=== PATIENT | male | born 1940 | race Caucasian/White ===

== ENCOUNTER → 2023-09-29 07:43 | Outpatient (REF) | payer MEDICARE, OTHER, SELFPAY ==
[2023-09-29 08:16] LABS: Hematocrit 42.3 % (39.0-52.0)
[2023-09-29 08:52] LABS: Glycohemoglobin (HgbA1c) 7.8 % (4.0-5.6)
[2023-09-29 08:57] LABS: NT-proBNP 1680 pg/ml
[2023-09-29 09:01] LABS: Calcium 9.2 mg/dl (8.4-10.2)
[2023-09-29 09:06] LABS: ALT (SGPT) 15 U/L (0-50); AST (SGOT) 20 U/L (17-59); Albumin 3.8 g/dl (3.5-5.0); Alkaline Phosphatase 145 U/L (38-126); Blood Urea Nitrogen 77 mg/dl (9-20); Carbon Dioxide 31 mmol/L (22-30); Chloride 97 mmol/L (98-107); Glucose 105 mg/dl (70-99); HDL Cholesterol 42 mg/dl; LDL Cholesterol, Calculated 44 mg/dl; Phosphorus 3.9 mg/dl (2.5-4.5); Potassium 3.9 mmol/L (3.5-5.1); Sodium 136 mmol/L (135-145); Total Bilirubin 1.1 mg/dl (0.2-1.3); Total Cholesterol 101 mg/dl (50-199); Total Protein 6.9 g/dl (6.3-8.2); Triglyceride 77 mg/dl (10-149); Very Low Density Lipoprotein 15 mg/dl (0-30); eGFR 21.57
[2023-09-29 09:08] LABS: Free T4 1.07 ng/dl (0.78-2.19)
[2023-09-30 10:42] LABS: Intact PTH 402.5 pg/ml (13.6-85.8)
== END ==
LOC: REG 07:43
PROVIDERS: Specialist; ATTENDING PHYSICIAN Family Medicine
DX: N18.4 Chronic kidney disease, stage 4 (severe) (principal); E11.29 Type 2 diabetes mellitus with other diabetic kidney complication; E78.2 Mixed hyperlipidemia; E03.9 Hypothyroidism, unspecified
CPT/HCPCS: 36415; 80053; 80061; 83036; 83880; 83970; 84100; 84439; 84443; 85014; 85018

== ENCOUNTER 2023-10-08 14:03 | Inpatient (IN) | payer MEDICARE, OTHER, SELFPAY ==
[2023-10-08 10:12] VITALS: BMI 41.1
[2023-10-08 10:31] VITALS: BP 111/68
[2023-10-08 12:58] LABS: % Basophils 0.5 % (0-2); % Eosinophils 0.6 % (0-6); % Immature Granulocytes 0.4 % (0-0.5); % Lymphocytes 14.4 % (20.5-51.1); % Monocytes 5.4 % (1.7-9.3); % Neutrophils 78.7 % (42.2-75.2); Absolute Eosinophils 0.1 10^3/uL (0-0.7); Absolute Lymphocytes 1.2 10^3/uL (1.2-3.4); Absolute Monocytes 0.5 10^3/uL (0.1-0.6); Absolute Neutrophils 6.5 10^3/uL (1.4-6.5); Hematocrit 42.7 % (39.0-52.0); Hemoglobin 13.7 g/dL (13.0-18.0); Mean Corp Hgb Conc. 32.1 g/dL (33.0-37.0); Mean Corpuscular Hgb 32.4 pg (27.0-31.0); Mean Corpuscular Volume 100.9 fL (80.0-94.0); Mean Platelet Volume 10.2 fL (7.4-10.4); Nucleated Red Blood Cells % 0 % (-); Platelet Count 204 10^3/uL (130-400); Red Blood Cell Count 4.23 10^6/uL (4.70-6.10); White Blood Cell Count 8.3 10^3/uL (4.8-10.8)
--- NOTE | 2023-10-08 13:09 | HPS.HSE ---
Family Physician
-
Family Physician: Roe Shetty
Chief Complaint
-
Right lower extremity increased erythema, weeping ulcers
History of Present Illness
83-year-old male from home where he lives with his complaining of right lower extremity increased erythema with weeping and open ulcerated areas on chronic venous stasis dermatitis. He states he uses a leg pump for 1 hour a day bilateral legs
including PRESTON stockings daily. He denies fever, chills, chest pain, palpitations, shortness breath, cough, abdominal pain, nausea, vomiting, diarrhea, urinary symptoms
He has PMH bilateral lower extremity venous stasis dermatitis, chronic diastolic CHF preserved EF, non-DE troponin elevations, permanent A-fib with RBBB, severe pulmonary HTN, CKD stage IIIb baseline creatinine 2�2.2, hypothyroidism, HTN, GERD, ARIN
intolerant to CPAP, gout, morbid obesity.
Medical History
Past Medical History
Past Medical History: Reports Other
Additional Past Medical History:
Atrial fib permanent
Basal cell carcinoma
Congestive heart failure diastolic preserved EF
Hypertension
GERD
Hyperlipidemia
type 2 diabetes
osteoarthritis
Sleep apnea
Pulmonary hypertension
Past Surgical History: Reports Other
Additional Past Surgical History:
Bilateral rotator cuff surgery
Back surgery
Carpal tunnel repair
bilateral knee replacement
Left hip replacement
Varicose vein surgery
Left side cataract surgery
Social History
Tobacco: Former Smoker (Smoked young teens)
Alcohol: None
Drug: None
Personal:
Living: With Family
Employment: Retired
Family History
Family History: Not pertinent
Allergies / Home Medications
Allergies reflects when Allergies were last updated in [employer].
Home Medications with original date entered in [employer]
Allergy/Medication List:
Allergies
Allergy/AdvReac Type Severity Reaction Status Date / Time
No Known Allergies Allergy Verified 10/08/23 10:31
Home Medications
allopurinol 300 mg tablet 300 mg PO DAILY Gout 02/08/08
atorvastatin 20 mg tablet (Lipitor) 20 mg PO DAILY High cholesterol 02/08/08
pantoprazole 40 mg tablet,delayed release 40 mg PO DAILY Gastrointestinal issue 11/29/20
empagliflozin 10 mg tablet (Jardiance) 10 mg PO DAILY 30 days #30 tabs 05/22/21
alfuzosin 10 mg tablet,extended release 24 hr 10 mg PO DAILY Urinary Issue 12/30/22
glimepiride 2 mg tablet 1 mg PO DAILY Diabetes 12/30/22
levothyroxine 50 mcg tablet 50 mcg PO DAILY Thyroid 12/30/22
polyethylene glycol 3350 17 gram/dose oral powder 17 g PO DAILY #510 grams 01/10/23
acetaminophen 500 mg tablet (Tylenol Extra Strength) 1,000 mg PO HS 10/08/23
amlodipine 5 mg tablet 5 mg PO DAILY 10/08/23
calcitriol 0.25 mcg capsule 0.25 mcg PO DAILY 10/08/23
iron 1 tab PO HS 10/08/23
metolazone 5 mg tablet 5 mg PO FR@0800 10/08/23
rivaroxaban 15 mg tablet (Xarelto) 15 mg PO HS 10/08/23
torsemide 20 mg tablet 40 mg PO DAILY 10/08/23
Review of Systems
-
History Source: Patient
A 12 point ROS was completed and negative except as noted: Yes
Constitutional: Denies Fever or Chills
EENT: Denies Sore Throat or Runny Nose
Respiratory: Denies Cough or Trouble Breathing
Cardiac: Denies Chest Pain, Diaphoresis, Palpitations or Syncope
Abdomen/GI: Denies Abdominal Pain, Nausea, Vomiting, Diarrhea, Constipated, Bloody Stools or Black Stools
: Denies Dysuria, Frequency, Flank Pain, Incontinence, Difficulty Voiding or Urgency
Musculoskeletal: Reports Edema (Chronic bilateral lower extremity +2 nonpitting with chronic underlying venous stasis); Denies Joint Pain
Skin: Reports Other (Right lower extremity erythema with ulceration secondary to chronic underlying edema/venous stasis dermatitis); Denies Itching or Rash
Neurological: Denies Dizzy, Headache or Weakness
Endocrine: Reports No Symptoms
Hematologic/Lymphatic: Reports No Symptoms
Psych: Reports Calm
Physical Exam
Vital Signs
Vital Signs
Temp Pulse Resp BP Pulse Ox
98.1 F 61 18 111/68 95
10/08/23 10:31 10/08/23 10:31 10/08/23 10:31 10/08/23 10:31 10/08/23 10:31
Physical Exam
General: Comfortable and Conversant; No Pain, Fever or Chills
HEENT: NormoCephalic, Anicteric, Moist mucous membranes, PERRLA, [place] Conjunctivae and No Ptosis
Respiratory: Clear; No Wheezes, Rales or Rhonchi
Cardiac: S1/S2, Irregular Rhythm (Permanent A-fib) and Peripheral Edema (Chronic bilateral leg edema with chronic venous stasis); No Murmur, Rub or Gallop
Breast: Deferred by me
GI: Soft, Non Tender, Non Distended, Normal Bowel Sounds, No Hepatosplenomegaly and Other (Protuberant abdomen)
Rectal: Deferred by Provider
Genito-urinary: Deferred by me
Musculoskeletal: No Clubbing, No Cyanosis, Edema, Left Lower Extremity (Chronic +2 nonpitting edema with chronic venous stasis) and Edema, Right Lower Extremity (Right lower extremity erythema with ulceration secondary to chronic underlying
edema/venous stasis dermatitis); No Edema, Left Upper Extremity or Edema, Right Upper Extremity
Skin: Warm, Dry and Ulcers (Right lower extremity erythema with ulceration secondary to chronic underlying edema/venous stasis dermatitis); No Rash
Neuro: AO x 3, No Motor Deficits, Nonfocal/grossly intact, Cranial Nerves Intact and No Sensory Deficits; No Slurred Speech, Facial Droop or Tremors
Psych: Calm
Data Reviewed
-
Lab Data: Labs Reviewed by me
Impression/Plan
-
Impression/plan:
OBS MedSurg
#Right lower extremity cellulitis with venous stasis ulcers, weeping/chronic venous stasis dermatitis/edema
#Hx chronic venous stasis dermatitis bilateral lower legs-patient wears leg pumps 1 hour daily and teds overnight
-WBC 8.3, afebrile
-Consult wound care
-Iv Ancef 2gm q8h
-Check nasal MRSA screen
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
-PT/OT/case management consult
#DM2
BS 192
Accu-Cheks with SSI, check HgbA1c
-Continue Jardiance, glimepiride
#CKD 3B
Creat 2.5 <from 2.8 on 09/29/2023 baseline 2.2-2.5
-Follow BMP
#Permanent A-fib
#Chronic RBBB
-No rate control meds listed-HR 61
-Continue Xarelto 15 mg every afternoon
#HTN�benign
Continue amlodipine 5 mg daily
-BP 111/68
#HLD
-Continue Lipitor 20 mg daily
#Chronic diastolic CHF preserved EF
-I/O, daily weights
-Continue torsemide 40 mg daily, metolazone 5 mg daily
-Follows with [facility] cardiology
2D echo 08/15/2022: EF 50-55%, normal LVS LVSF, no wall abnormalities, mild MR/TR, PA pressures 57 mmHg
#Severe pulmonary HTN-PA pressures 57 mmHg July 2022 echo
#GERD
-Continue PPI
#Hypothyroidism
-Continue levothyroxine 50 mcg,, Calcitrol 0.25 mcg daily
#ARIN�intolerant to CPAP
#Osteoarthritis
#Gout
-Continue allopurinol
#Morbid obesity due to excess calorie consumption�BMI 41.1 kg
Weight loss recommended
Low-fat 1800 ADA diet
DVT prophylaxis
Continue PRODUCT MANAGER Xarelto
Full code
[2023-10-08 13:19] LABS: ALT (SGPT) 17 U/L (0-50); AST (SGOT) 20 U/L (17-59); Albumin 3.9 g/dl (3.5-5.0); Alkaline Phosphatase 132 U/L (38-126); Blood Urea Nitrogen 92 mg/dl (9-20); Calcium 8.9 mg/dl (8.4-10.2); Carbon Dioxide 31 mmol/L (22-30); Chloride 100 mmol/L (98-107); Estimated Creatinine Clearance 29 ml/min; Glucose 192 mg/dl (70-99); Sodium 136 mmol/L (135-145); Total Bilirubin 0.8 mg/dl (0.2-1.3); eGFR 24.72
[2023-10-08] MEDS: CLEOCIN 53 MG IV (13:40)
--- NOTE | 2023-10-08 14:08 | ED.GENMED ---
History of Present Illness
General
Chief Complaint: Skin Problem
Source: patient and spouse
Exam Limitations: none
Time Seen by Provider: 10/08/23 11:11
Nursing documentation reviewed up to this point in time: agreed with
Travel History
Have you had any contact with someone who has COVID-19?: No
Do you have any symptoms of coronavirus? Fever > 100 degrees, chills, cough, shortness of breath, sore throat, loss of taste or smell, muscle aches, or headache?: No
History of Present Illness
History of Present Illness:
The patient is an 83-year-old man with a past medical history of diabetes, chronic kidney disease, and A-fib, who arrives with worsening redness and swelling of his right lower leg. Patient reports that it has gradually gotten more painful and red
over the last 2 to 3 weeks. He denies a history of PE and DVT. Patient reports that he has had chronic wounds of both of his legs, which have caused him to have frequent skin infections and bleeding. Patient reports that he is not currently on
any antibiotics and is worried about a right lower leg infection.
Past History
Past History
ED Past Medical History: Arrthythmia (afib), Cancer (Basal cell skin cancer), CHF, GERD, HTN, Hypercholesterolemia, NIDDM and Other (OA. Pulmonary Hypertension, [place] planus)
ED Past Surgical History: Orthopedic (Andres rotator cuff, Back surgery, Carpal tunnel, Andres total knee, Left THR) and Other (Varicose vein surgery , cataract surgery Left eye)
Social History
Tobacco: Former smoker
Alcohol: Occasional
Personal:
Living: with family
Employment: Retired
Family History
Family History: Other
Review of Systems
Review of Systems
Allergies reviewed?: Yes
Other source history: family
All Other Systems: ROS reviewed and negative except as documented in HPI and ROS
Constitutional: Reports no symptoms
EENT: Reports no symptoms
Respiratory: Reports no symptoms
Cardiac: Reports no symptoms
ABD/GI: Reports no symptoms
: Reports no symptoms
Musculoskeletal: Reports edema
Skin: Reports other
Neurological: Reports no symptoms
Endocrine: Reports no symptoms
Hematologic/Lymphatic: Reports bleeding
Psychiatric: Reports no symptoms
Phy Exam
Physical Exam
Physical Exam:
Physical Exam
General: no apparent distress, not acutely ill
Neck: supple.
Heart: s1/s2 regular rate and rhythm,
Lungs: no acute respiratory distress. clear bilaterally
Abdomen: Soft, nontender
Neuro: alert and oriented. no focal neurological deficits
Skin: Skin breakdown of bilateral lower extremities with significant erythema and ulcerated wounds of right lower extremity
Psychiatric: well kept. interactive and cooperative
Extremities: 1+ pitting edema in left lower extremity. 2+ pitting edema in right lower extremity with bleeding and purulent ulcerated wounds and surrounding erythema of the majority of his right lower extremity
Course
Orders/Labs/Results
Orders:
Orders
10/08/23 12:50
Complete Blood Count/With Diff Urgent
Wound Culture [Wound/Abscess/Other Culture] Urgent
AJIT Source: Leg
Specimen Description: Right
Date Specimen was Collected: 10/08/23
Time Specimen was Collected: 12:43
10/08/23 12:51
Comprehensive Metabolic Panel Urgent
Blood Culture Q30M
AJIT Source: Blood/Venous
Specimen Description:
Blood Culture Q30M
AJIT Source: Blood/Venous
Specimen Description:
10/08/23 13:18
Clindamycin Phosphate [Cleocin] 450 mg 0.9% Sodium Chloride [Nss] 50 ml IV NOW
10/08/23 13:46
Admit/Transfer Patient As Directed
Co-Sign Provider:
Level of Care: Inpatient admission
Assign to:: Medical/Surgical
Physician / Group: rivers, micky james
Diagnosis: Right lower extremity cellulitis on chronic venous stasis dermatitis
Reason for Hospitalization: Right lower extremity cellulitis on chronic venous stasis dermatitis
Expected length of stay greater than two midnights?: Yes
ELOS- Estimated Length of Stay in days: 4
I certify the patient meets the requirements for IP care: Yes
Code Status As Directed
Resuscitation Status: Full Code
10/08/23 14:[address] Non Medication Order As Directed
Physician Order: tubie boilermaker apprentice stocking bilat legs start 10/09/23
10/08/23 14:07
MRSA Screen Routine
AJIT Source: Nose
Specimen Description:
10/08/23 16:00
CeFAZolin 2 GRAM [Ancef] 2 grams in 10 ml IV Q8H
Abnormal Lab Results
10/08/23 10/08/23
12:50 12:51
RBC 4.23 L 10^6/uL
(4.70-6.10)
MCV 100.9 H fL
(80.0-94.0)
MCH 32.4 H pg
(27.0-31.0)
MCHC 32.1 L g/dL
(33.0-37.0)
RDW 15.0 H %
(11.5-14.5)
Neutrophils % 78.7 H %
(42.2-75.2)
Lymphocytes % 14.4 L %
(20.5-51.1)
Carbon Dioxide 31 H mmol/L
(22-30)
BUN 92 H mg/dl
(9-20)
Creatinine 2.5 H mg/dL
(0.7-1.3)
Glucose 192 H mg/dl
(70-99)
Alkaline Phosphatase 132 H U/L
(38-126)
10/08/23 12:50
10/08/23 12:51
Vital Signs
Initial and Last Documented VS:
Initial Vital Signs
Temp Pulse Resp BP Pulse Ox
98.1 F 61 18 111/68 95
10/08/23 10:31 10/08/23 10:31 10/08/23 10:31 10/08/23 10:31 10/08/23 10:31
Last Documented Vital Signs
Temp Pulse Resp BP Pulse Ox
98.1 F 61 18 111/68 95
10/08/23 10:31 10/08/23 10:31 10/08/23 10:31 10/08/23 10:31 10/08/23 10:31
MDM/Problems Addressed
Differential Diagnosis Includes:
Infected leg wounds, right leg DVT, osteo
MDM/Problems Addressed:
Patient presents with worsening swelling and redness surrounding chronic wounds of his right lower leg
Chronic conditions affecting care: DM and Kidney disease
*Pulse Oximetry
Patient hypoxic: no
*EKG
Interpreted by ED Provider?: NA
*Hydroelectric Mechanic Interpretation
Rate: Hydroelectric Mechanic- N/A
*Critical Care Note
Total Time (30-74mins, 75-104mins- exclusive of procedures): Not Applicable
Data Reviewed
Review of Other/Old Records Reveals: Discharge Summary (Discharge summary reviewed from 01/2023 when patient was admitted for respiratory distress and CHF)
Source: patient and spouse
Patient Management
Discussion with other providers: Hospitalist
Escalation/DeEscalation of care consider admission/obs:
Patient will be admitted for right lower extremity cellulitis
ED Attending Note
-
Portions of this chart may have been created with voice recognition software.� Occasional wrong word or��sound alike� substitutions may have occurred due to the inherent limitations of voice recognition software.
Discharge Plan
Departure
Patient Disposition: Admit
Date of Disposition: 10/08/23
Time of Disposition: 12:45
Admit to: Med/Surg
Presentation/result/management discussed w/ accepting MD/DO: Hospitalist
Patient with high blood pressure during this ER visit?: Yes
Covid-19: Not Applicable
Discharge Problem:
Cellulitis of leg, right, Infected leg wounds
Interventions
Interventions:
*Risk Screen - Suicide Last Done: 10/08/23 12:40
*General Assessment Last Done: 10/08/23 12:40
*Neglect/Abuse Screening Last Done: 10/08/23 12:40
ED- Fall Risk Assessment Last Done: 10/08/23 12:40
*ED COVID-19 Vaccine History Last Done: 10/08/23 12:40
ED-Skin Assessment Last Done: 10/08/23 12:40
--- NOTE | 2023-10-08 14:30 | W.PN.UPDATE ---
Update Note
Progress Note Update
This serves as an addendum to H&P dictated by Kusum Genao.
I saw and examined the patient.
The PHYSICAL CHEMISTRY TEACHER or PA's note was reviewed and I agree with the note.
Comment:
Patient 83 years old male history of A-fib, CHF, hypertension, GERD, hyperlipidemia, diabetes mellitus type 2, osteoarthritis, ARIN, pulmonary hypertension, who came into the hospital with increased right lower extremity erythema and weeping from
open ulcerated areas and bilateral lower extremity swelling. He denies any fevers or chills. Denies nausea vomiting or diarrhea. Denies chest pain or shortness of breath.
Physical exam:
General: Chronically ill
HEENT: Normocephalic, Atraumatic and Moist Mucous Membranes
Respiratory: Clear to Auscultation; Negative Wheezes, Rales or Rhonchi
Cardiac: Regular Rhythm and S1/S2
GI: Soft, Nontender and Nondistended
Musculoskeletal: Bilateral lower extremity erythema and edema more pronounced on the right. No Clubbing, No Cyanosis
Neuro: Awake, Alert and Oriented
Psych: Calm
A/P:
Cellulitis RLE in the setting of chronic venous stasis--> IV cefazolin, follow-up cultures, elevate extremity, compression stockings. Wound care consult. PT eval. Further recommendations based on clinical course.
[2023-10-08 16:41] VITALS: BP 156/83
[2023-10-08] MEDS: ANCEF 10 IV ×2 (17:29→23:49)
[2023-10-08] MEDS: NOVOLOG FLEXPEN-LOW RESISTANCE SC (17:29)
[2023-10-08 17:30] LABS: Glucose - Point of Care 111 mg/dl (70-99)
[2023-10-08] MEDS: TYLENOL 1000 MG PO (20:39)
[2023-10-08] MEDS: XARELTO 15 MG PO (20:40)
[2023-10-08 21:30] LABS: Glucose - Point of Care 123 mg/dl (70-99)
[2023-10-08 23:18] VITALS: BP 139/81
[2023-10-09] MEDS: SYNTHROID 50 MCG PO (05:23)
--- NOTE | 2023-10-09 07:17 | W.PN.HOSP.TC ---
Today's Communication/Plan
-
IV antibiotics.
Assessment / Plan
Assessment / Plan
Physical exam:
General: Chronically ill
HEENT: Normocephalic, Atraumatic and Moist Mucous Membranes
Respiratory: Clear to Auscultation; Negative Wheezes, Rales or Rhonchi
Cardiac: Regular Rhythm and S1/S2
GI: Soft, Nontender and Nondistended
Musculoskeletal: Bilateral lower extremity erythema and edema more pronounced on the right. No Clubbing, No Cyanosis
Neuro: Awake, Alert and Oriented
Psych: Calm
A/P:
#Right lower extremity cellulitis with venous stasis ulcers, weeping/chronic venous stasis dermatitis/edema
#Hx chronic venous stasis dermatitis bilateral lower legs-patient wears leg pumps 1 hour daily and teds overnight
-WBC 6.9, afebrile
-Consulted wound care and continue local care
-Continue IV cefazolin 2gm q8h
-Check nasal MRSA screen and pending
- resume tubi nutrition technician
-PT/OT/case management consult
#DM2
Accu-Cheks with SSI, on 09/28 HgbA1c was 7.8
-Continue Jardiance, glimepiride
#CKD 3B
Creat 2.4 stable <from 2.8 on 09/29/2023 baseline 2.2-2.5
-Follow BMP
#Permanent A-fib
#Chronic RBBB
-No rate control meds listed-HR 63
-Continue Xarelto 15 mg every afternoon
#HTN�benign
Continue amlodipine 5 mg daily
-BP stable but adjust medications accordingly
#HLD
-Continue Lipitor 20 mg daily
#Chronic diastolic CHF preserved EF
-I/O, daily weights
-Continue torsemide 40 mg daily, metolazone 5 mg daily
-Follows with [facility] cardiology
2D echo 08/15/2022: EF 50-55%, normal LVS LVSF, no wall abnormalities, mild MR/TR, PA pressures 57 mmHg
#Severe pulmonary HTN-PA pressures 57 mmHg July 2022 echo
#GERD
-Continue PPI
#Hypothyroidism
-Continue levothyroxine 50 mcg,, Calcitriol 0.25 mcg daily
#ARIN�intolerant to CPAP
#Osteoarthritis
#Gout
-Continue allopurinol
#Morbid obesity due to excess calorie consumption�BMI 41.1 kg
Weight loss recommended
Low-fat 1800 ADA diet
DVT prophylaxis
Continue SUSTAIN ENGINEER Xarelto
Full code
Anticipated Discharge: 24 - 48 hours
Subjective/Interval History
-
Date of Service: October 09, 2023
Patient feels erythema is receding and less discomfort overall. Denies nausea vomiting or diarrhea. Afebrile
Objective Data
-
Labs:
Laboratory Results
10/09/23
06:53
WBC Pending
Hgb Pending
Hct Pending
Plt Count Pending
Sodium Pending
Potassium Pending
Chloride Pending
Carbon Dioxide Pending
BUN Pending
Creatinine Pending
Glucose Pending
Calcium Pending
Vital Signs:
Vital Signs
Temp Pulse Resp BP Pulse Ox
98.1 F 102 18 139/81 92
10/08/23 23:18 10/08/23 23:18 10/08/23 23:18 10/08/23 23:18 10/08/23 23:18
I&O
10/08/23 10/09/23 10/10/23
06:59 06:59 06:59
Intake Total 360 / 360
Balance 360 / 360
Review of Systems
-
All other systems: Reviewed and negative
[2023-10-09 07:26] LABS: Glucose - Point of Care 87 mg/dl (70-99)
[2023-10-09 07:30] VITALS: BP 169/86
[2023-10-09] MEDS: NOVOLOG FLEXPEN-LOW RESISTANCE SC ×2 (07:30→12:05)
[2023-10-09 07:37] LABS: % Basophils 0.4 % (0-2); % Immature Granulocytes 0.1 % (0-0.5); % Lymphocytes 21.4 % (20.5-51.1); % Monocytes 6.7 % (1.7-9.3); % Neutrophils 70.4 % (42.2-75.2); Absolute Eosinophils 0.1 10^3/uL (0-0.7); Absolute Lymphocytes 1.5 10^3/uL (1.2-3.4); Absolute Monocytes 0.5 10^3/uL (0.1-0.6); Absolute Neutrophils 4.9 10^3/uL (1.4-6.5); Hematocrit 41.8 % (39.0-52.0); Hemoglobin 13.4 g/dL (13.0-18.0); Mean Corp Hgb Conc. 32.1 g/dL (33.0-37.0); Mean Corpuscular Hgb 32.4 pg (27.0-31.0); Mean Platelet Volume 10.2 fL (7.4-10.4); Nucleated Red Blood Cells % 0 % (-); Platelet Count 187 10^3/uL (130-400); Red Blood Cell Count 4.14 10^6/uL (4.70-6.10); Red Cell Dist. Width 14.9 % (11.5-14.5); White Blood Cell Count 6.9 10^3/uL (4.8-10.8)
[2023-10-09 08:41] LABS: Blood Urea Nitrogen 85 mg/dl (9-20); Calcium 8.9 mg/dl (8.4-10.2); Carbon Dioxide 32 mmol/L (22-30); Chloride 100 mmol/L (98-107); Estimated Creatinine Clearance 30 ml/min; Glucose 80 mg/dl (70-99); Potassium 3.9 mmol/L (3.5-5.1); Sodium 137 mmol/L (135-145); eGFR 25.96
[2023-10-09] MEDS: NORVASC 5 MG PO (09:12)
[2023-10-09] MEDS: DEMADEX 40 MG PO (09:12)
[2023-10-09] MEDS: ZYLOPRIM 300 MG PO (09:12)
[2023-10-09] MEDS: ROCALTROL 0.25 MCG PO (09:12)
[2023-10-09] MEDS: AMARYL 1 MG PO (09:12)
[2023-10-09] MEDS: PROTONIX 40 MG PO (09:12)
[2023-10-09] MEDS: JARDIANCE 10 MG PO (09:12)
[2023-10-09] MEDS: LIPITOR 20 MG PO (09:12)
[2023-10-09] MEDS: FLOMAX 0.400000000000000022 MG PO (09:12)
[2023-10-09] MEDS: ZAROXOLYN 5 MG PO (09:12)
[2023-10-09] MEDS: ANCEF 10 IV ×3 (09:13→23:32)
[2023-10-09 10:50] VITALS: BP 156/72; O2SAT 98
--- NOTE | 2023-10-09 10:57 | PTOTSP ---
pt currently requires no assistance to complete simple ADLs, functional transfers, ambulation. pt reports RLE swelling is better than when first admitted. no acute OT needs identified at this time, will sign off.
[2023-10-09 12:00] LABS: Glucose - Point of Care 127 mg/dl (70-99)
--- NOTE | 2023-10-09 12:08 | WOUNDNOTE ---
[facility] RN note: Patient admitted with venous stasis and cellulitis of right leg
See H&P for complete history.
PMH: Venous insufficiently, lymphedema, pulmonary HTN, CHF, A-fib, arthritis
Wound Location and type/assessment: Patient admitted with: Right LE venous appearing wound. Wound is draining moderate amounts of serosanguineous drainage. Periwound is macerated and the granular wound bed has areas of hypergranulation. Patient has
+ pedal pulses and +2 edema bilaterally. He states he wears lymphedema pumps daily for 1 hour daily. Left leg with thick crusts that patient states he has had for 20+ years. He reports getting vein treatment of left leg when he lived in [place] but
it did not help improve skin. He was also evaluated by a raveler but could not recall diagnosis. Even without the crust, skin bilaterally has venous stasis changes. Heels and sacrum intact.
Appetite: Good
Pressure redistribution devices in place: Versa- Care accumax. Patient turns self and ambulates
Plan: Keep wound cleaned and covered as ordered to help manage drainage. Moisturize dry areas with Aquaphor. Re-apply compression daily. Recommend follow up at [facility], patient agrees. TORI Lagunas in CM to notify that patient will need and WCC at
discharge. Will confirm orders with hospitalist and update nurse. Updated care plan and will follow as needed.
Note to case management of equipment requested for discharge:
Recommend follow up at wound care center upon discharge. Yes
[2023-10-09] MEDS: HYDROPHOR TOPICAL (12:37)
--- NOTE | 2023-10-09 13:48 | VNURNOTE ---
Home Health Liaison met with patient and spouse Elizabeth at 1245 to discuss [facility] nurse/therapy, visits, schedule and homebound status. Patient is agreeable and understands that visits at home will be 2-3 x per week to assess and teach medical
management.
[facility] brochure provided with contact information. Patient is aware that [facility] will contact them for start of care in 1-2 days after discharge from .
[facility] referral completed in [facility].
[2023-10-09 15:33] VITALS: BP 157/72
[2023-10-09 16:34] LABS: Glucose - Point of Care 175 mg/dl (70-99)
[2023-10-09] MEDS: NOVOLOG FLEXPEN-LOW RESISTANCE 1 UNITS SC (17:59)
[2023-10-09] MEDS: TYLENOL 1000 MG PO (21:42)
[2023-10-09] MEDS: XARELTO 15 MG PO (21:43)
[2023-10-09 22:15] LABS: Glucose - Point of Care 122 mg/dl (70-99)
[2023-10-09 23:08] VITALS: BP 122/73
[2023-10-10 06:00] VITALS: BMI 39.8
[2023-10-10] MEDS: SYNTHROID 50 MCG PO (06:14)
[2023-10-10 07:21] LABS: % Basophils 0.5 % (0-2); % Eosinophils 0.9 % (0-6); % Immature Granulocytes 0.5 % (0-0.5); % Lymphocytes 18.2 % (20.5-51.1); % Monocytes 8.4 % (1.7-9.3); % Neutrophils 71.5 % (42.2-75.2); Absolute Eosinophils 0.1 10^3/uL (0-0.7); Absolute Lymphocytes 1.3 10^3/uL (1.2-3.4); Absolute Monocytes 0.6 10^3/uL (0.1-0.6); Absolute Neutrophils 5.3 10^3/uL (1.4-6.5); Hemoglobin 13.3 g/dL (13.0-18.0); Mean Corp Hgb Conc. 33.3 g/dL (33.0-37.0); Mean Corpuscular Hgb 32.6 pg (27.0-31.0); Mean Platelet Volume 10.2 fL (7.4-10.4); Nucleated Red Blood Cells % 0 % (-); Platelet Count 189 10^3/uL (130-400); Red Blood Cell Count 4.08 10^6/uL (4.70-6.10); Red Cell Dist. Width 14.8 % (11.5-14.5); White Blood Cell Count 7.4 10^3/uL (4.8-10.8)
[2023-10-10 07:24] LABS: Glucose - Point of Care 80 mg/dl (70-99)
[2023-10-10 08:04] VITALS: BP 144/77
[2023-10-10] MEDS: DEMADEX 40 MG PO (08:35)
[2023-10-10] MEDS: NORVASC 5 MG PO (08:35)
[2023-10-10] MEDS: ZYLOPRIM 300 MG PO (08:35)
[2023-10-10] MEDS: FLOMAX 0.400000000000000022 MG PO (08:35)
[2023-10-10] MEDS: NOVOLOG FLEXPEN-LOW RESISTANCE SC ×2 (08:35→17:08)
[2023-10-10] MEDS: AMARYL 1 MG PO (08:36)
[2023-10-10] MEDS: PROTONIX 40 MG PO (08:36)
[2023-10-10] MEDS: ANCEF 10 IV (08:36)
[2023-10-10] MEDS: JARDIANCE 10 MG PO (08:36)
[2023-10-10] MEDS: HYDROPHOR 1 APPLIC TOPICAL (08:36)
[2023-10-10] MEDS: LIPITOR 20 MG PO (08:36)
[2023-10-10] MEDS: ROCALTROL 0.25 MCG PO (08:36)
[2023-10-10 09:11] LABS: Blood Urea Nitrogen 83 mg/dl (9-20); Carbon Dioxide 30 mmol/L (22-30); Chloride 99 mmol/L (98-107); Estimated Creatinine Clearance 30 ml/min; Glucose 70 mg/dl (70-99); Potassium 3.8 mmol/L (3.5-5.1); Sodium 137 mmol/L (135-145); eGFR 25.96
--- NOTE | 2023-10-10 10:36 | W.PN.HOSP.TC ---
Today's Communication/Plan
-
With resistance to cefazolin will need to change antibiotic
Wound note reviewed
Will consult ID as given his significant chronic kidney disease antibiotic options may be limited
Will place on meropenem for now awaiting ID input for an outpatient course of therapy hopefully orally
Assessment / Plan
Assessment / Plan
Physical exam:
General: Chronically ill
HEENT: Normocephalic, Atraumatic and Moist Mucous Membranes
Respiratory: Clear to Auscultation; Negative Wheezes, Rales or Rhonchi
Cardiac: Regular Rhythm and S1/S2
GI: Soft, Nontender and Nondistended
Musculoskeletal: Bilateral lower extremity erythema and edema more pronounced on the right. No Clubbing, No Cyanosis
Neuro: Awake, Alert and Oriented
Psych: Calm
A/P:
#Right lower extremity cellulitis with venous stasis ulcers, weeping/chronic venous stasis dermatitis/edema
#Hx chronic venous stasis dermatitis bilateral lower legs-patient wears leg pumps 1 hour daily and teds overnight
-WBC 6.9, afebrile
-Consulted wound care and continue local care/reviewed notes and photos
-Initial wound cultures growing Enterobacter cloacae/staph species
-Has been on cefazolin but wound culture showing resistance on sensitivities
-Check nasal MRSA screen was negative
- resume tubi boring machine operator horizontal
-PT/OT/case management consult
#DM2
Accu-Cheks with SSI, on 09/28 HgbA1c was 7.8
-Continue Jardiance, glimepiride
#CKD 3B
Creat 2.4 stable <from 2.8 on 09/29/2023 baseline 2.2-2.5
-Follow BMP
#Permanent A-fib
#Chronic RBBB
-No rate control meds listed-HR 63
-Continue Xarelto 15 mg every afternoon
#HTN�benign
Continue amlodipine 5 mg daily
-BP stable but adjust medications accordingly
#HLD
-Continue Lipitor 20 mg daily
#Chronic diastolic CHF preserved EF
-I/O, daily weights
-Continue torsemide 40 mg daily, metolazone 5 mg daily
-Follows with [facility] cardiology
2D echo 08/15/2022: EF 50-55%, normal LVS LVSF, no wall abnormalities, mild MR/TR, PA pressures 57 mmHg
#Severe pulmonary HTN-PA pressures 57 mmHg July 2022 echo
#GERD
-Continue PPI
#Hypothyroidism
-Continue levothyroxine 50 mcg,, Calcitriol 0.25 mcg daily
#ARIN�intolerant to CPAP
#Osteoarthritis
#Gout
-Continue allopurinol
#Morbid obesity due to excess calorie consumption�BMI 41.1 kg
Weight loss recommended
Low-fat 1800 ADA diet
DVT prophylaxis
Continue PREP MANAGER Xarelto
Full code
Anticipated Discharge: Within 24 hours
Subjective/Interval History
-
Date of Service: October 10, 2023
Comfortable no distress who is expected to go home today but I reviewed the culture results and the need to change antibiotic and possible need to get ID input
Objective Data
-
Labs:
Laboratory Results
10/10/23
07:05
WBC 7.4
Hgb 13.3
Hct 40.0
Plt Count 189
Sodium 137
Potassium 3.8
Chloride 99
Carbon Dioxide 30
BUN 83 H
Creatinine 2.4 H
Glucose 70
Calcium 9.0
Vital Signs:
Vital Signs
Temp Pulse Resp BP Pulse Ox
98.8 F 52 16 144/77 96
10/10/23 08:04 10/10/23 08:04 10/10/23 08:04 10/10/23 08:04 10/10/23 08:04
I&O
10/09/23 10/10/23 10/11/23
06:59 06:59 06:59
Intake Total 360 / 360 600 / 600 480 / 480
Balance 360 / 360 600 / 600 480 / 480
Review of Systems
-
Unable to obtain full review of systems at this time due to: Dementia
History Source: Patient
All other systems: Reviewed and negative
Constitutional: Reports No Symptoms
EENT: Reports No Symptoms Reported
Respiratory: Reports No Symptoms
Skin: Reports Rash and Sores
Physical Exam
-
General: Well Developed
HEENT: Normocephalic
Respiratory: Clear to Auscultation
Cardiac: Regular Rhythm
GI: Soft, Nontender and Nondistended
Skin: Ulcers (Right pretibial more worse than left higher aspect worse), Lesions and IV Access / Catheter Site
Neuro: Awake, Alert and Oriented
Psych: Calm
Data Reviewed
-
Total Time Spent with Patient (in minutes): 56
Labs: Labs Reviewed by me (Creatinine stable at 2.4/wound culture came back with Enterobacter cloacae and staph species/MRSA screen was negative/sensitivities reported resistance to cefazolin)
--- NOTE | 2023-10-10 10:54 | PTCARENOTE ---
Patient OOB to bathroom with a steady gait. Patient has minimal c/o RLE pain, denies need for pain med. Patient with B/L mayank compression wraps on and tolerating.
[2023-10-10 11:14] LABS: Glucose - Point of Care 177 mg/dl (70-99)
[2023-10-10] MEDS: STERILE WATER FOR INJECTION 20 ML IV (11:32)
[2023-10-10] MEDS: NOVOLOG FLEXPEN-LOW RESISTANCE 1 UNITS SC (11:32)
[2023-10-10] MEDS: MERREM 1000 MG IV (11:32)
--- NOTE | 2023-10-10 14:29 | CON.ID ---
Consultation
-
Date/Time Consultation Requested: 10/10/23 1045
Date/Time Consultation Performed: 10/10/2023 1400
Requesting Provider: Dr. Parham
Performing Provider: Dr. Gonzales
Reason for Consultation: Lower extremity wounds
Chief Complaint / Past History
History of Present Illness
Michael Gibobns is an 83-year-old man being evaluated at the request of Dr. Parham in regards to lower extremity wounds and drainage. History is obtained from chart review, along with patient interview.
The patient reports a longstanding history of lower extremity venous insufficiency, and notes that his legs have been 'bad' for the past 20 years. He states that he uses lower extremity compression garments, along with a lymphatic pump, but over
the past 2 weeks he has noted new blisters and some general oozing from the lower extremities. He became increasingly concerned with the bruise in the wounds and presented to the emergency room for further evaluation. He denies any recent fevers
or chills. He denies any recent pain in the lower extremities. He reports prior vein surgery to the lower extremities. He denies any purulence or spreading erythema in the lower extremities
Past History
Additional Past Medical History:
CHF
A-fib
Pulmonary hypertension
CKD stage IIIb
Hypothyroidism
HTN
GERD
ARIN
Gout
Obesity
Basal cell carcinoma
Additional Past Surgical History:
Bilateral rotator cuff surgery
Back surgery
Carpal tunnel repair
Bilateral knee replacement
Left hip replacement
Varicose vein surgery
Left side cataract surgery
Allergy History:
No Known Allergies Allergy (Verified 10/08/23 10:31)
Medications Reviewed: Yes
Current Antibiotics:
Cefazolin 2 g IV every 8 hours
Social History
Tobacco: Non-Smoker
Alcohol: None
Drug: None
Employment: Retired
Family History
Family History: Not Pertinent
Review of Systems
Vital Signs
Temp Pulse Resp BP Pulse Ox
98.8 F 52 16 144/77 96
10/10/23 08:04 10/10/23 08:04 10/10/23 08:04 10/10/23 08:04 10/10/23 08:04
Physical Exam
Physical Exam
Constitutional: No Acute Distress, Comfortable, Non-toxic and Obese
Head: Normocephalic
Eyes: Pupils Equal, Pupils Round, No Conjunctival Hemorrhage and Sclera Anicteric
Oral: No Thrush and No Ulcers
Cardiovascular: S1/S2; Negative S3/S4
Pulmonary: Clear; Negative Wheezes, Rales or Rhonchi
Gastrointestinal: Soft, Non Tender, Non Distended and Normal Bowel Sounds
Extremities: Edema (B/L LE's) and Venous Insufficiency (Moderate-severe bilateral lower extremities); Negative Erythema
Wound: Other (Multiple wounds lower extremities along with dried crusts. Some areas of bloody ooze.)
Neurological: Awake and Alert
Psychological: Calm
Lab / Diagnostic Study Results
10/10/23 07:05
10/10/23 07:05
Abs Immat Gran (auto) 0.0 10^3/uL (0-0.05) 10/10/23 07:05
Absolute Neuts (auto) 5.3 10^3/uL (1.4-6.5) 10/10/23 07:05
Absolute Lymphs (auto) 1.3 10^3/uL (1.2-3.4) 10/10/23 07:05
Absolute Monos (auto) 0.6 10^3/uL (0.1-0.6) 10/10/23 07:05
Absolute Basos (auto) 0.0 10^3/uL (0-0.2) 10/10/23 07:05
Immature Gran % 0.5 % (0-0.5) 10/10/23 07:05
Neutrophils % 71.5 % (42.2-75.2) 10/10/23 07:05
Lymphocytes % 18.2 % (20.5-51.1) L 10/10/23 07:05
Monocytes % 8.4 % (1.7-9.3) 10/10/23 07:05
Eosinophils % 0.9 % (0-6) 10/10/23 07:05
Basophils % 0.5 % (0-2) 10/10/23 07:05
Microbiology Results
Micro:
10/08/23 12:51 Blood Culture - Preliminary
Blood/Venous No Growth in 48 hours- Final report to follow
10/08/23 12:51 Blood Culture - Preliminary
Blood/Venous No Growth in 48 hours- Final report to follow
10/08/23 12:50 Wound Culture - Preliminary
Leg - Right Enterobacter cloacae
Staphylococcus species
Gram Stain - Preliminary
10/08/23 14:07 MRSA Screen - Final
Nose No Methicillin Resistant Staphylococcus aureus isolated.
Assessment / Plan
Bilateral lower extremity venous insufficiency
Bilateral lower extremity wounds
CHF
A-fib
Pulmonary hypertension
CKD stage IIIb
Hypothyroidism
HTN
GERD
ARIN
Gout
Obesity
Basal cell carcinoma
Recommendations:
Culture results reviewed, although these were superficial wound cultures, and likely reflect significant colonization. Growth on superficial wound cultures and is to be somewhat expected. Clinically, little evidence of cellulitis, although patient
has significant wounds related to his venous insufficiency.
Moving forward, continue with lower extremity compressive modalities in the form of Tubigrip, Gurwinder wrap, etc. Would hold on pneumatic compression boots for now.
Transition antibiotics to oral therapy.
Local care to the open woulds. Can use Vash wash, then Adaptic covered by ABD and then Graciela.
Patient would likely benefit from evaluation in a wound care center for ongoing care of the right lower extremity wounds (posterior calf area).
Would also have patient evaluated by dermatology in the outpatient setting as he may need biopsies of several of the areas to assure that there is no malignancy.
Additionally, check lower extremity ABIs to assess healing potential.
[2023-10-10] MEDS: KEFLEX 500 MG PO ×2 (15:57→22:41)
[2023-10-10 17:08] LABS: Glucose - Point of Care 115 mg/dl (70-99)
[2023-10-10 17:59] VITALS: BP 145/79
[2023-10-10] MEDS: TYLENOL 1000 MG PO (22:41)
[2023-10-10] MEDS: XARELTO 15 MG PO (22:41)
[2023-10-10 22:50] VITALS: BP 143/78
[2023-10-10 22:52] LABS: Glucose - Point of Care 133 mg/dl (70-99)
[2023-10-11 06:00] VITALS: BMI 39.7
[2023-10-11] MEDS: KEFLEX 500 MG PO (06:23)
[2023-10-11] MEDS: SYNTHROID 50 MCG PO (06:23)
[2023-10-11 07:50] LABS: Glucose - Point of Care 80 mg/dl (70-99)
[2023-10-11 07:50] LABS: % Basophils 0.5 % (0-2); % Immature Granulocytes 0.4 % (0-0.5); % Lymphocytes 21.5 % (20.5-51.1); % Neutrophils 70.6 % (42.2-75.2); Absolute Eosinophils 0.1 10^3/uL (0-0.7); Absolute Lymphocytes 1.8 10^3/uL (1.2-3.4); Absolute Monocytes 0.5 10^3/uL (0.1-0.6); Absolute Neutrophils 5.8 10^3/uL (1.4-6.5); Hematocrit 44.9 % (39.0-52.0); Hemoglobin 14.3 g/dL (13.0-18.0); Mean Corp Hgb Conc. 31.8 g/dL (33.0-37.0); Mean Corpuscular Hgb 31.9 pg (27.0-31.0); Mean Corpuscular Volume 100.2 fL (80.0-94.0); Mean Platelet Volume 10.4 fL (7.4-10.4); Nucleated Red Blood Cells % 0 % (-); Platelet Count 228 10^3/uL (130-400); Red Blood Cell Count 4.48 10^6/uL (4.70-6.10); Red Cell Dist. Width 14.9 % (11.5-14.5); White Blood Cell Count 8.2 10^3/uL (4.8-10.8)
[2023-10-11] MEDS: DEMADEX 40 MG PO (07:57)
[2023-10-11] MEDS: LIPITOR 20 MG PO (07:57)
[2023-10-11] MEDS: AMARYL 1 MG PO (07:57)
[2023-10-11] MEDS: NORVASC 5 MG PO (07:57)
[2023-10-11] MEDS: FLOMAX 0.400000000000000022 MG PO (07:57)
[2023-10-11 07:58] VITALS: BP 136/74
[2023-10-11] MEDS: PROTONIX 40 MG PO (07:58)
[2023-10-11] MEDS: ZYLOPRIM 300 MG PO (07:58)
[2023-10-11] MEDS: JARDIANCE 10 MG PO (07:58)
[2023-10-11] MEDS: ROCALTROL 0.25 MCG PO (07:58)
[2023-10-11] MEDS: NOVOLOG FLEXPEN-LOW RESISTANCE SC (07:59)
[2023-10-11] MEDS: HYDROPHOR 1 APPLIC TOPICAL (08:03)
[2023-10-11 08:10] LABS: Blood Urea Nitrogen 82 mg/dl (9-20); Calcium 9.5 mg/dl (8.4-10.2); Carbon Dioxide 32 mmol/L (22-30); Chloride 97 mmol/L (98-107); Estimated Creatinine Clearance 27 ml/min; Glucose 95 mg/dl (70-99); Potassium 3.8 mmol/L (3.5-5.1); Sodium 138 mmol/L (135-145); eGFR 23.58
--- NOTE | 2023-10-11 11:07 | W.DS.TRANS ---
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
-
Discharge Instructions:
Discharge Diagnosis/Procedures Right lower extremity cellulitis with venous
stasis ulcers
Chronic kidney disease stage IIIb
Benign essential hypertension
Permanent atrial fibrillation
Chronic diastolic heart failure with preserved
ejection fraction
Diet As tolerated
Driving Restrictions As prior to admission
Wound Care Needs to follow-up with wound care with
instructions as below refused home health
Instructions:
Stand-Alone Forms:
Changes to Home Medications: Yes
Discharge Medications:
DC Medications w/original date entered in [facility]
allopurinol 300 mg tablet 300 mg PO DAILY Gout 02/08/08
atorvastatin 20 mg tablet (Lipitor) 20 mg PO DAILY High cholesterol 02/08/08
pantoprazole 40 mg tablet,delayed release 40 mg PO DAILY Gastrointestinal issue 11/29/20
empagliflozin 10 mg tablet (Jardiance) 10 mg PO DAILY 30 days #30 tabs 05/22/21
alfuzosin 10 mg tablet,extended release 24 hr 10 mg PO DAILY Urinary Issue 12/30/22
glimepiride 2 mg tablet 1 mg PO DAILY Diabetes 12/30/22
levothyroxine 50 mcg tablet 50 mcg PO DAILY Thyroid 12/30/22
acetaminophen 500 mg tablet (Tylenol Extra Strength) 1,000 mg PO HS pain 10/08/23
amlodipine 5 mg tablet 5 mg PO DAILY Blood Pressure 10/08/23
calcitriol 0.25 mcg capsule 0.25 mcg PO DAILY Kidney Disease 10/08/23
iron 1 tab PO HS Supplement 10/08/23
metolazone 5 mg tablet 5 mg PO FR@0800 Fluid Retention/Swelling 10/08/23
rivaroxaban 15 mg tablet (Xarelto) 15 mg PO HS Blood Clot Prevention/Tx 10/08/23
torsemide 20 mg tablet 40 mg PO DAILY Fluid Retention/Swelling 10/08/23
polyethylene glycol 3350 17 gram/dose oral powder 17 g PO DAILY Constipation 10/09/23
cephalexin 500 mg capsule 500 mg PO Q8H #20 caps 10/11/23
Home Medication Changes
cephalexin 500 mg capsule 500 mg PO Q8H #20 caps 10/11/23
Pending Results: No
Total time spent discharging patient (in min): 39
--- NOTE | 2023-10-11 11:32 | W.PN.ID1 ---
Date of Service
Date of Service: October 11, 2023
Today's Communication
Continue Keflex, along with local care to the foot.
Assessment / Plan
Bilateral lower extremity venous insufficiency
Bilateral lower extremity wounds
CHF
A-fib
Pulmonary hypertension
CKD stage IIIb
Hypothyroidism
HTN
GERD
ARIN
Gout
Obesity
Basal cell carcinoma
Recommendations:
Culture results reviewed, although these were superficial wound cultures, and likely reflect significant colonization. Growth on superficial wound cultures and is to be somewhat expected. Clinically, little evidence of cellulitis, although patient
has significant wounds related to his venous insufficiency.
Moving forward, continue with lower extremity compressive modalities in the form of Tubigrip, Gurwinder wrap, etc. Would hold on pneumatic compression boots for now.
Continue Keflex.
Local care to the open wounds. Can use Vash wash, then Adaptic covered by ABD and then Graciela.
Patient would likely benefit from evaluation in a wound care center for ongoing care of the right lower extremity wounds (posterior calf area).
Would also have patient evaluated by dermatology in the outpatient setting as he may need biopsies of several of the areas to assure that there is no malignancy.
Additionally, check lower extremity ABIs to assess healing potential - ordered, but could be done as an outpatient.
Chief Complaint
-: Cellulitis
Subjective / Review of Systems
Review of Systems: No Fever and No Chills
Vital Signs / Physical Exam
Vital Signs
Vital Signs
Temp Pulse Resp BP Pulse Ox
97.8 F 78 16 136/74 96
10/11/23 07:58 10/11/23 07:57 10/11/23 07:58 10/11/23 07:58 10/11/23 07:58
Physical Exam
Constitutional: No Acute Distress, Comfortable and Non-toxic
Eyes: Sclera Anicteric
Pulmonary: Non Labored
Wound: Other (Bilateral lower extremities wrapped in Gurwinder wrap. No strikethrough. No extension of erythema extending up leg.)
Neurological: Awake and Alert
Psychological: Calm
Objective Data
Lab Data
Lab Results
10/11/23 06:58
10/11/23 06:58
Estimated Creat Clear 27 ml/min 10/11/23 06:58
Total Bilirubin 0.8 mg/dl (0.2-1.3) 10/08/23 12:51
AST 20 U/L (17-59) 10/08/23 12:51
ALT 17 U/L (0-50) 10/08/23 12:51
Alkaline Phosphatase 132 U/L (38-126) H 10/08/23 12:51
Most recent labs reviewed.
Micro Results:
10/08/23 12:50 Wound Culture - Final
Leg - Right Enterobacter cloacae
Staphylococcus schleiferi
Gram Stain - Final
10/08/23 12:51 Blood Culture - Preliminary
Blood/Venous No Growth in 48 hours- Final report to follow
10/08/23 12:51 Blood Culture - Preliminary
Blood/Venous No Growth in 48 hours- Final report to follow
10/08/23 14:07 MRSA Screen - Final
Nose No Methicillin Resistant Staphylococcus aureus isolated.
[2023-10-11 11:44] LABS: Glucose - Point of Care 151 mg/dl (70-99)
[2023-10-11] MEDS: NOVOLOG FLEXPEN-LOW RESISTANCE 1 UNITS SC (11:50)
--- NOTE | 2023-10-11 11:50 | W.DCSUMMARY ---
Discharge Summary
Discharge Data
Date of Admission: 10/08/23
Date of Discharge: 10/11/23
-
Pending Results: No
Hospital Course
83-year-old male who presented with lower extremity wounds and drainage longstanding history that includes venous insufficiency for years and last 2 weeks noted blistering and oozing from the lower extremities and concerned over bruising and concern
for infection brought in and was empirically started on antibiotics he denied any fever any chills of note the patient has had not only usage of compression garments for years but also reports prior venous surgery to the lower extremities. He did
not describe any arterial imaging studies in the past. Although presentation was not consistent with arterial insufficiency type of presentation. Started on a course of empiric cefazolin and culture of fluid and wounds done with wound care
consultation placed with culture results finally coming back growing Enterococcus that was resistant to cefazolin along with staph species. With this consideration and ID consultation was placed over plans of course of therapy going forward with
continued local wrap to the right lower extremity to the both lower extremities by wound care infectious disease service felt likely colonization from longstanding superficial wounds with little evidence of active cellulitis. Recommendation was for
continued compressive modalities including Tubigrip's and Gurwinder wrap's continue wound care follow-up in the wound care clinic with the usage of Adaptic covered by Gay Owens also recommendation for evaluation by dermatology in the outpatient
setting as he may need biopsies of several areas to ensure there is no malignancy. 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
his local pharmacy.
Discharge Plan
-
Patient Disposition: Home (Routine Discharge)
Discharge Diagnosis/Procedures: Right lower extremity cellulitis with venous stasis ulcers
Chronic kidney disease stage IIIb
Benign essential hypertension
Permanent atrial fibrillation
Chronic diastolic heart failure with preserved ejection fraction
Diet: As tolerated
Driving Restrictions: As prior to admission
Wound Care: Needs to follow-up with wound care with instructions as below refused home health
Activity Restrictions/Additional Instructions:
Wound Care Instructions Right Lower Extremity- Clean gently with saline or soap and water. Gently pat dry. Apply barrier ointment around wound. Cover wound with Xeroform, alginate, ABD and kerlix. Change daily and PRN drainage.
Resume leg pumps as directed
Re-apply GURWINDER to LE daily
Apply Aquaphor to dry skin on both legs daily
Follow up at wound care center call for an appointment.
Referrals:
Roe Shetty MD [Family Provider] - in one week (If continues with poor healing quality lower extremities may require further assessment of vascular status with arterial imaging)
Prescriptions:
New
cephalexin 500 mg Capsule
500 mg PO Q8H Qty: 20 0RF
Continued
atorvastatin [Lipitor] 20 MG tablet
20 mg PO DAILY
allopurinol 300 MG tablet
300 mg PO DAILY
pantoprazole 40 MG tablet,delayed release (DR/EC)
40 mg PO DAILY
Jardiance 10 MG tablet
10 mg PO DAILY 30 Days Qty: 30 0RF
glimepiride 2 mg tablet
1 mg PO DAILY
levothyroxine 50 mcg tablet
50 mcg PO DAILY
alfuzosin 10 mg tablet extended release 24 hr
10 mg PO DAILY
torsemide 20 mg Tablet
40 mg PO DAILY
metolazone 5 mg Tablet
5 mg PO FR@0800
amlodipine 5 mg Tablet
5 mg PO DAILY
acetaminophen [Tylenol Extra Strength] 500 mg Tablet
1,000 mg PO HS
calcitriol 0.25 mcg Capsule
0.25 mcg PO DAILY
Xarelto 15 mg tablet
15 mg PO HS
iron
1 tab PO HS
polyethylene glycol 3350 17 gram/dose powder
17 g PO DAILY
Discharge Orders:
Discharge Patient (As Directed); Ordered 10/11/23
Ordered By: Keyur Parham
Discharge Date and Time
Print Language: MOZAMBICAN
--- NOTE | 2023-10-11 12:22 | CM ---
CM following re: discharge planning.
reviewed pt's chart, met with pt.
Discharge order is noted. Pt is aware, expressed his agreement with discharge. IMM reviewed placed in chart, pt has a copy. Pt stated his spouse will transport him home.
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
Per CM note on Thursday pt will need VN services at discharge for wound care.
A referral to VN noted
Please fax discharge instructions to [facility] at [phone].
D/C plan: home with [facility] and family support. Spouse to transport.
No other discharge needs identified.
[2023-10-11 12:33] VITALS: BP 135/64
== END 2023-10-11 13:32 | disposition home or self-care (01) | DRG 603 ==
LOC: 4 WEST ACU 14:03
PROVIDERS: Clinical Nurse Specialist Family Health; ADMITTING PHYSICIAN Hospitalist; ATTENDING PHYSICIAN Internal Medicine; CONSULT PHYSICIAN Internal Medicine Infectious Disease; EMERGENCY PHYSICIAN Emergency Medicine; FAMILY PHYSICIAN Family Medicine
DX: L03.115 Cellulitis of right lower limb (principal); I13.0 Hypertensive heart and chronic kidney disease with heart failure and stage 1 through stage 4 chronic kidney disease, or unspecified chronic kidney disease; I50.32 Chronic diastolic (congestive) heart failure; I48.21 Permanent atrial fibrillation; Z68.41 Body mass index [BMI] 40.0-44.9, adult; E11.22 Type 2 diabetes mellitus with diabetic chronic kidney disease; G47.33 Obstructive sleep apnea (adult) (pediatric); N18.32 Chronic kidney disease, stage 3b; K21.9 Gastro-esophageal reflux disease without esophagitis; M19.90 Unspecified osteoarthritis, unspecified site; E78.00 Pure hypercholesterolemia, unspecified; I27.20 Pulmonary hypertension, unspecified; L53.9 Erythematous condition, unspecified; M79.89 Other specified soft tissue disorders; I83.009 Varicose veins of unspecified lower extremity with ulcer of unspecified site; E03.9 Hypothyroidism, unspecified; M10.9 Gout, unspecified; E66.01 Morbid (severe) obesity due to excess calories; C44.91 Basal cell carcinoma of skin, unspecified
CPT/HCPCS: 80048; 80053; 82962; 85025; 87040; 87070; 87077; 87147; 87186; 87205; 96374; 97161; 97165; 99284; J2185

== ENCOUNTER → 2023-10-13 12:23 | Outpatient (REF) | payer MEDICARE, OTHER, SELFPAY | LOC: WOUND 12:23 | PROVIDERS: ATTENDING PHYSICIAN Surgery; FAMILY PHYSICIAN Family Medicine | DX: I87.313 Chronic venous hypertension (idiopathic) with ulcer of bilateral lower extremity (principal); L97.212 Non-pressure chronic ulcer of right calf with fat layer exposed; L97.222 Non-pressure chronic ulcer of left calf with fat layer exposed; L97.812 Non-pressure chronic ulcer of other part of right lower leg with fat layer exposed; L97.822 Non-pressure chronic ulcer of other part of left lower leg with fat layer exposed; I87.2 Venous insufficiency (chronic) (peripheral); I73.9 Peripheral vascular disease, unspecified; E11.29 Type 2 diabetes mellitus with other diabetic kidney complication; N18.4 Chronic kidney disease, stage 4 (severe); I48.21 Permanent atrial fibrillation; I50.30 Unspecified diastolic (congestive) heart failure; I13.0 Hypertensive heart and chronic kidney disease with heart failure and stage 1 through stage 4 chronic kidney disease, or unspecified chronic kidney disease; Z79.01 Long term (current) use of anticoagulants | CPT/HCPCS: 29581; 99204 ==

== ENCOUNTER → 2023-10-16 10:52 | Outpatient (REF) | payer MEDICARE, OTHER, SELFPAY | LOC: WOUND 10:52 | PROVIDERS: ATTENDING PHYSICIAN Surgery; FAMILY PHYSICIAN Family Medicine | DX: I87.313 Chronic venous hypertension (idiopathic) with ulcer of bilateral lower extremity (principal); L97.212 Non-pressure chronic ulcer of right calf with fat layer exposed; L97.222 Non-pressure chronic ulcer of left calf with fat layer exposed; L97.812 Non-pressure chronic ulcer of other part of right lower leg with fat layer exposed; L97.822 Non-pressure chronic ulcer of other part of left lower leg with fat layer exposed; I87.2 Venous insufficiency (chronic) (peripheral); I73.9 Peripheral vascular disease, unspecified; E11.29 Type 2 diabetes mellitus with other diabetic kidney complication; N18.4 Chronic kidney disease, stage 4 (severe); I48.21 Permanent atrial fibrillation; I50.30 Unspecified diastolic (congestive) heart failure; Z79.01 Long term (current) use of anticoagulants | CPT/HCPCS: 29581 ==

== ENCOUNTER → 2023-10-23 08:58 | Outpatient (REF) | payer MEDICARE, OTHER, SELFPAY | LOC: WOUND 08:58 | PROVIDERS: ATTENDING PHYSICIAN Surgery; FAMILY PHYSICIAN Family Medicine | DX: I87.313 Chronic venous hypertension (idiopathic) with ulcer of bilateral lower extremity (principal); L97.212 Non-pressure chronic ulcer of right calf with fat layer exposed; L97.222 Non-pressure chronic ulcer of left calf with fat layer exposed; L97.812 Non-pressure chronic ulcer of other part of right lower leg with fat layer exposed; L97.822 Non-pressure chronic ulcer of other part of left lower leg with fat layer exposed; I87.2 Venous insufficiency (chronic) (peripheral); I73.9 Peripheral vascular disease, unspecified; E22.9 Hyperfunction of pituitary gland, unspecified; N18.4 Chronic kidney disease, stage 4 (severe); I48.21 Permanent atrial fibrillation; Z79.01 Long term (current) use of anticoagulants; I50.30 Unspecified diastolic (congestive) heart failure; I12.9 Hypertensive chronic kidney disease with stage 1 through stage 4 chronic kidney disease, or unspecified chronic kidney disease | CPT/HCPCS: 29581; 99213 ==

== ENCOUNTER → 2023-10-30 08:59 | Outpatient (REF) | payer MEDICARE, OTHER, SELFPAY | LOC: WOUND 08:59 | PROVIDERS: ATTENDING PHYSICIAN Surgery; FAMILY PHYSICIAN Family Medicine | DX: I87.313 Chronic venous hypertension (idiopathic) with ulcer of bilateral lower extremity (principal); L97.212 Non-pressure chronic ulcer of right calf with fat layer exposed; L97.222 Non-pressure chronic ulcer of left calf with fat layer exposed; L97.812 Non-pressure chronic ulcer of other part of right lower leg with fat layer exposed; L97.822 Non-pressure chronic ulcer of other part of left lower leg with fat layer exposed; I87.2 Venous insufficiency (chronic) (peripheral); I73.9 Peripheral vascular disease, unspecified; E11.29 Type 2 diabetes mellitus with other diabetic kidney complication; N18.4 Chronic kidney disease, stage 4 (severe); I48.21 Permanent atrial fibrillation; I50.30 Unspecified diastolic (congestive) heart failure; Z79.01 Long term (current) use of anticoagulants | CPT/HCPCS: 11042; 29581 ==

== ENCOUNTER → 2023-11-05 09:09 | Outpatient (REF) | payer MEDICARE, OTHER, SELFPAY | LOC: WOUND 09:09 | PROVIDERS: ATTENDING PHYSICIAN Surgery; FAMILY PHYSICIAN Family Medicine | DX: I87.313 Chronic venous hypertension (idiopathic) with ulcer of bilateral lower extremity (principal); L97.212 Non-pressure chronic ulcer of right calf with fat layer exposed; L97.222 Non-pressure chronic ulcer of left calf with fat layer exposed; L97.812 Non-pressure chronic ulcer of other part of right lower leg with fat layer exposed; L97.822 Non-pressure chronic ulcer of other part of left lower leg with fat layer exposed; I87.2 Venous insufficiency (chronic) (peripheral); I73.9 Peripheral vascular disease, unspecified; E11.29 Type 2 diabetes mellitus with other diabetic kidney complication; N18.4 Chronic kidney disease, stage 4 (severe); I48.21 Permanent atrial fibrillation; Z79.01 Long term (current) use of anticoagulants; I50.30 Unspecified diastolic (congestive) heart failure | CPT/HCPCS: 29581 ==

== ENCOUNTER → 2023-11-12 09:34 | Outpatient (REF) | payer MEDICARE, OTHER, SELFPAY | LOC: WOUND 09:34 | PROVIDERS: ATTENDING PHYSICIAN Surgery; FAMILY PHYSICIAN Family Medicine | DX: I87.313 Chronic venous hypertension (idiopathic) with ulcer of bilateral lower extremity (principal); L97.212 Non-pressure chronic ulcer of right calf with fat layer exposed; L97.222 Non-pressure chronic ulcer of left calf with fat layer exposed; L97.812 Non-pressure chronic ulcer of other part of right lower leg with fat layer exposed; L97.822 Non-pressure chronic ulcer of other part of left lower leg with fat layer exposed; I87.2 Venous insufficiency (chronic) (peripheral); I73.9 Peripheral vascular disease, unspecified; E11.29 Type 2 diabetes mellitus with other diabetic kidney complication; N18.4 Chronic kidney disease, stage 4 (severe); I48.21 Permanent atrial fibrillation; I50.30 Unspecified diastolic (congestive) heart failure; Z79.01 Long term (current) use of anticoagulants | CPT/HCPCS: 29581; 99212 ==

== ENCOUNTER → 2023-11-20 08:34 | Outpatient (REF) | payer MEDICARE, OTHER, SELFPAY | LOC: WOUND 08:34 | PROVIDERS: ATTENDING PHYSICIAN Surgery; FAMILY PHYSICIAN Family Medicine | DX: L97.811 Non-pressure chronic ulcer of other part of right lower leg limited to breakdown of skin (principal); I87.311 Chronic venous hypertension (idiopathic) with ulcer of right lower extremity; E11.43 Type 2 diabetes mellitus with diabetic autonomic (poly)neuropathy; N18.4 Chronic kidney disease, stage 4 (severe); R26.9 Unspecified abnormalities of gait and mobility; E66.01 Morbid (severe) obesity due to excess calories; I48.21 Permanent atrial fibrillation; I50.32 Chronic diastolic (congestive) heart failure; Z79.01 Long term (current) use of anticoagulants; E11.22 Type 2 diabetes mellitus with diabetic chronic kidney disease | CPT/HCPCS: 29581; 99213 ==

== ENCOUNTER → 2023-11-26 11:00 | Outpatient (REF) | payer MEDICARE, OTHER, SELFPAY | LOC: WOUND 11:00 | PROVIDERS: ATTENDING PHYSICIAN Surgery; FAMILY PHYSICIAN Family Medicine | DX: I87.313 Chronic venous hypertension (idiopathic) with ulcer of bilateral lower extremity (principal); L97.212 Non-pressure chronic ulcer of right calf with fat layer exposed; L97.222 Non-pressure chronic ulcer of left calf with fat layer exposed; L97.812 Non-pressure chronic ulcer of other part of right lower leg with fat layer exposed; L97.822 Non-pressure chronic ulcer of other part of left lower leg with fat layer exposed; I87.2 Venous insufficiency (chronic) (peripheral); I73.9 Peripheral vascular disease, unspecified; E11.29 Type 2 diabetes mellitus with other diabetic kidney complication; N18.4 Chronic kidney disease, stage 4 (severe); I48.21 Permanent atrial fibrillation; I50.30 Unspecified diastolic (congestive) heart failure; Z79.01 Long term (current) use of anticoagulants | CPT/HCPCS: 29581; 99213 ==

== ENCOUNTER → 2023-12-03 07:42 | Outpatient (REF) | payer MEDICARE, OTHER, SELFPAY ==
[2023-12-03 09:38] LABS: Albumin 3.7 g/dl (3.5-5.0); Blood Urea Nitrogen 92 mg/dl (9-20); Calcium 9.2 mg/dl (8.4-10.2); Carbon Dioxide 28 mmol/L (22-30); Chloride 99 mmol/L (98-107); Glucose 152 mg/dl (70-99); Potassium 3.8 mmol/L (3.5-5.1); Sodium 139 mmol/L (135-145); eGFR 19.86
[2023-12-03 14:49] LABS: Intact PTH 300.1 pg/ml (13.6-85.8)
== END ==
LOC: REG 07:42
PROVIDERS: ATTENDING PHYSICIAN Specialist; FAMILY PHYSICIAN Family Medicine
DX: N17.9 Acute kidney failure, unspecified (principal)
CPT/HCPCS: 36415; 80069; 83970

== ENCOUNTER → 2023-12-04 14:07 | Outpatient (REF) | payer MEDICARE, OTHER, SELFPAY | LOC: WOUND 14:07 | PROVIDERS: ATTENDING PHYSICIAN Surgery; FAMILY PHYSICIAN Family Medicine | DX: I87.313 Chronic venous hypertension (idiopathic) with ulcer of bilateral lower extremity (principal); L97.212 Non-pressure chronic ulcer of right calf with fat layer exposed; L97.222 Non-pressure chronic ulcer of left calf with fat layer exposed; L97.812 Non-pressure chronic ulcer of other part of right lower leg with fat layer exposed; L97.822 Non-pressure chronic ulcer of other part of left lower leg with fat layer exposed; I87.2 Venous insufficiency (chronic) (peripheral); I73.9 Peripheral vascular disease, unspecified; E11.29 Type 2 diabetes mellitus with other diabetic kidney complication; N18.4 Chronic kidney disease, stage 4 (severe); I48.21 Permanent atrial fibrillation; I50.30 Unspecified diastolic (congestive) heart failure; Z79.01 Long term (current) use of anticoagulants | CPT/HCPCS: 29581; 99213 ==

== ENCOUNTER → 2023-12-10 07:51 | Outpatient (REF) | payer MEDICARE, OTHER, SELFPAY | LOC: RAD 07:51 | PROVIDERS: ATTENDING PHYSICIAN Surgery; FAMILY PHYSICIAN Family Medicine | DX: I87.313 Chronic venous hypertension (idiopathic) with ulcer of bilateral lower extremity (principal); I73.9 Peripheral vascular disease, unspecified; I87.2 Venous insufficiency (chronic) (peripheral); L97.819 Non-pressure chronic ulcer of other part of right lower leg with unspecified severity; L97.829 Non-pressure chronic ulcer of other part of left lower leg with unspecified severity | CPT/HCPCS: 29580; 93922; 93925; 93970 ==

== ENCOUNTER → 2023-12-17 14:38 | Outpatient (REF) | payer MEDICARE, OTHER, SELFPAY | LOC: WOUND 14:38 | PROVIDERS: ATTENDING PHYSICIAN Surgery; FAMILY PHYSICIAN Family Medicine | DX: I87.313 Chronic venous hypertension (idiopathic) with ulcer of bilateral lower extremity (principal); L97.212 Non-pressure chronic ulcer of right calf with fat layer exposed; L97.222 Non-pressure chronic ulcer of left calf with fat layer exposed; L97.812 Non-pressure chronic ulcer of other part of right lower leg with fat layer exposed; L97.822 Non-pressure chronic ulcer of other part of left lower leg with fat layer exposed; I87.2 Venous insufficiency (chronic) (peripheral); I73.9 Peripheral vascular disease, unspecified; E11.29 Type 2 diabetes mellitus with other diabetic kidney complication; N18.4 Chronic kidney disease, stage 4 (severe); I48.21 Permanent atrial fibrillation; I50.30 Unspecified diastolic (congestive) heart failure; Z79.01 Long term (current) use of anticoagulants | CPT/HCPCS: 29581; 99213 ==

== ENCOUNTER → 2023-12-23 08:38 | Outpatient (REF) | payer MEDICARE, OTHER, SELFPAY | LOC: WOUND 08:38 | PROVIDERS: ATTENDING PHYSICIAN Surgery; FAMILY PHYSICIAN Family Medicine | DX: I87.313 Chronic venous hypertension (idiopathic) with ulcer of bilateral lower extremity (principal); L97.212 Non-pressure chronic ulcer of right calf with fat layer exposed; L97.222 Non-pressure chronic ulcer of left calf with fat layer exposed; L97.812 Non-pressure chronic ulcer of other part of right lower leg with fat layer exposed; L97.822 Non-pressure chronic ulcer of other part of left lower leg with fat layer exposed; I87.2 Venous insufficiency (chronic) (peripheral); I73.9 Peripheral vascular disease, unspecified; E11.29 Type 2 diabetes mellitus with other diabetic kidney complication; N18.4 Chronic kidney disease, stage 4 (severe); I48.21 Permanent atrial fibrillation; I50.30 Unspecified diastolic (congestive) heart failure; Z79.01 Long term (current) use of anticoagulants | CPT/HCPCS: 29581 ==

== ENCOUNTER → 2024-01-01 09:29 | Outpatient (REF) | payer MEDICARE, OTHER, SELFPAY ==
[2024-01-01 12:06] LABS: Glycohemoglobin (HgbA1c) 6.3 % (4.0-5.6)
[2024-01-01 13:19] LABS: ALT (SGPT) 17 U/L (0-50); AST (SGOT) 28 U/L (17-59); Albumin 3.9 g/dl (3.5-5.0); Alkaline Phosphatase 112 U/L (38-126); Blood Urea Nitrogen 79 mg/dl (9-20); Calcium 9.4 mg/dl (8.4-10.2); Carbon Dioxide 31 mmol/L (22-30); Chloride 97 mmol/L (98-107); Glucose 73 mg/dl (70-99); Potassium 4.2 mmol/L (3.5-5.1); Sodium 140 mmol/L (135-145); Total Protein 6.6 g/dl (6.3-8.2); eGFR 17.71
== END ==
LOC: REG 09:29
PROVIDERS: ATTENDING PHYSICIAN Family Medicine; FAMILY PHYSICIAN Specialist; REFERRING PHYSICIAN Internal Medicine Cardiovascular Disease
DX: E11.29 Type 2 diabetes mellitus with other diabetic kidney complication (principal)
CPT/HCPCS: 36415; 80053; 83036

== ENCOUNTER → 2024-01-01 09:35 | Outpatient (REF) | payer MEDICARE, OTHER, SELFPAY | LOC: WOUND 09:35 | PROVIDERS: ATTENDING PHYSICIAN Surgery; FAMILY PHYSICIAN Family Medicine | DX: I87.313 Chronic venous hypertension (idiopathic) with ulcer of bilateral lower extremity (principal); L97.212 Non-pressure chronic ulcer of right calf with fat layer exposed; L97.222 Non-pressure chronic ulcer of left calf with fat layer exposed; L97.812 Non-pressure chronic ulcer of other part of right lower leg with fat layer exposed; L97.822 Non-pressure chronic ulcer of other part of left lower leg with fat layer exposed; I87.2 Venous insufficiency (chronic) (peripheral); I73.9 Peripheral vascular disease, unspecified; E11.29 Type 2 diabetes mellitus with other diabetic kidney complication; N18.4 Chronic kidney disease, stage 4 (severe); I48.21 Permanent atrial fibrillation; I50.30 Unspecified diastolic (congestive) heart failure; Z79.01 Long term (current) use of anticoagulants | CPT/HCPCS: 11042 ==

== ENCOUNTER → 2024-01-06 07:58 | Outpatient (REF) | payer MEDICARE, OTHER, SELFPAY | LOC: WOUND 07:58 | PROVIDERS: ATTENDING PHYSICIAN Surgery; FAMILY PHYSICIAN Family Medicine | DX: I87.313 Chronic venous hypertension (idiopathic) with ulcer of bilateral lower extremity (principal); L97.212 Non-pressure chronic ulcer of right calf with fat layer exposed; L97.222 Non-pressure chronic ulcer of left calf with fat layer exposed; L97.812 Non-pressure chronic ulcer of other part of right lower leg with fat layer exposed; L97.822 Non-pressure chronic ulcer of other part of left lower leg with fat layer exposed; I87.2 Venous insufficiency (chronic) (peripheral); I73.9 Peripheral vascular disease, unspecified; E11.29 Type 2 diabetes mellitus with other diabetic kidney complication; N18.4 Chronic kidney disease, stage 4 (severe); I48.21 Permanent atrial fibrillation; I50.30 Unspecified diastolic (congestive) heart failure; Z79.01 Long term (current) use of anticoagulants | CPT/HCPCS: 29580 ==

== ENCOUNTER → 2024-01-13 07:54 | Outpatient (REF) | payer MEDICARE, OTHER, SELFPAY | LOC: WOUND 07:54 | PROVIDERS: ATTENDING PHYSICIAN Surgery; FAMILY PHYSICIAN Family Medicine | DX: I87.313 Chronic venous hypertension (idiopathic) with ulcer of bilateral lower extremity (principal); L97.212 Non-pressure chronic ulcer of right calf with fat layer exposed; L97.222 Non-pressure chronic ulcer of left calf with fat layer exposed; L97.812 Non-pressure chronic ulcer of other part of right lower leg with fat layer exposed; L97.822 Non-pressure chronic ulcer of other part of left lower leg with fat layer exposed; I87.2 Venous insufficiency (chronic) (peripheral); I73.9 Peripheral vascular disease, unspecified; E11.29 Type 2 diabetes mellitus with other diabetic kidney complication; N18.4 Chronic kidney disease, stage 4 (severe); I48.21 Permanent atrial fibrillation; I50.30 Unspecified diastolic (congestive) heart failure; Z79.01 Long term (current) use of anticoagulants | CPT/HCPCS: 29580 ==

== ENCOUNTER → 2024-01-21 14:40 | Outpatient (REF) | payer MEDICARE, OTHER, SELFPAY | LOC: WOUND 14:40 | PROVIDERS: ATTENDING PHYSICIAN Surgery; FAMILY PHYSICIAN Family Medicine | DX: I87.313 Chronic venous hypertension (idiopathic) with ulcer of bilateral lower extremity (principal); L97.212 Non-pressure chronic ulcer of right calf with fat layer exposed; L97.222 Non-pressure chronic ulcer of left calf with fat layer exposed; L97.812 Non-pressure chronic ulcer of other part of right lower leg with fat layer exposed; L97.822 Non-pressure chronic ulcer of other part of left lower leg with fat layer exposed; I87.2 Venous insufficiency (chronic) (peripheral); I73.9 Peripheral vascular disease, unspecified | CPT/HCPCS: 29580; 99213 ==

== ENCOUNTER → 2024-01-28 14:58 | Outpatient (REF) | payer MEDICARE, OTHER, SELFPAY | LOC: WOUND 14:58 | PROVIDERS: ATTENDING PHYSICIAN Surgery; FAMILY PHYSICIAN Internal Medicine | DX: I87.313 Chronic venous hypertension (idiopathic) with ulcer of bilateral lower extremity (principal); L97.212 Non-pressure chronic ulcer of right calf with fat layer exposed; L97.222 Non-pressure chronic ulcer of left calf with fat layer exposed; L97.812 Non-pressure chronic ulcer of other part of right lower leg with fat layer exposed; L97.822 Non-pressure chronic ulcer of other part of left lower leg with fat layer exposed; I87.2 Venous insufficiency (chronic) (peripheral); I73.9 Peripheral vascular disease, unspecified; E11.29 Type 2 diabetes mellitus with other diabetic kidney complication; N18.4 Chronic kidney disease, stage 4 (severe); I48.21 Permanent atrial fibrillation; I50.30 Unspecified diastolic (congestive) heart failure; Z79.01 Long term (current) use of anticoagulants | CPT/HCPCS: 99213 ==

== ENCOUNTER → 2024-02-04 12:27 | Outpatient (REF) | payer MEDICARE, OTHER, SELFPAY | LOC: WOUND 12:27 | PROVIDERS: ATTENDING PHYSICIAN Surgery; FAMILY PHYSICIAN Family Medicine | DX: I87.313 Chronic venous hypertension (idiopathic) with ulcer of bilateral lower extremity (principal); L97.212 Non-pressure chronic ulcer of right calf with fat layer exposed; L97.222 Non-pressure chronic ulcer of left calf with fat layer exposed; L97.812 Non-pressure chronic ulcer of other part of right lower leg with fat layer exposed; L97.822 Non-pressure chronic ulcer of other part of left lower leg with fat layer exposed; I87.2 Venous insufficiency (chronic) (peripheral); I73.9 Peripheral vascular disease, unspecified; N18.4 Chronic kidney disease, stage 4 (severe); I48.21 Permanent atrial fibrillation; I50.30 Unspecified diastolic (congestive) heart failure; Z79.01 Long term (current) use of anticoagulants | CPT/HCPCS: 99212 ==

== ENCOUNTER → 2024-02-11 12:24 | Outpatient (REF) | payer MEDICARE, OTHER, SELFPAY | LOC: WOUND 12:24 | PROVIDERS: ATTENDING PHYSICIAN Surgery; FAMILY PHYSICIAN Family Medicine | DX: I87.313 Chronic venous hypertension (idiopathic) with ulcer of bilateral lower extremity (principal); L97.212 Non-pressure chronic ulcer of right calf with fat layer exposed; L97.222 Non-pressure chronic ulcer of left calf with fat layer exposed; L97.812 Non-pressure chronic ulcer of other part of right lower leg with fat layer exposed; L97.822 Non-pressure chronic ulcer of other part of left lower leg with fat layer exposed; I87.2 Venous insufficiency (chronic) (peripheral); I73.9 Peripheral vascular disease, unspecified; E11.29 Type 2 diabetes mellitus with other diabetic kidney complication; N18.4 Chronic kidney disease, stage 4 (severe); I48.21 Permanent atrial fibrillation; Z79.01 Long term (current) use of anticoagulants; I50.30 Unspecified diastolic (congestive) heart failure | CPT/HCPCS: 99212 ==

== ENCOUNTER → 2024-02-26 08:55 | Outpatient (REF) | payer MEDICARE, OTHER, SELFPAY | LOC: WOUND 08:55 | PROVIDERS: ATTENDING PHYSICIAN Surgery; FAMILY PHYSICIAN Family Medicine | DX: I87.313 Chronic venous hypertension (idiopathic) with ulcer of bilateral lower extremity (principal); L97.212 Non-pressure chronic ulcer of right calf with fat layer exposed; L97.222 Non-pressure chronic ulcer of left calf with fat layer exposed; L97.812 Non-pressure chronic ulcer of other part of right lower leg with fat layer exposed; L97.822 Non-pressure chronic ulcer of other part of left lower leg with fat layer exposed; I87.2 Venous insufficiency (chronic) (peripheral); I73.9 Peripheral vascular disease, unspecified; E11.29 Type 2 diabetes mellitus with other diabetic kidney complication; N18.4 Chronic kidney disease, stage 4 (severe); Z79.01 Long term (current) use of anticoagulants; I50.30 Unspecified diastolic (congestive) heart failure | CPT/HCPCS: 99213 ==

== ENCOUNTER → 2024-03-02 10:22 | Outpatient (REF) | payer MEDICARE, OTHER, SELFPAY ==
[2024-03-02 11:16] LABS: Blood Urea Nitrogen 66 mg/dl (9-20); Calcium 9.3 mg/dl (8.4-10.2); Carbon Dioxide 31 mmol/L (22-30); Chloride 98 mmol/L (98-107); Glucose 120 mg/dl (70-99); Phosphorus 3.1 mg/dl (2.5-4.5); Sodium 141 mmol/L (135-145); eGFR 23.58
[2024-03-02 11:26] LABS: NT-proBNP 3100 pg/ml
[2024-03-02 11:28] LABS: Protein/creatinine Ratio 0.1; Urine Protein 17 mg/dl
== END ==
LOC: REG 10:22
PROVIDERS: ATTENDING PHYSICIAN Specialist; FAMILY PHYSICIAN Family Medicine
DX: I13.10 Hypertensive heart and chronic kidney disease without heart failure, with stage 1 through stage 4 chronic kidney disease, or unspecified chronic kidney disease (principal); N18.4 Chronic kidney disease, stage 4 (severe)
CPT/HCPCS: 36415; 80048; 82570; 83880; 83970; 84100; 84156

== ENCOUNTER → 2024-03-11 08:37 | Outpatient (REF) | payer MEDICARE, OTHER, SELFPAY | LOC: WOUND 08:37 | PROVIDERS: ATTENDING PHYSICIAN Surgery; FAMILY PHYSICIAN Family Medicine | DX: R00.1 Bradycardia, unspecified (principal); I87.313 Chronic venous hypertension (idiopathic) with ulcer of bilateral lower extremity; L97.212 Non-pressure chronic ulcer of right calf with fat layer exposed; L97.222 Non-pressure chronic ulcer of left calf with fat layer exposed; L97.812 Non-pressure chronic ulcer of other part of right lower leg with fat layer exposed; L97.822 Non-pressure chronic ulcer of other part of left lower leg with fat layer exposed; I87.2 Venous insufficiency (chronic) (peripheral); I73.9 Peripheral vascular disease, unspecified; E11.29 Type 2 diabetes mellitus with other diabetic kidney complication; N18.4 Chronic kidney disease, stage 4 (severe); I48.21 Permanent atrial fibrillation; I50.30 Unspecified diastolic (congestive) heart failure; Z79.01 Long term (current) use of anticoagulants; I11.0 Hypertensive heart disease with heart failure | CPT/HCPCS: 99213 ==

== ENCOUNTER 2024-03-11 09:10 | Emergency (ER) | payer MEDICARE, OTHER, SELFPAY ==
[2024-03-11 09:14] VITALS: BP 116/65
[2024-03-11 09:22] VITALS: BP 103/77
[2024-03-11 09:24] VITALS: BMI 38.1
--- NOTE | 2024-03-11 09:38 | ED.GENMED ---
History of Present Illness
General
Chief Complaint: Heart Rate Problem
Time Seen by Provider: 03/11/24 09:23
History of Present Illness
History of Present Illness:
HPI: The patient went to wound care earlier today and during routine vital sign check, was found to have heart rate in the 30s. The patient has no symptoms. He has a history of permanent A-fib on anticoagulation. He cannot recall his medications
however review of his most recent med list does not show any beta-blockers or calcium channel blockers.
EXAM:
GENERAL: The patient is somewhat chronically ill in appearance
HEENT: Moist oral mucosa
CARDIOVASCULAR: No murmurs, bradycardic heart rate, regular rhythm, No chest wall tenderness
PULMONARY: No respiratory distress, breath sounds are clear and equal
ABDOMEN: Soft with no peritoneal signs, no tenderness
NEUROLOGIC: Good strength all extremities, no coordination deficits
PSYCHIATRIC: Appropriate mental status, normal insight and judgement
EXTREMITIES: Marked bilateral lower extremity edema with compression dressings
SKIN: No rash, no lesions
TIME OF INITIAL ENCOUNTER: 9:40 AM
NUMBER AND COMPLEXITY OF PROBLEMS ADDRESSED AT THE ENCOUNTER
� Chronic conditions affecting care: Permanent A-fib, CHF, CKD, hypothyroidism
� Acute Exacerbation and/or Progression of Chronic Illness: This is an acute problem
� Differential Diagnosis includes: Medication induced, sick sinus syndrome, A-fib with slow ventricular response, electrolyte abnormality, thyroid related bradycardia
AMOUNT AND/OR COMPLEXITY OF DATA TO BE REVIEWED AND ANALYZED
� I performed an independent evaluation of and my interpretation is:
EKG: Suspect junctional rhythm with marked bradycardia
CT:
X-rays:
Laboratory Studies: CBC unremarkable, CKD noted which is chronic, magnesium slightly low�will replace, troponin 0.089 which is lower than prior. BNP 3840.
Other:
� Review of other/old records: I reviewed from December 2022 when patient was admitted with CHF/acute pulmonary edema
� Clinical information was obtained by an independent historian: None needed
� Prescriptions/Medications Considered but not given:
� Further testing considered but not performed:
RISK OF COMPLICATIONS AND/OR MORBIDITY OR MORTALITY OF PATIENT MANAGEMENT
� Social determinants of health affecting care: Lives at home
� Discussion with other providers: I notified Dr. Avila upon patient's arrival with bradycardia
� Escalation of care including admission/observation vs risk of discharge considered: The patient's blood pressure is slightly low in the setting of bradycardia�will give a little bit of IV fluids but be cautious as he does have
a history of CHF. Dr. Avila showed an EKG with me which indicates the patient did have outpatient EKG with rates also in the 30s. He has no symptoms. Troponin and BNP were checked however the patient has no symptoms. Troponin elevated as is BNP
however these are very similar to baseline and troponin is lower than prior. TSH within normal range.
Past History
Past History
ED Past Medical History: Arrthythmia (afib), Cancer (Basal cell skin cancer), CHF, GERD, HTN, Hypercholesterolemia, NIDDM and Other (OA. Pulmonary Hypertension, Linchen planus)
ED Past Surgical History: Orthopedic (Andres rotator cuff, Back surgery, Carpal tunnel, Andres total knee, Left THR) and Other (Varicose vein surgery , cataract surgery Left eye)
Social History
Tobacco: Former smoker
Alcohol: Occasional
Personal:
Living: with family
Employment: Retired
Family History
Family History: Other
Phy Exam
Physical Exam
Physical Exam:
See HPI
Course
Orders/Labs/Results
Orders:
Orders
03/11/24 09:11
Electrocardiogram (*1) Urgent
Reason for Study: Tachycardia
EKG- Treatment ONCE
03/11/24 09:38
0.9% Sodium Chloride 500 ml [Nss] 500 ml IV BOLUS
03/11/24 09:47
Complete Blood Count/With Diff Urgent
Comprehensive Metabolic Panel Urgent
Magnesium Urgent
NT-proBNP Urgent
TSH Reflex To Free T4 Urgent
Troponin I Urgent
03/11/24 10:57
Magnesium Oxide 1,000 mg PO NOW STA
Abnormal Lab Results
03/11/24
09:47
RBC 3.92 L 10^6/uL
(4.70-6.10)
MCV 106.1 H fL
(80.0-94.0)
MCH 34.7 H pg
(27.0-31.0)
MCHC 32.7 L g/dL
(33.0-37.0)
RDW 16.1 H %
(11.5-14.5)
MPV 11.4 H fL
(7.4-10.4)
Neutrophils % 75.5 H %
(42.2-75.2)
Lymphocytes % 16.8 L %
(20.5-51.1)
BUN 70 H mg/dl
(9-20)
Creatinine 2.6 H mg/dL
(0.7-1.3)
Magnesium 1.4 L mg/dl
(1.6-2.3)
Troponin I 0.089 H* ng/ml
03/11/24 09:47
03/11/24 09:47
Vital Signs
Initial and Last Documented VS:
Initial Vital Signs
Temp Pulse Resp BP Pulse Ox
97.6 F 40 18 116/65 97
03/11/24 09:14 03/11/24 09:14 03/11/24 09:14 03/11/24 09:14 03/11/24 09:14
Last Documented Vital Signs
Temp Pulse Resp BP Pulse Ox
97.6 F 37 17 103/77 96
03/11/24 09:14 03/11/24 09:30 03/11/24 09:30 03/11/24 09:22 03/11/24 09:28
*Critical Care Note
Total Time (30-74mins, 75-104mins- exclusive of procedures): Not Applicable
ED Attending Note
-
Portions of this chart may have been created with voice recognition software.� Occasional wrong word or��sound alike� substitutions may have occurred due to the inherent limitations of voice recognition software.
Discharge Plan
Departure
Prescriptions:
No Action
atorvastatin [Lipitor] 20 MG tablet
20 mg PO DAILY
allopurinol 300 MG tablet
300 mg PO DAILY
pantoprazole 40 MG tablet,delayed release (DR/EC)
40 mg PO DAILY
Jardiance 10 MG tablet
10 mg PO DAILY 30 Days Qty: 30 0RF
glimepiride 2 mg tablet
1 mg PO DAILY
levothyroxine 50 mcg tablet
50 mcg PO DAILY
alfuzosin 10 mg tablet extended release 24 hr
10 mg PO DAILY
torsemide 20 mg Tablet
40 mg PO DAILY
metolazone 5 mg Tablet
5 mg PO FR
amlodipine 5 mg Tablet
5 mg PO DAILY
acetaminophen [Tylenol Extra Strength] 500 mg Tablet
1,000 mg PO HS
calcitriol 0.25 mcg Capsule
0.25 mcg PO DAILY
Xarelto 15 mg tablet
15 mg PO HS
iron
1 tab PO HS
polyethylene glycol 3350 17 gram/dose powder
17 g PO DAILY
Mounjaro 7.5 mg/0.5 mL Pen Injector
7.5 mg SC TH
Referrals:
Roe Shetty MD [Family Provider] -
Interventions
Interventions:
*Risk Screen - Suicide Last Done: 03/11/24 09:13
*General Assessment Last Done: 03/11/24 09:13
*Neglect/Abuse Screening Last Done: 03/11/24 09:13
*ED COVID-19 Vaccine History Last Done: 03/11/24 09:28
ED- Cardiac Assessment Last Done: 03/11/24 09:28
ED- Pulmonary Assessment Last Done: 03/11/24 09:28
Discharge Date and Time
Print Language: ECU[place]ORE[place]
[2024-03-11] MEDS: NSS 500 IV (09:50)
[2024-03-11 10:00] LABS: % Basophils 0.6 % (0-2); % Immature Granulocytes 0.3 % (0-0.5); % Lymphocytes 16.8 % (20.5-51.1); % Monocytes 5.8 % (1.7-9.3); % Neutrophils 75.5 % (42.2-75.2); Absolute Eosinophils 0.1 10^3/uL (0-0.7); Absolute Lymphocytes 1.2 10^3/uL (1.2-3.4); Absolute Monocytes 0.4 10^3/uL (0.1-0.6); Absolute Neutrophils 5.2 10^3/uL (1.4-6.5); Hematocrit 41.6 % (39.0-52.0); Hemoglobin 13.6 g/dL (13.0-18.0); Mean Corp Hgb Conc. 32.7 g/dL (33.0-37.0); Mean Corpuscular Hgb 34.7 pg (27.0-31.0); Mean Corpuscular Volume 106.1 fL (80.0-94.0); Mean Platelet Volume 11.4 fL (7.4-10.4); Nucleated Red Blood Cells % 0 % (-); Platelet Count 163 10^3/uL (130-400); Red Blood Cell Count 3.92 10^6/uL (4.70-6.10); Red Cell Dist. Width 16.1 % (11.5-14.5); White Blood Cell Count 6.9 10^3/uL (4.8-10.8)
[2024-03-11 10:01] VITALS: BP 120/77
[2024-03-11 10:15] LABS: ALT (SGPT) 17 U/L (0-50); AST (SGOT) 24 U/L (17-59); Albumin 3.8 g/dl (3.5-5.0); Alkaline Phosphatase 113 U/L (38-126); Blood Urea Nitrogen 70 mg/dl (9-20); Calcium 9.5 mg/dl (8.4-10.2); Carbon Dioxide 30 mmol/L (22-30); Chloride 103 mmol/L (98-107); Estimated Creatinine Clearance 27 ml/min; Glucose 78 mg/dl (70-99); Magnesium 1.4 mg/dl (1.6-2.3); Potassium 3.9 mmol/L (3.5-5.1); Sodium 145 mmol/L (135-145); Total Bilirubin 0.7 mg/dl (0.2-1.3); Total Protein 6.4 g/dl (6.3-8.2); eGFR 23.58
[2024-03-11 10:29] LABS: NT-proBNP 3840 pg/ml; Troponin I 0.089 ng/ml
[2024-03-11 10:46] LABS: TSH Reflex To Free T4 2.08 uIU/ml (0.47-4.68)
[2024-03-11] MEDS: MAGNESIUM OXIDE 1000 MG PO (11:31)
== END 2024-03-11 11:55 | disposition home or self-care (01) ==
LOC: EMR 09:10
PROVIDERS: EMERGENCY PHYSICIAN Emergency Medicine; FAMILY PHYSICIAN Family Medicine
DX: R00.1 Bradycardia, unspecified (principal); I48.21 Permanent atrial fibrillation; R60.0 Localized edema; I13.0 Hypertensive heart and chronic kidney disease with heart failure and stage 1 through stage 4 chronic kidney disease, or unspecified chronic kidney disease; I50.9 Heart failure, unspecified; E03.9 Hypothyroidism, unspecified; I27.20 Pulmonary hypertension, unspecified; E78.00 Pure hypercholesterolemia, unspecified; M19.90 Unspecified osteoarthritis, unspecified site; K21.9 Gastro-esophageal reflux disease without esophagitis; Z79.01 Long term (current) use of anticoagulants; Z96.653 Presence of artificial knee joint, bilateral; Z96.642 Presence of left artificial hip joint; Z85.828 Personal history of other malignant neoplasm of skin; Z87.891 Personal history of nicotine dependence
CPT/HCPCS: 99284; 96360; 80053; 83735; 83880; 84443; 84484; 85025; 93005

== ENCOUNTER → 2024-03-15 08:23 | Outpatient (REF) | payer MEDICARE, OTHER, SELFPAY ==
[2024-03-15 08:56] LABS: % Basophils 0.4 % (0-2); % Eosinophils 0.8 % (0-6); % Immature Granulocytes 0.4 % (0-0.5); % Lymphocytes 19.5 % (20.5-51.1); % Neutrophils 73.9 % (42.2-75.2); Absolute Eosinophils 0.1 10^3/uL (0-0.7); Absolute Lymphocytes 1.5 10^3/uL (1.2-3.4); Absolute Monocytes 0.4 10^3/uL (0.1-0.6); Absolute Neutrophils 5.7 10^3/uL (1.4-6.5); Hematocrit 38.3 % (39.0-52.0); Hemoglobin 12.2 g/dL (13.0-18.0); Mean Corp Hgb Conc. 31.9 g/dL (33.0-37.0); Mean Corpuscular Hgb 33.2 pg (27.0-31.0); Mean Corpuscular Volume 104.4 fL (80.0-94.0); Mean Platelet Volume 11.3 fL (7.4-10.4); Nucleated Red Blood Cells % 0 % (-); Platelet Count 157 10^3/uL (130-400); Red Blood Cell Count 3.67 10^6/uL (4.70-6.10); Red Cell Dist. Width 15.9 % (11.5-14.5); White Blood Cell Count 7.7 10^3/uL (4.8-10.8)
[2024-03-15 09:56] LABS: ALT (SGPT) 19 U/L (0-50); AST (SGOT) 24 U/L (17-59); Albumin 3.7 g/dl (3.5-5.0); Alkaline Phosphatase 111 U/L (38-126); Blood Urea Nitrogen 68 mg/dl (9-20); Calcium 9.4 mg/dl (8.4-10.2); Carbon Dioxide 29 mmol/L (22-30); Chloride 99 mmol/L (98-107); Glucose 87 mg/dl (70-99); Iron 68 ug/dl (49-181); Potassium 4.1 mmol/L (3.5-5.1); Sodium 143 mmol/L (135-145); Total Bilirubin 0.4 mg/dl (0.2-1.3); Total Protein 6.2 g/dl (6.3-8.2); eGFR 24.72
[2024-03-15 10:05] LABS: Percent Saturation 31 % (20-50); Total Iron Binding Capacity 214 ug/dl (261-462)
[2024-03-15 10:37] LABS: Free T4 1.09 ng/dl (0.78-2.19)
[2024-03-15 10:52] LABS: TSH 1.46 uIU/ml (0.47-4.68)
[2024-03-15 11:02] LABS: Glycohemoglobin (HgbA1c) 4.9 % (4.0-5.6)
== END ==
LOC: REG 08:23
PROVIDERS: ATTENDING PHYSICIAN Family Medicine; REFERRING PHYSICIAN Specialist
DX: E11.29 Type 2 diabetes mellitus with other diabetic kidney complication (principal); E03.9 Hypothyroidism, unspecified; D50.9 Iron deficiency anemia, unspecified; N18.30 Chronic kidney disease, stage 3 unspecified
CPT/HCPCS: 36415; 80053; 83036; 83540; 83550; 84439; 84443; 85025

== ENCOUNTER → 2024-03-17 14:55 | Outpatient (REF) | payer MEDICARE, OTHER, SELFPAY | LOC: WOUND 14:55 | PROVIDERS: ATTENDING PHYSICIAN Surgery; FAMILY PHYSICIAN Family Medicine | DX: I87.313 Chronic venous hypertension (idiopathic) with ulcer of bilateral lower extremity (principal); L97.212 Non-pressure chronic ulcer of right calf with fat layer exposed; L97.222 Non-pressure chronic ulcer of left calf with fat layer exposed; L97.812 Non-pressure chronic ulcer of other part of right lower leg with fat layer exposed; L97.822 Non-pressure chronic ulcer of other part of left lower leg with fat layer exposed; I87.2 Venous insufficiency (chronic) (peripheral); I73.9 Peripheral vascular disease, unspecified; E11.29 Type 2 diabetes mellitus with other diabetic kidney complication; N18.4 Chronic kidney disease, stage 4 (severe); I48.21 Permanent atrial fibrillation; Z79.01 Long term (current) use of anticoagulants; I50.30 Unspecified diastolic (congestive) heart failure | CPT/HCPCS: 99213 ==

== ENCOUNTER → 2024-04-01 09:14 | Outpatient (REF) | payer MEDICARE, OTHER, SELFPAY | LOC: WOUND 09:14 | PROVIDERS: ATTENDING PHYSICIAN Surgery; FAMILY PHYSICIAN Family Medicine | DX: I87.313 Chronic venous hypertension (idiopathic) with ulcer of bilateral lower extremity (principal); L97.212 Non-pressure chronic ulcer of right calf with fat layer exposed; L97.222 Non-pressure chronic ulcer of left calf with fat layer exposed; L97.812 Non-pressure chronic ulcer of other part of right lower leg with fat layer exposed; L97.822 Non-pressure chronic ulcer of other part of left lower leg with fat layer exposed; I87.2 Venous insufficiency (chronic) (peripheral); I73.9 Peripheral vascular disease, unspecified; E11.29 Type 2 diabetes mellitus with other diabetic kidney complication; N18.4 Chronic kidney disease, stage 4 (severe); I48.21 Permanent atrial fibrillation; Z79.01 Long term (current) use of anticoagulants; I50.30 Unspecified diastolic (congestive) heart failure | CPT/HCPCS: 99213 ==

== ENCOUNTER → 2024-06-06 16:16 | Outpatient (REF) | payer MEDICARE, OTHER, SELFPAY ==
[2024-06-06 16:46] LABS: Hematocrit 37.9 % (39.0-52.0)
[2024-06-06 17:13] LABS: Protein/creatinine Ratio 0.2; Urine Protein 13 mg/dl
[2024-06-06 17:19] LABS: NT-proBNP 4610 pg/ml
[2024-06-06 17:22] LABS: Microalbumin/creatinine Ratio 73.3 mg/g
[2024-06-06 17:26] LABS: ALT (SGPT) 22 U/L (0-50); AST (SGOT) 25 U/L (17-59); Albumin 3.9 g/dl (3.5-5.0); Alkaline Phosphatase 143 U/L (38-126); Blood Urea Nitrogen 65 mg/dl (9-20); Calcium 9.1 mg/dl (8.4-10.2); Carbon Dioxide 28 mmol/L (22-30); Chloride 101 mmol/L (98-107); Glucose 80 mg/dl (70-99); Potassium 4.2 mmol/L (3.5-5.1); Sodium 139 mmol/L (135-145); Total Bilirubin 0.8 mg/dl (0.2-1.3); Total Protein 6.8 g/dl (6.3-8.2); eGFR 21.57
[2024-06-07 08:39] LABS: Glycohemoglobin (HgbA1c) 5.1 % (4.0-5.6)
[2024-06-08 10:11] LABS: Intact PTH 212.4 pg/ml (13.6-85.8)
== END ==
LOC: REG 16:16
PROVIDERS: ATTENDING PHYSICIAN Specialist; FAMILY PHYSICIAN Family Medicine
DX: N18.4 Chronic kidney disease, stage 4 (severe) (principal); E11.29 Type 2 diabetes mellitus with other diabetic kidney complication
CPT/HCPCS: 36415; 80053; 82043; 82570; 83036; 83880; 83970; 84100; 84156; 85014; 85018

== ENCOUNTER → 2024-07-14 09:45 | Outpatient (REF) | payer MEDICARE, OTHER, SELFPAY | LOC: RCS 09:45 | PROVIDERS: ATTENDING PHYSICIAN Student in an Organized Health Care Education/Training Program; FAMILY PHYSICIAN Family Medicine | DX: R00.1 Bradycardia, unspecified (principal) | CPT/HCPCS: 93225; 93226 ==

== ENCOUNTER → 2024-07-28 08:51 | Outpatient (REF) | payer MEDICARE, OTHER, SELFPAY ==
[2024-07-28 09:34] LABS: % Basophils 0.4 % (0-2); % Eosinophils 0.8 % (0-6); % Immature Granulocytes 0.4 % (0-0.5); % Lymphocytes 14.3 % (20.5-51.1); % Neutrophils 78.1 % (42.2-75.2); Absolute Eosinophils 0.1 10^3/uL (0-0.7); Absolute Lymphocytes 1.4 10^3/uL (1.2-3.4); Absolute Monocytes 0.6 10^3/uL (0.1-0.6); Absolute Neutrophils 7.5 10^3/uL (1.4-6.5); Hematocrit 40.8 % (39.0-52.0); Hemoglobin 12.8 g/dL (13.0-18.0); Mean Corp Hgb Conc. 31.4 g/dL (33.0-37.0); Mean Corpuscular Hgb 31.7 pg (27.0-31.0); Mean Platelet Volume 10.8 fL (7.4-10.4); Nucleated Red Blood Cells % 0 % (-); Platelet Count 228 10^3/uL (130-400); Red Blood Cell Count 4.04 10^6/uL (4.70-6.10); Red Cell Dist. Width 16.2 % (11.5-14.5); White Blood Cell Count 9.5 10^3/uL (4.8-10.8)
[2024-07-28 10:18] LABS: ALT (SGPT) 25 U/L (0-50); AST (SGOT) 31 U/L (17-59); Albumin 3.3 g/dl (3.5-5.0); Alkaline Phosphatase 212 U/L (38-126); Blood Urea Nitrogen 72 mg/dl (9-20); Calcium 9.7 mg/dl (8.4-10.2); Carbon Dioxide 35 mmol/L (22-30); Chloride 95 mmol/L (98-107); Glucose 171 mg/dl (70-99); Iron 62 ug/dl (49-181); Potassium 3.9 mmol/L (3.5-5.1); Sodium 136 mmol/L (135-145); Total Bilirubin 1.2 mg/dl (0.2-1.3); Total Protein 6.7 g/dl (6.3-8.2); eGFR 20.55
[2024-07-28 10:27] LABS: Percent Saturation 26 % (20-50); Total Iron Binding Capacity 233 ug/dl (261-462)
[2024-07-28 11:05] LABS: Glycohemoglobin (HgbA1c) 6.5 % (4.0-5.6)
== END ==
LOC: RCS 08:51
PROVIDERS: ATTENDING PHYSICIAN Student in an Organized Health Care Education/Training Program; FAMILY PHYSICIAN Family Medicine
DX: R00.1 Bradycardia, unspecified (principal); I50.30 Unspecified diastolic (congestive) heart failure; E11.9 Type 2 diabetes mellitus without complications
CPT/HCPCS: 36415; 80053; 83036; 83540; 83550; 84439; 84443; 85025; 93306; Q9950

== ENCOUNTER → 2024-08-05 11:04 | Outpatient (REF) | payer MEDICARE, OTHER, SELFPAY ==
[2024-08-05 13:29] LABS: Blood Urea Nitrogen 61 mg/dl (9-20); Calcium 8.8 mg/dl (8.4-10.2); Carbon Dioxide 31 mmol/L (22-30); Chloride 102 mmol/L (98-107); Glucose 141 mg/dl (70-99); Magnesium 1.9 mg/dl (1.6-2.3); Potassium 4.7 mmol/L (3.5-5.1); Sodium 137 mmol/L (135-145)
== END ==
LOC: REG 11:04
PROVIDERS: ATTENDING PHYSICIAN Student in an Organized Health Care Education/Training Program; FAMILY PHYSICIAN Family Medicine
DX: I50.30 Unspecified diastolic (congestive) heart failure (principal)
CPT/HCPCS: 36415; 80048; 83735

== ENCOUNTER → 2024-08-26 08:44 | Outpatient (REF) | payer MEDICARE, OTHER, SELFPAY ==
[2024-08-26 09:26] LABS: % Basophils 0.4 % (0-2); % Immature Granulocytes 0.5 % (0-0.5); % Lymphocytes 17.1 % (20.5-51.1); % Monocytes 5.9 % (1.7-9.3); % Neutrophils 75.1 % (42.2-75.2); Absolute Eosinophils 0.1 10^3/uL (0-0.7); Absolute Lymphocytes 1.3 10^3/uL (1.2-3.4); Absolute Monocytes 0.5 10^3/uL (0.1-0.6); Absolute Neutrophils 5.8 10^3/uL (1.4-6.5); Hematocrit 37.2 % (39.0-52.0); Hemoglobin 12.3 g/dL (13.0-18.0); Mean Corp Hgb Conc. 33.1 g/dL (33.0-37.0); Mean Corpuscular Hgb 33.4 pg (27.0-31.0); Mean Corpuscular Volume 101.1 fL (80.0-94.0); Mean Platelet Volume 10.4 fL (7.4-10.4); Nucleated Red Blood Cells % 0 % (-); Platelet Count 233 10^3/uL (130-400); Red Blood Cell Count 3.68 10^6/uL (4.70-6.10); Red Cell Dist. Width 16.8 % (11.5-14.5); White Blood Cell Count 7.8 10^3/uL (4.8-10.8)
[2024-08-26 10:26] LABS: Albumin 3.6 g/dl (3.5-5.0); Blood Urea Nitrogen 54 mg/dl (9-20); Carbon Dioxide 32 mmol/L (22-30); Chloride 97 mmol/L (98-107); Glucose 154 mg/dl (70-99); Phosphorus 3.1 mg/dl (2.5-4.5); Potassium 4.1 mmol/L (3.5-5.1); Sodium 138 mmol/L (135-145); eGFR 23.43
[2024-08-26 12:10] LABS: Protein/creatinine Ratio 0.4; Urine Protein 11 mg/dl
[2024-08-26 12:18] LABS: Microalbumin, Random Urine 1.6 mg/dl (0.6-1.7); Microalbumin/creatinine Ratio 63.5 mg/g
[2024-08-27 10:35] LABS: Intact PTH 115.2 pg/ml (13.6-85.8)
== END ==
LOC: REG 08:44
PROVIDERS: ATTENDING PHYSICIAN Specialist
DX: N18.4 Chronic kidney disease, stage 4 (severe) (principal)
CPT/HCPCS: 36415; 80069; 82043; 82570; 83735; 83970; 84156; 85025

== ENCOUNTER → 2024-10-27 12:30 | Outpatient (REF) | payer MEDICARE, OTHER, SELFPAY ==
[2024-10-27 13:17] LABS: % Basophils 0.1 % (0-2); % Immature Granulocytes 0.5 % (0-0.5); % Lymphocytes 8.9 % (20.5-51.1); % Monocytes 2.6 % (1.7-9.3); % Neutrophils 87.9 % (42.2-75.2); Absolute Lymphocytes 0.8 10^3/uL (1.2-3.4); Absolute Monocytes 0.2 10^3/uL (0.1-0.6); Absolute Neutrophils 7.5 10^3/uL (1.4-6.5); Hematocrit 38.6 % (39.0-52.0); Hemoglobin 12.5 g/dL (13.0-18.0); Mean Corp Hgb Conc. 32.4 g/dL (33.0-37.0); Mean Corpuscular Hgb 32.8 pg (27.0-31.0); Mean Corpuscular Volume 101.3 fL (80.0-94.0); Mean Platelet Volume 10.9 fL (7.4-10.4); Nucleated Red Blood Cells % 0 % (-); Platelet Count 182 10^3/uL (130-400); Red Blood Cell Count 3.81 10^6/uL (4.70-6.10); Red Cell Dist. Width 16.7 % (11.5-14.5); White Blood Cell Count 8.6 10^3/uL (4.8-10.8)
[2024-10-27 14:01] LABS: ALT (SGPT) 20 U/L (0-50); AST (SGOT) 21 U/L (17-59); Alkaline Phosphatase 168 U/L (38-126); Blood Urea Nitrogen 91 mg/dl (9-20); Calcium 9.8 mg/dl (8.4-10.2); Carbon Dioxide 36 mmol/L (22-30); Chloride 96 mmol/L (98-107); Glucose 201 mg/dl (70-99); Iron 52 ug/dl (49-181); Potassium 3.2 mmol/L (3.5-5.1); Sodium 144 mmol/L (135-145); Total Bilirubin 0.8 mg/dl (0.2-1.3); Total Protein 6.9 g/dl (6.3-8.2); eGFR 20.55
[2024-10-27 14:10] LABS: Percent Saturation 20 % (20-50); Total Iron Binding Capacity 254 ug/dl (261-462)
[2024-10-27 14:17] LABS: Free T4 1.43 ng/dl (0.78-2.19)
[2024-10-27 14:31] LABS: TSH 0.62 uIU/ml (0.47-4.68)
[2024-10-28 12:18] LABS: Glycohemoglobin (HgbA1c) 6.5 % (4.0-5.6)
== END ==
LOC: REG 12:30
PROVIDERS: ATTENDING PHYSICIAN Family Medicine; REFERRING PHYSICIAN Specialist
DX: E11.29 Type 2 diabetes mellitus with other diabetic kidney complication (principal); E03.9 Hypothyroidism, unspecified; I50.30 Unspecified diastolic (congestive) heart failure; D50.9 Iron deficiency anemia, unspecified
CPT/HCPCS: 36415; 80053; 83036; 83540; 83550; 84439; 84443; 85025

== ENCOUNTER 2024-10-31 18:30 | Inpatient (IN) | payer MEDICARE, OTHER, SELFPAY ==
[2024-10-31] VITALS (10 sets, daily range): BP systolic 107–154; BP diastolic 68–93; BMI 35.1; BMI 34.5
--- NOTE | 2024-10-31 14:00 | ED.GENMED ---
History of Present Illness
General
Chief Complaint: Back Pain
Source: patient and spouse
Exam Limitations: none
Time Seen by Provider: 10/31/24 13:44
History of Present Illness
History of Present Illness:
84-year-old female 1 week of back pain with radiation down the left leg. No bowel or bladder issues no fevers or chills. No abdominal pain. Pain is very positional. Very difficult managing pain at home. Last Tylenol was this morning
Past History
Past History
ED Past Medical History: Arrthythmia (afib), Cancer (Basal cell skin cancer), CHF, GERD, HTN, Hypercholesterolemia, NIDDM and Other (OA. Pulmonary Hypertension, [place] planus)
ED Past Surgical History: Orthopedic (Andres rotator cuff, Back surgery, Carpal tunnel, Andres total knee, Left THR) and Other (Varicose vein surgery , cataract surgery Left eye)
Social History
Tobacco: Former smoker
Alcohol: Occasional
Personal:
Living: with family
Employment: Retired
Family History
Family History: Other
Review of Systems
Review of Systems
All Other Systems: Not applicable
Constitutional: Denies fever or chills
Neurological: Denies dizzy, weakness or numbness
Phy Exam
Physical Exam
Physical Exam:
GENERAL: Alert and oriented. Somewhat lying on his side. Nontoxic peers uncomfortable
EYE: Orbits normal.
NECK: Supple, no significant adenopathy.
ENT: Pharynx without erythema
CARDIAC: Irregular irregular. Borderline bradycardia
LUNGS: Clear breath sounds,normal
ABDOMEN: Soft, without focal tenderness or distention. No pulsatile masses
NEUROLOGICAL: Alert and oriented , grossly non-focal
SKIN: Warm and dry, chronic hyperpigmentation changes to the lower extremities. Wraps to both lower extremities. Open chronic wound to the left lower extremity
MUSCULOSKELETAL: No edema,no deformity.Good color. Back pain with straight leg raising. Motor or sensory neurovascular intact. No spinal tenderness
PSYCH: Normal and appropriate interaction.
Course
Orders/Labs/Results
Orders:
Orders
10/31/24 13:59
CT Abd/pel Without Iv Or Oral Urgent
Comment:
Reason For Exam: Back pain/anticoagulated
IV Insert/Care/Rem.- Treatment PRN
Acetaminophen 1000MG/100Ml [Ofirmev] 1,000 mg in 100 ml IV ONCE
Acetaminophen IV Indication:: ED Narcotic Naive Pt-ONCE
HYDROmorphone [Dilaudid] 0.25 mg IV NOW STA
10/31/24 14:07
Complete Blood Count/With Diff Urgent
Comprehensive Metabolic Panel Urgent
Lipase Urgent
10/31/24 15:49
Potassium Chloride 10% Elixir [KCl Elixir] 40 meq PO NOW STA
10/31/24 16:14
EKG [Electrocardiogram (*1)] Urgent
Reason for Study: Other
Other Reason for Exam: Hypokalemia
EKG- Treatment ONCE
10/31/24 17:13
Admit/Transfer Patient As Directed
Co-Sign Provider:
Level of Care: Inpatient admission
Assign to:: Medical/Surgical
Physician / Group: Hospitalist
Diagnosis: Back pain
Reason for Hospitalization: .
Expected length of stay greater than two midnights?: Yes
ELOS- Estimated Length of Stay in days: 3
I certify the patient meets the requirements for IP care: Yes
PRN Pain Medication Management As Directed
May give lesser potent ordered pain med per pt: Yes
preference::
Protocol:: Medication orders for pain may be administered in a
manner that supports deferring to patient preference
when the pt is:
- Requesting an ordered lesser potent pain medication.
Least to most potent pain medications are defined
as: acetaminophen < NSAID < tramadol < opioids
(morphine, oxycodone, hydromorphone).
- Requesting a lesser dose of the same medication IF
ORDERED.
- Requesting a less intrusive route of administration
if both routes are prescribed by the provider (PO <
IV).
10/31/24 17:16
Code Status As Directed
Resuscitation Status: Full Code
10/31/24 18:46
Urinalysis Reflex To Culture Urgent
Date Specimen was Collected: 10/31/24
Time Specimen was Collected: 16:10
11/01/24 06:00
Ot Eval And Treat IN AM
Pt Eval And Treat IN AM
Activity Level: Ambulate
Abnormal Lab Results
10/31/24
14:07
RBC 3.85 L 10^6/uL
(4.70-6.10)
Hgb 12.8 L g/dL
(13.0-18.0)
MCV 101.3 H fL
(80.0-94.0)
MCH 33.2 H pg
(27.0-31.0)
MCHC 32.8 L g/dL
(33.0-37.0)
RDW 16.8 H %
(11.5-14.5)
MPV 11.1 H fL
(7.4-10.4)
Abs Immat Gran (auto) 0.1 H 10^3/uL
(0-0.05)
Absolute Neuts (auto) 7.4 H 10^3/uL
(1.4-6.5)
Absolute Lymphs (auto) 0.9 L 10^3/uL
(1.2-3.4)
Immature Gran % 0.8 H %
(0-0.5)
Neutrophils % 86.2 H %
(42.2-75.2)
Lymphocytes % 9.9 L %
(20.5-51.1)
Potassium 2.8 L mmol/L
(3.5-5.1)
Chloride 97 L mmol/L
(98-107)
Carbon Dioxide 40 H mmol/L
(22-30)
BUN 78 H mg/dl
(9-20)
Creatinine 2.2 H mg/dL
(0.7-1.3)
Glucose 212 H mg/dl
(70-99)
Total Protein 6.0 L g/dl
(6.3-8.2)
Albumin 3.4 L g/dl
(3.5-5.0)
10/31/24 14:07
10/31/24 14:07
Vital Signs
Initial and Last Documented VS:
Initial Vital Signs
Temp Pulse Resp BP Pulse Ox
97.7 F 57 16 154/86 99
10/31/24 10:51 10/31/24 10:51 10/31/24 10:51 10/31/24 10:51 10/31/24 10:51
Last Documented Vital Signs
Temp Pulse Resp BP Pulse Ox
97.7 F 45 27 135/93 97
10/31/24 10:51 10/31/24 18:00 10/31/24 18:15 10/31/24 18:00 10/31/24 17:45
MDM/Problems Addressed
Differential Diagnosis Includes:
Patient's symptom complex is very consistent with musculoskeletal/sciatic back pain. However very uncomfortable and I suspect there will be significant ADL issues. Will check CT scan to rule out retroperitoneal bleed. Pain management.
*Radiology
Radiology exam reviewed: radiology read reviewed (Left renal mass. Right renal cyst. Degenerative changes.)
*Pulse Oximetry
Patient hypoxic: no
*EKG
Interpreted by ED Provider?: Yes
Interpretation: abnormal
Comparison EKG: changes noted
Heart Rate: 50
Rate: bradycardiac
Rhythm: a-fib and PVC's
[place]: left axis deviation
Interval: normal interval
QRS Pattern: right bundle branch block
Ischemia: non-specific ST changes
*Critical Care Note
Total Time (30-74mins, 75-104mins- exclusive of procedures): Not Applicable
Data Reviewed
Review of Other/Old Records Reveals: Labs, Records and Testing
Update Note
Update Note:
Patient's symptoms are consistent with intractable severe back pain/sciatica. Does however have an incidental left renal mass and right renal cyst. Feel this is unlikely to be causing his symptoms. Also secondary hypokalemia. Bradycardia but
typically bradycardic
ED Attending Note
-
Portions of this chart may have been created with voice recognition software.� Occasional wrong word or��sound alike� substitutions may have occurred due to the inherent limitations of voice recognition software.
Discharge Plan
Departure
Patient Disposition: Admit
Date of Disposition: 10/31/24
Time of Disposition: 16:14
Presentation/result/management discussed w/ accepting MD/DO: Hospitalist
Discharge Problem:
Intractable back pain/sciatica, Hypokalemia, Renal mass
Interventions
Interventions:
*Risk Screen - Suicide Last Done: 10/31/24 10:55
*General Assessment Last Done: 10/31/24 13:12
*Neglect/Abuse Screening Last Done: 10/31/24 10:55
*ED- Fall Risk Assessment Last Done: 10/31/24 13:12
*ED COVID-19 Vaccine History Last Done: 10/31/24 13:12
ED-Musculoskeletal Assessment Last Done: 10/31/24 13:12
[2024-10-31] MEDS: OFIRMEV 100 IV (14:06)
[2024-10-31] MEDS: DILAUDID 0.25 MG IV (14:06)
[2024-10-31 14:22] LABS: % Basophils 0.1 % (0-2); % Immature Granulocytes 0.8 % (0-0.5); % Lymphocytes 9.9 % (20.5-51.1); % Neutrophils 86.2 % (42.2-75.2); Absolute Immature Granulocytes 0.1 10^3/uL (0-0.05); Absolute Lymphocytes 0.9 10^3/uL (1.2-3.4); Absolute Monocytes 0.3 10^3/uL (0.1-0.6); Absolute Neutrophils 7.4 10^3/uL (1.4-6.5); Hemoglobin 12.8 g/dL (13.0-18.0); Mean Corp Hgb Conc. 32.8 g/dL (33.0-37.0); Mean Corpuscular Hgb 33.2 pg (27.0-31.0); Mean Corpuscular Volume 101.3 fL (80.0-94.0); Mean Platelet Volume 11.1 fL (7.4-10.4); Nucleated Red Blood Cells % 0 % (-); Platelet Count 181 10^3/uL (130-400); Red Blood Cell Count 3.85 10^6/uL (4.70-6.10); Red Cell Dist. Width 16.8 % (11.5-14.5); White Blood Cell Count 8.6 10^3/uL (4.8-10.8)
[2024-10-31 14:31] LABS: ALT (SGPT) 35 U/L (0-50); AST (SGOT) 22 U/L (17-59); Albumin 3.4 g/dl (3.5-5.0); Alkaline Phosphatase 124 U/L (38-126); Blood Urea Nitrogen 78 mg/dl (9-20); Calcium 9.3 mg/dl (8.4-10.2); Carbon Dioxide 40 mmol/L (22-30); Chloride 97 mmol/L (98-107); Estimated Creatinine Clearance 30 ml/min; Glucose 212 mg/dl (70-99); Lipase 127 U/L (23-300); Potassium 2.8 mmol/L (3.5-5.1); Sodium 143 mmol/L (135-145); Total Bilirubin 1.2 mg/dl (0.2-1.3); eGFR 28.63
[2024-10-31] MEDS: KCL ELIXIR 40 MEQ PO (16:11)
--- NOTE | 2024-10-31 17:20 | HPS.HSE ---
Family Physician
-
Family Physician: Roe Shetty
Chief Complaint
-
Lower back pain radiating to the left lower extremity with difficulty walking for 1 week duration
History of Present Illness
84 years old male presented with sudden onset of lower back pain radiating to the left leg. Patient has been trying to use Tylenol but his gait started to decline and was not able to ambulate well. He denied fever or chills. He reports chronic
urinary incontinence. No change in bowel habits. In the ER, he did not have fever or leukocytosis. He had CAT scan of the abdomen and pelvis that showed left adrenal around 4 cm that had increased in size since 2022. CAT scan also showed
diffuse changes of degenerative disc disease L2, L3, L5, S1.
Medical History
Past Medical History
Past Medical History: Reports Other (Hypothyroidism, thrombophilia, gout, hyperlipidemia, lichen planus, sleep apnea, obesity, type 2 diabetes, chronic kidney disease stage IV, hyperparathyroidism, chronic venous hypertension, permanent atrial
fibrillation, heart failure with a preserved ejection fraction, hypertension, pulmonary hyper)
Past Surgical History: Reports Other (No recent major surgery)
Social History
Tobacco: Former Smoker
Alcohol: Occasional
Drug: None
Personal:
Living: With Family
Employment: Retired
Family History
Family History: Not pertinent
Allergies / Home Medications
Allergies reflects when Allergies were last updated in [employer].
Home Medications with original date entered in [employer]
Allergy/Medication List:
Allergies
Allergy/AdvReac Type Severity Reaction Status Date / Time
No Known Allergies Allergy Verified 10/31/24 13:13
Home Medications
allopurinol 300 mg tablet 300 mg PO DAILY Gout 02/08/08
atorvastatin 20 mg tablet (Lipitor) 20 mg PO DAILY High cholesterol 02/08/08
pantoprazole 40 mg tablet,delayed release 40 mg PO DAILY Gastrointestinal issue 11/29/20
empagliflozin 10 mg tablet (Jardiance) 10 mg PO DAILY 30 days #30 tabs 05/22/21
alfuzosin 10 mg tablet,extended release 24 hr 10 mg PO DAILY Urinary Issue 12/30/22
levothyroxine 50 mcg tablet 50 mcg PO DAILY Thyroid 12/30/22
amlodipine 5 mg tablet 5 mg PO DAILY Blood Pressure 10/08/23
calcitriol 0.25 mcg capsule 0.25 mcg PO DAILY Kidney Disease 10/08/23
metolazone 5 mg tablet 5 mg PO FR Fluid Retention/Swelling 10/08/23
rivaroxaban 15 mg tablet (Xarelto) 15 mg PO HS Blood Clot Prevention/Tx 10/08/23
torsemide 20 mg tablet 40 mg PO DAILY Fluid Retention/Swelling 10/08/23
tirzepatide 7.5 mg/0.5 mL subcutaneous pen injector (Mounjaro) 7.5 mg SC TH 03/11/24
potassium chloride 10 mEq tablet,extended release 10 meq PO DAILY 10/31/24
prednisone 20 mg tablet 20 mg PO DAILY 10/31/24
Review of Systems
-
History Source: Patient
A 12 point ROS was completed and negative except as noted: Yes
Constitutional: Denies Fever or Chills
EENT: Denies Sore Throat
Respiratory: Denies Trouble Breathing
Cardiac: Denies Chest Pain
Abdomen/GI: Denies Abdominal Pain
: Reports Incontinence; Denies Dysuria or Bleeding
Musculoskeletal: Reports Other (Lower back pain radiating to left lower extremity)
Skin: Reports Other (Chronic wounds on bilateral lower extremities, skin cancer on left lower extremity); Denies Itching
Neurological: Denies Dizzy
Endocrine: Denies Temp Intolerance
Hematologic/Lymphatic: Denies Bleeding
Psych: Denies Panic Disorder
Physical Exam
Vital Signs
Vital Signs
Temp Pulse Resp BP Pulse Ox
97.7 F 41 14 127/90 94
10/31/24 10:51 10/31/24 16:45 10/31/24 16:45 10/31/24 16:00 10/31/24 16:45
Physical Exam
General: No Apparent Distress, Comfortable and Appears Chronically Ill
HEENT: Moist mucous membranes and Atraumatic
Respiratory: Rales
Cardiac: Irregular Rhythm and Bradycardia
GI: Soft, Non Tender and Non Distended
Genito-urinary: No Donovan
Musculoskeletal: No Cyanosis
Skin: Other (Ulcerative wounds noticed on both bilateral lower extremities)
Neuro: AO x 3 and Nonfocal/grossly intact
Psych: Calm and Intact Judgment/Insight
Laboratory Results
-
10/31/24 14:07
10/31/24 14:07
Laboratory Results
Total Bilirubin 1.2 mg/dl (0.2-1.3) 10/31/24 14:07
AST 22 U/L (17-59) 10/31/24 14:07
ALT 35 U/L (0-50) 10/31/24 14:07
Alkaline Phosphatase 124 U/L (38-126) 10/31/24 14:07
Lipase 127 U/L (23-300) 10/31/24 14:07
Impression/Plan
-
84 years old male presented with left lumbar radiculopathy
# Left lumbar radiculopathy, suspect acute sciatica
No warning signs as fever, chills, leukocytosis, bowel incontinence. Patient has a chronic urinary incontinence
Pain is associated with gait dysfunction.
Will do Tylenol [id number]
Low-dose IV Dilaudid for severe pain
Will do MRI of the lumbar area.
Patient will benefit from PT/OT evaluation
# Chronic bilateral ulcerative wounds. History of skin cancer on the left lower extremity
Continue wound care in the hospital. Consult wound care. For now we will do dry dressing. No evidence of acute infection or cellulitis
# Type 2 diabetes. Will monitor renal function and blood glucose. Continue home medication and add insulin sign scale
#Chronic kidney disease stage IV. Will renally adjust medications doses. No flank pain.
# Chronic heart failure with preserved ejection fraction.
# Chronic urinary incontinence with history of prostatic hyperplasia
# History of iron deficiency anemia/anemia of chronic disease
#Hypokalemia, replaced oral and IV.
#Permanent atrial fibrillation with a chronic bradycardia. Seems to have asymptomatic bradycardia. Will order EKG. patient denies dizziness, chest pain, shortness of breath but admits to chronic cough/secretions. Continue with systemic
anticoagulation.
#Gout
Will adjust allopurinol dose per renal function
#Hyperlipidemia, no changes intended
#Obesity
#Chronic venous insufficiency
# History of severe pulmonary hypertension. Will order chest x-ray.
Total time spent to see the patient, examine the patient, review data and lab result, discuss treatment plan with patient, ER doctor, nursing staff around 75 minutes
[2024-10-31 19:10] LABS: Urine Albumin 2+ (Neg - Trace); Urine Bilirubin Negative (Negative); Urine Character Clear (Clear); Urine Color Yellow; Urine Glucose 4+ (Negative); Urine Ketone Negative (Negative); Urine Leukocyte Negative (Negative); Urine Nitrite Negative (Negative); Urine Occult Blood Negative (Negative); Urine Urobilinogen Negative (Neg - 1+)
[2024-10-31 20:01] LABS: Urine Red Blood Cell 0-2 /HPF (0-2); Urine Squamous Cell 0-2 /LPF (Few); Urine White Cell 0-2 /HPF (0-5)
[2024-10-31] MEDS: KCL 270 MEQ IV (20:56)
[2024-10-31] MEDS: XARELTO 15 MG PO (21:00)
[2024-10-31] MEDS: TYLENOL 1000 MG PO (21:01)
[2024-10-31 22:04] LABS: Glucose - Point of Care 242 mg/dl (70-99)
[2024-11-01] MEDS: DILAUDID 0.25 MG IV ×3 (01:28→23:54)
--- NOTE | 2024-11-01 04:40 | PTCARENOTE ---
Pt admitted from ED. AAOx3. Ambulated to bed with standby assist x1 with a walker. Pt afebrile, VSS. R AC IV C/D/I. B/L leg wounds with wound care done prior to arrival. Pt instructed to use call lucas prior to getting OOB. Call lucas within
reach and bed in lowest position.
[2024-11-01 05:52] LABS: Blood Urea Nitrogen 76 mg/dl (9-20); Carbon Dioxide 36 mmol/L (22-30); Chloride 104 mmol/L (98-107); Estimated Creatinine Clearance 31 ml/min; Glucose 145 mg/dl (70-99); Potassium 3.2 mmol/L (3.5-5.1); Sodium 144 mmol/L (135-145); eGFR 30.28
[2024-11-01] MEDS: SYNTHROID 50 MCG PO (06:14)
[2024-11-01 07:35] VITALS: BP 118/54
[2024-11-01] MEDS: ROCALTROL 0.25 MCG PO (07:46)
[2024-11-01] MEDS: TYLENOL 1000 MG PO ×3 (07:46→21:20)
[2024-11-01] MEDS: NORVASC 5 MG PO (07:46)
[2024-11-01] MEDS: LIPITOR 20 MG PO (07:46)
[2024-11-01] MEDS: FLOMAX 0.4 MG PO (07:46)
[2024-11-01] MEDS: KCL 40 MEQ PO ×2 (07:46→21:20)
[2024-11-01] MEDS: DEMADEX 40 MG PO (07:46)
[2024-11-01] MEDS: ZYLOPRIM 100 MG PO (07:46)
[2024-11-01] MEDS: PROTONIX 40 MG PO (07:46)
[2024-11-01] MEDS: DELTASONE 20 MG PO (07:46)
[2024-11-01] MEDS: FARXIGA 10 MG PO (07:46)
[2024-11-01 07:50] LABS: Glucose - Point of Care 134 mg/dl (70-99)
[2024-11-01] MEDS: NOVOLOG FLEXPEN-MODERATE RESISTANCE SC (07:54)
--- NOTE | 2024-11-01 08:38 | W.PN.HOSP.TC ---
Today's Communication/Plan
-
PT / OT
SNF recommendations
c/w Tylenol ATC
Assessment / Plan
Assessment / Plan
Physical Exam
General: No Apparent Distress, Comfortable and Appears Chronically Ill
HEENT: Moist mucous membranes and Atraumatic
Respiratory: Rales
Cardiac: Irregular Rhythm and Bradycardia
GI: Soft, Non Tender and Non Distended
Genito-urinary: No Donovan
Musculoskeletal: No Cyanosis
Skin: Other (Ulcerative wounds noticed on both bilateral lower extremities)
Neuro: AO x 3 and Nonfocal/grossly intact
Psych: Calm and Intact Judgment/Insight
84 years old male presented with left lumbar radiculopathy
# Left lumbar radiculopathy, suspect acute sciatica
No warning signs as fever, chills, leukocytosis, bowel incontinence. Patient has a chronic urinary incontinence
Pain is associated with gait dysfunction.
c/w Tylenol [id number]
Low-dose IV Dilaudid for severe pain
MRI of lumbar spine showed severe left lateral recess stenosis at L2-L3 secondary to a left posterior disc extrusion with inferior migration that impinges upon the descending left L3 nerve root. Chronic degenerative findings.
Patient will benefit from PT/OT evaluation
# MRI of the abdomen showed complex 3.6 cm exophytic left mid pole renal mass, 4.1 cm left adrenal gland mass
Recommend outpatient follow-up.
# Chronic bilateral ulcerative wounds. History of skin cancer on the left lower extremity
Continue wound care in the hospital. Consult wound care. For now we will do dry dressing. No evidence of acute infection or cellulitis
# Type 2 diabetes. Will monitor renal function and blood glucose. Continue home medication and add insulin sign scale
#Chronic kidney disease stage IV. Will renally adjust medications doses. No flank pain.
# Chronic heart failure with preserved ejection fraction.
# Chronic urinary incontinence with history of prostatic hyperplasia
# History of iron deficiency anemia/anemia of chronic disease
#Hypokalemia, improve. Will continue with oral K replacement
s/p replaced oral and IV.
#Permanent atrial fibrillation with a chronic bradycardia. Seems to have chronic asymptomatic bradycardia. . patient denies dizziness, chest pain, shortness of breath but admits to chronic cough/secretions. Continue with systemic anticoagulation.
#Gout
Adjusted the dose to 100 mg daily.
#Hyperlipidemia, no changes intended
#Obesity
#Chronic venous insufficiency
# History of severe pulmonary hypertension.
Total time spent to see the patient, examine the patient, review data and lab result, discuss treatment plan with patient, nursing staff around 55 minutes
Anticipated Discharge: 24 - 48 hours
Subjective/Interval History
-
Date of Service: November 01, 2024
Less back pain
No fever
No chest pain
Objective Data
-
Labs:
Laboratory Results
11/01/24
05:16
Sodium 144
Potassium 3.2 L
Chloride 104
Carbon Dioxide 36 H
BUN 76 H
Creatinine 2.1 H
Glucose 145 H
Calcium 9.0
Vital Signs:
Vital Signs
Temp Pulse Resp BP Pulse Ox
98 F 42 14 118/54 96
11/01/24 07:35 11/01/24 07:35 11/01/24 07:35 11/01/24 07:35 11/01/24 07:35
I&O
10/31/24 11/01/24 11/02/24
06:59 06:59 06:59
Output Total 275 / 275
Balance -275 / -275
--- NOTE | 2024-11-01 10:36 | WOUNDNOTE ---
RIGHT LOWER LEG
--- NOTE | 2024-11-01 10:37 | WOUNDNOTE ---
RIGHT LOWER LEG
--- NOTE | 2024-11-01 10:37 | WOUNDNOTE ---
LEFT MEDIAL LEG
--- NOTE | 2024-11-01 10:38 | WOUNDNOTE ---
LEFT LATERAL LEG
--- NOTE | 2024-11-01 10:38 | WOUNDNOTE ---
LEFT ANTERIOR LEG
--- NOTE | 2024-11-01 10:52 | WOUNDNOTE ---
[facility] RN note: Patient admitted with Lower back pain radiating to the left lower extremity with difficulty walking for 1 week duration
See H&P for complete history.
PMH: DM 2, CKD IV, HF, Gout, obesity, bilateral venous insufficiency
Wound Location and type/assessment: Patient admitted with bilateral LE wounds. Patient is a poor historian of wounds. He said he follows up at the cancer center for left leg wound that resulted from radiation. The full thickness left leg wound
extends across the medial, lateral and anterior aspects of the left leg. The wound bed is dusky, dark appearing. No foul odor noted and drainage is moderate. Patient reports that right leg wound was an 'abscess' that he has treated by a ' in
[place].' Upon assessment a material has been sewn into this wound. Patient has venous stasis changes bilaterally to LE with faint pedal pulses. Sacrum and heels are intact. Patient is capable of turning self but said' I dont like to move because
of the pain in my left leg.' He ambulates to with walker.
Appetite: States fair
Pressure redistribution devices in place: Static Air Overlay ordered. Heels off-loaded with pillows under calves as tolerated. No-sting barrier and adhesive foam applied to heels, sacral foam applied to sacrum. Encouraged frequent turning and
repositioning as tolerated and added turning/repositioning to care plan.
Plan: Local wound care provided to left leg. Patient said that right leg should not get wet so a silicone border foam was placed over right leg wound. Spoke to Dr. Mckinley, as patient is a poor historian. Dr. Mckinley said that she removed Unna boots to
bilaterally LE to assess wounds on admission. Dr. cMkinley would like Unna boots to be applied bilaterally while patient is hospitalized. Will follow up with clinical lead Eliane regarding Unna boots for in-patients on 10/20. Compression with JANE
ordered bilaterally. Updated care plan and will follow as needed.
Note to case management of equipment requested for discharge:
Recommend follow up at wound care center upon discharge.
[2024-11-01 11:42] LABS: Glucose - Point of Care 226 mg/dl (70-99)
[2024-11-01 12:08] VITALS: BP 117/70; PULSE 42; O2SAT 95
[2024-11-01] MEDS: NOVOLOG FLEXPEN-MODERATE RESISTANCE 3 UNITS SC ×2 (12:08→17:23)
[2024-11-01 12:10] VITALS: BP 117/70; PULSE 41; O2SAT 95
[2024-11-01 15:06] VITALS: BP 126/57
--- NOTE | 2024-11-01 15:22 | CM ---
Patient seen bedside.
IA completed.
Patient lives with spouse in a multilevel home, 6 steps in and 6 steps up.
Patient recently started ambulating with a RW due to back pain.
Patient drives and is retired.
Patient independent prior to admission.
Patient had VN in the past and agreeable to [facility] if needed again.
Spouse will transport.
PCP: Dr Shetty
Pharmacy: [facility]
Plan Home with probable VN needs.
[2024-11-01 16:29] LABS: Glucose - Point of Care 208 mg/dl (70-99)
[2024-11-01 21:44] LABS: Glucose - Point of Care 199 mg/dl (70-99)
--- NOTE | 2024-11-01 22:51 | PTCARENOTE ---
Spoke with House Provider, Yolande Farris, at bedside about pt's bradycardia. HR currently 36-40. BP stable. Pt states that he feels fine and that his HR tends to run low. House Provider noticed pt has a history of bradycardia, per the chart. No new
orders at this time.
[2024-11-01 23:00] VITALS: BP 107/55
[2024-11-02 04:49] VITALS: BMI 35.3
[2024-11-02] MEDS: SYNTHROID 50 MCG PO (06:11)
[2024-11-02] MEDS: DILAUDID 0.25 MG IV ×2 (06:35→12:35)
[2024-11-02 07:30] VITALS: BP 117/58
[2024-11-02 07:49] LABS: Glucose - Point of Care 182 mg/dl (70-99)
[2024-11-02] MEDS: NOVOLOG FLEXPEN-MODERATE RESISTANCE 1 UNITS SC ×2 (08:25→12:32)
[2024-11-02] MEDS: ZYLOPRIM 100 MG PO (08:26)
[2024-11-02] MEDS: DEMADEX 40 MG PO (08:26)
[2024-11-02] MEDS: PROTONIX 40 MG PO (08:26)
[2024-11-02] MEDS: LIPITOR 20 MG PO (08:26)
[2024-11-02] MEDS: NORVASC 5 MG PO (08:26)
[2024-11-02] MEDS: FARXIGA 10 MG PO (08:27)
[2024-11-02] MEDS: TYLENOL 1000 MG PO ×3 (08:27→21:21)
[2024-11-02] MEDS: ROCALTROL 0.25 MCG PO (08:27)
[2024-11-02] MEDS: FLOMAX 0.4 MG PO (08:27)
[2024-11-02] MEDS: DELTASONE 20 MG PO (08:27)
--- NOTE | 2024-11-02 10:01 | W.PN.HOSP.TC ---
Today's Communication/Plan
-
Holding systemic AC to get epidural shot by IR ( maybe today or tomorrow)
Recheck blood work later today
Assessment / Plan
Assessment / Plan
Physical Exam
General: No Apparent Distress, Comfortable and Appears Chronically Ill
HEENT: Moist mucous membranes and Atraumatic
Respiratory: Rales
Cardiac: Irregular Rhythm and Bradycardia
GI: Soft, Non Tender and Non Distended
Genito-urinary: No Donovan
Musculoskeletal: No Cyanosis
Skin: Other (Ulcerative wounds noticed on both bilateral lower extremities)
Neuro: AO x 3 and Nonfocal/grossly intact
Psych: Calm and Intact Judgment/Insight
84 years old male presented with left lumbar radiculopathy
# Left lumbar radiculopathy, suspect acute sciatica
No warning signs as fever, chills, leukocytosis, bowel incontinence. Patient has a chronic urinary incontinence
Pain is associated with gait dysfunction.
c/w Tylenol [id number]
Low-dose IV Dilaudid for severe pain
MRI of lumbar spine showed severe left lateral recess stenosis at L2-L3 secondary to a left posterior disc extrusion with inferior migration that impinges upon the descending left L3 nerve root. Chronic degenerative findings.
d/w IR, hold AC, plan for epidural injection. Discussed with pt , he agreed
Patient will benefit from PT/OT evaluation
# MRI of the abdomen showed complex 3.6 cm exophytic left mid pole renal mass, 4.1 cm left adrenal gland mass
Recommend outpatient follow-up.
# Chronic bilateral ulcerative wounds. History of skin cancer on the left lower extremity
Continue wound care in the hospital. Consult wound care. For now we will do dry dressing. No evidence of acute infection or cellulitis
# Type 2 diabetes. Will monitor renal function and blood glucose. Continue home medication and add insulin sign scale
#Chronic kidney disease stage IV. Will renally adjust medications doses. No flank pain.
# Chronic heart failure with preserved ejection fraction.
# Chronic urinary incontinence with history of prostatic hyperplasia
# History of iron deficiency anemia/anemia of chronic disease
#Hypokalemia, improve. Will continue with oral K replacement
s/p replaced oral and IV.
#Permanent atrial fibrillation with a chronic bradycardia. Seems to have chronic asymptomatic bradycardia. . patient denies dizziness, chest pain, shortness of breath but admits to chronic cough/secretions. Continue with systemic anticoagulation.
#Gout
Adjusted the dose to 100 mg daily.
#Hyperlipidemia, no changes intended
#Obesity
#Chronic venous insufficiency
# History of severe pulmonary hypertension.
Total time spent to see the patient, examine the patient, review data and lab result, discuss treatment plan with patient, nursing staff around 55 minutes
Anticipated Discharge: 24 - 48 hours
Subjective/Interval History
-
Date of Service: November 02, 2024
Still back pain
Objective Data
-
Vital Signs:
Vital Signs
Temp Pulse Resp BP Pulse Ox
97.3 F 34 16 117/58 95
11/02/24 07:30 11/02/24 07:30 11/02/24 07:30 11/02/24 08:26 11/02/24 07:30
I&O
11/01/24 11/02/24 11/03/24
06:59 06:59 06:59
Intake Total 480 / 480
Output Total 275 / 275 875 / 875
Balance -275 / -275 -395 / -395
[2024-11-02 11:01] LABS: Glucose - Point of Care 175 mg/dl (70-99)
[2024-11-02 11:06] LABS: Blood Urea Nitrogen 78 mg/dl (9-20); Carbon Dioxide 32 mmol/L (22-30); Chloride 103 mmol/L (98-107); Estimated Creatinine Clearance 28 ml/min; Glucose 165 mg/dl (70-99); Potassium 3.6 mmol/L (3.5-5.1); Sodium 140 mmol/L (135-145); eGFR 27.15
--- NOTE | 2024-11-02 11:56 | CM ---
CM following for discharge planning. Pt with radiating pain down his leg with plan for epidural injection for relief.
Plan: CM to follow to coordinate identified discharge needs.
[2024-11-02] MEDS: ROBITUSSIN DM 10 ML PO (13:43)
--- NOTE | 2024-11-02 14:56 | WOUNDNOTE ---
[facility] RN NOTE: Confirmed that patient is on a static air overlay. RN Roya just completed wound care and JANE wraps had been applied.
[2024-11-02 14:58] VITALS: BP 138/74
[2024-11-02 16:33] LABS: Glucose - Point of Care 259 mg/dl (70-99)
[2024-11-02] MEDS: NOVOLOG FLEXPEN-MODERATE RESISTANCE 5 UNITS SC (17:27)
[2024-11-02 21:54] LABS: Glucose - Point of Care 187 mg/dl (70-99)
[2024-11-02 23:15] VITALS: BP 117/61
[2024-11-03] MEDS: SYNTHROID 50 MCG PO (04:31)
[2024-11-03 06:00] VITALS: BMI 35.5
[2024-11-03 06:09] LABS: INR 1.27; PT 16.4 Sec (11.4-14.6)
[2024-11-03 07:30] VITALS: BP 115/55
[2024-11-03 07:52] LABS: Glucose - Point of Care 115 mg/dl (70-99)
[2024-11-03] MEDS: NOVOLOG FLEXPEN-MODERATE RESISTANCE SC (08:23)
[2024-11-03] MEDS: TYLENOL 1000 MG PO ×2 (08:24→15:52)
[2024-11-03] MEDS: FLOMAX 0.4 MG PO (08:24)
[2024-11-03] MEDS: DELTASONE 20 MG PO (08:24)
[2024-11-03] MEDS: ROCALTROL 0.25 MCG PO (08:24)
[2024-11-03] MEDS: DEMADEX 40 MG PO (08:25)
[2024-11-03] MEDS: LIPITOR 20 MG PO (08:25)
[2024-11-03] MEDS: FARXIGA 10 MG PO (08:25)
[2024-11-03] MEDS: NORVASC 5 MG PO (08:25)
[2024-11-03] MEDS: PROTONIX 40 MG PO (08:25)
[2024-11-03] MEDS: ZYLOPRIM 100 MG PO (08:26)
[2024-11-03] MEDS: ROBITUSSIN DM 10 ML PO ×2 (08:31→21:31)
--- NOTE | 2024-11-03 09:33 | W.PN.HOSP.TC ---
Today's Communication/Plan
-
Plan for epidural injection today. Sherman still on hold pending IR procedure
Hope to be able to ambulate after procedure
Assessment / Plan
Assessment / Plan
Physical Exam
General: No Apparent Distress, Comfortable and Appears Chronically Ill
HEENT: Moist mucous membranes and Atraumatic
Respiratory: Rales
Cardiac: Irregular Rhythm and Bradycardia
GI: Soft, Non Tender and Non Distended
Genito-urinary: No Donovan
Musculoskeletal: No Cyanosis
Skin: Other (Ulcerative wounds noticed on both bilateral lower extremities)
Neuro: AO x 3 and Nonfocal/grossly intact
Psych: Calm and Intact Judgment/Insight
84 years old male presented with left lumbar radiculopathy
# Left lumbar radiculopathy, suspect acute sciatica
No warning signs as fever, chills, leukocytosis, bowel incontinence. Patient has a chronic urinary incontinence
Pain is associated with gait dysfunction.
c/w Tylenol [id number]
Low-dose IV Dilaudid for severe pain
MRI of lumbar spine showed severe left lateral recess stenosis at L2-L3 secondary to a left posterior disc extrusion with inferior migration that impinges upon the descending left L3 nerve root. Chronic degenerative findings.
d/w IR, hold AC, plan for epidural injection today, no need for NPO. Discussed with pt , he agreed
Patient will benefit from PT/OT evaluation
# MRI of the abdomen showed complex 3.6 cm exophytic left mid pole renal mass, 4.1 cm left adrenal gland mass
Recommend outpatient follow-up.
# Chronic bilateral ulcerative wounds. History of skin cancer on the left lower extremity
Continue wound care in the hospital. Consult wound care. For now we will do dry dressing. No evidence of acute infection or cellulitis
# Type 2 diabetes. Will monitor renal function and blood glucose. Continue home medication and add insulin sign scale
#Chronic kidney disease stage IV. Will renally adjust medications doses. No flank pain.
# Chronic heart failure with preserved ejection fraction.
# Chronic urinary incontinence with history of prostatic hyperplasia
# History of iron deficiency anemia/anemia of chronic disease
#Hypokalemia, improve. Will continue with oral K replacement
s/p replaced oral and IV.
#Permanent atrial fibrillation with a chronic bradycardia. Seems to have chronic asymptomatic bradycardia. . patient denies dizziness, chest pain, shortness of breath but admits to chronic cough/secretions. Continue with systemic anticoagulation.
#Gout
Adjusted the dose to 100 mg daily.
#Hyperlipidemia, no changes intended
#Obesity
#Chronic venous insufficiency
# History of severe pulmonary hypertension.
Total time spent to see the patient, examine the patient, review data and lab result, discuss treatment plan with patient, nursing staff around 55 minutes
Anticipated Discharge: 24 - 48 hours
Subjective/Interval History
-
Date of Service: November 03, 2024
Same pain in back upon standing
Objective Data
-
Labs:
Laboratory Results
11/03/24
05:44
PT 16.4 H
INR 1.27
Vital Signs:
Vital Signs
Temp Pulse Resp BP Pulse Ox
97.6 F 38 16 115/55 97
11/03/24 07:30 11/03/24 08:25 11/03/24 07:30 11/03/24 08:25 11/03/24 07:30
I&O
11/02/24 11/03/24 11/04/24
06:59 06:59 06:59
Intake Total 480 / 480 720 / 720
Output Total 875 / 875 1500 / 1500
Balance -395 / -395 -780 / -780
[2024-11-03] MEDS: DILAUDID 0.25 MG IV (10:31)
[2024-11-03 11:44] LABS: Glucose - Point of Care 239 mg/dl (70-99)
[2024-11-03] MEDS: NOVOLOG FLEXPEN-MODERATE RESISTANCE 3 UNITS SC ×2 (12:27→17:28)
[2024-11-03 13:04] VITALS: BP 146/87; BP_SYST 44
[2024-11-03 13:47] VITALS: BP 119/72
[2024-11-03 14:48] VITALS: BP 135/65
--- NOTE | 2024-11-03 15:56 | CM ---
Pt unavailable today - having epidural steroid injection; off floor.
CM to follow up in AM to review therapy notes and discuss discharge planning options.
[2024-11-03 16:45] LABS: Glucose - Point of Care 220 mg/dl (70-99)
[2024-11-03] MEDS: TYLENOL PO (21:28)
[2024-11-03 21:31] LABS: Glucose - Point of Care 230 mg/dl (70-99)
[2024-11-03 23:00] VITALS: BP 105/55
[2024-11-04] MEDS: SYNTHROID 50 MCG PO (05:31)
[2024-11-04 06:00] VITALS: BMI 33.8
[2024-11-04 07:21] VITALS: BP 113/63
[2024-11-04] MEDS: ZYLOPRIM 100 MG PO (07:39)
[2024-11-04] MEDS: FARXIGA 10 MG PO (07:39)
[2024-11-04] MEDS: PROTONIX 40 MG PO (07:39)
[2024-11-04] MEDS: ROCALTROL 0.25 MCG PO (07:39)
[2024-11-04] MEDS: FLOMAX 0.4 MG PO (07:39)
[2024-11-04] MEDS: LIPITOR 20 MG PO (07:39)
[2024-11-04] MEDS: DELTASONE 20 MG PO (07:40)
[2024-11-04] MEDS: DEMADEX 40 MG PO (07:40)
[2024-11-04 07:44] LABS: Glucose - Point of Care 176 mg/dl (70-99)
[2024-11-04] MEDS: NORVASC 5 MG PO (07:44)
[2024-11-04] MEDS: NOVOLOG FLEXPEN-MODERATE RESISTANCE 1 UNITS SC (07:47)
[2024-11-04] MEDS: TYLENOL 1000 MG PO ×2 (07:47→16:11)
[2024-11-04 08:38] LABS: Hematocrit 40.5 % (39.0-52.0); Hemoglobin 13.4 g/dL (13.0-18.0); Mean Corp Hgb Conc. 33.1 g/dL (33.0-37.0); Mean Corpuscular Hgb 32.9 pg (27.0-31.0); Mean Corpuscular Volume 99.5 fL (80.0-94.0); Mean Platelet Volume 11.6 fL (7.4-10.4); Platelet Count 174 10^3/uL (130-400); Red Blood Cell Count 4.07 10^6/uL (4.70-6.10); Red Cell Dist. Width 16.8 % (11.5-14.5); White Blood Cell Count 10.5 10^3/uL (4.8-10.8)
--- NOTE | 2024-11-04 08:53 | W.PN.HOSP.TC ---
Today's Communication/Plan
-
dc
Assessment / Plan
Assessment / Plan
Physical Exam
General: No Apparent Distress, Comfortable and Appears Chronically Ill
HEENT: Moist mucous membranes and Atraumatic
Respiratory: Rales
Cardiac: Irregular Rhythm and Bradycardia
GI: Soft, Non Tender and Non Distended
Genito-urinary: No Donovan
Musculoskeletal: No Cyanosis
Skin: Other (Ulcerative wounds noticed on both bilateral lower extremities)
Neuro: AO x 3 and Nonfocal/grossly intact
Psych: Calm and Intact Judgment/Insight
84 years old male presented with left lumbar radiculopathy
# Left lumbar radiculopathy, suspect acute sciatica
No warning signs as fever, chills, leukocytosis, bowel incontinence. Patient has a chronic urinary incontinence
Pain is associated with gait dysfunction.
c/w Tylenol [id number]
Low-dose IV Dilaudid for severe pain, dc on oral Dilaudid ( safe with CKD)
MRI of lumbar spine showed severe left lateral recess stenosis at L2-L3 secondary to a left posterior disc extrusion with inferior migration that impinges upon the descending left L3 nerve root. Chronic degenerative findings.
d/w IR, s/p epidural injection today, no need for NPO. Discussed with pt , he agreed
Patient will benefit from SNF with PT/OT evaluation
# MRI of the abdomen showed complex 3.6 cm exophytic left mid pole renal mass, 4.1 cm left adrenal gland mass
Recommend outpatient follow-up. d/w pt and his family at bed side.
# Chronic bilateral ulcerative wounds. History of skin cancer on the left lower extremity
Continue wound care in the hospital. Consulted wound care. For now we will do dry dressing. No evidence of acute infection or cellulitis
# Type 2 diabetes. Will monitor renal function and blood glucose. Continue home medication and add insulin sign scale
#Chronic kidney disease stage IV. Renally adjust medications doses. No flank pain.
# Chronic heart failure with preserved ejection fraction.
# Chronic urinary incontinence with history of prostatic hyperplasia
# History of iron deficiency anemia/anemia of chronic disease
#Hypokalemia, improve. Will continue with oral K replacement
s/p replaced oral and IV.
#Permanent atrial fibrillation with a chronic bradycardia. Seems to have chronic asymptomatic bradycardia. . patient denies dizziness, chest pain, shortness of breath but admits to chronic cough/secretions. Continue with systemic anticoagulation.
#Gout
Adjusted the dose to 100 mg daily.
#Hyperlipidemia, no changes intended
#Obesity
#Chronic venous insufficiency
# History of severe pulmonary hypertension.
Total discharge time spent to see the patient, examine the patient, review data and lab result, discuss discharge plan with patient, family, nursing staff around 67 minutes
Anticipated Discharge: Today
Subjective/Interval History
-
Date of Service: November 04, 2024
Still back pain, unable to ambulate well
Objective Data
-
Labs:
Laboratory Results
11/04/24
07:52
WBC 10.5
Hgb 13.4
Hct 40.5
Plt Count 174
Sodium Pending
Potassium Pending
Chloride Pending
Carbon Dioxide Pending
BUN Pending
Creatinine Pending
Glucose Pending
Calcium Pending
Vital Signs:
Vital Signs
Temp Pulse Resp BP Pulse Ox
97.4 F 38 17 113/63 94
11/04/24 07:21 11/04/24 07:21 11/04/24 07:21 11/04/24 07:44 11/04/24 07:21
I&O
11/03/24 11/04/24 11/05/24
06:59 06:59 06:59
Intake Total 720 / 720 240 / 240
Output Total 1500 / 1500 200 / 200
Balance -780 / -780 40 / 40
[2024-11-04 09:05] LABS: Blood Urea Nitrogen 78 mg/dl (9-20); Calcium 9.5 mg/dl (8.4-10.2); Carbon Dioxide 37 mmol/L (22-30); Chloride 100 mmol/L (98-107); Estimated Creatinine Clearance 28 ml/min; Glucose 178 mg/dl (70-99); Potassium 3.7 mmol/L (3.5-5.1); Sodium 141 mmol/L (135-145); eGFR 27.15
[2024-11-04 09:47] VITALS: BP 122/57; PULSE 40; O2SAT 95
[2024-11-04] MEDS: DILAUDID 0.25 MG IV (09:47)
[2024-11-04 09:49] VITALS: BP 122/57; PULSE 37
--- NOTE | 2024-11-04 11:56 | CM ---
Addendum entered by Renee Grajeda 11/04/24 15:18:
4th Floor Room # [id number] (P) [phone] and (F) [phone], Pending transportation plan;
Addendum entered by Renee Grajeda 11/04/24 15:12:
Patient accepted to [facility] if anali tolentino is on hold. CM sent TT to physician and will review with patient.
Original Note:
Patient seen at bedside on . Patient indicated to physician that he would like to go to SNF. CM reviewed options and therapy recommendation for home health. Patient indicated that he wanted to go home and requested [facility] for referral. CM
reviewed IMM and signed form placed in chart. CM will continue to follow for discharge planning needs.
Plan; home with [facility]; pending acceptance.
[2024-11-04 11:57] LABS: Glucose - Point of Care 312 mg/dl (70-99)
[2024-11-04] MEDS: NOVOLOG FLEXPEN-MODERATE RESISTANCE 7 UNITS SC (12:42)
--- NOTE | 2024-11-04 13:21 | VNURNOTE ---
Addendum entered by Catherine Omer RN 11/04/24 15:04:
spoke with pt at bedside. He requests to go to SNF. KULDIP rahman.
Original Note:
[facility] liaison attempted to meet patient bedside- he was sound asleep. Call placed to spouse. Poor connection, spouse asked if this author could call her back later. Referral placed in [facility].
[2024-11-04 14:51] VITALS: BP 135/52
[2024-11-04 16:17] LABS: Glucose - Point of Care 218 mg/dl (70-99)
[2024-11-04] MEDS: NOVOLOG FLEXPEN-MODERATE RESISTANCE 2 UNITS SC (16:17)
--- NOTE | 2024-11-04 16:34 | W.DCSUMMARY ---
Discharge Summary
Discharge Data
Date of Admission: 10/31/24
Date of Discharge: 11/04/24
-
Pending Results: No
Hospital Course
84 years old male presented with 1 week duration of left-sided sciatica pain and inability to ambulate. Patient did not have fever or chills. No leukocytosis. Patient was on Xarelto. Scan of the abdomen and pelvis showed no evidence for
extraperitoneal or rectus hematoma but showed evidence of diffuse changes of degenerative disc disease with multilevel vacuum disc phenomenon, most prominently from L2-3 through L5-S, no evidence for spondylolisthesis. Patient was admitted to the ""hospital. Patient was taking prednisone given in outpatient setting for left sciatica pain. He was started on Tylenol [id number] with as needed opioid medicine. Patient was unable to take nonsteroidal anti-inflammatory drugs due to
underlying chronic kidney disease and use of systemic anticoagulation. Back pain did not improve. MRI of the lumbar area showed severe left lateral recess stenosis at L2-L3 secondary to a left posterior disc extrusion with inferior migration that
impinges upon the descending left L3 nerve root. Interventional radiologist reviewed MRI and patient had fluoroscopically guided lumbar spine epidural steroid injection of 120 mg Depo-Medrol in 4 cc 0.25% bupivacaine on 11/03, 48 hours after holding
Xarelto. Patient felt better but continued to struggle with ambulation and back pain. Physical therapy evaluated the patient recommended custodial facility placement. Patient was advised to follow with interventional radiologist for
possible need for another injection.
Patient had incidental finding by CAT scan that showed exophytic mass arising from the lateral left mid kidney, could possibly represent a hyperdense cyst. Masses arising from the right kidney which probably represented a combination of simple and
hyperdense cysts. Left adrenal gland mass without significant interval change in size, most likely benign such as myelolipoma or adenoma. MRI showed complex 3.6 cm exophytic left midpole renal mass, possibly a complex cyst but a solid mass was not
excluded. A follow-up exam without and with intravenous contrast including subtraction sequences would be needed to evaluate the enhancement pattern for more definitive characterization, which could be performed on a routine outpatient basis. Other
simple and proteinaceous/hemorrhagic renal cysts. 4.1 cm left adrenal gland mass most suggestive of an adrenal adenoma. This contained a 1.4 cm focus of T1 hyperintense proteinaceous/hemorrhagic material, possibly small focus of nontraumatic adrenal
gland hemorrhage in the setting of anticoagulation. Patient has established urologist. His kidney function remained stable. Patient was advised to set up outpatient appointment with his local urologist to review imaging studies and further
recommendations. Patient and family verbalized understanding.
Patient remained hemodynamically stable and was discharged to custodial facility in a stable condition.
Discharge Plan
-
Patient Disposition: Home with Home Care
Discharge Diagnosis/Procedures: Acute Back pain, left radiculopathy status post Fluoroscopically guided lumbar spine epidural steroid injection (120 mg Depo-Medrol in 4 cc 0.25% bupivacaine.) on 11/[address] Kelly ( IR specialist). Follow-up with
your primary care doctor and follow-up with interventional radiologist
in 2 weeks. Continue on Tylenol for pain. Use Dilaudid only for severe pain. Dilaudid is narcotic and can cause drowsiness/constipation if regular use.
- MRI showed complex 3.6 cm exophytic left mid pole renal mass, 4.1 cm left adrenal gland mass.> follow-up with your urologist in outpatient setting
- you have a stable chronic kidney disease. We reduced the dose of allopurinol according to your kidney function.
Condition: Good
Diet: As tolerated and Diabetic, Carb Controlled
Activity Restrictions/Additional Instructions:
Wound Care Instructions Follow up with your Systems Integration Advisor
Right Leg- Keep wound covered with silicone border foam. DO NOT GET WET. Change Q 72 hours and PRN if wet.
Left lower leg- Clean with normal saline and apply Xeroform gauze, ABD and wrap with noé. Change daily.
LT and RT LE Knee High-Gurwinder Wrap; rewrap daily.
Follow up at wound care center call for an appointment.
Referrals:
Alphonso Velez MD [Active] - in two to three weeks (Make an appointment with your urologist to discuss findings of MRI)
Jaime Kelly DO [Active] - in two weeks
Roe Shetty MD [Family Provider] -
Prescriptions:
New
allopurinol 100 mg Tablet
100 mg PO DAILY Qty: 30 0RF
acetaminophen [Tylenol Extra Strength] 500 mg Tablet
1,000 mg PO TID Qty: 60 0RF
hydromorphone [Dilaudid] 2 mg tablet
2 mg PO Q6H PRN (Reason: severe pain) Qty: 20 0RF
Continued
atorvastatin [Lipitor] 20 MG tablet
20 mg PO DAILY
allopurinol 300 MG tablet
300 mg PO DAILY
pantoprazole 40 MG tablet,delayed release (DR/EC)
40 mg PO DAILY
Jardiance 10 MG tablet
10 mg PO DAILY 30 Days Qty: 30 0RF
levothyroxine 50 mcg tablet
50 mcg PO DAILY
alfuzosin 10 mg tablet extended release 24 hr
10 mg PO DAILY
torsemide 20 mg Tablet
20 mg PO BID
metolazone 5 mg Tablet
5 mg PO FR
amlodipine 5 mg Tablet
5 mg PO DAILY
calcitriol 0.25 mcg Capsule
0.25 mcg PO DAILY
Xarelto 15 mg tablet
15 mg PO HS
Mounjaro 7.5 mg/0.5 mL Pen Injector
7.5 mg SC TH
potassium chloride 10 mEq Tablet Extended Release
10 meq PO DAILY
Discontinued
prednisone 20 mg Tablet
20 mg PO DAILY
Rx Instructions:
for 10 days starting 10/26/24
Discharge Orders:
Discharge Patient (As Directed); Ordered 11/04/24
Ordered By: Aurora Mckinley
Discharge Date and Time
Discharge Date/Time: 11/04/24 18:53
Print Language: MALAY
== END 2024-11-04 18:53 | DRG 552 ==
LOC: 3 WEST ACU 18:30
PROVIDERS: Radiology Vascular & Interventional Radiology; ADMITTING PHYSICIAN Internal Medicine; EMERGENCY PHYSICIAN Emergency Medicine; FAMILY PHYSICIAN Family Medicine
PROC: 3E0R33Z Introduction of Anti-inflammatory into Spinal Canal, Percutaneous Approach (ICD-10-PCS; 2024-11-03)
DX: M51.16 Intervertebral disc disorders with radiculopathy, lumbar region (principal); I13.0 Hypertensive heart and chronic kidney disease with heart failure and stage 1 through stage 4 chronic kidney disease, or unspecified chronic kidney disease; I50.32 Chronic diastolic (congestive) heart failure; N18.4 Chronic kidney disease, stage 4 (severe); I48.21 Permanent atrial fibrillation; R32 Unspecified urinary incontinence; E11.22 Type 2 diabetes mellitus with diabetic chronic kidney disease; Z79.890 Hormone replacement therapy; D63.1 Anemia in chronic kidney disease; E87.6 Hypokalemia; E66.9 Obesity, unspecified; Z68.33 Body mass index [BMI] 33.0-33.9, adult; I87.2 Venous insufficiency (chronic) (peripheral); I27.20 Pulmonary hypertension, unspecified; Z85.828 Personal history of other malignant neoplasm of skin; E03.9 Hypothyroidism, unspecified; E78.00 Pure hypercholesterolemia, unspecified; G47.30 Sleep apnea, unspecified; I45.10 Unspecified right bundle-branch block; I49.3 Ventricular premature depolarization; K21.9 Gastro-esophageal reflux disease without esophagitis; M48.061 Spinal stenosis, lumbar region without neurogenic claudication; N40.0 Benign prostatic hyperplasia without lower urinary tract symptoms; Z79.01 Long term (current) use of anticoagulants; Z79.84 Long term (current) use of oral hypoglycemic drugs; Z87.891 Personal history of nicotine dependence
CPT/HCPCS: 62323; 72148; 74176; 74181; 80048; 80053; 81003; 81015; 82962; 83690; 85025; 85027; 85610; 87070; 93005; 96374; 96375; 97116; 97162; 97166; 97530; 97535; 99285

== ENCOUNTER → 2024-11-07 12:20 | Outpatient (REF) | payer OTHER, MEDICARE, SELFPAY ==
[2024-11-07 12:44] LABS: % Basophils 0.1 % (0-2); % Eosinophils 0.2 % (0-6); % Immature Granulocytes 0.7 % (0-0.5); % Lymphocytes 8.3 % (20.5-51.1); % Monocytes 5.2 % (1.7-9.3); % Neutrophils 85.5 % (42.2-75.2); Absolute Immature Granulocytes 0.1 10^3/uL (0-0.05); Absolute Lymphocytes 0.9 10^3/uL (1.2-3.4); Absolute Monocytes 0.6 10^3/uL (0.1-0.6); Absolute Neutrophils 9.4 10^3/uL (1.4-6.5); Hematocrit 38.4 % (39.0-52.0); Hemoglobin 12.3 g/dL (13.0-18.0); Mean Corpuscular Hgb 32.5 pg (27.0-31.0); Mean Corpuscular Volume 101.3 fL (80.0-94.0); Nucleated Red Blood Cells % 0.2 % (-); Platelet Count 165 10^3/uL (130-400); Red Blood Cell Count 3.79 10^6/uL (4.70-6.10); Red Cell Dist. Width 16.9 % (11.5-14.5)
[2024-11-07 13:03] LABS: Blood Urea Nitrogen 71 mg/dl (9-20); Calcium 8.7 mg/dl (8.4-10.2); Carbon Dioxide 33 mmol/L (22-30); Chloride 102 mmol/L (98-107); Glucose 168 mg/dl (70-99); Potassium 3.3 mmol/L (3.5-5.1); Sodium 140 mmol/L (135-145)
== END ==
LOC: OLABP 12:20
PROVIDERS: ATTENDING PHYSICIAN Family Medicine
DX: M54.16 Radiculopathy, lumbar region (principal); L97.929 Non-pressure chronic ulcer of unspecified part of left lower leg with unspecified severity; N17.9 Acute kidney failure, unspecified; N18.30 Chronic kidney disease, stage 3 unspecified; I48.21 Permanent atrial fibrillation
CPT/HCPCS: 36415; 80048; 85025

== ENCOUNTER → 2024-11-10 13:09 | Outpatient (REF) | payer OTHER, MEDICARE, SELFPAY ==
[2024-11-10 13:33] LABS: Blood Urea Nitrogen 76 mg/dl (9-20); Calcium 8.6 mg/dl (8.4-10.2); Carbon Dioxide 30 mmol/L (22-30); Chloride 101 mmol/L (98-107); Glucose 178 mg/dl (70-99); Sodium 137 mmol/L (135-145); eGFR 27.15
== END ==
LOC: OLABP 13:09
PROVIDERS: ATTENDING PHYSICIAN Family Medicine
DX: M54.16 Radiculopathy, lumbar region (principal); L97.929 Non-pressure chronic ulcer of unspecified part of left lower leg with unspecified severity; N17.9 Acute kidney failure, unspecified; N18.30 Chronic kidney disease, stage 3 unspecified; I48.21 Permanent atrial fibrillation
CPT/HCPCS: 36415; 80048

== ENCOUNTER → 2024-11-15 12:42 | Outpatient (REF) | payer OTHER, MEDICARE, SELFPAY ==
[2024-11-15 13:26] LABS: Blood Urea Nitrogen 76 mg/dl (9-20); Calcium 9.1 mg/dl (8.4-10.2); Carbon Dioxide 33 mmol/L (22-30); Chloride 100 mmol/L (98-107); Glucose 120 mg/dl (70-99); Potassium 4.1 mmol/L (3.5-5.1); Sodium 138 mmol/L (135-145); eGFR 23.43
== END ==
LOC: OLABP 12:42
PROVIDERS: ATTENDING PHYSICIAN Family Medicine
DX: M54.16 Radiculopathy, lumbar region (principal); N17.9 Acute kidney failure, unspecified; N18.30 Chronic kidney disease, stage 3 unspecified; I48.21 Permanent atrial fibrillation
CPT/HCPCS: 36415; 80048

== ENCOUNTER → 2025-02-08 08:07 | Outpatient (REF) | payer MEDICARE, OTHER, SELFPAY ==
[2025-02-08 09:07] LABS: Hematocrit 37.4 % (39.0-52.0); Hemoglobin 12.0 g/dL (13.0-18.0); Mean Corp Hgb Conc. 32.1 g/dL (33.0-37.0); Mean Corpuscular Volume 104.5 fL (80.0-94.0); Nucleated Red Blood Cells % 0 % (-); Platelet Count 195 10^3/uL (130-400); Red Cell Dist. Width 15.3 % (11.5-14.5)
[2025-02-08 09:33] LABS: Iron 81 ug/dl (49-181)
[2025-02-08 09:43] LABS: Total Iron Binding Capacity 242 ug/dl (261-462)
[2025-02-08 10:07] LABS: TSH 2.21 uIU/ml (0.47-4.68)
== END ==
LOC: REG 08:07
PROVIDERS: ATTENDING PHYSICIAN Family Medicine; REFERRING PHYSICIAN Specialist
DX: D50.9 Iron deficiency anemia, unspecified (principal); E03.9 Hypothyroidism, unspecified
CPT/HCPCS: 36415; 83540; 83550; 84439; 84443; 85025

== ENCOUNTER → 2025-02-10 17:38 | Outpatient (REF) | payer MEDICARE, OTHER, SELFPAY | LOC: MRI 3T 17:38 | PROVIDERS: ATTENDING PHYSICIAN Specialist; FAMILY PHYSICIAN Family Medicine | DX: N28.89 Other specified disorders of kidney and ureter (principal); D35.02 Benign neoplasm of left adrenal gland | CPT/HCPCS: 74183; A9575 ==

== ENCOUNTER 2025-02-14 06:22 | Outpatient (RCR) | payer MEDICARE, OTHER, SELFPAY | END 2025-02-14 23:59 | disposition home or self-care (01) | LOC: RPT 06:22 | PROVIDERS: ATTENDING PHYSICIAN Internal Medicine; FAMILY PHYSICIAN Family Medicine | DX: M48.07 Spinal stenosis, lumbosacral region (principal); M48.062 Spinal stenosis, lumbar region with neurogenic claudication; Z73.6 Limitation of activities due to disability; R26.89 Other abnormalities of gait and mobility; M62.81 Muscle weakness (generalized); C44.80 Unspecified malignant neoplasm of overlapping sites of skin | CPT/HCPCS: 97163; 97530 ==

== ENCOUNTER → 2025-02-22 13:14 | Outpatient (REF) | payer MEDICARE, OTHER, SELFPAY ==
[2025-02-22 13:42] LABS: Urine Character Clear (Clear)
[2025-02-22 13:58] LABS: Urine Squamous Cell 0-2 /LPF (Few)
[2025-02-22 13:59] LABS: Urine Red Blood Cell 0-2 /HPF (0-2); Urine White Cell 0-2 /HPF (0-5)
[2025-02-22 14:42] LABS: Microalb - Urine Creatinine 144.200 mg/dl
[2025-02-22 14:48] LABS: Microalbumin, Random Urine 2.9 mg/dl (0.6-1.7)
== END ==
LOC: CLAB 13:14
PROVIDERS: ATTENDING PHYSICIAN Family Medicine
DX: E11.29 Type 2 diabetes mellitus with other diabetic kidney complication (principal)
CPT/HCPCS: 81003; 81015; 82043; 82570

== ENCOUNTER → 2025-03-07 16:27 | Outpatient (REF) | payer MEDICARE, OTHER, SELFPAY ==
[2025-03-07 17:56] LABS: ALT (SGPT) 17 U/L (0-50); AST (SGOT) 19 U/L (17-59); Albumin 3.4 g/dl (3.5-5.0); Alkaline Phosphatase 107 U/L (38-126); Blood Urea Nitrogen 70 mg/dl (9-20); Calcium 9.0 mg/dl (8.4-10.2); Carbon Dioxide 33 mmol/L (22-30); Chloride 96 mmol/L (98-107); Glucose 95 mg/dl (70-99); HDL Cholesterol 43 mg/dl; LDL Cholesterol, Calculated 47 mg/dl; Potassium 4.1 mmol/L (3.5-5.1); Sodium 135 mmol/L (135-145); Total Protein 6.0 g/dl (6.3-8.2); Very Low Density Lipoprotein 12 mg/dl (0-30); eGFR 18.27
[2025-03-07 17:58] LABS: Hematocrit 31.3 % (39.0-52.0); Hemoglobin 10.1 g/dL (13.0-18.0); Mean Corp Hgb Conc. 32.3 g/dL (33.0-37.0); Mean Corpuscular Volume 101.3 fL (80.0-94.0); Nucleated Red Blood Cells % 0 % (-); Platelet Count 240 10^3/uL (130-400); Red Cell Dist. Width 14.6 % (11.5-14.5)
[2025-03-07 18:24] LABS: TSH 1.84 uIU/ml (0.47-4.68)
[2025-03-08 08:16] LABS: Glycohemoglobin (HgbA1c) 6.2 % (4.0-5.6)
== END ==
LOC: REG 16:27
PROVIDERS: ATTENDING PHYSICIAN Family Medicine
DX: E11.29 Type 2 diabetes mellitus with other diabetic kidney complication (principal); N18.4 Chronic kidney disease, stage 4 (severe); E78.2 Mixed hyperlipidemia; E03.9 Hypothyroidism, unspecified; D50.9 Iron deficiency anemia, unspecified
CPT/HCPCS: 36415; 80053; 80061; 83036; 84439; 84443; 85025

== ENCOUNTER 2025-03-09 05:03 | Emergency (ER) | payer MEDICARE, OTHER, SELFPAY ==
[2025-03-09 05:09] VITALS: BP 132/60
--- NOTE | 2025-03-09 05:10 | ED.GENMED ---
History of Present Illness
General
Chief Complaint: Musculo-Skeletal Complaint
Source: patient
Exam Limitations: none
Time Seen by Provider: 03/09/25 05:03
Nursing documentation reviewed up to this point in time: agreed with
History of Present Illness
History of Present Illness:
Note:
CHIEF COMPLAINT(S)
Left shoulder pain.
HISTORY OF PRESENT ILLNESS
The patient is an 84-year-old male presenting with a flare-up of chronic left shoulder arthritis. He reports excruciating pain in the shoulder that has persisted for a couple of weeks. The patient mentions that this pain is similar to his usual
shoulder pain and has previously required drainage, which was last done a couple of weeks ago, though he does not recall where it was performed. He describes the pain as intolerable, which prompted him to seek emergency care today. The patient is
taking multiple pain medications, although he is unable to specify the details of these medications.
PAST MEDICAL AND SURGICAL HISTORY
History of prior left shoulder surgery.
PHYSICAL EXAM
General: Alert, no acute distress.
Skin: Warm, dry.
Head: Normocephalic, atraumatic.
Neck: Supple, trachea midline.
Eye, Ears, Nose, and Throat: Oral mucosa moist.
Cardiovascular: Normal peripheral perfusion, No edema.
Respiratory: Respirations are non-labored.
Gastrointestinal: Abdomen nondistended.
Back: Normal range of motion, Normal alignment.
Musculoskeletal: Normal range of motion, normal strength, except for reported pain in the left shoulder. limited ROM left shoulder. No warmth or erythema
Neurological: Alert and oriented to person, place, time, and situation, No focal neurological deficit observed.
Psychiatric: Cooperative, appropriate mood & affect.
PROBLEM LIST
- Acute:
- Flare-up of left shoulder arthritis with significant pain.
PLAN
The plan is to evaluate the severity and potential causes of the shoulder pain, consider imaging to assess the joint status, and manage pain effectively with medications. Reviewing patient�s prior records at the hospital may provide further insight
into the previous interventions and diagnoses.
DIFFERENTIAL DIAGNOSIS
The Differential Diagnosis includes, in no particular order and is not limited to:
1. Osteoarthritis flare-up
2. Rotator cuff injury
3. Gouty arthritis
4. Bursitis
5. Septic arthritis
6. Tendinitis
7. Subacromial impingement
8. Rheumatoid arthritis
9. Adhesive capsulitis
10. Recurrent shoulder dislocation
CARE-UPDATE
03/09/25 - 06:32
Pain improved after ibuprofen administration. Left shoulder X-ray reveals chronic changes consistent with arthritis. Patient denies chest pain; left shoulder pain likely attributed to chronic arthritis, ruling out other causes.
Disposition:
SUMMARY OF ENCOUNTER
The patient, an 84-year-old male, presented to the emergency department with an acute exacerbation of chronic left shoulder arthritis. He reported intolerable pain, which has been persistent over the past couple of weeks. The patient was
administered ibuprofen in the emergency department, which improved his pain. Given his history and symptoms, a short course of hydrocodone was prescribed to manage his ongoing pain.
PLAN
The patient is advised to manage the pain with the prescribed medications and follow-up with an medicare specialist at [facility] for further evaluation and management of his chronic shoulder arthritis.
MEDICATION RECONCILIATION
Hydrocodone prescribed for pain management.
MEDICAL DECISION MAKING
- Number and Complexity of Problems Addressed: Chronic conditions affecting care [history of prior left shoulder surgery] Differential Diagnoses include: Osteoarthritis flare-up, Rotator cuff injury, Gouty arthritis, Bursitis, Septic arthritis,
Tendinitis, Subacromial impingement, Rheumatoid arthritis, Adhesive capsulitis, Recurrent shoulder dislocation.
- Data:
Category 1
The patients primary complaint of shoulder arthritis flare-up was addressed, and records were reviewed where available.
- Risk:
Prescription medication was prescribed: hydrocodone for pain management.
DIAGNOSIS
Osteoarthritis of the left shoulder (ICD-10: M19.012).
Past History
Past History
ED Past Medical History: Arrthythmia (afib), Cancer (Basal cell skin cancer), CHF, GERD, HTN, Hypercholesterolemia, NIDDM and Other (OA. Pulmonary Hypertension, Linchen planus)
ED Past Surgical History: Orthopedic (Andres rotator cuff, Back surgery, Carpal tunnel, Andres total knee, Left THR) and Other (Varicose vein surgery , cataract surgery Left eye)
Social History
Tobacco: Former smoker
Alcohol: Occasional
Personal:
Living: with family
Employment: Retired
Family History
Family History: Other
Phy Exam
Physical Exam
Physical Exam:
.
Course
Orders/Labs/Results
Orders:
Orders
03/09/25 05:09
IV Insert/Care/Rem.- Treatment PRN
CR Shoulder - Left Min 2 View* Urgent
Comment:
Reason For Exam: left shoulder pain, chronic, worse today
03/09/25 05:17
Morphine Sulfate 4 mg IV NOW STA
Ondansetron Injectable [Zofran] 4 mg IV NOW STA
03/09/25 05:25
Basic Metabolic Panel Urgent
Complete Blood Count/With Diff Urgent
Abnormal Lab Results
03/09/25
05:25
RBC 3.33 L 10^6/uL
(4.70-6.10)
Hgb 10.6 L g/dL
(13.0-18.0)
Hct 32.9 L %
(39.0-52.0)
MCV 98.8 H fL
(80.0-94.0)
MCH 31.8 H pg
(27.0-31.0)
MCHC 32.2 L g/dL
(33.0-37.0)
RDW 14.6 H %
(11.5-14.5)
Lymphocytes % 16.5 L %
(20.5-51.1)
Chloride 97 L mmol/L
(98-107)
Carbon Dioxide 31 H mmol/L
(22-30)
BUN 68 H mg/dl
(9-20)
Creatinine 2.7 H mg/dL
(0.7-1.3)
Glucose 142 H mg/dl
(70-99)
03/09/25 05:25
03/09/25 05:25
Vital Signs
Initial and Last Documented VS:
Initial Vital Signs
Temp Resp
97.8 F 18
03/09/25 05:06 03/09/25 05:06
Last Documented Vital Signs
Temp Pulse Resp BP Pulse Ox
97.8 F 43 14 132/60 96
03/09/25 05:06 03/09/25 05:10 03/09/25 05:10 03/09/25 05:09 03/09/25 05:10
*Pulse Oximetry
SaO2: 96
Oxygen Mode of Delivery: Room air
Patient hypoxic: no
*Critical Care Note
Total Time (30-74mins, 75-104mins- exclusive of procedures): Not Applicable
ED Attending Note
-
Portions of this chart may have been created with voice recognition software.� Occasional wrong word or��sound alike� substitutions may have occurred due to the inherent limitations of voice recognition software.
Discharge Plan
Departure
Patient Disposition: Home (Routine Discharge)
Date of Disposition: 03/09/25
Time of Disposition: 06:23
Patient with high blood pressure during this ER visit?: Yes
Condition: Good
Discharge Problem:
Acute pain of left shoulder
Instructions: Shoulder pain, BLOOD PRESSURE
Prescriptions:
New
hydrocodone-acetaminophen 5-325 mg tablet
1 tab PO Q6H PRN (Reason: Pain) Qty: 7 0RF
No Action
atorvastatin [Lipitor] 20 MG tablet
20 mg PO DAILY
allopurinol 300 MG tablet
300 mg PO DAILY
pantoprazole 40 MG tablet,delayed release (DR/EC)
40 mg PO DAILY
Jardiance 10 MG tablet
10 mg PO DAILY 30 Days Qty: 30 0RF
levothyroxine 50 mcg tablet
50 mcg PO DAILY
alfuzosin 10 mg tablet extended release 24 hr
10 mg PO DAILY
torsemide 20 mg Tablet
20 mg PO BID
metolazone 5 mg Tablet
5 mg PO FR
amlodipine 5 mg Tablet
5 mg PO DAILY
calcitriol 0.25 mcg Capsule
0.25 mcg PO DAILY
Xarelto 15 mg tablet
15 mg PO HS
Mounjaro 7.5 mg/0.5 mL Pen Injector
7.5 mg SC TH
potassium chloride 10 mEq Tablet Extended Release
10 meq PO DAILY
allopurinol 100 mg Tablet
100 mg PO DAILY Qty: 30 0RF
acetaminophen [Tylenol Extra Strength] 500 mg Tablet
1,000 mg PO TID Qty: 60 0RF
hydromorphone [Dilaudid] 2 mg tablet
2 mg PO Q6H PRN (Reason: severe pain) Qty: 20 0RF
Referrals:
Roverto Yanes MD [Active, Orthopedics] - Keep scheduled appt
Interventions
Interventions:
*Risk Screen - Suicide Last Done: 03/09/25 05:14
*General Assessment Last Done: 03/09/25 05:14
*Neglect/Abuse Screening Last Done: 03/09/25 05:14
*ED- Fall Risk Assessment Last Done: 03/09/25 05:14
*ED COVID-19 Vaccine History Last Done: 03/09/25 05:14
ED-Musculoskeletal Assessment Last Done: 03/09/25 05:16
Discharge Date and Time
Print Language: [place]
[2025-03-09 05:12] VITALS: BMI 33.9
[2025-03-09] MEDS: MORPHINE SULFATE 4 MG IV (05:28)
[2025-03-09] MEDS: ZOFRAN 4 MG IV (05:28)
[2025-03-09 05:33] LABS: Hematocrit 32.9 % (39.0-52.0); Hemoglobin 10.6 g/dL (13.0-18.0); Mean Corp Hgb Conc. 32.2 g/dL (33.0-37.0); Mean Corpuscular Volume 98.8 fL (80.0-94.0); Nucleated Red Blood Cells % 0 % (-); Platelet Count 249 10^3/uL (130-400); Red Cell Dist. Width 14.6 % (11.5-14.5)
[2025-03-09 06:00] VITALS: BP 115/55
[2025-03-09 06:02] LABS: Blood Urea Nitrogen 68 mg/dl (9-20); Calcium 9.2 mg/dl (8.4-10.2); Carbon Dioxide 31 mmol/L (22-30); Chloride 97 mmol/L (98-107); Estimated Creatinine Clearance 24 ml/min; Glucose 142 mg/dl (70-99); Potassium 3.8 mmol/L (3.5-5.1); Sodium 135 mmol/L (135-145); eGFR 22.40
== END 2025-03-09 06:43 | disposition home or self-care (01) ==
LOC: EMR 05:03
PROVIDERS: EMERGENCY PHYSICIAN Emergency Medicine; FAMILY PHYSICIAN Family Medicine
DX: M25.512 Pain in left shoulder (principal); M19.012 Primary osteoarthritis, left shoulder; E11.9 Type 2 diabetes mellitus without complications; E78.00 Pure hypercholesterolemia, unspecified; I11.0 Hypertensive heart disease with heart failure; I50.9 Heart failure, unspecified; Z87.891 Personal history of nicotine dependence; I48.91 Unspecified atrial fibrillation
CPT/HCPCS: 96374; 96375; 99284; 73030; 80048; 85025

== ENCOUNTER 2025-03-13 02:50 | Emergency (ER) | payer MEDICARE, OTHER, SELFPAY ==
[2025-03-13 02:55] VITALS: BP 130/58
--- NOTE | 2025-03-13 04:12 | ED.GENMED ---
History of Present Illness
General
Chief Complaint: Musculo-Skeletal Complaint
Source: patient, spouse, previous radiology exam (Left shoulder x-ray March 09 showing moderate DJD of the glenohumeral joint, mild DJD of the AC joint) and previous hospital records (ED visit for similar complaint March 09)
Exam Limitations: none
Time Seen by Provider: 03/13/25 03:19
Nursing documentation reviewed up to this point in time: agreed with except (Left shoulder drained by orthopedics February 21, 3 weeks ago-not 1 week ago.)
History of Present Illness
History of Present Illness:
84-year-old gentleman with history of A-fib chronically maintained on Xarelto, history of chronic kidney disease stage IV, rku-trjlfcy-ucyqlydgu diabetes, CHF, lumbar DJD, gout, chronic osteoarthritis of left shoulder with remote history of rotator
cuff repair. He presents with persistent pain left shoulder. Was evaluated by orthopedics, Dr. Yanes on February 21 and underwent arthrocentesis of left shoulder with reported removal of 2 large syringes of fluid. He was prescribed tramadol for
pain and has a follow-up appointment with orthopedics scheduled for tomorrow to discuss shoulder replacement surgery.
He presented to this ED 4 days ago with complaints of ongoing left shoulder pain, unrelieved with tramadol. Laboratory studies were overall stable, unchanged from previous. X-ray showed moderate DJD. He was given an IV dose of morphine with
moderate improvement in pain that lasted throughout the day and was prescribed Vicodin which he has been taking for pain without relief. He was prescribed 7 tablets, there are 3 left in the bottle.
He notes increased pain and increased swelling of his left shoulder and now has noticed mild global swelling of his left arm. He has not had a fall. He denies fever nor chills.
He does have remote history of gout but states no previous episodes of gout in his shoulder and he has had no gout flares since initiation of allopurinol a number of years ago.
He has history of skin cancer of left lower extremity status post excision and local radiation with chronic ulcerative wounds bilateral lower extremities. Chronically follows with wound care. There has been no change in wounds.
Past History
Past History
ED Past Medical History: Arrthythmia (afib), Cancer (Basal cell skin cancer), CHF, GERD, HTN, Hypercholesterolemia, NIDDM, Renal failure (Chronic kidney disease stage IV), Other (OA. Pulmonary Hypertension, Linchen planus; lumbar DJD status post
epidural steroid injections x 2 spring 2024) and Other (Chronic DJD of left shoulder; obstructive sleep apnea, lymphedema and chronic wounds bilateral lower extremities; gout)
ED Past Surgical History: Orthopedic (Andres rotator cuff, Back surgery, Carpal tunnel, Andres total knee, Left THR) and Other (Varicose vein surgery , cataract surgery Left eye, basal cell skin cancer removal)
Social History
Tobacco: Former smoker
Alcohol: Occasional
Personal:
Living: with family
Employment: Retired
Family History
Family History: Other (Noncontributory)
Phy Exam
Physical Exam
Physical Exam:
GENERAL: 84-year-old gentleman appears his stated age, awake and alert, pleasant, appears in no acute distress. is accompanying.
EYE: anicteric
NECK: Supple, nontender, no meningismus, no significant adenopathy.
ENT: , oral mucosa is moist. No rhinorrhea.
CARDIAC: Regular rate and rhythm. no murmur.
LUNGS: Clear breath sounds bilaterally, no acute respiratory distress, no wheezes/rales/rhonchi
ABDOMEN: Soft, nondistended, without focal tenderness
NEUROLOGICAL: Alert and oriented x3, no focal neuro deficits. Gait is steady.
SKIN: Warm and dry, normal color, bilateral lower extremities covered with dressings and elastic bandages.
MUSCULOSKELETAL: Chronic lymphedema bilateral lower extremities. Chronic bilateral lower leg wounds covered with dressings and elastic bandages. Left shoulder with significant joint effusion with mild local tenderness to palpation. Moderately
restricted range of motion of left shoulder related to pain. There is no erythema nor palpable heat. No ecchymosis. There is mild global edema of left upper extremity. Peripheral pulses are full and equal b/l.
PSYCH: Normal and appropriate interaction.
Sepsis
Sepsis Screening
Sepsis Assessment: Sepsis Ruled Out
Sepsis Screen
Sepsis Screen: Sepsis Ruled Out
Date: 03/13/25
Time: 05:06
Course
Orders/Labs/Results
Orders:
Orders
03/13/25 04:13
Prednisone [Deltasone] 40 mg PO NOW STA
03/13/25 04:27
Body Fluid Cell Count Urgent
What is the Body Fluid: joint
Date Specimen was Collected: 03/13/25
Time Specimen was Collected: 04:18
Comment: with DIFF
Body Fluid Crystals Urgent
What is the Body Fluid: joint
Date Specimen was Collected: 03/13/25
Time Specimen was Collected: 04:18
03/13/25 04:28
Fluid Culture with Gram Stain Urgent
AJIT Source: Joint Fluid
Specimen Description:
Date Specimen was Collected: 03/13/25
Time Specimen was Collected: 04:18
Gram Stain Stat
AJIT Source: Joint
Specimen Description:
Date Specimen was Collected: 03/13/25
Time Specimen was Collected: 04:18
Vital Signs
Initial and Last Documented VS:
Initial Vital Signs
Temp Pulse Resp BP Pulse Ox
99 F 44 24 130/58 97
03/13/25 02:55 03/13/25 02:55 03/13/25 02:55 03/13/25 02:55 03/13/25 02:55
Last Documented Vital Signs
Temp Pulse Resp BP Pulse Ox
99 F 42 18 117/49 93
03/13/25 02:55 03/13/25 04:35 03/13/25 04:35 03/13/25 04:35 03/13/25 04:35
Procedures
Incision/Drainage/Joint Aspiration
Left Shoulder:
Anethesia: 1% Lidocaine and Added Na bicarb to local
Preparation: other (Cleansed with ChloraPrep then Betadine)
Type of procedure: aspiration
Nature of site: seroma
How much fluid was obtained?: number in mls (120)
Fluid description: bloody (Darkly blood-tinged fluid)
Treatment: bandaid applied
MDM/Problems Addressed
Differential Diagnosis Includes:
The Differential Diagnosis includes, in no particular order and is not limited to:
1. Osteoarthritis
2. Rotator cuff tear
3. Subacromial bursitis
4. Shoulder impingement syndrome
5. Septic arthritis
6. Reactive arthritis
7. Gout or pseudogout
8. Tendonitis
9. Adhesive capsulitis (frozen shoulder)
10. Polymyalgia rheumatica
MDM/Problems Addressed:
Acute Problems:
- Persistent left shoulder pain and swelling
Chronic Problems:
- Chronic leg wounds. Stable and unchanged. Follows with agronomy specialist.
Acute recurrent left shoulder effusion with ongoing left shoulder pain, worsening over the past week with worsening effusion.
Shoulder x-ray 4 days ago shows moderate DJD but no evidence of fracture.
Reassuring that patient has not had a fever and laboratory studies overall unremarkable just 4 days ago with normal white blood cell count, mild but stable anemia.
Chronic kidney disease stage III-IV. Creatinine 4 days ago at 2.7, improved from previous and overall appears to be at his baseline.
History of smi-dvbnsya-qhowdriym diabetes, well-controlled with hemoglobin A1c March 07 at 6.2.
He does note some mild swelling of left upper extremity, likely related to shoulder joint effusion. DVT is unlikely as he is chronically maintained on Xarelto and has been compliant.
Will plan for arthrocentesis left shoulder joint and for completeness sake we will send fluid for cell count, crystal analysis, Gram stain.
Patient has a follow-up appointment scheduled with orthopedics tomorrow to discuss shoulder replacement surgery.
Could consider short course of prednisone for treatment of potential inflammatory arthropathy versus exacerbation of osteoarthritis.
Chronic conditions affecting care: DM, HTN, Cardiomyopathy, Arrhythmia (Atrial fibrillation, chronically maintained on Xarelto.), Kidney disease, Cancer and Other (Gout, osteoarthritis, DJD)
Acute Exacerbation and/or Progression of Chronic Illness: Other (Osteoarthritis left shoulder)
*Pulse Oximetry
SaO2: 97
Oxygen Mode of Delivery: Room air
Patient hypoxic: no
*Critical Care Note
Total Time (30-74mins, 75-104mins- exclusive of procedures): Not Applicable
Update Note
Update Note:
Arthrocentesis left shoulder joint with removal of 120 mL darkly blood-tinged fluid.
Patient tolerated procedure well and reports significant relief of shoulder pain after arthrocentesis.
Band-Aid applied as well as local ice pack.
Joint fluid sent to lab for analysis.
Will plan for short course of prednisone.
Patient has follow-up with orthopedics scheduled for tomorrow.
05:10
Patient continues to feel well, marked improvement in left shoulder pain, marked improvement in range of motion.
Preliminary joint fluid shows only 5000 WBCs, no crystals. Gram stain is pending but likely not infectious process.
He has been given a one-time dose of prednisone but will hold off on prescription for prednisone as patient will be seen by orthopedics tomorrow. Recommend he discuss continuing oral steroids with orthopedist.
ED Attending Note
-
Portions of this chart may have been created with voice recognition software.� Occasional wrong word or��sound alike� substitutions may have occurred due to the inherent limitations of voice recognition software.
Discharge Plan
Departure
Patient Disposition: Home (Routine Discharge)
Date of Disposition: 03/13/25
Time of Disposition: 05:08
Patient with high blood pressure during this ER visit?: No
Condition: Good
Discharge Problem:
Exacerbation of left shoulder DJD, Recurrent joint effusion left shoulder
Instructions: Arthrocentesis
Prescriptions:
No Action
atorvastatin [Lipitor] 20 MG tablet
20 mg PO DAILY
allopurinol 300 MG tablet
300 mg PO DAILY
pantoprazole 40 MG tablet,delayed release (DR/EC)
40 mg PO DAILY
Jardiance 10 MG tablet
10 mg PO DAILY 30 Days Qty: 30 0RF
levothyroxine 50 mcg tablet
50 mcg PO DAILY
alfuzosin 10 mg tablet extended release 24 hr
10 mg PO DAILY
torsemide 20 mg Tablet
20 mg PO BID
metolazone 5 mg Tablet
5 mg PO FR
amlodipine 5 mg Tablet
5 mg PO DAILY
calcitriol 0.25 mcg Capsule
0.25 mcg PO DAILY
Xarelto 15 mg tablet
15 mg PO HS
Mounjaro 7.5 mg/0.5 mL Pen Injector
7.5 mg SC TH
potassium chloride 10 mEq Tablet Extended Release
10 meq PO DAILY
allopurinol 100 mg Tablet
100 mg PO DAILY Qty: 30 0RF
acetaminophen [Tylenol Extra Strength] 500 mg Tablet
1,000 mg PO TID Qty: 60 0RF
hydromorphone [Dilaudid] 2 mg tablet
2 mg PO Q6H PRN (Reason: severe pain) Qty: 20 0RF
hydrocodone-acetaminophen 5-325 mg tablet
1 tab PO Q6H PRN (Reason: Pain) Qty: 7 0RF
Referrals:
Roe Shetty MD [Family Provider, Family Practice]
Activity Restrictions/Additional Instructions:
Follow-up with your orthopedist tomorrow as already scheduled.
Interventions
Interventions:
*Risk Screen - Suicide Last Done: 03/13/25 02:55
*General Assessment Last Done: 03/13/25 04:32
*Neglect/Abuse Screening Last Done: 03/13/25 02:55
*ED- Fall Risk Assessment Last Done: 03/13/25 04:32
*ED COVID-19 Vaccine History Last Done: 03/13/25 03:27
ED-Musculoskeletal Assessment Last Done: 03/13/25 04:32
ED-Skin Assessment Last Done: 03/13/25 04:55
Discharge Date and Time
Print Language: ITALIAN
[2025-03-13] MEDS: DELTASONE 40 MG PO (04:30)
[2025-03-13 04:35] VITALS: BP 117/49
[2025-03-13 04:54] LABS: Body Fluid Second Tech JK
[2025-03-13 05:18] VITALS: BP 124/52
== END 2025-03-13 05:29 | disposition home or self-care (01) ==
LOC: EMR 02:50
PROVIDERS: EMERGENCY PHYSICIAN Emergency Medicine; FAMILY PHYSICIAN Family Medicine
DX: M19.012 Primary osteoarthritis, left shoulder (principal); M25.412 Effusion, left shoulder; E11.22 Type 2 diabetes mellitus with diabetic chronic kidney disease; I13.0 Hypertensive heart and chronic kidney disease with heart failure and stage 1 through stage 4 chronic kidney disease, or unspecified chronic kidney disease; N18.4 Chronic kidney disease, stage 4 (severe); I50.9 Heart failure, unspecified; E11.622 Type 2 diabetes mellitus with other skin ulcer; L97.229 Non-pressure chronic ulcer of left calf with unspecified severity; L97.219 Non-pressure chronic ulcer of right calf with unspecified severity; I48.91 Unspecified atrial fibrillation; I42.9 Cardiomyopathy, unspecified; I27.20 Pulmonary hypertension, unspecified; E78.00 Pure hypercholesterolemia, unspecified; G47.33 Obstructive sleep apnea (adult) (pediatric); K21.9 Gastro-esophageal reflux disease without esophagitis; I89.0 Lymphedema, not elsewhere classified; M10.9 Gout, unspecified; M47.816 Spondylosis without myelopathy or radiculopathy, lumbar region; L43.9 Lichen planus, unspecified; Z79.01 Long term (current) use of anticoagulants; Z79.84 Long term (current) use of oral hypoglycemic drugs; Z79.85 Long-term (current) use of injectable non-insulin antidiabetic drugs; Z87.891 Personal history of nicotine dependence; Z85.828 Personal history of other malignant neoplasm of skin; Z96.653 Presence of artificial knee joint, bilateral; Z96.642 Presence of left artificial hip joint
CPT/HCPCS: 99283; 20610; 87015; 87070; 87205; 89051; 89060

== ENCOUNTER 2025-03-15 04:05 | Emergency (ER) | payer MEDICARE, OTHER, SELFPAY ==
[2025-03-15 04:15] VITALS: BP 130/56
[2025-03-15 06:03] VITALS: BMI 33.6
[2025-03-15 06:24] VITALS: BP 121/58
--- NOTE | 2025-03-15 06:35 | ED.GENMED ---
History of Present Illness
General
Chief Complaint: Musculo-Skeletal Complaint
Source: patient
Exam Limitations: none
Time Seen by Provider: 03/15/25 06:10
Nursing documentation reviewed up to this point in time: agreed with
History of Present Illness
History of Present Illness:
84-year-old male past medical history of venous insufficiency, CHF, A-fib currently on Xarelto, CKD presenting to the emergency department with concerns of recurrent effusions left shoulder was seen here a few days ago and had it drained but it
refilled again and is in significant discomfort this morning which prompted come to the ER. Denies any chest pain shortness of breath nausea vomiting or fevers.
Past History
Past History
ED Past Medical History: Arrthythmia (afib), Cancer (Basal cell skin cancer), CHF, GERD, HTN, Hypercholesterolemia, NIDDM, Renal failure (Chronic kidney disease stage IV), Other (OA. Pulmonary Hypertension, Linchen planus; lumbar DJD status post
epidural steroid injections x 2 spring 2024) and Other (Chronic DJD of left shoulder; obstructive sleep apnea, lymphedema and chronic wounds bilateral lower extremities; gout)
ED Past Surgical History: Orthopedic (Andres rotator cuff, Back surgery, Carpal tunnel, Andres total knee, Left THR) and Other (Varicose vein surgery , cataract surgery Left eye, basal cell skin cancer removal)
Social History
Tobacco: Former smoker
Alcohol: Occasional
Personal:
Living: with family
Employment: Retired
Family History
Family History: Other (Noncontributory)
Review of Systems
Review of Systems
Allergies reviewed?: Yes
All Other Systems: ROS reviewed and negative except as documented in HPI and ROS
Phy Exam
Physical Exam
Physical Exam:
GENERAL: Alert , in no apparent distress
EYE: pupils equal and reactive
NECK: Supple, no significant adenopathy.
ENT: o/p clr, mmm.
CARDIAC: Regular rate and rhythm .
LUNGS: Clear breath sounds bilaterally, no acute respiratory distress, no wheezes/rales/rhonchi
ABDOMEN: Soft, without focal tenderness, no r/g, no cvat
NEUROLOGICAL: Alert and oriented, no focal neuro deficits
SKIN: Warm and dry, significant swelling of the left shoulder with some ecchymosis as well. Difficulty with ambulation secondary to pain skin intact.
MUSCULOSKELETAL: No edema, well perfused.
PSYCH: Normal and appropriate interaction.
Course
Vital Signs
Initial and Last Documented VS:
Initial Vital Signs
Temp Pulse Resp BP Pulse Ox
98.1 F 46 22 130/56 98
03/15/25 04:15 03/15/25 04:15 03/15/25 04:15 03/15/25 04:15 03/15/25 04:15
Last Documented Vital Signs
Temp Pulse Resp BP Pulse Ox
98.1 F 43 16 121/58 98
03/15/25 04:15 03/15/25 06:30 03/15/25 06:30 03/15/25 06:24 03/15/25 06:36
Procedures
Incision/Drainage/Joint Aspiration
Left Posterior Lateral Shoulder:
Anethesia: 1% Lidocaine
Preparation: cleaned with Hibiclens
Type of procedure: drain and aspiration
Nature of site: other (Joint effusion)
Description of abscess: involves one area (Left shoulder joint)
Loculations broken up: No
How much fluid was obtained?: number in mls (160 cc)
Fluid description: bloody
Treatment: bandaid applied
MDM/Problems Addressed
MDM/Problems Addressed:
84-year-old male presenting to the emergency department today with concerns of swelling to the left shoulder worsening over the past few days recently had his shoulder drained a few days ago. Patient in significant discomfort due to significant
tension to the left shoulder with large amount of swelling. Concerning this was this was sterilely drained of 160 cc bloody in appearance. Patient feeling much better after drainage. Advised for the orthopedic follow-up tomorrow. Return
precautions given.
*Pulse Oximetry
SaO2: 98
Oxygen Mode of Delivery: Room air
Patient hypoxic: no (98)
*Critical Care Note
Total Time (30-74mins, 75-104mins- exclusive of procedures): Not Applicable
ED Attending Note
-
Portions of this chart may have been created with voice recognition software.� Occasional wrong word or��sound alike� substitutions may have occurred due to the inherent limitations of voice recognition software.
Discharge Plan
Departure
Patient Disposition: Home (Routine Discharge)
Date of Disposition: 03/15/25
Time of Disposition: 08:08
Patient with high blood pressure during this ER visit?: No
Condition: Good
Covid-19: Not Applicable
Discharge Problem:
Joint effusion-shoulder region
Instructions: Swollen Joints (DC)
Prescriptions:
No Action
atorvastatin [Lipitor] 20 MG tablet
20 mg PO DAILY
allopurinol 300 MG tablet
300 mg PO DAILY
pantoprazole 40 MG tablet,delayed release (DR/EC)
40 mg PO DAILY
Jardiance 10 MG tablet
10 mg PO DAILY 30 Days Qty: 30 0RF
levothyroxine 50 mcg tablet
50 mcg PO DAILY
alfuzosin 10 mg tablet extended release 24 hr
10 mg PO DAILY
torsemide 20 mg Tablet
20 mg PO BID
metolazone 5 mg Tablet
5 mg PO FR
amlodipine 5 mg Tablet
5 mg PO DAILY
calcitriol 0.25 mcg Capsule
0.25 mcg PO DAILY
Xarelto 15 mg tablet
15 mg PO HS
Mounjaro 7.5 mg/0.5 mL Pen Injector
7.5 mg SC TH
potassium chloride 10 mEq Tablet Extended Release
10 meq PO DAILY
allopurinol 100 mg Tablet
100 mg PO DAILY Qty: 30 0RF
acetaminophen [Tylenol Extra Strength] 500 mg Tablet
1,000 mg PO TID Qty: 60 0RF
hydromorphone [Dilaudid] 2 mg tablet
2 mg PO Q6H PRN (Reason: severe pain) Qty: 20 0RF
hydrocodone-acetaminophen 5-325 mg tablet
1 tab PO Q6H PRN (Reason: Pain) Qty: 7 0RF
Referrals:
Roe Shetty MD [Family Provider, [facility]]
Activity Restrictions/Additional Instructions:
You came to the emergency department today with concerns of ongoing swelling and discomfort to your shoulder. This was drained of a large amount of fluid. Please follow closely with orthopedics. Return for any worsening, new or concerning
symptoms.
Interventions
Interventions:
*Risk Screen - Suicide Last Done: 03/15/25 04:15
*General Assessment Last Done: 03/15/25 06:06
*Neglect/Abuse Screening Last Done: 03/15/25 04:15
*ED- Fall Risk Assessment Last Done: 03/15/25 06:04
*ED COVID-19 Vaccine History Last Done: 03/15/25 06:04
ED-Musculoskeletal Assessment Last Done: 03/15/25 06:05
Discharge Date and Time
Print Language: LITHUANIAN
[2025-03-15 07:00] VITALS: BP 112/54
[2025-03-15 08:00] VITALS: BP 129/58
[2025-03-15 09:47] LABS: Body Fluid Second Tech ASW
== END 2025-03-15 08:55 | disposition home or self-care (01) ==
LOC: EMR 04:05
PROVIDERS: Physician Assistant; EMERGENCY PHYSICIAN Emergency Medicine; FAMILY PHYSICIAN Family Medicine
DX: M25.412 Effusion, left shoulder (principal); E11.22 Type 2 diabetes mellitus with diabetic chronic kidney disease; I13.0 Hypertensive heart and chronic kidney disease with heart failure and stage 1 through stage 4 chronic kidney disease, or unspecified chronic kidney disease; N18.4 Chronic kidney disease, stage 4 (severe); I50.9 Heart failure, unspecified; E11.51 Type 2 diabetes mellitus with diabetic peripheral angiopathy without gangrene; I87.2 Venous insufficiency (chronic) (peripheral); I48.91 Unspecified atrial fibrillation; I27.20 Pulmonary hypertension, unspecified; E78.00 Pure hypercholesterolemia, unspecified; G47.33 Obstructive sleep apnea (adult) (pediatric); K21.9 Gastro-esophageal reflux disease without esophagitis; M10.9 Gout, unspecified; L43.9 Lichen planus, unspecified; I89.0 Lymphedema, not elsewhere classified; M19.012 Primary osteoarthritis, left shoulder; M47.816 Spondylosis without myelopathy or radiculopathy, lumbar region; Z79.01 Long term (current) use of anticoagulants; Z79.84 Long term (current) use of oral hypoglycemic drugs; Z79.85 Long-term (current) use of injectable non-insulin antidiabetic drugs; Z87.891 Personal history of nicotine dependence; Z85.828 Personal history of other malignant neoplasm of skin; Z96.653 Presence of artificial knee joint, bilateral; Z96.642 Presence of left artificial hip joint
CPT/HCPCS: 99283; 10140; 87015; 87070; 87205; 89051

== ENCOUNTER → 2025-03-20 09:22 | Outpatient (REF) | payer MEDICARE, OTHER, SELFPAY | LOC: HWRAD 09:22 | PROVIDERS: ATTENDING PHYSICIAN Orthopaedic Surgery Hand Surgery; FAMILY PHYSICIAN Family Medicine | DX: M12.812 Other specific arthropathies, not elsewhere classified, left shoulder (principal) | CPT/HCPCS: 73200 ==

== ENCOUNTER 2025-03-21 14:45 | Outpatient (RCR) | payer MEDICARE, OTHER, SELFPAY | END 2025-03-21 23:59 | disposition home or self-care (01) | LOC: RPT 14:45 | PROVIDERS: ATTENDING PHYSICIAN Internal Medicine; FAMILY PHYSICIAN Family Medicine | DX: M48.07 Spinal stenosis, lumbosacral region (principal); M48.062 Spinal stenosis, lumbar region with neurogenic claudication; Z73.6 Limitation of activities due to disability; R26.89 Other abnormalities of gait and mobility; M62.81 Muscle weakness (generalized); C44.80 Unspecified malignant neoplasm of overlapping sites of skin | CPT/HCPCS: 97110; 97112; 97530 ==

== ENCOUNTER 2025-03-28 09:36 | Outpatient (RCR) | payer MEDICARE, OTHER, SELFPAY | END 2025-03-28 23:59 | disposition home or self-care (01) | LOC: RPT 09:36 | PROVIDERS: ATTENDING PHYSICIAN Internal Medicine; FAMILY PHYSICIAN Family Medicine | DX: M48.07 Spinal stenosis, lumbosacral region (principal); M48.062 Spinal stenosis, lumbar region with neurogenic claudication; Z73.6 Limitation of activities due to disability; R26.89 Other abnormalities of gait and mobility; M62.81 Muscle weakness (generalized); C44.80 Unspecified malignant neoplasm of overlapping sites of skin | CPT/HCPCS: 97110; 97112; 97530 ==

== ENCOUNTER → 2025-04-11 12:54 | Outpatient (REF) | payer MEDICARE, OTHER, SELFPAY ==
[2025-04-11 14:06] LABS: Hematocrit 29.7 % (39.0-52.0); Hemoglobin 9.4 g/dL (13.0-18.0); Mean Corp Hgb Conc. 31.6 g/dL (33.0-37.0); Mean Corpuscular Volume 99.3 fL (80.0-94.0); Nucleated Red Blood Cells % 0 % (-); Platelet Count 239 10^3/uL (130-400); Red Cell Dist. Width 15.9 % (11.5-14.5)
== END ==
LOC: RAD 12:54
PROVIDERS: ATTENDING PHYSICIAN Family Medicine
DX: D64.9 Anemia, unspecified (principal); I50.30 Unspecified diastolic (congestive) heart failure; R05.3 Chronic cough
CPT/HCPCS: 36415; 71046; 85025

== ENCOUNTER 2025-04-12 23:17 | Inpatient (IN) | payer MEDICARE, OTHER, SELFPAY ==
[2025-04-12] VITALS (7 sets, daily range): BP systolic 119–175; BP diastolic 61–85; BMI 38.3
[2025-04-12 16:41] LABS: Hematocrit 28.2 % (39.0-52.0); Hemoglobin 9.0 g/dL (13.0-18.0); Mean Corp Hgb Conc. 31.9 g/dL (33.0-37.0); Mean Corpuscular Volume 97.6 fL (80.0-94.0); Nucleated Red Blood Cells % 0 % (-); Platelet Count 208 10^3/uL (130-400); Red Cell Dist. Width 16.0 % (11.5-14.5)
[2025-04-12 17:23] LABS: ALT (SGPT) 16 U/L (0-50); AST (SGOT) 17 U/L (17-59); Albumin 3.1 g/dl (3.5-5.0); Alkaline Phosphatase 165 U/L (38-126); Blood Urea Nitrogen 89 mg/dl (9-20); Calcium 8.7 mg/dl (8.4-10.2); Carbon Dioxide 23 mmol/L (22-30); Chloride 105 mmol/L (98-107); Glucose 136 mg/dl (70-99); Potassium 5.3 mmol/L (3.5-5.1); Sodium 134 mmol/L (135-145); Total Protein 5.8 g/dl (6.3-8.2); eGFR 16.98
--- NOTE | 2025-04-12 20:13 | ED.GENMED ---
History of Present Illness
General
Chief Complaint: Skin Problem
Source: patient
Exam Limitations: none
Time Seen by Provider: 04/12/25 20:11
Nursing documentation reviewed up to this point in time: agreed with
History of Present Illness
History of Present Illness:
Note:
CHIEF COMPLAINT(S)
Cough with phlegm, low heart rate, sores on legs.
HISTORY OF PRESENT ILLNESS
The patient is an 84-year-old male who was sent by Dr. Segal due to concerns of possible pneumonia, confirmed on the x-ray. The patient reports a productive cough with phlegm and possible chills persisting for approximately two to three weeks. He
also presents with sores on his legs, which he states have been present for nearly a year. A biopsy was recently performed on the left leg, and the right leg is of less concern. He has medical wrapping on the left leg, placed by Dr. Tristan. There
is a plan to consider a skin graft if the wound cannot be closed surgically. His heart rate tends to be low, frequently in the 40s, and occasionally dropping to the 30s. He is managed by Dr. Gallegos for cardiology. The patient confirmed having
neuropathy, though he is uncertain of the cause. Diabetes was also referenced in association with neuropathy. His hemoglobin level is at 9, which has been noted but does not warrant an immediate transfusion in the emergency department. IV
antibiotics have been planned, and the patient will be admitted to the hospital for further management.
PAST MEDICAL AND SURIGICAL HISTORY
The patient reports undergoing radiation treatment for a cancerous condition on his legs.
CHRONIC MEDICAL CONDITIONS SIGNIFICANTLY AFFECTING CARE
The patient was mentioned to have diabetes, contributing to neuropathy. He also manages low heart rate concerns under the care of a boat joiner helper.
PHYSICAL EXAM
General: Alert, cooperative.
Cardiovascular: Partially in regular rhythm with bradycardia.
Abd: soft nt/nd
Skin: Erythema noted on bilateral lower legs; wound on the left lower leg with an open biopsy site and surrounding erythema.
Respiratory: Cough with adequate airway clearance.
Musculoskeletal: Limited sensation reported in lower extremities, suspected peripheral neuropathy.
PROBLEM LIST
Acute Problems:
- Pneumonia
- Erythema and open wound on left lower leg
- Cough with sputum production
Chronic Problems:
- Diabetes
- Low heart rate
- Peripheral neuropathy
PLAN
- Initiate IV antibiotics for suspected pneumonia.
- Admission to the hospital for further evaluation and management.
- Consideration for a skin graft if the leg wound cannot be closed surgically.
DIFFERENTIAL DIAGNOSIS
The Differential Diagnosis includes, in no particular order and is not limited to:
- Pneumonia
- Congestive heart failure
- Chronic obstructive pulmonary disease
- Bronchitis
- Venous stasis ulcers
- Peripheral artery disease
- Osteomyelitis
- Local infection/cellulitis
- Coronary artery disease
- Peripheral neuropathy secondary to diabetes
CARE-UPDATE
04/12/25 - 20:38
The patients condition involves bilateral pneumonia and bilateral leg wounds with underlying anemia and chronic kidney disease. The treatment plan includes IV cefepime and vancomycin, and the patient has been admitted under the care of the
hospitalist for further management.
Disposition:
SUMMARY OF ENCOUNTER
The patient was seen in the emergency department due to concerns of bilateral pneumonia confirmed via radiological imaging and presenting symptoms of a productive cough with phlegm and chills persisting for several weeks. The patient also has leg
sores, a low heart rate, neuropathy potentially related to diabetes, and anemia. Intravenous antibiotics were initiated to manage pneumonia, and admission to the hospital was deemed necessary due to the complexity of the presenting illness and the
patients significant comorbidities, including chronic kidney disease and potential need for surgical intervention on his leg wound.
DISPOSITION
Admit to the hospitalist for further management.
ASSESSMENT
The patient is assessed with bilateral pneumonia, severe bradycardia with heart rates in the 30s-40s, anemia, chronic kidney disease, leg sores potentially requiring a skin graft, and peripheral neuropathy, possibly secondary to diabetes.
PLAN
- Initiate IV antibiotic treatment for pneumonia.
- Admit the patient for comprehensive hospital-based care including further evaluation by cardiology for bradycardia and potential surgical consultation for leg wounds.
- Consideration for a skin graft if the leg wound does not improve with current conservative management.
INDEPENDENT REVIEW OF LABS AND INTERPRETATION OF TESTS
- My independent review of chest x-ray shows bilateral pneumonia.
MEDICATION RECONCILIATION
- The patient has been administered IV antibiotics, including cefepime and vancomycin for the treatment of pneumonia.
MEDICAL DECISION MAKING
- Number and Complexity of Problems Addressed: Chronic conditions affecting care include diabetes, neuropathy, anemia, chronic kidney disease, low heart rate (bradycardia), while the DDx list includes pneumonia, congestive heart failure, chronic
obstructive pulmonary disease, bronchitis, venous stasis ulcers, peripheral artery disease, osteomyelitis, local infection/cellulitis, coronary artery disease, and peripheral neuropathy secondary to diabetes.
- Data:
- Category 1: My independent interpretation of the chest x-ray confirmed the presence of bilateral pneumonia.
- Category 3: Discussion of management with the hospitalist regarding the need for inpatient admission based on the patients complex medical condition and multifactorial presentation.
DIAGNOSIS
- Bilateral pneumonia (ICD-10: J18.9)
- Atrial fibrillation with slow ventricular response (ICD-10: I48.2)
- Chronic kidney disease (ICD-10: N18.9)
- Anemia (ICD-10: D64.9)
- Diabetic neuropathy (ICD-10: E11.40)
- Non-healing wound on the leg (ICD-10: L97.919)
Past History
Past History
ED Past Medical History: Arrthythmia (afib), Cancer (Basal cell skin cancer), CHF, GERD, HTN, Hypercholesterolemia, NIDDM, Renal failure (Chronic kidney disease stage IV), Other (OA. Pulmonary Hypertension, [place] planus; lumbar DJD status post
epidural steroid injections x 2 spring 2024) and Other (Chronic DJD of left shoulder; obstructive sleep apnea, lymphedema and chronic wounds bilateral lower extremities; gout)
ED Past Surgical History: Orthopedic (Andres rotator cuff, Back surgery, Carpal tunnel, Andres total knee, Left THR) and Other (Varicose vein surgery , cataract surgery Left eye, basal cell skin cancer removal)
Social History
Tobacco: Former smoker
Alcohol: Occasional
Personal:
Living: with family
Employment: Retired
Family History
Family History: Other (Noncontributory)
Phy Exam
Physical Exam
Physical Exam:
.
Course
Orders/Labs/Results
Orders:
Orders
04/12/25 16:34
Type And Crossmatch [Type+Screen] Urgent
CMP [Comprehensive Metabolic Panel] Urgent
Complete Blood Count/With Diff Urgent
04/12/25 20:33
Cefepime HCl [Maxipime] 2,000 mg IV NOW STA
04/12/25 20:41
EKG- Treatment ONCE
04/12/25 20:43
Electrocardiogram (*1) Urgent
Reason for Study: Fatigue / Weakness
04/12/25 21:20
Lactic Acid Q4H
Comment: CANCEL 2nd LACTIC ACID IF 1st LACTIC ACID IS LESS THAN 2
Blood Culture Q30M
AJIT Source: Blood/Venous
Specimen Description:
04/12/25 21:26
Blood Culture Q30M
AJIT Source: Blood/Venous
Specimen Description:
04/12/25 21:30
Vancomycin [Vancocin] 1,500 mg 0.9% Sodium Chloride 500 ml [Nss] 500 ml IV NOW
04/12/25 22:38
COVID-19 Antigen Urgent
Source: Nasal Swab
Influenza A+B Rapid Molecular Urgent
AJIT Source: Nasal Swab
Specimen Description:
04/12/25 22:54
Admit/Transfer Patient As Directed
Co-Sign Provider:
Level of Care: Inpatient admission
Assign to:: Telemetry
Physician / Group: Jose
Diagnosis: Cough, Anemia, ERENDIRA on CKD
Reason for Telemetry: Arrhythmia
Date to Stop Telemetry: 04/15/25
Time to Stop Telemetry: 11:00
Reason for Hospitalization: Cough, Anemia, ERENDIRA on CKD
Expected length of stay greater than two midnights?: Yes
ELOS- Estimated Length of Stay in days: 3
I certify the patient meets the requirements for IP care: Yes
PRN Pain Medication Management As Directed
May give lesser potent ordered pain med per pt: Yes
preference::
Protocol:: Medication orders for pain may be administered in a
manner that supports deferring to patient preference
when the pt is:
- Requesting an ordered lesser potent pain medication.
Least to most potent pain medications are defined
as: acetaminophen < NSAID < tramadol < opioids
(morphine, oxycodone, hydromorphone).
- Requesting a lesser dose of the same medication IF
ORDERED.
- Requesting a less intrusive route of administration
if both routes are prescribed by the provider (PO <
IV).
04/12/25 22:55
Code Status As Directed
Resuscitation Status: Full Code
04/12/25 23:47
Acetaminophen [Tylenol] 650 mg PO Q4HPRN PRN
Albuterol Nebs [Ventolin Nebules] 2.5 mg INH R Q4HPRN PRN
Lorazepam [Ativan] 0.5 mg PO HS PRN Insomnia
Tramadol HCl [Ultram] 50 mg PO Q8HPRN PRN severe pain severe pain
04/12/25 23:47
Consult Notification Routine
Specialty to Notify: Infectious Disease
Consult Notification Routine
Specialty to Notify: Nephrology
INFECTIOUS DISEASE CONSULT Routine
Consulting Provider: Solomon Gonzales
Was physician already notified: No
Reason for consult: ? Pneumonia, LLE Wound, Frequent Abx
NEPHROLOGY CONSULT Routine
Consulting Provider: Jame Hendrix
Was physician already notified: No
Reason for consult: ERENDIRA on CKD
B12 [Vitamin B12] Routine
Folate Routine
Iron Routine
Total Iron Binding Routine
Activity As Directed
Activity Level: Ambulate
With Assistance
Bladder Scan As Directed
Follow Bladder Retention/Intermittent Cath Algorithm?: Yes
PRN if no void in __ hours: 6
Frequency: Per Retention Algorithm
If Bladder Scan Result >: 400
then:: Straight cath
I/O [Intake/ Output] As Directed
Frequency: Per unit guidelines
Straight Cath As Directed
Frequency: Per Retention Algorithm
Additional Instructions: straight cath as needed per acute urinary retention algorithm for 24 hrs
Additional Instructions: for bladder scan greater than 400 mL
Vital Signs As Directed
Frequency: Per unit guidelines
Weight As Directed
Frequency: Daily
Chest PT [Rx Chest Pt] [RESP] Routine
Special Instructions: BID
Incentive Spirometry [Rx Incentive Spirometry] [RESP] Routine
Frequency: q1h while awake
Oxygen Therapy [O2 Therapy] [RESP] Routine
Titrate/Wean O2 to maintain O2 sat greater than (%): 94
Ot Eval And Treat Routine
PT Consult [Pt Eval And Treat] Routine
Activity Level: Ambulate
With Assistance
Speech Therapy Eval & Treat Routine
04/13/25 06:00
Basic Metabolic Panel IN AM
Complete Blood Count/No Diff IN AM
Magnesium IN AM
Phosphorus IN AM
Levothyroxine [Synthroid] 50 mcg PO DAILY @ 0600
04/13/25 08:00
Allopurinol [Zyloprim] 300 mg PO DAILY
Atorvastatin [Lipitor] 20 mg PO DAILY
Calcitriol [Rocaltrol] 0.25 mcg PO DAILY
Dapagliflozin [Farxiga] 10 mg PO DAILY
Guaifenesin [Mucinex] 600 mg PO Q12
Rivaroxaban [Xarelto] 15 mg PO DAILY
Tamsulosin [Flomax] 0.4 mg PO DAILY
04/15/25 11:00
DC Protocol for Telemetry ONCE
Abnormal Lab Results
04/12/25
16:34
RBC 2.89 L 10^6/uL
(4.70-6.10)
Hgb 9.0 L g/dL
(13.0-18.0)
Hct 28.2 L %
(39.0-52.0)
MCV 97.6 H fL
(80.0-94.0)
MCH 31.1 H pg
(27.0-31.0)
MCHC 31.9 L g/dL
(33.0-37.0)
RDW 16.0 H %
(11.5-14.5)
Absolute Lymphs (auto) 1.1 L 10^3/uL
(1.2-3.4)
Lymphocytes % 18.4 L %
(20.5-51.1)
Sodium 134 L mmol/L
(135-145)
Potassium 5.3 H mmol/L
(3.5-5.1)
BUN 89 H mg/dl
(9-20)
Creatinine 3.4 H mg/dL
(0.7-1.3)
Glucose 136 H mg/dl
(70-99)
Alkaline Phosphatase 165 H U/L
(38-126)
Total Protein 5.8 L g/dl
(6.3-8.2)
Albumin 3.1 L g/dl
(3.5-5.0)
04/12/25 16:34
04/12/25 16:34
Vital Signs
Initial and Last Documented VS:
Initial Vital Signs
Temp Pulse Resp BP Pulse Ox
97.5 F 40 20 175/85 100
04/12/25 16:12 04/12/25 16:12 04/12/25 16:12 04/12/25 16:12 04/12/25 16:12
Last Documented Vital Signs
Temp Pulse Resp BP Pulse Ox
97.7 F 39 15 119/61 96
04/12/25 19:47 04/12/25 22:30 04/12/25 22:30 04/12/25 22:00 04/12/25 22:30
*Pulse Oximetry
SaO2: 97
Oxygen Mode of Delivery: Room air
Patient hypoxic: no
*EKG
Interpreted by ED Provider?: Yes
EKG Intrepretation Date: 04/12/25
EKG Intrepretation Time: 21:04
Interpretation: abnormal
Comparison EKG: no changes
Heart Rate: 42
Rate: bradycardiac
Rhythm: a-fib
[place]: normal axis
Interval: normal interval
QRS Pattern: right bundle branch block
Ischemia: no ischemia
*Purchase Order Checker Interpretation
Rate: bradycardiac
Interpretation: abnormal
Heart Rate: 39
Rhythm: a-fib
*Critical Care Note
Total Time (30-74mins, 75-104mins- exclusive of procedures): Not Applicable
ED Attending Note
-
Portions of this chart may have been created with voice recognition software.� Occasional wrong word or��sound alike� substitutions may have occurred due to the inherent limitations of voice recognition software.
Discharge Plan
Departure
Patient Disposition: Admit
Date of Disposition: 04/12/25
Time of Disposition: 20:37
Admit to: Telemetry
Presentation/result/management discussed w/ accepting MD/DO: Hospitalist
Patient with high blood pressure during this ER visit?: Yes
Condition: Fair
Discharge Problem:
Bilateral pneumonia, Wound, open, leg, CKD (chronic kidney disease) stage 3, GFR 30-59 ml/min, Type 2 diabetes mellitus, Anemia, Atrial fibrillation with slow ventricular response
Interventions
Interventions:
*Risk Screen - Suicide Last Done: 04/12/25 19:56
*General Assessment Last Done: 04/12/25 19:49
*Neglect/Abuse Screening Last Done: 04/12/25 19:56
*ED- Fall Risk Assessment Last Done: 04/12/25 19:57
*ED COVID-19 Vaccine History Last Done: 04/12/25 16:12
*ED Influenza Vaccine History Last Done: 04/12/25 16:12
[2025-04-12] MEDS: MAXIPIME 2000 MG IV (21:35)
[2025-04-12] MEDS: VANCOCIN 530 MG IV (21:40)
--- NOTE | 2025-04-12 23:00 | HPS.HSE ---
Family Physician
-
Family Physician: Roe Shetty
Chief Complaint
-
Cough, Weakness
History of Present Illness
Patient is an 84y M with PMH significant for A-Fib, HFpEF and CKD who presents to ED for evaluation of cough and possible pneumonia. Patient states that he has had cough productive of green / yellow mucus for about 2-3 months now. He reports
SOB with activity / exertion. No fevers / chills. No N/V/D. He has been using OTC cough syrup with temporary improvement in his symptoms. Patient has L TSA planned for later this month. He was seen by his [employer] Bi Developer today and sent for CXR for
concern of possible pneumonia. Patient was then referred to the ED for further evaluation.
Patient is also being followed by Wound Care for non-healing wound to the LLE. He underwent skin biopsy / excision followed by XRT which he completed about 3 months ago. Patient notes that he wound has been slow to heal. He has been followed by
Wound Care since that time. Patient states that he has been on antibiotics fairly consistently over the past three months.
Medical History
Past Medical History
Past Medical History: Reports Other
Additional Past Medical History:
Hypertension
DM-II
CKD IV
Permanent Atrial Fibrillation
Chronic Bradycardia
HFpEF
Hypothyroidism
Squamous Cell Skin Cancer
ARIN intolerant of CPAP
Past Surgical History: Reports Other
Additional Past Surgical History:
Bilateral TKA
Bilateral TSA
Left Revision TSA
Lumbar Laminectomy
T&A
Left JD
LLE Skin Biopsy / Excision
Social History
Tobacco: Former Smoker (Quit smoking 60 years ago. )
Alcohol: None
Drug: None
Family History
Family History: Not pertinent
Allergies / Home Medications
Allergies reflects when Allergies were last updated in [facility].
Home Medications with original date entered in [facility]
Allergy/Medication List:
Allergies
Allergy/AdvReac Type Severity Reaction Status Date / Time
No Known Allergies Allergy Verified 04/12/25 16:24
Home Medications
allopurinol 300 mg tablet 300 mg PO DAILY Gout 02/08/08
atorvastatin 20 mg tablet (Lipitor) 20 mg PO DAILY HLD 02/08/08
pantoprazole 40 mg tablet,delayed release 40 mg PO DAILY Gastrointestinal issue 11/29/20
empagliflozin 10 mg tablet (Jardiance) 10 mg PO DAILY 30 days #30 tabs 05/22/21
alfuzosin 10 mg tablet,extended release 24 hr 10 mg PO DAILY Urinary Issue 12/30/22
levothyroxine 50 mcg tablet 50 mcg PO DAILY Thyroid 12/30/22
calcitriol 0.25 mcg capsule 0.25 mcg PO DAILY Kidney Disease 10/08/23
metolazone 5 mg tablet 5 mg PO FR Fluid Retention/Swelling 10/08/23
rivaroxaban 15 mg tablet (Xarelto) 15 mg PO DAILY Blood Clot Prevention/Tx 10/08/23
torsemide 20 mg tablet 20 mg PO DAILY Fluid Retention/Swelling 10/08/23
potassium chloride 10 mEq tablet,extended release 10 meq PO DAILY Electrolyte Repletion 10/31/24
tramadol 50 mg tablet 50 mg PO Q8HPRN PRN PAIN 03/28/25
doxycycline hyclate 100 mg tablet 100 mg PO BID 04/12/25
lorazepam 0.5 mg tablet 0.5 mg PO HS PRN Insomnia 04/12/25
tirzepatide 10 mg/0.5 mL subcutaneous pen injector (Mounjaro) 10 mg SC TH 04/12/25
Review of Systems
-
History Source: Patient
A 12 point ROS was completed and negative except as noted: Yes
Constitutional: Reports Fatigue; Denies Fever or Chills
EENT: Denies Sore Throat
Respiratory: Reports Cough and Trouble Breathing; Denies Hemoptysis
Cardiac: Denies Chest Pain or Palpitations
Abdomen/GI: Denies Abdominal Pain, Nausea, Vomiting or Diarrhea
: Denies Dysuria, Frequency or Flank Pain
Musculoskeletal: Denies Joint Pain or Edema
Neurological: Denies Dizzy or Headache
Psych: Denies Depression or Anxiety
Physical Exam
Vital Signs
Vital Signs
Temp Pulse Resp BP Pulse Ox
97.7 F 39 15 119/61 96
04/12/25 19:47 04/12/25 22:30 04/12/25 22:30 04/12/25 22:00 04/12/25 22:30
Physical Exam
General: Other (84y M in no acute distress.)
HEENT: Moist mucous membranes, PERRLA and Other (Neck supple.)
Respiratory: Other (Coarse breath sounds primarily on the L. Few scattered squeaks / wheezes. No rales.)
Cardiac: S1/S2, Irregular Rhythm, Bradycardia and Murmur (III/ ARMOND)
GI: Soft, Non Tender, Non Distended and Normal Bowel Sounds
Musculoskeletal: No Clubbing, No Cyanosis and Other (No significant LE edema. LLE wound with dressing in place - no strikethrough / bleeding / etc.)
Neuro: AO x 3
Laboratory Results
-
04/12/25 16:34
04/12/25 16:34
Laboratory Results
Lactic Acid 0.9 mmol/L (0.7-2.0) 04/12/25 21:20
Total Bilirubin 0.8 mg/dl (0.2-1.3) 04/12/25 16:34
AST 17 U/L (17-59) 04/12/25 16:34
ALT 16 U/L (0-50) 04/12/25 16:34
Alkaline Phosphatase 165 U/L (38-126) H 04/12/25 16:34
Impression/Plan
-
A/P: Patient is an 84y M with PMH significant for A-Fib, DM-II, CKD and LLE skin cancer / non-healing wound who presents to ED for evaluation of cough / possible pneumonia.
Cough / Possible Pneumonia
- Admit for further evaluation and treatment.
- Patient is afebrile, non-toxic appearing, no leukocytosis and has had symptoms for 2-3 months.
- Seems suggestive of more chronic process - bronchiectasis / COPD / etc?
- CXR done today more c/w basilar atelectasis / scarring - though he does have coarse L sided breath sounds on exam.
- Received initial doses of Vanco / Zosyn in the ED.
- Will observe off of further abx for now.
- Supportive care including mucolytics, nebs, etc.
- ID evaluation given extensive recent abx exposure, ? new infection, etc.
- Speech eval to rule out 'silent' aspiration, etc.
ERENDIRA on CKD IV
Mild Hyperkalemia
Chronic HFpEF
- SCr = 3.4 compared to baseline around 2.6.
- Hold diuretics regimen acutely.
- Hold supplemental potassium.
- Follow daily weights, I/Os, renal function, etc.
Acute on Chronic Anemia
- Macrocytic anemia. Baseline anemia of chronic disease with Hgb = 12.
- Currently 9 g/dL with no reported notice of gross blood loss, etc.
- Check iron studies, B12, etc.
- Follow H&H for changes.
LLE Wound
Squamous Cell Carcinoma
- s/p surgery and XRT 3 months ago. Now poorly healing wound followed by Wound Care.
- On Augmentin from 02/22 - present.
- New Rx today for doxycycline though patient states that he has yet to start this.
- Wound Care evaluation during hospital stay.
Permanent Atrial Fibrillation
Chronic Bradycardia
- Stable. Continue Xarelto for stroke risk reduction.
- Has had chronic bradycardia with rates intermittently into the 30s - asymptomatic.
- Follow for changes.
DM-II
- Stable. Continue Jardiance.
- Follow glucose and cover with SSI as needed.
- Update A1C.
Hypothyroidism
- Continue current T4 supplementation.
Left Shoulder Pain
- s/p TSA x 2 previously. Scheduled for second revision later this month.
- PT / pain control.
DVT Prophylaxis: On Xarelto.
Code Status: Full
[2025-04-12 23:01] LABS: COVID-19 Antigen Negative (Negative)
[2025-04-13] VITALS (17 sets, daily range): BP systolic 111–150; BP diastolic 54–113; PULSE 44–45; O2SAT 95–98; BMI 37.3
[2025-04-13] MEDS: ULTRAM 50 MG PO (00:16)
[2025-04-13] MEDS: ATIVAN 0.5 MG PO (00:16)
[2025-04-13 00:59] LABS: Total Iron Binding Capacity 211 ug/dl (261-462)
[2025-04-13 01:05] LABS: Iron < 20 ug/dl (49-181)
[2025-04-13 05:58] LABS: Hematocrit 28.3 % (39.0-52.0); Hemoglobin 8.7 g/dL (13.0-18.0); Mean Corp Hgb Conc. 30.7 g/dL (33.0-37.0); Mean Corpuscular Volume 102.2 fL (80.0-94.0); Platelet Count 190 10^3/uL (130-400); Red Cell Dist. Width 15.9 % (11.5-14.5)
[2025-04-13 06:19] LABS: Blood Urea Nitrogen 86 mg/dl (9-20); Calcium 8.8 mg/dl (8.4-10.2); Carbon Dioxide 23 mmol/L (22-30); Chloride 110 mmol/L (98-107); Estimated Creatinine Clearance 22 ml/min; Glucose 94 mg/dl (70-99); Magnesium 2.4 mg/dl (1.6-2.3); Potassium 4.8 mmol/L (3.5-5.1); Sodium 136 mmol/L (135-145); eGFR 18.97
[2025-04-13] MEDS: SYNTHROID 50 MCG PO (06:33)
[2025-04-13 07:26] LABS: Folate 9.6 ng/ml (2.76-20); Vitamin B12 743 pg/ml (239-931)
[2025-04-13] MEDS: FARXIGA 10 MG PO (08:52)
[2025-04-13] MEDS: MUCINEX 600 MG PO (08:52)
[2025-04-13] MEDS: FLOMAX 0.4 MG PO (08:53)
[2025-04-13] MEDS: ZYLOPRIM 300 MG PO (08:53)
[2025-04-13] MEDS: LIPITOR 20 MG PO (08:53)
[2025-04-13] MEDS: XARELTO 15 MG PO (08:55)
--- NOTE | 2025-04-13 09:05 | PTOTSP ---
Speech Language Pathology
Pt seen for clinical bedside swallow evaluation. P.O. trials of puree, regular solids, and thin liquids provided. Adequate mastication, bolus formation, and A-P transit noted with no oral residue. Occasional slight wet breath sounds with cough
following. Cough was harsh in nature. However, this cough was noted at rest as well. Recommend instrumental swallowing assessment to rule out aspiration as cause of current possible PNA.
Recommend:
(1) VSE
(2) Regular solids/thin liquids for now
(3) General aspiration precautions
(4) Meds as tolerated
(5) PACKAGING SAL[employer] to continue to follow
--- NOTE | 2025-04-13 09:55 | CON.ID ---
Consultation
-
Date/Time Consultation Requested: 04/12/2025 2347
Date/Time Consultation Performed: 04/13/2025 0932
Requesting Provider: Dr. Garcia
Performing Provider: Dr. Gonzales
Reason for Consultation: Pneumonia
Chief Complaint / Past History
History of Present Illness
Michael Gibbons is an 84-year-old man being evaluated the request of Dr. Garcia in regards to pneumonia. History is obtained from chart review, along with patient interview.
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 Segal for this. The patient was sent in to the ER yesterday after a visit with Dr. Segal because of ongoing cough,
low heart rate and lower extremity wounds.
The patient reports a prior history of squamous cell cancer of the left lower extremity, and has been followed by Dermatology for the past year for wounds following cancer excision and subsequent XRT. Additionally, the patient reports that he has
had a cough with productive sputum for the past 2 to 3 months. He reports occasional shortness of breath, but denies any fevers or chills. He notes that the sputum is yellow to whitish in color and quite thick. He denies any fevers or chills. He
denies any chest pain, nausea or vomiting or abdominal pain.
Past History
Additional Past Medical History:
HTN
DM type II
CKD stage IV
A-fib
Bradycardia
CHF
Hypothyroidism
SCC left lower extremity
ARIN
Additional Past Surgical History:
Bilateral TKA
Bilateral rotator cuff surgery
Lumbar laminectomy
Left JD
Left lower extremity biopsy/excision
Allergy History:
No Known Allergies Allergy (Verified 04/12/25 16:24)
Medications Reviewed: Yes
Current Antibiotics:
Vancomycin
Cefepime
Social History
Tobacco: Former Smoker
Alcohol: None
Drug: None
Personal:
Living: With Family
Employment: Retired
Family History
Family History: Not Pertinent
Review of Systems
Vital Signs
Temp Pulse Resp BP Pulse Ox
97.6 F 40 16 123/56 96
04/13/25 07:00 04/13/25 07:30 04/13/25 07:30 04/13/25 07:07 04/13/25 08:25
Physical Exam
Physical Exam
Constitutional: No Acute Distress, Comfortable and Non-toxic
Eyes: No Conjunctival Hemorrhage and Sclera Anicteric
Oral: No Thrush and No Ulcers
Cardiovascular: Regular Rate and S1/S2; Negative S3/S4
Pulmonary: Coarse and Non Labored; Negative Wheezes
Gastrointestinal: Soft, Non Tender, Non Distended and Normal Bowel Sounds
Extremities: Edema
Wound: Other (Left distal lower extremity with extensive superficial wounds. Significant malodor. Positive slough. Right lower extremity with superficial wounds with granulation tissue.)
Neurological: Awake and Alert
Psychological: Calm
Lab / Diagnostic Study Results
04/13/25 05:28
04/13/25 05:28
Abs Immat Gran (auto) 0.0 10^3/uL (0-0.05) 04/12/25 16:34
Absolute Neuts (auto) 4.4 10^3/uL (1.4-6.5) 04/12/25 16:34
Absolute Lymphs (auto) 1.1 10^3/uL (1.2-3.4) L 04/12/25 16:34
Absolute Monos (auto) 0.4 10^3/uL (0.1-0.6) 04/12/25 16:34
Absolute Basos (auto) 0.0 10^3/uL (0-0.2) 04/12/25 16:34
Immature Gran % 0.5 % (0-0.5) 04/12/25 16:34
Neutrophils % 72.3 % (42.2-75.2) 04/12/25 16:34
Lymphocytes % 18.4 % (20.5-51.1) L 04/12/25 16:34
Monocytes % 7.1 % (1.7-9.3) 04/12/25 16:34
Eosinophils % 1.2 % (0-6) 04/12/25 16:34
Basophils % 0.5 % (0-2) 04/12/25 16:34
Lactic Acid 0.9 mmol/L (0.7-2.0) 04/12/25 21:20
Microbiology Results
Micro:
04/12/25 22:38 Influenza Types A & B (DIONISIO) - Final
Nasal Swab Negative for Influenza A & B, NAAT
Negative results must be combined with clinical observations
and patient history.
Nucleic Acid Amplification test (NAAT)performed on the
[employer] platform.
04/12/25 21:26 Blood Culture - Pending
Blood/Venous
04/12/25 21:20 Blood Culture - Pending
Blood/Venous
Imaging:
04/11/2025 CXR (2 view): mild bibasilar opacities suspected to be atelectasis versus scarring. Pneumonia a possible consideration. Please see full dictation for additional detail.
Assessment / Plan
Left lower extremity wounds with possible superinfection
Bibasilar infiltrates
Chronic cough with sputum production
Suspected bronchitis
HTN
DM type II
CKD stage IV
A-fib
Bradycardia
CHF
Hypothyroidism
SCC left lower extremity
ARIN
Recommendations:
Continue with empiric antibiotics (vancomycin, cefepime)
Check sputum culture to guide further antimicrobial selection/de-escalation.
May consider CT of chest for better visualization of suspected infiltrates.
Follow Vanco levels closely to prevent nephrotoxicity.
Monitor white count temperature curve.
Local care to left lower extremity wounds. May need Dakin solution to decrease overall bioburden. Will discuss with Wound Care
[2025-04-13] MEDS: ROCALTROL 0.25 MCG PO (11:02)
--- NOTE | 2025-04-13 11:14 | PHA.VAN.IN ---
Assessment
- Assessment
Renal Function: SCR Appears Elevated from baseline
Concomitant Antimicrobials: cefepime
Plan
- Plan
Initial / Loading Dose: 1500mg - 04/12 21:40
Maintenance Regimen: dosing by level - give 1250mg x1 today
Monitoring: random 04/14 0600
MRSA Screen: Ordered per protocol
Pharmacokinetics Vancomycin I
- -
Patient Age: 84
Patient Sex: Male
Vancomycin Day #: 1
Indication: Pulmonary/Respiratory
Requesting Provider: Mitzi Sen (resident) / Dr. Gonzales
Pertinent Antimicrobial Allergies:
NKDA
Height / Weight:
Height 5 ft 9 in
Actual Weight 117.7 kg
Pertinent Past Medical History: BMI ~38, CKD IV (baseline ~2.6), DM II
- Vital Signs / Lab Results
Temp Pulse Resp BP Pulse Ox
97.6 F 40 16 123/56 96
04/13/25 07:00 04/13/25 07:30 04/13/25 07:30 04/13/25 07:07 04/13/25 08:25
Lab Results - Hematology
04/12/25 04/13/25
16:34 05:28
WBC 6.0 6.1
Lab Results - Chemistry
04/12/25 04/13/25
16:34 05:28
BUN 89 H 86 H
Creatinine 3.4 H 3.1 H
Estimated Creat Clear 22
Albumin 3.1 L
04/12/25
21:20
Lactic Acid 0.9
Microbiology Results
04/12/25 22:38 Influenza Types A & B (DIONISIO) - Final
Nasal Swab Negative for Influenza A & B, NAAT
Negative results must be combined with clinical observations
and patient history.
Nucleic Acid Amplification test (NAAT)performed on the
[employer] platform.
[2025-04-13] MEDS: DESENEX/MITRAZOL/ZEASORB TOPICAL (11:35)
[2025-04-13] MEDS: DAKIN'S SOLUTION 0.125% 1/4 STRENGTH TOPICAL (11:35)
--- NOTE | 2025-04-13 11:41 | WOUNDNOTE ---
LEFT LOWER LEG
--- NOTE | 2025-04-13 11:41 | WOUNDNOTE ---
LEFT LOWER LEG
--- NOTE | 2025-04-13 11:41 | WOUNDNOTE ---
LEFT LOWER LEG
--- NOTE | 2025-04-13 11:42 | WOUNDNOTE ---
SACRAL COCCYX AND BUTTOCK
--- NOTE | 2025-04-13 11:46 | WOUNDNOTE ---
[facility] RN note: Patient admitted with SOB/pneumonia
See H&P for complete history.
PMH: TN
DM type II
CKD stage IV
A-fib
Bradycardia
CHF
Hypothyroidism
SCC left lower extremity
ARIN
Wound Location and type/assessment: Patient admitted with stage 1 to sacrum and buttock sulcus, fungal appearing rash to buttock sulcus, stage 2 to right buttock and chronic wounds to left and right lower legs. Patient follows with Dr. Tristan for
left leg chronic leg wound. Patient is s/p XRT to left leg x 1 year ago (per patient report). This brief writer spoke to Dr. Tristan who explained that he applies a skin growth application to left leg weekly along with Coban for compression. Upon removal
of dressing wound was malodorous. Right lower wound with venous wound. Patient reports wearing compression at home. Dr. Gonzales present at time of assessment to examine wounds. Patient reports sitting for long periods during the day and changing
brief only once/day. Patient currently incontinent and penis not appropriate for condom cath. Heels intact.
Appetite: Fair
Pressure redistribution devices in place: Versa Care Accumax, turning scheduled added. Patient turns well with assistance but needs reminders. Heels off-loaded with pillow and air cushion under calves.
Plan: Will recommend cleaning left leg wound with Dakins moistened gauze and applying Xeroform gauze, ABD and Graciela. Will recommend Xeroform for right leg and compression for bilaterally. Desenex powder and Calazime recommended for buttock and
sacral wounds. This brief writer provided instruction to patient to skin care to buttocks including applying barrier ointment, frequent changing of brief, and using air or gel cushion at home. LUISA Mcadams given update and orders confirmed with
Hospitalist. Will update care plan and follow as needed.
--- NOTE | 2025-04-13 12:20 | PTOTSP ---
Speech Language Pathology
VIDEOFLUOROSCOPIC SWALLOWING EXAMINATION (VSE) completed. Mild oropharyngeal dysphagia noted. Trace pharyngeal residue noted. Laryngeal penetration to the level of the vocal folds noted with consecutive straw sips of thin liquids. Transient
supraglottic penetration with single cup sips of thin liquids. No other penetration or any aspiration noted.
Recommend:
(1) Regular solids/thin liquids
(2) Aspiration precautions: sit upright, single sips, slow rate
(3) Meds as tolerated. If taking whole with liquid, ensure single sip only
(4) WET ROOM SUPERVISOR to continue to follow
--- NOTE | 2025-04-13 12:40 | CON.CAR ---
Addendum entered and electronically signed by Samson Gallegos MD 04/13/25 16:32:
I saw and evaluated the patient, and I provided the substantive portion of the medical decision making.
I reviewed and agree with the note by Ms Campo and it accurately reflects our care.
I personally performed the medical decision making of the this encounter and my assessment and plan is below:
84 y/o male (patient of Dr. 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
Bradycardia
- chronic stable ongoing for many years
Acute on chronic HFpEF
- significant weight discrepancies over last 3 days, PCP office 222 lbs, today 250 lbs; hard to believe he gained 10 lbs in water weight each day; hard to believe that is even achievable; unsure of what to make of this
- agree with IV diuresis
- check standing weights
Original Note:
Consultation
Consultation Request
Date/Time Consultation Requested: 04/13/25 1220
Date/Time Consultation Performed: 04/13/25 1241
Requesting Provider: Dr. Delcid
Performing Provider: Alejandra SAMANIEGO for Dr. Gallegos
Reason for Consultation: bradycardia
Medical History
-
Chief Complaint: cough
History of Present Illness:
84 y/o male (patient of Dr. 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 He is being treated for
possible PNA. He is also seen to have ERENDIRA on CKD and acute on chronic anemia. He also has a LE wound. We are consulted due to bradycardia. He is in no distress at the time of my assessment.
Past Medical History
Past Medical History: Arrhythmias, CHF, HTN and Other (as above)
Social History
Tobacco: Former Smoker
Family History
Family History: Reviewed & Not Pertinent
Allergies / Home Medications
Allergy/AdvReac Type Severity Reaction Status Date / Time
No Known Allergies Allergy Verified 04/12/25 16:24
�Medication �Instructions �Recorded �Confirmed �Type
allopurinol 300 mg tablet 300 mg PO DAILY Gout 02/08/08 04/13/25 History
atorvastatin 20 mg tablet (Lipitor) 20 mg PO DAILY HLD 02/08/08 04/13/25 History
pantoprazole 40 mg tablet,delayed 40 mg PO DAILY Gastrointestinal 11/29/20 04/13/25 History
release issue
empagliflozin 10 mg tablet 10 mg PO DAILY 30 days #30 tabs 05/22/21 04/13/25 Rx
(Jardiance)
alfuzosin 10 mg tablet,extended 10 mg PO DAILY Urinary Issue 12/30/22 04/13/25 History
release 24 hr
levothyroxine 50 mcg tablet 50 mcg PO DAILY Thyroid 12/30/22 04/13/25 History
calcitriol 0.25 mcg capsule 0.25 mcg PO DAILY Kidney Disease 10/08/23 04/13/25 History
metolazone 5 mg tablet 5 mg PO FR Fluid Retention/Swelling 10/08/23 04/13/25 History
rivaroxaban 15 mg tablet (Xarelto) 15 mg PO DAILY Blood Clot 10/08/23 04/13/25 History
Prevention/Tx
torsemide 20 mg tablet 20 mg PO DAILY Fluid 10/08/23 04/13/25 History
Retention/Swelling
potassium chloride 10 mEq 10 meq PO DAILY Electrolyte 10/31/24 04/13/25 History
tablet,extended release Repletion
tramadol 50 mg tablet 50 mg PO Q8HPRN PRN PAIN 03/28/25 04/13/25 History
doxycycline hyclate 100 mg tablet 100 mg PO BID 04/12/25 04/13/25 History
lorazepam 0.5 mg tablet 0.5 mg PO HSPRN PRN Insomnia 04/12/25 04/13/25 History
tirzepatide 10 mg/0.5 mL 10 mg SC TH 04/12/25 04/13/25 History
subcutaneous pen injector
(Diann)
Review of Systems
-
History Source: Patient
All other systems: Negative unless noted
Constitutional: Weight Gain
Respiratory: Cough
Physical Exam
Vital Signs
Temp Pulse Resp BP Pulse Ox
97.8 F 84 17 133/67 96
04/13/25 11:36 04/13/25 11:36 04/13/25 11:36 04/13/25 11:36 04/13/25 11:36
Lab Results
04/13/25 05:28
04/13/25 05:28
Physical Exam
General: Well Developed, Well Nourished and No Apparent Distress
HEENT: Normocephalic and Anicteric
Respiratory: Wheezes, Crackles and Rhonchi
Cardiac: Irregular Rhythm (bradycardia)
Musculoskeletal: Edema (mild-moderate BLE edema, wrapped CDI)
Neuro: Awake, Alert and Oriented
Psych: Calm
Impression / Plan
-
Cough:
-being treated for possible PNA
Bradycardia:
-no syncope
-chronic, appears stable overall. Holter monitor earlier this year showed avg HR 37 BPM.
-tele reviewed, HR as low as 30's. No long pauses. Follow telemetry.
-BP stable
Permanent AFIB:
-on Xarelto
-not on AV lelo agents due to matt as noted above
ERENDIRA on CKD:
-nephrology is consulted- giving diuretic
Acute on chronic anemia:
-work-up/management per primary team
HFpEF: [id number]
-getting IV lasix per nephro, which requires intensive monitoring
-awaiting accurate weight, but there is question of significant weight gain
Data:
Echo 07/28/24: EF 55%. Moderate to severe, eccentric mitral regurgitation. Moderate to severe tricuspid regurgitation. Pulmonary hypertension Estimated pulmonary artery pressure of 71mmHg. Mildly dilated ascending aorta at 4.2 cm.
Data Reviewed
-
EKG: Tracing Personally Visualized and interpreted (AFIB 42 BPM, RBBB- stable from previous)
Radiology: Report Reviewed by me (CXR: Mild bibasilar opacities, more likely to represent atelectasis and/or scarring. Mild pneumonia would be an alternative consideration in the appropriate clinical setting.)
Medical Tests (Nuc Med, Echo etc): Report Reviewed by me (echo as noted)
Labs: Labs Reviewed by me
[2025-04-13] MEDS: VANCOCIN 275 MG IV (13:08)
--- NOTE | 2025-04-13 13:33 | PTCARENOTE ---
Sent ED no delay report to receiving floor. Pt's diet pending swallow study results. Pt is oob x1 with RW to chair. Cardiology needs to come back and assess him- they came when he was in VSE. Wound care performed by GABRIEL.
--- NOTE | 2025-04-13 14:12 | W.CON.NEPH ---
Consultation
-
Date/Time Consultation Requested: April 12, 2025 at 2300
Date/Time Consultation Performed: April 13, 2025 at 1 PM
Requesting Provider: Rey Garcia
Performing Provider: Dr. Hendrix
Reason for Consultation: Acute on chronic kidney disease
Medical History
-
Chief Complaint: Acute on chronic kidney disease
History of Present Illness:
84y M with PMH significant for A-Fib, HFpEF and CKD who presents to ED for evaluation of cough and possible pneumonia. Patient states that he has had cough productive of green / yellow mucus for about 2-3 months now. He reports SOB with
activity / exertion. No fevers / chills. No N/V/D. He was seen by Dr. Segal and sent for CXR for concern of possible pneumonia.
Patient is also being followed by Wound Care for non-healing wound to the [facility]. He underwent skin biopsy / excision followed by XRT which he completed about 3 months ago.
Renal consultation for acute on chronic kidney disease
Creatinine on admission 3.4, baseline near 2.3�2.6
Past Medical History
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
Social History
Tobacco: Non-Smoker
Alcohol: None
Family History
Family History: Not Pertinent
Allergies / Home Medications
Allergy/AdvReac Type Severity Reaction Status Date / Time
No Known Allergies Allergy Verified 04/12/25 16:24
�Medication �Instructions �Recorded �Confirmed �Type
allopurinol 300 mg tablet 300 mg PO DAILY Gout 02/08/08 04/13/25 History
atorvastatin 20 mg tablet (Lipitor) 20 mg PO DAILY HLD 02/08/08 04/13/25 History
pantoprazole 40 mg tablet,delayed 40 mg PO DAILY Gastrointestinal 11/29/20 04/13/25 History
release issue
empagliflozin 10 mg tablet 10 mg PO DAILY 30 days #30 tabs 05/22/21 04/13/25 Rx
(Jardiance)
alfuzosin 10 mg tablet,extended 10 mg PO DAILY Urinary Issue 12/30/22 04/13/25 History
release 24 hr
levothyroxine 50 mcg tablet 50 mcg PO DAILY Thyroid 12/30/22 04/13/25 History
calcitriol 0.25 mcg capsule 0.25 mcg PO DAILY Kidney Disease 10/08/23 04/13/25 History
metolazone 5 mg tablet 5 mg PO FR Fluid Retention/Swelling 10/08/23 04/13/25 History
rivaroxaban 15 mg tablet (Xarelto) 15 mg PO DAILY Blood Clot 10/08/23 04/13/25 History
Prevention/Tx
torsemide 20 mg tablet 20 mg PO DAILY Fluid 10/08/23 04/13/25 History
Retention/Swelling
potassium chloride 10 mEq 10 meq PO DAILY Electrolyte 10/31/24 04/13/25 History
tablet,extended release Repletion
tramadol 50 mg tablet 50 mg PO Q8HPRN PRN PAIN 03/28/25 04/13/25 History
doxycycline hyclate 100 mg tablet 100 mg PO BID 04/12/25 04/13/25 History
lorazepam 0.5 mg tablet 0.5 mg PO HSPRN PRN Insomnia 04/12/25 04/13/25 History
tirzepatide 10 mg/0.5 mL 10 mg SC TH 04/12/25 04/13/25 History
subcutaneous pen injector
(Diann)
Review of Systems
-
Mild difficulty breathing, lethargic positive cough
All other systems: Negative unless noted
Physical Exam
Vital Signs
Vital Signs
Temp Pulse Resp BP Pulse Ox
97.8 F 60 18 150/113 96
04/13/25 11:36 04/13/25 12:15 04/13/25 12:15 04/13/25 12:01 04/13/25 11:36
Lab Results
WBC 6.1 10^3/uL (4.8-10.8) 04/13/25 05:28
RBC 2.77 10^6/uL (4.70-6.10) L 04/13/25 05:28
Hgb 8.7 g/dL (13.0-18.0) L 04/13/25 05:28
Hct 28.3 % (39.0-52.0) L 04/13/25 05:28
Plt Count 190 10^3/uL (130-400) 04/13/25 05:28
Sodium 136 mmol/L (135-145) 04/13/25 05:28
Potassium 4.8 mmol/L (3.5-5.1) 04/13/25 05:28
Chloride 110 mmol/L (98-107) H 04/13/25 05:28
Carbon Dioxide 23 mmol/L (22-30) 04/13/25 05:28
BUN 86 mg/dl (9-20) H 04/13/25 05:28
Creatinine 3.1 mg/dL (0.7-1.3) H 04/13/25 05:28
eGFR 18.97 04/13/25 05:28
Glucose 94 mg/dl (70-99) 04/13/25 05:28
Calcium 8.8 mg/dl (8.4-10.2) 04/13/25 05:28
Phosphorus 4.6 mg/dl (2.5-4.5) H 04/13/25 05:28
Albumin 3.1 g/dl (3.5-5.0) L 04/12/25 16:34
Physical Exam
General no acute distress
HEENT no cephalic atraumatic extraocular muscle intact no scleral icterus no JVD neck supple
lungs coarse
heart regular S1-S2 positive
abdomen soft nontender positive bowel sounds
extremities positive edema pulses present bilateral
Neurologically nonfocal alert and oriented x 3
Skin no lesions no abrasions no petechiae
Psych normal affect no bizarre behavior
Data Reviewed
-
Radiology: Image Personally Visualized and interpreted (No cephalization opacity)
Labs: Labs Reviewed by me, Discussed with Physician and Discussed with Patient
Assessment/Plan
-
84y M with PMH significant for A-Fib, HFpEF and CKD who presents to ED for evaluation of cough and possible pneumonia. Patient states that he has had cough productive of green / yellow mucus for about 2-3 months now. He reports SOB with
activity / exertion. No fevers / chills. No N/V/D. He was seen by Dr. Segal and sent for CXR for concern of possible pneumonia.
Patient is also being followed by Wound Care for non-healing wound to the [facility]. He underwent skin biopsy / excision followed by XRT which he completed about 3 months ago.
Renal consultation for acute on chronic kidney disease
Creatinine on admission 3.4> 3.1 /baseline near 2.3-2.6 labile over the last year
Has been on recent antibiotic therapy noted of lower extremity wounds
His weights are significantly elevated since March 15 about 14 kg(30 pounds)
Impression
Acute on chronic kidney disease stage IV
Pneumonia/CHF not convinced that this is pneumonia at this time but rather hypervolemia with hypertension and significant weight gain in a month.(Severe pulmonary hypertension ,preserved EF)
Anemia of chronic disease.
A-fib stable.= Bradycardic chronic
Hypertensive
Plan
Clinically patient appears volume overloaded despite a chest x-ray without pulmonary edema although hypertensive significant weight gain
Will give 80 mg IV Lasix
Monitor urine output
Daily weights
Antibiotics per ID renally dose
Bladder scan
No acute need for dialysis at this time
[2025-04-13] MEDS: MAXIPIME 1000 MG IV (14:18)
[2025-04-13] MEDS: STERILE WATER FOR INJECTION 10 ML IV (14:19)
[2025-04-13] MEDS: LASIX 80 MG IV (15:36)
[2025-04-13 16:02] LABS: Glucose - Point of Care 128 mg/dl (70-99)
--- NOTE | 2025-04-13 16:02 | CM ---
Patient seen at bedside with physician in ED. Patient stated that he lives with spouse in a multilevel home, 6 steps in and 6 steps up.
Patient recently started ambulating with a RW and has a cane. Patient has been going to wound care and has also been at [facility] in the recent past. Patient drives and is retired. Patient PCP is Dr. Shetty and [facility].
CM will continue to follow for discharge planning needs.
Plan; SNF vs home with VN
[2025-04-13] MEDS: VENTOLIN NEBULES 2.5 MG INH (18:25)
--- NOTE | 2025-04-13 18:36 | W.PN.HOSP.TC ---
Addendum entered and electronically signed by Avani Delcid MD 04/13/25 20:15:
I saw and evaluated the patient independently. I reviewed and discussed the resident�s note and agree with findings and plan as documented by Dr. Sen.
GENERAL: well developed, well nourished, male in no apparent distress
HEENT: NC/AT-- O2 NC
HEART: regular rate and rhythm, +S1, +S2
LUNGS : raspy breath sounds bilaterally
ABDOM: soft, nontender, nondistended, + bowel sounds
EXT: no cyanosis, clubbing, or 3+ edema to left arm and hand
NEUROLOGIC: grossly intact
Productive cough due to unknown cause--no signs of active pna--chronic bronchitis, bronchiectasis, scarring, ILD, chronic aspiration--cont vanco/cefepime--IS, mucinex, speech eval, CT chest--consider pulm consult--apprec ID-Respiratory and blood
cultures pending
Chronic kidney disease stage IV--renal dose meds--no IV contrast--await renal input--bladder scan
HFpEF--EF 55%--cont lasix with trending creat- Follow daily weights, sodium restricted diet, fluid restriction, monitor I/Os
Acute left upper extremity swelling--pt stated is was NOT new and due to needing should repair--US checked and was neg for DVT
Chronic Macrocytic anemia-- Hemoglobin is 8.7 which is his lowest hemoglobin level when looking through his values on previous admissions, and MCV is 102.2--check B12, folate, TSH, iron studies
LLE Wound--Squamous Cell Carcinoma--He sees [facility] for his left lower extremity wound--consult wound care--vanco/cefepime should cover for possible infection--has been on Augmentin since 02/22...
Gout- continue allopurinol
Permanent Atrial Fibrillation/Chronic Bradycardia--EKG shows atrial fibrillation with slow ventricular response--consult and apprec cards--cont Xarelto
Type 2 Diabetes mellitus - Stable. Continue Jardiance - Follow glucose and cover with SSI as needed - Update A1C.
Hypothyroidism -Continue levothyroxine
Hyperlipidemia-- Continue atorvastatin 20 mg
DVT Proph--Xarelto
Code status--Full code
Original Note:
Today's Communication/Plan
-
- continue to trend labs, follow up with nephrology, ID, await results of CT scan
Assessment / Plan
Assessment / Plan
Productive cough due to unknown cause:
- ROS positive for productive cough, and SOB
- Labs shows normal wbc count, stable vitals, afebrile.
- Respiratory exam positive for bilateral rhonchi and crackles heard in the lower lobes. Patient is on 2 L of oxygen and saturating 95%.
- Differential diagnosis is community-acquired pneumonia, chronic bronchitis, interstitial process, bronchiectasis, aspiration pneumonia
- CXR done today more c/w basilar atelectasis / scarring - though he does have coarse L sided breath sounds on exam.
- Continue patient on cefepime 1000 mg IV every 12 hourly to protect against gram-positive, gram-negative, Pseudomonas and vancomycin for MRSA
- Patient is on as needed guaifenesin 1200 mg p.o. every 12 and albuterol sulfate to help expectorate mucus and to aid in breathing.
-Infectious disease consulted and would like to continue vancomycin and cefepime, also may consider CT of the chest for better visualization of infiltrates, and trend Vanco levels
-Respiratory and blood cultures pending
-Videofluoroscopic swallowing examination completed and mild oropharyngeal dysphagia is noted. Started patient on regular diet and thin liquids with aspiration precautions. Speech to follow
- CT scan of chest without IV contrast pending
Chronic kidney disease stage IV
HFpEF:
- His serum creatinine is 3.1 trending down from 3.4 yesterday and BUN is 86
-Bladder scan ordered
- Follow daily weights, sodium restricted diet, fluid restriction, monitor ins and outs
- Previous echocardiograms from recent 2024 admission shows ejection fraction is 55%
- Nephrology consulted and have given patient 80 mg IV Lasix as he appears to be volume overloaded due to clinical features and current weight of 114 kgs
Acute left upper extremity swelling:
- Due to unknown cause
- No pain, pallor, paresthesias, paralysis, shortness of breath, unstable vitals
- Peripheral vascular ultrasound of the left upper extremity ordered and negative for venous thrombosis however there is severe diffuse subcutaneous edema
- Differential is cellulitis, lymphedema, contact dermatitis
- Supportive care such as elevating limb, potentially compression and observation for any red flag symptoms
Macrocytic anemia:
- Hemoglobin is 8.7 which is his lowest hemoglobin level when looking through his values on previous admissions, and MCV is 102.2
- Patient does not exhibit any clinical signs of bleeding
- Ordered vitamin B12, folate, TSH, iron studies
- Will transfuse if hemoglobin is less than 7 with 1 unit of PRBCs
LLE Wound
Squamous Cell Carcinoma:
-He sees tandem mill roller for his left lower extremity wound
-Physical exam of skin shows left lower extremity wound wrapped in Gurwinder bandage
- s/p surgery and XRT 3 months ago. Now poorly healing wound followed by Wound Care.
- On Augmentin from 02/22 - present.
-Wound care following
- Infectious disease recommends local care and Dakin solution
Gout:
- continue allopurinol
Permanent Atrial Fibrillation
Chronic Bradycardia
-EKG shows atrial fibrillation with slow ventricular response
-Physical examination shows bradycardia and irregular rhythm
- His heart rate today went down to as low as 34, patient is asymptomatic with no dizziness syncope shortness of breath headache visual changes.
- Cardiology consulted and recommend observation as this bradycardia has been chronic stable ongoing for many years
- Continue to monitor heart rate and correlate with clinical symptoms for any further care
- Continue on Xarelto
- PT/OT recommend skilled rehab 1 to 2 hours a day
Diabetes mellitus:
- Stable. Continue Jardiance.
- Follow glucose and cover with SSI as needed.
- Update A1C.
Hypothyroidism
-Continue levothyroxine
Hyperlipidemia:
- Continue atorvastatin 20 mg
DVT Prophylaxis: On Xarelto.
Full code
Anticipated Discharge: 24 - 48 hours
Subjective/Interval History
-
Date of Service: April 13, 2025
Patient is an 84y M with PMH significant for A-Fib, HFpEF and CKD who presents to ED for evaluation of cough and possible pneumonia. Patient states that he has had cough productive of green / yellow mucus for about 2-3 months now, associated
with shortness of breath on exertion and lying down. Not relieved on over the counter cough syrup. No fever, chills, vomiting, diarrhea, chest pain, nausea, weight loss. Patient has L TSA planned for later this month. He was seen by his
[employer] [employer] today and sent for CXR for concern of possible pneumonia. Patient was then referred to the ED for further evaluation.
Patient is also being followed by Wound Care for non-healing wound to the [facility]. He underwent skin biopsy / excision followed by XRT which he completed about 3 months ago. Patient notes that he wound has been slow to heal. He has been followed by
Wound Care since that time. Patient states that he has been on antibiotics fairly consistently over the past three months.
Objective Data
-
Vital Signs:
Vital Signs
Temp Pulse Resp BP Pulse Ox
97.9 F 40 18 128/66 95
04/13/25 14:29 04/13/25 18:30 04/13/25 18:30 04/13/25 15:36 04/13/25 18:30
I&O
04/12/25 04/13/25 04/14/25
06:59 06:59 06:59
Intake Total 720 / 720
Output Total 200 / 200 300 / 300
Balance -200 / -200 420 / 420
Review of Systems
-
History Source: Patient
All other systems: Reviewed and negative
Physical Exam
-
General: Well Developed
Respiratory: Other (Bilateral crackles and rhonci heard over the lower lobes)
Cardiac: Irregular Rhythm and Bradycardic
GI: Soft, Nontender, Nondistended and Normal Bowel Sounds
Musculoskeletal: Other (bilateral lower extremity edema, with left lower extremity wound)
Skin: Warm and Dry
Neuro: Awake, Alert, Oriented and AO x 3
Data Reviewed
-
Diagnostic Radiology: Report Reviewed by me and Discussed with Physician
Labs: Labs Reviewed by me and Discussed with Physician
[2025-04-13] MEDS: MUCINEX 1200 MG PO (20:06)
[2025-04-13] MEDS: DESENEX/MITRAZOL/ZEASORB 1 APPLIC TOPICAL (20:07)
[2025-04-13 21:09] LABS: Glucose - Point of Care 148 mg/dl (70-99)
[2025-04-14] VITALS (7 sets, daily range): BP systolic 115–123; BP diastolic 54–60; PULSE 2; BMI 36.7
[2025-04-14] MEDS: ATIVAN 0.5 MG PO (00:57)
[2025-04-14] MEDS: ULTRAM 50 MG PO (00:57)
[2025-04-14] MEDS: STERILE WATER FOR INJECTION 10 ML IV ×2 (00:58→12:11)
[2025-04-14] MEDS: MAXIPIME 1000 MG IV ×2 (00:59→12:10)
[2025-04-14] MEDS: SYNTHROID 50 MCG PO (06:06)
[2025-04-14 07:28] LABS: Hematocrit 26.9 % (39.0-52.0); Hemoglobin 8.6 g/dL (13.0-18.0); Mean Corp Hgb Conc. 32.0 g/dL (33.0-37.0); Mean Corpuscular Volume 98.2 fL (80.0-94.0); Nucleated Red Blood Cells % 0.3 % (-); Platelet Count 196 10^3/uL (130-400); Red Cell Dist. Width 16.2 % (11.5-14.5)
[2025-04-14 07:46] LABS: Glucose - Point of Care 110 mg/dl (70-99)
[2025-04-14 07:52] LABS: ALT (SGPT) 14 U/L (0-50); AST (SGOT) 17 U/L (17-59); Albumin 2.8 g/dl (3.5-5.0); Alkaline Phosphatase 141 U/L (38-126); Blood Urea Nitrogen 83 mg/dl (9-20); Calcium 8.6 mg/dl (8.4-10.2); Carbon Dioxide 23 mmol/L (22-30); Chloride 109 mmol/L (98-107); Estimated Creatinine Clearance 22 ml/min; Glucose 104 mg/dl (70-99); Magnesium 2.4 mg/dl (1.6-2.3); Potassium 4.5 mmol/L (3.5-5.1); Sodium 138 mmol/L (135-145); Total Protein 5.3 g/dl (6.3-8.2); eGFR 18.97
[2025-04-14] MEDS: NOVOLOG FLEXPEN-LOW RESISTANCE SC ×3 (07:54→17:40)
--- NOTE | 2025-04-14 09:04 | W.PN.CD ---
Today's Communication / Plan
-
chronic, stable slow AF -- asymptomatic
diuresis per nephrology
Cardiology will sign off at this time. Please call with any additional questions or concerns
Impression / Plan
-
Cough:
-being treated for possible PNA
Bradycardia:
-no syncope
-chronic, appears stable overall. Holter monitor earlier this year showed avg HR 37 BPM.
-tele reviewed, HR as low as 30's. No long pauses. Follow telemetry.
-BP stable
Permanent AFIB:
-on Xarelto
-not on AV lelo agents due to matt as noted above
ERENDIRA on CKD:
-nephrology is consulted- giving diuretic
Acute on chronic anemia:
-work-up/management per primary team
HFpEF: [id number]
-getting IV lasix per nephro, which requires intensive monitoring
-awaiting accurate weight, but there is question of significant weight gain
Subjective: Denies lightheadedness, dizziness, presyncope, or syncope. Breathing somewhat improved.
Data:
Echo 07/28/24: EF 55%. Moderate to severe, eccentric mitral regurgitation. Moderate to severe tricuspid regurgitation. Pulmonary hypertension Estimated pulmonary artery pressure of 71mmHg. Mildly dilated ascending aorta at 4.2 cm.
Physical Exam
Vital Signs/Labs
Vital Signs
Temp Pulse Resp BP Pulse Ox
98.3 F 37 16 118/55 95
04/14/25 07:34 04/14/25 07:34 04/14/25 07:34 04/14/25 07:34 04/14/25 07:34
04/13/25 04/14/25 04/15/25
06:59 06:59 06:59
Actual Weight 259 lb 7.745 oz 248 lb 1 oz
04/14/25 07:12
04/14/25 07:12
Magnesium 2.4 mg/dl (1.6-2.3) H 04/14/25 07:12
Physical Exam
Constitutional: No acute distress and Comfortable
Cardiovascular: Pedal edema present, Murmur/rub/gallop absent and Other (slow rate, irregular rhythm)
Respiratory: Respiratory effort normal and Crackles Present
Data Reviewed
-
Date of Service: April 14, 2025
Medical Decision Making: Reviewed Test Results, Test Interpretation and Review of Case with other Provider
EKG: Tracing Personally Visualized and interpreted
Echo: Report Reviewed by me
X-Ray/CT/US/MRI/NUC/PET: Image Personally Visualized and interpreted
Labs: Labs Reviewed by me
[2025-04-14] MEDS: MUCINEX 1200 MG PO ×2 (09:27→21:31)
[2025-04-14] MEDS: FLOMAX 0.4 MG PO (09:28)
[2025-04-14] MEDS: XARELTO 15 MG PO (09:28)
[2025-04-14] MEDS: ROCALTROL 0.25 MCG PO (09:28)
[2025-04-14] MEDS: ZYLOPRIM 300 MG PO (09:28)
[2025-04-14] MEDS: LIPITOR 20 MG PO (09:28)
--- NOTE | 2025-04-14 09:34 | PN.CDI ---
CDI
- -
CDI:
Physician Documentation Request
Admit Date: 04/12/25 23:17
Dear Doctor Francy,
Clinical Indicators:
04/13 WO RN skin/wound assessment: Sacrum Stage 1 Pressure Injury,POA
Gluteal Sulcus Stage 1 Pressure Injury,POA
Right Buttock Stage 2 Pressure Injury,POA
Treatment:Barrier ointment, pressure redistribution devices (air mattress, off-loading devices, turning schedule)
Physician documentation of the type and location of wounds is required for compliant documentation. Based on the above clinical findings and your assessment, please provide the following in your progress note:
1. Location of the ulcer/wound, including laterality.
2. Type (etiology) of ulcer/wound:
- Pressure (decubitus) ulcer
- Non-healing surgical wound
- Other
- Unable to determine
3. If a pressure ulcer, please also include the stage* of the ulcer:
- Stage 1 - Skin intact, non-blanchable redness
- Stage 2 - Partial thickness loss of dermis, includes intact or open blister
- Stage 3 - Full thickness tissue not including bone, tendon or muscle
- Stage 4 - Full thickness tissue loss, including exposed bone, tendon or muscle
- Unstageable - Full thickness loss in which the base of the ulcer is covered by slough (yellow, harrell, huffman, green or brown) and/or eschar (harrell, brown or black) in the wound bed.
- Unable to determine
Use of terms such as suspected, likely, concern for, or probable (associated with a specific diagnosis that is being evaluated, monitored, or treated as if it exists) are acceptable and can be coded in the inpatient setting, when documented at the
time of discharge.
Thank you,
LUISITO Crook RN
CDI Specialist
available via tiger text
Please use your independent medical judgment in providing your response.
*Source: National Pressure Ulcer Advisory Panel (NPUAP)
[2025-04-14 11:37] LABS: Glucose - Point of Care 105 mg/dl (70-99)
--- NOTE | 2025-04-14 12:38 | W.PN.NEPH.PH ---
Today's Communication / Plan
-
Maintain Lasix 80 mg IV daily
Follow-up BMP
Assessment/Plan
-
84y M with PMH significant for A-Fib, HFpEF and CKD who presents to ED for evaluation of cough and possible pneumonia. Patient states that he has had cough productive of green / yellow mucus for about 2-3 months now. He reports SOB with
activity / exertion. No fevers / chills. No N/V/D. He was seen by Dr. Segal and sent for CXR for concern of possible pneumonia.
Patient is also being followed by Wound Care for non-healing wound to the [facility]. He underwent skin biopsy / excision followed by XRT which he completed about 3 months ago.
Renal consultation for acute on chronic kidney disease
Creatinine on admission 3.4> 3.1 /baseline near 2.3-2.6 labile over the last year
Has been on recent antibiotic therapy noted of lower extremity wounds
His weights are significantly elevated since March 15 about 14 kg(30 pounds)
Impression
Acute on chronic kidney disease stage IV
Pneumonia/CHF not convinced that this is pneumonia at this time but rather hypervolemia with hypertension and significant weight gain in a month.(Severe pulmonary hypertension ,preserved EF)
Anemia of chronic disease.
A-fib stable.= Bradycardic chronic
Hypertensive
Plan
Clinically patient appears volume overloaded despite a chest x-ray without pulmonary edema although hypertensive significant weight gain
Maintain Lasix 80 mg IV daily
Creatinine improved to 3.1
Monitor urine output
Daily weights
Antibiotics per ID renally dose
Bladder scan, patient is grossly and at baseline incontinent
No acute need for dialysis at this time
-
-
Date of Service: April 14, 2025
CC / HPI / ROS
-
Chief Complaint:
Acute kidney
History of Present Illness:
Creatinine down from 3.3-3.1
Nonoliguric
Hemodynamically stable
Review of Systems:
Nonoliguric
Weights down
Complains of lots of postnasal drip
No chest pain
Labs
-
Labs:
WBC 6.5 10^3/uL (4.8-10.8) 04/14/25 07:12
RBC 2.74 10^6/uL (4.70-6.10) L 04/14/25 07:12
Hgb 8.6 g/dL (13.0-18.0) L 04/14/25 07:12
Hct 26.9 % (39.0-52.0) L 04/14/25 07:12
Plt Count 196 10^3/uL (130-400) 04/14/25 07:12
Sodium 138 mmol/L (135-145) 04/14/25 07:12
Potassium 4.5 mmol/L (3.5-5.1) 04/14/25 07:12
Chloride 109 mmol/L (98-107) H 04/14/25 07:12
Carbon Dioxide 23 mmol/L (22-30) 04/14/25 07:12
BUN 83 mg/dl (9-20) H 04/14/25 07:12
Creatinine 3.1 mg/dL (0.7-1.3) H 04/14/25 07:12
eGFR 18.97 04/14/25 07:12
Glucose 104 mg/dl (70-99) H 04/14/25 07:12
Calcium 8.6 mg/dl (8.4-10.2) 04/14/25 07:12
Phosphorus 4.6 mg/dl (2.5-4.5) H 04/13/25 05:28
Albumin 2.8 g/dl (3.5-5.0) L 04/14/25 07:12
Physical Exam
-
Vital Signs:
Vital Signs
Temp Pulse Resp BP Pulse Ox
97.5 F 36 18 115/55 94
04/14/25 10:51 04/14/25 10:51 04/14/25 10:51 04/14/25 10:51 04/14/25 10:51
Cardiovascular:: Regular rate and rhythm
Respiratory:: Bilateral: Coarse
Lung Excursion:: Normal
Abdomen:: Nontender and Soft
Bowel Sounds:: Normal
Extremity Edema:: +2: Bilateral:
Donovan Catheter: No
--- NOTE | 2025-04-14 13:08 | CON.PUL ---
Consultation
Consultation Request
Date/Time Consultation Requested: 04/14/25
Date/Time Consultation Performed: 04/14/25
Performing Provider: Javier
Reason for Consultation: Cough
Medical History
-
History of Present Illness:
Patient is an 84 year old M with PMH significant for A-Fib, HFpEF and CKD who presents to ED for evaluation of cough and possible pneumonia. Patient states that he has had cough productive of mucus for about 2-3 weeks now. He reports SOB with
exertion as well but denies fevers, chills, N/V/D. He has been using OTC cough syrup with temporary improvement in his symptoms. He was seen by his [employer] today and sent for CXR for concern of possible pneumonia. Patient was then referred
to the ED for further evaluation.
CXR without signs of PNA, more CHF and placed on IV lasix.
Denies prior known history of lung disease, trivial smoker in past for <5 years, quit 50 years ago. Denies family history of lung disease.
CT showing no evidence of lung disease just pleural effusion.
He does have history of ARIN but is noncompliant wtih PAP. Has no cough on my examination. He is falling asleep during conversation.
Past Medical History
Past Medical History: Other (see list below)
Social History
Tobacco: Former Smoker
Alcohol: None
Drug: None
Family History
Family History: Reviewed & Not Pertinent
Allergies / Home Medications
Allergies
Allergy/AdvReac Type Severity Reaction Status Date / Time
No Known Allergies Allergy Verified 04/12/25 16:24
Home Medications
�Medication �Instructions �Recorded �Confirmed �Last Taken �Type
allopurinol 300 mg tablet 300 mg PO DAILY Gout 02/08/08 04/13/25 03/11/24 History
atorvastatin 20 mg tablet (Lipitor) 20 mg PO DAILY HLD 02/08/08 04/13/25 03/11/24 History
pantoprazole 40 mg tablet,delayed 40 mg PO DAILY Gastrointestinal 06/04/1104/13/25 03/11/24 History
release issue
empagliflozin 10 mg tablet 10 mg PO DAILY 30 days #30 tabs 05/22/21 04/13/25 03/11/24 Rx
(Jardiance)
alfuzosin 10 mg tablet,extended 10 mg PO DAILY Urinary Issue 12/30/22 04/13/25 03/11/24 History
release 24 hr
levothyroxine 50 mcg tablet 50 mcg PO DAILY Thyroid 12/30/22 04/13/25 03/11/24 History
calcitriol 0.25 mcg capsule 0.25 mcg PO DAILY Kidney Disease 10/08/23 04/13/25 03/11/24 History
metolazone 5 mg tablet 5 mg PO FR Fluid Retention/Swelling 10/08/23 04/13/25 03/11/24 History
rivaroxaban 15 mg tablet (Xarelto) 15 mg PO DAILY Blood Clot 10/08/23 04/13/25 03/10/24 History
Prevention/Tx
torsemide 20 mg tablet 20 mg PO DAILY Fluid 10/08/23 04/13/25 03/11/24 History
Retention/Swelling
potassium chloride 10 mEq 10 meq PO DAILY Electrolyte 10/31/24 04/13/25 Unknown History
tablet,extended release Repletion
tramadol 50 mg tablet 50 mg PO Q8HPRN PRN PAIN 03/28/25 04/13/25 Unknown History
doxycycline hyclate 100 mg tablet 100 mg PO BID 04/12/25 04/13/25 Unknown History
lorazepam 0.5 mg tablet 0.5 mg PO HSPRN PRN Insomnia 04/12/25 04/13/25 Unknown History
tirzepatide 10 mg/0.5 mL 10 mg SC TH 04/12/25 04/13/25 Unknown History
subcutaneous pen injector
(Diann)
Review of Systems
-
History Source: Patient
All other systems: Negative unless noted
Vitals / Labs / Diagnostic Testing
Vital Signs
Temp Pulse Resp BP Pulse Ox
97.5 F 36 18 115/55 94
04/14/25 10:51 04/14/25 10:51 04/14/25 10:51 04/14/25 10:51 04/14/25 10:51
Lab Data
04/14/25 07:12
04/14/25 07:12
Microbiology
04/13/25 11:00 Sputum Respiratory Culture - Preliminary
Usual Respiratory Lluvia
04/13/25 11:00 Sputum Gram Stain - Preliminary
04/12/25 21:26 Blood/Venous Blood Culture - Preliminary
No Growth in 24 hours- Final report to follow
04/12/25 21:20 Blood/Venous Blood Culture - Preliminary
No Growth in 24 hours- Final report to follow
04/13/25 12:16 Nose Nasal Screen MRSA (PCR) - Final
MRSA not detected - performed by PCR methodology.
04/12/25 22:38 Nasal Swab Influenza Types A & B (DIONISIO) - Final
Negative for Influenza A & B, NAAT
Negative results must be combined with clinical observations
and patient history.
Nucleic Acid Amplification test (NAAT)performed on the
[employer] platform.
Diagnostic Testing:
Physical Exam
-
HEENT: Normocephalic, Anicteric and Moist Mucous Membranes
Cardiovascular: S1/S2, Regular Rhythm and Peripheral Edema
Respiratory: Rales and Non-Labored Respirations
GI: Soft, Non Distended and Non Tender
Neurology: Awake and Other (drowsiness noted)
Skin: Warm and Dry
General: Comfortable and Other (NAD, obese)
Assessment
-
Patient is an 84 year old M with PMH significant for A-Fib, HFpEF and CKD who presents to ED for evaluation of cough and possible pneumonia. Patient states that he has had cough productive of mucus for about 2-3 weeks now. He reports SOB with
exertion as well but denies fevers, chills, N/V/D. He has been using OTC cough syrup with temporary improvement in his symptoms. He was seen by his [employer] today and sent for CXR for concern of possible pneumonia. Patient was then referred
to the ED for further evaluation. CT without signs of PNA, more CHF and placed on IV lasix. We are consulted for evaluation.
SOB/cough
ERENDIRA on CKD
Pulm edema on CXR
Suspect acute HF exacerbation
Conditions present [facility] RE[facility]
Hypertension
DM-II
CKD IV
Permanent Atrial Fibrillation
Chronic Bradycardia
HFpEF
Hypothyroidism
Squamous Cell Skin Cancer
ARIN intolerant of CPAP
Bilateral TKA
Bilateral TSA
Left Revision TSA
Lumbar Laminectomy
T&A
Left JD
LLE Skin Biopsy / Excision
Plan
No oxygen was needed on admission, currently saturating 95% on RA
No baseline use of O2 at home
Prior history of lung disease is NOT noted --
Denies prior known history of lung disease, trivial smoker in past for <5 years, quit 50 years ago.
Denies family history of lung disease.
It is unlikely he would develop new lung disease at this age
CT showing no evidence of lung disease just pleural effusion.
Suspect patient has acute HF exacerbation given ERENDIRA on CKD
Cough may be present from pulmonary edema
Sputum culture obtained and negative
CT not showing discreet consolidation suggesting PNA, he has no constitutional signs/symptoms
Would stop abx and observe off (PCT not useful in renal patients)
He did not cough on my examination
He does have history of ARIN but is noncompliant wtih PAP.
I will resume this as he is falling asleep with conversation
At risk for OHS, check VBG
Prior ECHO results are reviewed indicating low normal EF 55%, moderate to severe MR, mod-severe PH noted
Check proBNP
Agree with IV diuresis
May need RHC to establish fluid status
Prior PFT in 2009 showing restrictive lung disease
This would typically be seen in obese and/or HF patients
It would likely yield the same result if not worsened if this were repeated
Weight loss measures recommended
Obesity likely contributing to respiratory symptoms
Will need outpatient pulmonary evaluation in our office for PFTs and 6MWT--if cough was ongoing and needed further w/u
Reviewed with patient
We will follow
Diagnostic Data
Chest X-Ray: 04/11/25- Mild bibasilar opacities, more likely to represent atelectasis and/or scarring. Mild pneumonia would be an alternative consideration in the appropriate clinical setting.
CT Scan: 04/14/25-1. Limited study secondary to respiratory motion artifact.
2. Significant cardiomegaly with small bilateral pleural effusions. Small amount of irregular airspace consolidation within the left lung base, likely scarring.
3. Diffuse subcutaneous stranding within the chest wall suggestive of third spacing/anasarca.
Echo: 07/28/24- Dilated left ventricle with preserved left ventricular function. Estimated ejection fraction 55%. Moderate to severe, eccentric mitral regurgitation. Moderate to severe tricuspid regurgitation. Pulmonary hypertension Estimated
pulmonary artery pressure of 71mmHg. Mildly dilated ascending aorta at 4.2 cm Compared to the previous report 08/15/2022 there is been an increase in the degree of mitral regurgitation and tricuspid regurgitation. Previous report with mild mitral
digitation and mild tricuspid regurgitation. PA pressure also has increased. Previously estimated 35 to 40 mmHg
PFT's: 2009-FVC is 3.33L or 78% of predicted. FEV1 was 2.81L or 90% of predicted. FEV1/FVC ratio was 81%. TLC is 75%. Diffusing capacity is 103%.
Impression: Spirometry suggests Restrictive Lung Disease. The lung volumes revealed mild restriction with a TLC of 75% of predicted. The diffusing capacity was preserved at 103% of predicted. There was no significant improvement in the FEV1 post
bronchodilator.
Reports and relevant images were personally reviewed.
Total time spent on this consultation __55__ minutes which includes review of history, physical exam, medications, laboratory data, personal review of imaging, extensive review of outpatient records, discussion with care team and respiratory therapy.
[2025-04-14] MEDS: DESENEX/MITRAZOL/ZEASORB 1 APPLIC TOPICAL ×2 (13:23→21:32)
[2025-04-14] MEDS: DAKIN'S SOLUTION 0.125% 1/4 STRENGTH 10 ML TOPICAL (13:23)
--- NOTE | 2025-04-14 13:31 | W.PN.HOSP.TC ---
Addendum entered and electronically signed by Avani Delcid MD 04/14/25 16:30:
I saw and evaluated the patient independently. I reviewed and discussed the resident�s note and agree with findings and plan as documented by Dr. Sen.
GENERAL: well developed, well nourished, male in no apparent distress
HEENT: NC/AT-- off O2 NC
HEART: regular rate and rhythm, +S1, +S2
LUNGS : raspy breath sounds bilaterally
ABDOM: soft, nontender, nondistended, + bowel sounds
EXT: no cyanosis, clubbing, or 3+ edema to left arm and hand
NEUROLOGIC: grossly intact
Selected Entries
03/15/25
06:03 04/12/25
19:47 04/14/25
04:28
Actual Weight 103 kg 117.7 kg 112.519 kg
Productive cough likely due to acute heart failure exacerbation--no signs of active pna--chronic bronchitis, bronchiectasis, scarring, ILD, chronic aspiration all not likely--cont cefepime, stop vanco--IS, mucinex, speech eval, CT chest with
apparent volume overload--apprec pulm/ID--Respiratory culture normal johana and blood cultures negative
Chronic kidney disease stage IV--renal dose meds--no IV contrast--bladder scan--apprec renal
HFpEF--EF 55%--cont lasix with trending creat- Follow daily weights, sodium restricted diet, fluid restriction, monitor I/Os
Acute left upper extremity swelling--pt stated is was NOT new and due to needing should repair--US checked and was neg for DVT--cont compression and gurwinder-wrap
Chronic Macrocytic anemia-- Hemoglobin is 8.7 which is his lowest hemoglobin level when looking through his values on previous admissions, and MCV is 102.2--B12/folate/TSH all WNL-- iron studies do show low iron but also low TIBC, more consistent
with chronic disease
LLE Wound--Squamous Cell Carcinoma--He sees track hoe operator for his left lower extremity wound--apprec wound care--vanco/cefepime should cover for possible infection--has been on Augmentin since 02/22...
Gout- continue allopurinol
Permanent Atrial Fibrillation/Chronic Bradycardia--EKG shows atrial fibrillation with slow ventricular response--apprec cards--cont Xarelto
Type 2 Diabetes mellitus - Stable. Continue Jardiance - Follow glucose and cover with SSI as needed - Update A1C.
Hypothyroidism -Continue levothyroxine
Hyperlipidemia-- Continue atorvastatin 20 mg
Pressure ulcers both stage I and stage II (POA)- Stage I to sacrum and buttocks, fungal appearing rash to buttock sulcus- Stage II to right buttocks - apprec Wound care
DVT Proph--Xarelto
Code status--Full code
Addendum entered and electronically signed by Andi Sen MD, Resident 04/14/25 15:39:
Pressure ulcers both stage I and stage II:
- Stage I to sacrum and buttocks, fungal appearing rash to buttock sulcus
- Stage II to right buttocks
- Wound care consulted
- Desenex powder and colostomy and recommended for buttock and sacral wounds
- Instructions provided to patient for skin care to buttocks including applying barrier ointment, frequent changing of briefs, using Erygel cushion at home
Original Note:
Today's Communication/Plan
-
- follow up with pulmonology and renal
Assessment / Plan
Assessment / Plan
Productive cough due to unknown cause
small bilateral effusions/ cardiomegaly
Hx of HFpEF:
- ROS positive for productive cough, and SOB
- Labs shows normal wbc count, stable vitals, afebrile.
- Respiratory exam positive for bilateral rhonchi and crackles heard in the lower lobes. Patient is on 2 L of oxygen and saturating 95%.
- Differential diagnosis is community-acquired pneumonia, chronic bronchitis, interstitial process, bronchiectasis, aspiration pneumonia
- CXR done today more c/w basilar atelectasis / scarring - though he does have coarse L sided breath sounds on exam.
- Continue patient on cefepime 1000 mg IV every 12 hourly to protect against gram-positive, gram-negative, Pseudomonas and vancomycin for MRSA
- Patient is on as needed guaifenesin 1200 mg p.o. every 12 and albuterol sulfate to help expectorate mucus and to aid in breathing.
-Infectious disease consulted and would like to continue vancomycin and cefepime, also may consider CT of the chest for better visualization of infiltrates, and trend Vanco levels
-Respiratory and blood cultures pending
-Videofluoroscopic swallowing examination completed and mild oropharyngeal dysphagia is noted. Started patient on regular diet and thin liquids with aspiration precautions. Speech to follow
- Weight gain since past 1 months from 103 to [address]
- CT scan of chest without IV is limited and shows Significant cardiomegaly with small bilateral pleural effusions. Small amount of irregular airspace consolidation within the left lung base, likely scarring, Diffuse subcutaneous stranding within
the chest wall suggestive of third spacing/anasarca.
- Continue to diurese patient with Lasix 80 mg and observe. Suspect these findings of cough, sob, cardiomegaly, bilateral small pleural effusions, and weight gain due to his CHF.
- Consulted pulmonology.
- Incentive spirometry
- Tesslon pearls to help assist with chronic cough
- Ordered DuoNeb to help assist in shortness of breath
Chronic kidney disease stage IV
- His serum creatinine is 3.1same as yesterday yesterday and BUN is 83
-Bladder scan ordered
- Follow daily weights, sodium restricted diet, fluid restriction, monitor ins and outs
- Previous echocardiograms from recent 2024 admission shows ejection fraction is 55%
- Post void residual 74 so there is slight urinary retention, will place on condom catheter
- continue to diurese with Lasix 80 mg iv.
Acute left upper extremity swelling:
- Due to unknown cause
- No pain, pallor, paresthesias, paralysis, shortness of breath, unstable vitals
- Peripheral vascular ultrasound of the left upper extremity ordered and negative for venous thrombosis however there is severe diffuse subcutaneous edema
- Differential is cellulitis, lymphedema, contact dermatitis
- Supportive care such as elevating limb, potentially compression and observation for any red flag symptoms
Macrocytic anemia:
- Hemoglobin is 8.7 which is his lowest hemoglobin level when looking through his values on previous admissions, and MCV is
- Patient does not exhibit any clinical signs of bleeding
- Ordered vitamin B12, folate, TSH, iron studies
- Will transfuse if hemoglobin is less than 7 with 1 unit of PRBCs
LLE Wound
Squamous Cell Carcinoma:
-He sees track hoe operator for his left lower extremity wound
-Physical exam of skin shows left lower extremity wound wrapped in Gurwinder bandage
- s/p surgery and XRT 3 months ago. Now poorly healing wound followed by Wound Care.
- On Augmentin from 02/22 - present.
-Wound care following
- Infectious disease recommends local care and Dakin solution
Gout:
- continue allopurinol
Permanent Atrial Fibrillation
Chronic Bradycardia
-EKG shows atrial fibrillation with slow ventricular response
-Physical examination shows bradycardia and irregular rhythm
- His heart rate today went down to as low as 34, patient is asymptomatic with no dizziness syncope shortness of breath headache visual changes.
- Cardiology consulted and recommend observation as this bradycardia has been chronic stable ongoing for many years
- Continue to monitor heart rate and correlate with clinical symptoms for any further care
- Continue on Xarelto
- PT/OT recommend skilled rehab 1 to 2 hours a day
Diabetes mellitus:
- Stable. Continue Jardiance.
- Follow glucose and cover with SSI as needed.
- Update A1C.
Hypothyroidism
-Continue levothyroxine
Hyperlipidemia:
- Continue atorvastatin 20 mg
DVT Prophylaxis: On Xarelto.
Full code
Anticipated Discharge: 24 - 48 hours
Subjective/Interval History
-
Date of Service: April 14, 2025
Patient is still complaining of a chronic productive cough. He states that his shortness of breath is improving. No fever, chills, nausea, vomiting, diarrhea, abdominal pain, body aches, headache, blurry vision, syncope.
Objective Data
-
Labs:
Laboratory Results
04/14/25
07:12
WBC 6.5
Hgb 8.6 L
Hct 26.9 L
Plt Count 196
Sodium 138
Potassium 4.5
Chloride 109 H
Carbon Dioxide 23
BUN 83 H
Creatinine 3.1 H
Glucose 104 H
Calcium 8.6
Total Bilirubin 0.7
AST 17
ALT 14
Alkaline Phosphatase 141 H
Vital Signs:
Vital Signs
Temp Pulse Resp BP Pulse Ox
97.5 F 36 18 115/55 94
04/14/25 10:51 04/14/25 10:51 04/14/25 10:51 04/14/25 10:51 04/14/25 10:51
I&O
04/13/25 04/14/25 04/15/25
06:59 06:59 06:59
Intake Total 720 / 720
Output Total 200 / 200 500 / 500
Balance -200 / -200 220 / 220
Review of Systems
-
History Source: Patient
All other systems: Reviewed and negative
Physical Exam
-
General: Well Developed
Respiratory: Other (Bilateral crackles and rhonci heard over the lower lobes)
Cardiac: Irregular Rhythm and Bradycardic
GI: Soft, Nontender, Nondistended and Normal Bowel Sounds
Musculoskeletal: Other (bilateral lower extremity edema, with left lower extremity wound. Entire left upper extremity is swollen and erythematous, nontender, sensation to touch is intact, capillary refill normal, distal pulses 2+, range of movement
normal. There is large pad of prominent fat on back.)
Skin: Warm and Dry
Neuro: Awake, Alert, Oriented and AO x 3
Data Reviewed
-
Labs: Labs Reviewed by me and Discussed with Physician
[2025-04-14 13:51] LABS: Venous Blood Gas B.E. -2.5 mmol/L (-4 to +4); Venous Blood Gas O2 Sat % 98.3 %
[2025-04-14] MEDS: LASIX 80 MG IV (14:26)
--- NOTE | 2025-04-14 14:35 | W.PN.ID1 ---
Date of Service
Date of Service: April 14, 2025
Today's Communication
Continue antibiotics. See below�
Assessment / Plan
Left lower extremity wounds with possible superinfection
Bibasilar infiltrates
Chronic cough with sputum production
Suspected bronchitis
HTN
DM type II
CKD stage IV
A-fib
Bradycardia
CHF
Hypothyroidism
SCC left lower extremity
ARIN
Recommendations:
MRSA PCR negative. Discontinue further vanco.
Sputum culture unrevealing.
Continue cefepime for today. If continued clinical improvement can transition to oral cefdinir at discharge.
CT chest of limited utility, although left base airspace consolidation felt to be likely scarring.
Monitor white count temperature curve.
Continue local care to left lower extremity wounds.
Chief Complaint
-: Other (Bronchitis)
Subjective / Review of Systems
Review of Systems: No Fever, No Chills and No Cough
Vital Signs / Physical Exam
Vital Signs
Vital Signs
Temp Pulse Resp BP Pulse Ox
97.5 F 36 18 115/55 94
04/14/25 10:51 04/14/25 10:51 04/14/25 10:51 04/14/25 10:51 04/14/25 10:51
Physical Exam
Constitutional: No Acute Distress, Comfortable and Non-toxic
Eyes: Sclera Anicteric
Cardiovascular: S1/S2; Negative S3/S4
Pulmonary: Coarse and Non Labored
Gastrointestinal: Soft and Non Tender
Extremities: Edema and Other (Bilateral lower extremity Gurwinder wrap's in place.)
Neurological: Awake and Alert
Psychological: Calm
Objective Data
Lab Data
Lab Results
04/14/25 07:12
04/14/25 07:12
Estimated Creat Clear 22 ml/min 04/14/25 07:12
Lactic Acid 0.9 mmol/L (0.7-2.0) 04/12/25 21:20
Total Bilirubin 0.7 mg/dl (0.2-1.3) 04/14/25 07:12
AST 17 U/L (17-59) 04/14/25 07:12
ALT 14 U/L (0-50) 04/14/25 07:12
Alkaline Phosphatase 141 U/L (38-126) H 04/14/25 07:12
Most recent labs reviewed.
Micro Results:
04/13/25 11:00 Respiratory Culture - Preliminary
Sputum Usual Respiratory Lluvia
Gram Stain - Preliminary
04/12/25 21:26 Blood Culture - Preliminary
Blood/Venous No Growth in 24 hours- Final report to follow
04/12/25 21:20 Blood Culture - Preliminary
Blood/Venous No Growth in 24 hours- Final report to follow
04/13/25 12:16 Nasal Screen MRSA (PCR) - Final
Nose MRSA not detected - performed by PCR methodology.
04/12/25 22:38 Influenza Types A & B (DIONISIO) - Final
Nasal Swab Negative for Influenza A & B, NAAT
Negative results must be combined with clinical observations
and patient history.
Nucleic Acid Amplification test (NAAT)performed on the
[employer] platform.
Imaging:
04/11/2025 CXR (2 view): mild bibasilar opacities suspected to be atelectasis versus scarring. Pneumonia a possible consideration. Please see full dictation for additional detail.
[2025-04-14] MEDS: VENTOLIN NEBULES 2.5 MG INH (16:07)
[2025-04-14 17:37] LABS: Glucose - Point of Care 120 mg/dl (70-99)
[2025-04-14 21:36] LABS: Glucose - Point of Care 135 mg/dl (70-99)
[2025-04-14] MEDS: TESSALON PERLES 200 MG PO (21:46)
[2025-04-15] MEDS: STERILE WATER FOR INJECTION 10 ML IV ×2 (00:06→11:47)
[2025-04-15] MEDS: MAXIPIME 1000 MG IV ×2 (00:06→11:47)
--- NOTE | 2025-04-15 01:46 | PTCARENOTE ---
Pt removed bipap and refusing to use it overnight. Respiratory therapist made aware.
[2025-04-15] MEDS: ATIVAN 0.5 MG PO (02:12)
[2025-04-15 06:00] VITALS: BMI 37.2
[2025-04-15] MEDS: SYNTHROID 50 MCG PO (06:08)
[2025-04-15 07:00] VITALS: BP 148/63
[2025-04-15 07:24] LABS: Glucose - Point of Care 107 mg/dl (70-99)
[2025-04-15] MEDS: NOVOLOG FLEXPEN-LOW RESISTANCE SC ×3 (07:49→16:55)
[2025-04-15] MEDS: ZYLOPRIM 300 MG PO (08:05)
[2025-04-15] MEDS: XARELTO 15 MG PO (08:05)
[2025-04-15] MEDS: FLOMAX 0.4 MG PO (08:05)
[2025-04-15] MEDS: ROCALTROL 0.25 MCG PO (08:05)
[2025-04-15] MEDS: MUCINEX 1200 MG PO ×2 (08:05→21:27)
[2025-04-15] MEDS: LIPITOR 20 MG PO (08:06)
[2025-04-15] MEDS: LASIX 80 MG IV ×2 (08:06→21:21)
[2025-04-15 08:59] LABS: Hematocrit 29.3 % (39.0-52.0); Hemoglobin 9.2 g/dL (13.0-18.0); Mean Corp Hgb Conc. 31.4 g/dL (33.0-37.0); Mean Corpuscular Volume 99.3 fL (80.0-94.0); Nucleated Red Blood Cells % 0.4 % (-); Platelet Count 224 10^3/uL (130-400); Red Cell Dist. Width 16.2 % (11.5-14.5)
[2025-04-15] MEDS: DAKIN'S SOLUTION 0.125% 1/4 STRENGTH 1 ML TOPICAL (09:10)
[2025-04-15] MEDS: DESENEX/MITRAZOL/ZEASORB 1 APPLIC TOPICAL ×2 (09:10→21:17)
[2025-04-15 09:18] LABS: ALT (SGPT) 16 U/L (0-50); AST (SGOT) 21 U/L (17-59); Albumin 3.0 g/dl (3.5-5.0); Alkaline Phosphatase 162 U/L (38-126); Blood Urea Nitrogen 77 mg/dl (9-20); Calcium 8.9 mg/dl (8.4-10.2); Carbon Dioxide 23 mmol/L (22-30); Chloride 107 mmol/L (98-107); Estimated Creatinine Clearance 21 ml/min; Glucose 105 mg/dl (70-99); Magnesium 2.4 mg/dl (1.6-2.3); Potassium 4.2 mmol/L (3.5-5.1); Sodium 140 mmol/L (135-145); Total Protein 5.7 g/dl (6.3-8.2); eGFR 18.27
[2025-04-15 09:25] VITALS: BP 148/63
--- NOTE | 2025-04-15 11:00 | W.PN.NEPH.PH ---
Today's Communication / Plan
-
Maintain diuresis and daily lab
Assessment/Plan
-
84y M with PMH significant for A-Fib, HFpEF and CKD who presents to ED for evaluation of cough and possible pneumonia. Patient states that he has had cough productive of green / yellow mucus for about 2-3 months now. He reports SOB with
activity / exertion. No fevers / chills. No N/V/D. He was seen by Dr. Segal and sent for CXR for concern of possible pneumonia.
Patient is also being followed by Wound Care for non-healing wound to the [facility]. He underwent skin biopsy / excision followed by XRT which he completed about 3 months ago.
Renal consultation for acute on chronic kidney disease
Creatinine on admission 3.4> 3.1 /baseline near 2.3-2.6 labile over the last year
Has been on recent antibiotic therapy noted of lower extremity wounds
His weights are significantly elevated since March 15 about 14 kg(30 pounds)
Impression
Acute on chronic kidney disease stage IV
Pneumonia/CHF not convinced that this is pneumonia at this time but rather hypervolemia with hypertension and significant weight gain in a month.(Severe pulmonary hypertension ,preserved EF)
Anemia of chronic disease.
A-fib stable.= Bradycardic chronic
Hypertensive
Plan
Clinically patient appears volume overloaded despite a chest x-ray without pulmonary edema although hypertensive significant weight gain
CT of chest reviewed noted: Significant cardiomegaly with small bilateral effusions irregular airspace consolidation in left lung diffuse subcutaneous abdominal ascites
Maintain Lasix 80 mg IV daily
Creatinine at 3.2 BUN 70
Monitor urine output ~1700cc
Daily weights
Antibiotics per ID renally dose
Bladder scan, patient is grossly and at baseline incontinent
No acute need for dialysis at this time
-
-
Date of Service: April 15, 2025
CC / HPI / ROS
-
Chief Complaint:
Acute kidney
History of Present Illness:
Creatinine down from 3.3-3.2
Nonoliguric
Hemodynamically stable
Review of Systems:
Nonoliguric
Weights down
Shortness of breath improved
No chest pain
Labs
-
Labs:
WBC 7.2 10^3/uL (4.8-10.8) 04/15/25 08:19
RBC 2.95 10^6/uL (4.70-6.10) L 04/15/25 08:19
Hgb 9.2 g/dL (13.0-18.0) L 04/15/25 08:19
Hct 29.3 % (39.0-52.0) L 04/15/25 08:19
Plt Count 224 10^3/uL (130-400) 04/15/25 08:19
Sodium 140 mmol/L (135-145) 04/15/25 08:19
Potassium 4.2 mmol/L (3.5-5.1) 04/15/25 08:19
Chloride 107 mmol/L (98-107) 04/15/25 08:19
Carbon Dioxide 23 mmol/L (22-30) 04/15/25 08:19
BUN 77 mg/dl (9-20) H 04/15/25 08:19
Creatinine 3.2 mg/dL (0.7-1.3) H 04/15/25 08:19
eGFR 18.27 04/15/25 08:19
Glucose 105 mg/dl (70-99) H 04/15/25 08:19
Calcium 8.9 mg/dl (8.4-10.2) 04/15/25 08:19
Phosphorus 4.6 mg/dl (2.5-4.5) H 04/13/25 05:28
Jab-G-[id number] Pept 6280 pg/ml 04/14/25 07:12
Albumin 3.0 g/dl (3.5-5.0) L 04/15/25 08:19
Physical Exam
-
Vital Signs:
Vital Signs
Temp Pulse Resp BP Pulse Ox
97.7 F 38 16 148/63 93
04/15/25 07:00 04/15/25 07:00 04/15/25 07:00 04/15/25 07:00 04/15/25 07:00
Cardiovascular:: Regular rate and rhythm
Respiratory:: Bilateral: Coarse
Lung Excursion:: Normal
Abdomen:: Nontender and Soft
Bowel Sounds:: Normal
Extremity Edema:: +2: Bilateral:
Donovan Catheter: No
[2025-04-15 11:43] LABS: Glucose - Point of Care 163 mg/dl (70-99)
[2025-04-15] MEDS: NOVOLOG FLEXPEN-LOW RESISTANCE 1 UNITS SC (12:50)
[2025-04-15 15:04] VITALS: BP 133/60
[2025-04-15 15:56] VITALS: BP 121/65
--- NOTE | 2025-04-15 15:57 | W.PN.PUL3 ---
Today's Communication / Plan
-
IV Lasix
Encourage incentive spirometer
Mucolytics
Maintain SpO2 >90 -94%
Pulmonary service will continue to briefly follow along assuming he continues to clinically improve
Assessment
-
Patient is an 84 year old M with PMH significant for A-Fib, HFpEF and CKD who presents to ED for evaluation of cough and possible pneumonia. Patient states that he has had cough productive of mucus for about 2-3 weeks now. He reports SOB with
exertion as well but denies fevers, chills, N/V/D. He has been using OTC cough syrup with temporary improvement in his symptoms. He was seen by his Baker today and sent for CXR for concern of possible pneumonia. Patient was then referred
to the ED for further evaluation. CT without signs of PNA, more CHF and placed on IV lasix. We are consulted for evaluation.
SOB/cough
ERENDIRA on CKD
Pulm edema on CXR
Suspect acute HF exacerbation
Conditions present [employer]
Hypertension
DM-II
CKD IV
Permanent Atrial Fibrillation
Chronic Bradycardia
HFpEF
Hypothyroidism
Squamous Cell Skin Cancer
ARIN intolerant of CPAP
Bilateral TKA
Bilateral TSA
Left Revision TSA
Lumbar Laminectomy
T&A
Left JD
LLE Skin Biopsy / Excision
Plan
No oxygen was needed on admission, currently saturating 95% on RA
No baseline use of O2 at home
Prior history of lung disease is NOT noted --
Denies prior known history of lung disease, trivial smoker in past for <5 years, quit 50 years ago.
Denies family history of lung disease.
It is unlikely he would develop new lung disease at this age
CT chest on 04/14/2025 shows bilateral small pleural effusions (R >L) with increased attenuation bilaterally, suspected interstitial edema
Suspect patient has acute HF exacerbation given ERENDIRA on CKD
Cough may be present from pulmonary edema
Sputum culture obtained and shows usual respiratory johana
CT not showing discreet consolidation suggesting PNA, he has no constitutional signs/symptoms
Would stop abx and observe off (PCT not useful in renal patients)
He did not cough on my examination
He does have history of ARIN but is noncompliant wtih PAP.
BiPAP was trialed last night on 8/4 cmH2O but patient could not tolerate this more than a few hours. This should be discussed as an outpatient
At risk for OHS - blood gas with no signs of hypercapnia with pH 7.34, pCO2 43, which is not consistent with OHS
Prior ECHO results are reviewed indicating low normal EF 55%, moderate to severe MR, mod-severe PH noted
proBNP elevated at 6280
Agree with IV diuresis, currently with 80 mg IV Lasix BID
May need RHC to establish fluid status -would monitor clinical status for now on IV diuresis and if patient clinically improves then no need for RHC
Prior PFT in 2009 showing restrictive lung disease
This would typically be seen in obese and/or HF patients
It would likely yield the same result if not worsened if this were repeated
Weight loss measures recommended
Obesity likely contributing to respiratory symptoms
Will need outpatient pulmonary evaluation in our office for PFTs and 6MWT--if cough was ongoing and needed further w/u
Reviewed with patient
We will follow
Diagnostic Data
Chest X-Ray: 04/11/25- Mild bibasilar opacities, more likely to represent atelectasis and/or scarring. Mild pneumonia would be an alternative consideration in the appropriate clinical setting.
CT Scan: 04/14/25-1. Limited study secondary to respiratory motion artifact.
2. Significant cardiomegaly with small bilateral pleural effusions. Small amount of irregular airspace consolidation within the left lung base, likely scarring.
3. Diffuse subcutaneous stranding within the chest wall suggestive of third spacing/anasarca.
Echo: 07/28/24- Dilated left ventricle with preserved left ventricular function. Estimated ejection fraction 55%. Moderate to severe, eccentric mitral regurgitation. Moderate to severe tricuspid regurgitation. Pulmonary hypertension Estimated
pulmonary artery pressure of 71mmHg. Mildly dilated ascending aorta at 4.2 cm Compared to the previous report 08/15/2022 there is been an increase in the degree of mitral regurgitation and tricuspid regurgitation. Previous report with mild mitral
digitation and mild tricuspid regurgitation. PA pressure also has increased. Previously estimated 35 to 40 mmHg
PFT's: 2009-FVC is 3.33L or 78% of predicted. FEV1 was 2.81L or 90% of predicted. FEV1/FVC ratio was 81%. TLC is 75%. Diffusing capacity is 103%.
Impression: Spirometry suggests Restrictive Lung Disease. The lung volumes revealed mild restriction with a TLC of 75% of predicted. The diffusing capacity was preserved at 103% of predicted. There was no significant improvement in the FEV1 post
bronchodilator.
Reports and relevant images were personally reviewed.
Total time spent on this consultation __37__ minutes which includes review of history, physical exam, medications, laboratory data, personal review of imaging, extensive review of outpatient records, discussion with care team and respiratory therapy.
Subjective Data
-
Date of Service:
Date of Service: April 15, 2025
Chief Complaint: Pulmonary Follow Up
Subjective:
Seen and evaluated today at bedside (late note entry). Still having cough. SOB improved. No nausea, vomiting, HELMS, fevers or chills.
Review of Systems
General: Other (Negative unless mentioned above)
Objective Data
Data Reviewed
Vital Signs / I&O / Oxygen:
Vital Signs
Temp Pulse Resp BP Pulse Ox
97.7 F 38 16 148/63 93
04/15/25 07:00 04/15/25 07:00 04/15/25 07:00 04/15/25 07:00 04/15/25 07:00
Intake and Output
04/14/25 04/15/25 04/16/25
06:59 06:59 06:59
Intake Total 720 / 720 1860 / 1860
Output Total 500 / 500 1750 / 1750
Balance 220 / 220 110 / 110
SaO2 93
Physical Exam
General: Respiratory Distress (negative), Comfortable and Sweats (negative)
HEENT: Normocephalic and Anicteric
Cardiovascular: S1-S2 and Peripheral Edema (negative)
Respiratory: Wheeze (negative), Crackles, Rhonchi (negative) and Non-Labored Respirations
GI: Soft and Non Distended
Neurology: Other (Drowsy)
Skin: Warm and Dry
Labs/Micro/Reports
Lab Data
04/15/25 08:19
04/15/25 08:19
Microbiology
04/12/25 21:26 Blood/Venous Blood Culture - Preliminary
No Growth in 48 hours- Final report to follow
04/12/25 21:20 Blood/Venous Blood Culture - Preliminary
No Growth in 48 hours- Final report to follow
04/13/25 11:00 Sputum Respiratory Culture - Preliminary
Usual Respiratory Johana
04/13/25 11:00 Sputum Gram Stain - Preliminary
04/13/25 12:16 Nose Nasal Screen MRSA (PCR) - Final
MRSA not detected - performed by PCR methodology.
04/12/25 22:38 Nasal Swab Influenza Types A & B (DIONISIO) - Final
Negative for Influenza A & B, NAAT
Negative results must be combined with clinical observations
and patient history.
Nucleic Acid Amplification test (NAAT)performed on the
[employer] platform.
[2025-04-15 16:31] LABS: Glucose - Point of Care 131 mg/dl (70-99)
--- NOTE | 2025-04-15 18:01 | W.PN.HOSP.TC ---
Addendum entered and electronically signed by Avani Delcid MD 04/15/25 18:44:
I saw and evaluated the patient independently. I reviewed and discussed the resident�s note and agree with findings and plan as documented by Dr. Sen.
GENERAL: well developed, well nourished, male in no apparent distress
HEENT: NC/AT-- off O2 NC
HEART: regular rate and rhythm, +S1, +S2
LUNGS : raspy breath sounds bilaterally
ABDOM: soft, nontender, nondistended, + bowel sounds
EXT: no cyanosis, clubbing, or 3+ edema to left arm and hand improved with compression
NEUROLOGIC: grossly intact
Productive cough likely due to acute heart failure exacerbation--no signs of active pna, chronic bronchitis, bronchiectasis, scarring, ILD, or chronic aspiration--change cefepime to oral cefdinir---IS, mucinex, speech eval, CT chest with apparent
volume overload--apprec pulm/ID--Respiratory culture normal johana and blood cultures negative
Chronic kidney disease stage IV--renal dose meds--no IV contrast--bladder scan--apprec renal--no worsening of creat with diuresis
HFpEF--EF 55%--cont lasix with trending creat- Follow daily weights-no changes-increase lasix to 80mg IV BID-follow creat-- sodium restricted diet, fluid restriction, monitor I/Os
Acute left upper extremity swelling--pt stated is was NOT new and due to needing should repair--US checked and was neg for DVT--cont compression and gurwinder-wrap
Chronic Macrocytic anemia-- Hemoglobin is steady ~9--B12/folate/TSH all WNL-- iron studies do show low iron but also low TIBC, more consistent with chronic disease
LLE Wound--Squamous Cell Carcinoma--He sees senior marketing manager for his left lower extremity wound--apprec wound care--vanco/cefepime changed to oral cefdinir--has been on Augmentin since 02/22...
Gout- continue allopurinol
Permanent Atrial Fibrillation/Chronic Bradycardia--EKG shows atrial fibrillation with slow ventricular response--apprec cards--cont Xarelto
Type 2 Diabetes mellitus - Stable. Continue Jardiance - Follow glucose and cover with SSI as needed - Update A1C.
Hypothyroidism -Continue levothyroxine
Hyperlipidemia-- Continue atorvastatin 20 mg
Pressure ulcers both stage I and stage II (POA)- Stage I to sacrum and buttocks, fungal appearing rash to buttock sulcus- Stage II to right buttocks - apprec Wound care
DVT Proph--Xarelto
Code status--Full code
Original Note:
Today's Communication/Plan
-
- Trend creatinine level, trend labs, observe patient's pulmonary status, follow-up with nephrology's recommendations, trend weights and urine output
Assessment / Plan
Assessment / Plan
Productive cough due to unknown cause
small bilateral effusions/ cardiomegaly
Hx of HFpEF:
- ROS positive for productive cough, and SOB
- Labs shows normal wbc count, stable vitals, afebrile.
- Respiratory exam positive for bilateral rhonchi and crackles heard in the lower lobes. Patient is on 2 L of oxygen and saturating 95%.
- Differential diagnosis is community-acquired pneumonia, chronic bronchitis, interstitial process, bronchiectasis, aspiration pneumonia
- CXR done today more c/w basilar atelectasis / scarring - though he does have coarse L sided breath sounds on exam.
- Continue patient on cefepime 1000 mg IV every 12 hourly to protect against gram-positive, gram-negative, Pseudomonas and vancomycin for MRSA
- Patient is on as needed guaifenesin 1200 mg p.o. every 12 and albuterol sulfate to help expectorate mucus and to aid in breathing.
-Infectious disease consulted and would like to continue vancomycin and cefepime, also may consider CT of the chest for better visualization of infiltrates, and trend Vanco levels
-Respiratory and blood cultures pending
-Videofluoroscopic swallowing examination completed and mild oropharyngeal dysphagia is noted. Started patient on regular diet and thin liquids with aspiration precautions. Speech to follow
- Weight gain since past 1 months from 103 to [address]
- CT scan of chest without IV is limited and shows Significant cardiomegaly with small bilateral pleural effusions. Small amount of irregular airspace consolidation within the left lung base, likely scarring, Diffuse subcutaneous stranding within
the chest wall suggestive of third spacing/anasarca.
- Continue to diurese patient with Lasix 80 mg and observe. Suspect these findings of cough, sob, cardiomegaly, bilateral small pleural effusions, and weight gain due to his CHF.
- Consulted pulmonology.
- Incentive spirometry
- Tesslon pearls to help assist with chronic cough
- Ordered DuoNeb to help assist in shortness of breath
- increase lasix dose to 80 mg bid
Chronic kidney disease stage IV
- His serum creatinine is 3.1same as yesterday yesterday and BUN is 83
-Bladder scan ordered
- Follow daily weights, sodium restricted diet, fluid restriction, monitor ins and outs
- Previous echocardiograms from recent 2024 admission shows ejection fraction is 55%
- Post void residual 74 so there is slight urinary retention, will place on condom catheter
- increase lasix dose to 80 mg bid
Acute left upper extremity swelling:
- Due to unknown cause
- No pain, pallor, paresthesias, paralysis, shortness of breath, unstable vitals
- Peripheral vascular ultrasound of the left upper extremity ordered and negative for venous thrombosis however there is severe diffuse subcutaneous edema
- Differential is cellulitis, lymphedema, contact dermatitis
- Supportive care such as elevating limb, potentially compression and observation for any red flag symptoms
Macrocytic anemia:
- Hemoglobin is 8.7 which is his lowest hemoglobin level when looking through his values on previous admissions, and MCV is
- Patient does not exhibit any clinical signs of bleeding
- Ordered vitamin B12, folate, TSH, iron studies
- Will transfuse if hemoglobin is less than 7 with 1 unit of PRBCs
LLE Wound
Squamous Cell Carcinoma:
-He sees senior marketing manager for his left lower extremity wound
-Physical exam of skin shows left lower extremity wound wrapped in Gurwinder bandage
- s/p surgery and XRT 3 months ago. Now poorly healing wound followed by Wound Care.
- On Augmentin from 02/22 - present.
-Wound care following
- Infectious disease recommends local care and Dakin solution
Gout:
- continue allopurinol
Permanent Atrial Fibrillation
Chronic Bradycardia
-EKG shows atrial fibrillation with slow ventricular response
-Physical examination shows bradycardia and irregular rhythm
- His heart rate today went down to as low as 34, patient is asymptomatic with no dizziness syncope shortness of breath headache visual changes.
- Cardiology consulted and recommend observation as this bradycardia has been chronic stable ongoing for many years
- Continue to monitor heart rate and correlate with clinical symptoms for any further care
- Continue on Xarelto
- PT/OT recommend skilled rehab 1 to 2 hours a day
Diabetes mellitus:
- Stable. Continue Jardiance.
- Follow glucose and cover with SSI as needed.
- Update A1C.
Hypothyroidism
-Continue levothyroxine
Hyperlipidemia:
- Continue atorvastatin 20 mg
DVT Prophylaxis: On Xarelto.
Full code
Anticipated Discharge: 24 - 48 hours
Subjective/Interval History
-
Date of Service: April 15, 2025
Patient is still complaining of a chronic productive cough. He states that his shortness of breath is improving. No fever, chills, nausea, vomiting, diarrhea, abdominal pain, body aches, headache, blurry vision, syncope.
Objective Data
-
Labs:
Laboratory Results
04/15/25
08:19
WBC 7.2
Hgb 9.2 L
Hct 29.3 L
Plt Count 224
Sodium 140
Potassium 4.2
Chloride 107
Carbon Dioxide 23
BUN 77 H
Creatinine 3.2 H
Glucose 105 H
Calcium 8.9
Total Bilirubin 0.9
AST 21
ALT 16
Alkaline Phosphatase 162 H
Vital Signs:
Vital Signs
Temp Pulse Resp BP Pulse Ox
97.5 F 40 16 133/60 95
04/15/25 15:04 04/15/25 15:04 04/15/25 15:04 04/15/25 15:04 04/15/25 15:04
I&O
04/14/25 04/15/25 04/16/25
06:59 06:59 06:59
Intake Total 720 / 720 1860 / 1860 480 / 480
Output Total 500 / 500 1750 / 1750 550 / 550
Balance 220 / 220 110 / 110 -70 / -70
Review of Systems
-
History Source: Patient
All other systems: Reviewed and negative
Physical Exam
-
General: Well Developed
Respiratory: Other (Bilateral crackles and rhonci heard over the lower lobes)
Cardiac: Irregular Rhythm and Bradycardic
GI: Soft, Nontender, Nondistended and Normal Bowel Sounds
Musculoskeletal: Other (bilateral lower extremity edema, with left lower extremity wound. left upper extremity is swollen and erythematous but decreasing from before, nontender, sensation to touch is intact, capillary refill normal, distal pulses
2+, range of movement normal. There is large pad of prominent fat on back.)
Skin: Warm and Dry
Neuro: Awake, Alert, Oriented and AO x 3
Data Reviewed
-
Labs: Labs Reviewed by me and Discussed with Physician
[2025-04-15 21:13] LABS: Glucose - Point of Care 131 mg/dl (70-99)
[2025-04-15 21:25] VITALS: BP 144/75
[2025-04-15] MEDS: OMNICEF 300 MG PO (22:29)
[2025-04-15 23:17] VITALS: BP 137/65
[2025-04-16] MEDS: ATIVAN 0.5 MG PO (00:28)
[2025-04-16] MEDS: ULTRAM 50 MG PO (03:29)
[2025-04-16 06:00] VITALS: BMI 36.5
[2025-04-16] MEDS: SYNTHROID 50 MCG PO (06:09)
[2025-04-16 07:00] VITALS: BP 148/64
[2025-04-16 07:44] LABS: Glucose - Point of Care 84 mg/dl (70-99)
[2025-04-16] MEDS: ZYLOPRIM 300 MG PO (08:14)
[2025-04-16] MEDS: MUCINEX 1200 MG PO ×2 (08:14→20:20)
[2025-04-16] MEDS: TYLENOL 650 MG PO (08:14)
[2025-04-16] MEDS: NOVOLOG FLEXPEN-LOW RESISTANCE SC ×3 (08:14→17:02)
[2025-04-16] MEDS: OMNICEF 300 MG PO ×2 (08:14→20:20)
[2025-04-16] MEDS: FLOMAX 0.4 MG PO (08:14)
[2025-04-16] MEDS: DESENEX/MITRAZOL/ZEASORB 1 APPLIC TOPICAL ×2 (08:15→20:21)
[2025-04-16] MEDS: TESSALON PERLES 200 MG PO (08:15)
[2025-04-16] MEDS: LASIX 80 MG IV ×2 (08:15→20:21)
[2025-04-16] MEDS: LIPITOR 20 MG PO (08:15)
[2025-04-16] MEDS: ROCALTROL 0.25 MCG PO (08:19)
[2025-04-16] MEDS: XARELTO 15 MG PO (08:19)
[2025-04-16 10:13] LABS: Hematocrit 27.7 % (39.0-52.0); Hemoglobin 9.0 g/dL (13.0-18.0); Mean Corp Hgb Conc. 32.5 g/dL (33.0-37.0); Mean Corpuscular Volume 98.9 fL (80.0-94.0); Nucleated Red Blood Cells % 0 % (-); Platelet Count 219 10^3/uL (130-400); Red Cell Dist. Width 16.2 % (11.5-14.5)
--- NOTE | 2025-04-16 10:34 | W.PN.NEPH.PH ---
Today's Communication / Plan
-
Maintain IV diuretics
Lab work pending
Check postvoid bladder scan to assess for urinary retention
Assessment/Plan
-
84y M with PMH significant for A-Fib, HFpEF and CKD who presents to ED for evaluation of cough and possible pneumonia. Patient states that he has had cough productive of green / yellow mucus for about 2-3 months now. He reports SOB with
activity / exertion. No fevers / chills. No N/V/D. He was seen by Dr. Segal and sent for CXR for concern of possible pneumonia.
Patient is also being followed by Wound Care for non-healing wound to the [facility] He underwent skin biopsy / excision followed by XRT which he completed about 3 months ago.
Renal consultation for acute on chronic kidney disease
Creatinine on admission 3.4> 3.1 /baseline near 2.3-2.6 labile over the last year
Has been on recent antibiotic therapy noted of lower extremity wounds
His weights are significantly elevated since March 15 about 14 kg(30 pounds)
Impression
Acute on chronic kidney disease stage IV
Pneumonia/CHF not convinced that this is pneumonia at this time but rather hypervolemia with hypertension and significant weight gain in a month.(Severe pulmonary hypertension ,preserved EF)
Anemia of chronic disease.
A-fib stable.= Bradycardic chronic
Hypertensive
Plan
Clinically patient appears volume overloaded despite a chest x-ray without pulmonary edema although hypertensive significant weight gain
CT of chest reviewed noted: Significant cardiomegaly with small bilateral effusions irregular airspace consolidation in left lung diffuse subcutaneous abdominal ascites
Maintain Lasix 80 mg IV BID
Creatinine at 3.2 BUN 70 as of 04/15, current labs pendind
Monitor urine output ~1100cc, but weights down
Daily weights
Antibiotics per ID renally dose
Bladder scan, patient is grossly and at baseline incontinent
No acute need for dialysis at this time
-
-
Date of Service: April 16, 2025
CC / HPI / ROS
-
Chief Complaint:
Acute kidney
History of Present Illness:
Creatinine down from 3.3-3.2
Nonoliguric
Hemodynamically stable
Review of Systems:
Nonoliguric
Weights down
Shortness of breath improved
No chest pain
Labs
-
Labs:
WBC 7.9 10^3/uL (4.8-10.8) 04/16/25 09:33
RBC 2.80 10^6/uL (4.70-6.10) L 04/16/25 09:33
Hgb 9.0 g/dL (13.0-18.0) L 04/16/25 09:33
Hct 27.7 % (39.0-52.0) L 04/16/25 09:33
Plt Count 219 10^3/uL (130-400) 04/16/25 09:33
eGFR 18.27 04/15/25 08:19
Phosphorus 4.6 mg/dl (2.5-4.5) H 04/13/25 05:28
Fqm-B-Nkeitiprtjw Pept 6280 pg/ml 04/14/25 07:12
Physical Exam
-
Vital Signs:
Vital Signs
Temp Pulse Resp BP Pulse Ox
97.5 F 40 17 148/64 98
04/16/25 07:00 04/16/25 07:00 04/16/25 07:00 04/16/25 07:00 04/16/25 07:00
Cardiovascular:: Regular rate and rhythm
Respiratory:: Bilateral: Coarse
Lung Excursion:: Normal
Abdomen:: Nontender and Soft
Bowel Sounds:: Normal
Extremity Edema:: +2: Bilateral:
Donovan Catheter: No
[2025-04-16 10:40] LABS: ALT (SGPT) 17 U/L (0-50); AST (SGOT) 22 U/L (17-59); Albumin 3.0 g/dl (3.5-5.0); Alkaline Phosphatase 157 U/L (38-126); Blood Urea Nitrogen 77 mg/dl (9-20); Calcium 8.8 mg/dl (8.4-10.2); Carbon Dioxide 23 mmol/L (22-30); Chloride 106 mmol/L (98-107); Estimated Creatinine Clearance 20 ml/min; Glucose 148 mg/dl (70-99); Potassium 3.9 mmol/L (3.5-5.1); Sodium 136 mmol/L (135-145); Total Protein 5.7 g/dl (6.3-8.2); eGFR 17.60
[2025-04-16 12:00] VITALS: BP 125/70
[2025-04-16 12:06] LABS: Glucose - Point of Care 124 mg/dl (70-99)
[2025-04-16] MEDS: DAKIN'S SOLUTION 0.125% 1/4 STRENGTH 1 ML TOPICAL (12:36)
--- NOTE | 2025-04-16 12:38 | CON.NEURO ---
Consultation
Order
Date of Consultation: 04/16/25
Reason for Consult: Stroke alert
Called in: 12:16
Neurology Consultation Note.
HPI: This is an 84-year-old RH man who presented to [facility] on 04/12/2025 with productive cough.
Stroke alert advised activated due to dysarthria.
The patient reports that his left leg weakness began approximately 3-4 months ago, but his speech changes and inability to move his right arm are new developments that occurred today. He was last able to move his right arm a few weeks ago. The
left-sided weakness has been present and was noted to be weak both yesterday and two days ago.
PDMP: Lorazepam 0.5 Mg 20 tabs filled in on 04/12/2025, Tramadol Hcl 50 Mg 42 tabs filled in on 03/01/2025.
MAR: Lorazepam 0.5 Mg given at 00:28 am on 04/16/25 , Rivaroxaban 15 mg given at 08: 19 am on 04/16/25.
Labs: CR-3.0
CT head�generalized volume loss and subcortical white matter hypodensities. No acute infarcts, hemorrhages.
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
PSH: BL TKA, BL TSA, lumbar laminectomy, Left JD, LLE Skin Biopsy / Excision
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
FH: No family history of stroke
All: NKDA
ROS: Positive for dysarthria
General: Well developed. In no acute distress.
Cardio: Irregular rhythm
Neuro:
Mental Status: Alert, oriented to name, age. Anxious. No hemineglect. Follows simple requests. Impaired attention and comprehension.
Cranial Nerves: Pupils are equally round and reactive to light. EOMs full. Visual ramirez full to confrontation. No facial weakness moderate dysarthria.
Motor: Moves lower extremities within bed plane, left arm drift, moves right arm antigravity.
Sensory: Limited exam due to poor attention
Coordination: No tremors, or myoclonic movements
Gait: deferred
Assessment and Plan:
I. Acute left lacunar syndrome/encephalopathy. Not a candidate for IV thrombectomy due due to active systemic anticoagulation
II. Permanent A-fib
III. LS DJD, s/p remote lumbar laminectomy.
- Telemetry monitoring
- Avoid cerebral hypoperfusion
- NPO
- Dysphagia evaluation.
- Please obtain and document vital signs
- Please check MG panel
- Unable to have CTA/CTP due to CKP.
- Brain MRI without adriel
- Carotid Doppler ultrasound
- Hold Xarelto and continue aspirin 81 mg once a day if no contraindications
- Will continue to follow
-The case was discussed with patient and spouse.
I personally reviewed all radiology and labs along with past medical records pertinent to current medical problems. Total time spent in patient care is 60 minutes.
Thank you for allowing us to participate in the care of this patient. We will continue to follow. Please do not hesitate to contact us with any questions or concerns.
Subjective/Objective
Subjective Data
Date of Service: April 16, 2025
Objective Data
Vital Signs
Temp Pulse Resp BP Pulse Ox
36.4 C 40 17 148/64 98
04/16/25 07:00 04/16/25 07:00 04/16/25 07:00 04/16/25 07:00 04/16/25 07:00
Lab Results
04/16/25 09:33
04/16/25 09:33
Sodium 136 mmol/L (135-145) 04/16/25 09:33
Potassium 3.9 mmol/L (3.5-5.1) 04/16/25 09:33
BUN 77 mg/dl (9-20) H 04/16/25 09:33
Glucose 148 mg/dl (70-99) H 04/16/25 09:33
Calcium 8.8 mg/dl (8.4-10.2) 04/16/25 09:33
Phosphorus 4.6 mg/dl (2.5-4.5) H 04/13/25 05:28
Gou-K-Cytveupqwfs Pept 6280 pg/ml 04/14/25 07:12
Vitamin B12 Cancelled 04/13/25 11:07
Patient Allergies
No Known Allergies Allergy (Verified 04/12/25 16:24)
Medications
-
Active Medications
Generic Name Dose Route Start Last Admin
Trade Name Freq PRN Reason Stop Dose Admin
Acetaminophen 650 mg 04/12/25 23:47 04/16/25 08:14
Acetaminophen 325 Mg Tablet PO 05/10/25 23:46 650 mg
Q4HPRN PRN Administration
Mild Pain / Temp > 101
Albuterol Sulfate 2.5 mg 04/12/25 23:47 04/14/25 16:07
Albuterol Nebs 2.5 Mg/3 Ml Ampul INH 2.5 mg
R Q4HPRN PRN Administration
SOB
Protocol
Allopurinol 300 mg 04/13/25 08:00 04/16/25 08:14
Allopurinol 300 Mg Tablet PO 05/11/25 07:59 300 mg
DAILY RACHELLE Administration
Atorvastatin Calcium 20 mg 04/13/25 08:00 04/16/25 08:15
Atorvastatin (Lipitor) 20 Mg Tablet PO 05/11/25 07:59 20 mg
DAILY RACHELLE Administration
Benzonatate 200 mg 04/14/25 11:41 04/16/25 08:15
Benzonatate 100 Mg Capsule PO 05/12/25 11:40 200 mg
TIDPRN PRN Administration
productive cough
Calcitriol 0.25 mcg 04/13/25 08:00 04/16/25 08:19
Calcitriol 0.25 Microgram Capsule PO 05/11/25 07:59 0.25 mcg
DAILY RACHELLE Administration
Cefdinir 300 mg 04/15/25 22:00 04/16/25 08:14
Cefdinir 300 Mg Capsule PO 300 mg
Q12 RACHELLE Administration
Dextrose 12.5 grams 04/13/25 19:16
Dextrose 50% (0.5 Grams/Ml) 50 Ml Syringe IV 05/11/25 19:15
[id number] PRN
hypoglycemia
Furosemide 80 mg 04/15/25 20:00 04/16/25 08:15
Furosemide 40 Mg (10 Mg/Ml) 4 Ml Vial IV 05/13/25 19:59 80 mg
BID RACHELLE Administration
Glucagon 1 mg 04/13/25 20:00
Glucagon 1 Mg Vial IM 05/11/25 19:59
PRN PRN
hypoglycemia - no IV access
Protocol
Guaifenesin 1,200 mg 04/13/25 12:34 04/16/25 08:14
Guaifenesin 600 Mg Extended Release Tablet PO 05/11/25 07:59 1,200 mg
Q12 RACHELLE Administration
Insulin Aspart 0 units 04/14/25 07:30 04/16/25 12:36
Insulin Aspart Low Resistance 300 Units/3 Ml Pen.Injctr SC 05/12/25 07:29 Not Given
AC RACHELLE
Protocol
Levothyroxine Sodium 50 mcg 04/13/25 06:00 04/16/25 06:09
Levothyroxine 50 Mcg Tablet PO 05/11/25 05:59 50 mcg
DAILY @ 0600 RACHELLE Administration
Lorazepam 0.5 mg 04/12/25 23:47 04/16/25 00:28
Lorazepam 0.5 Mg Tablet PO 05/10/25 23:46 0.5 mg
HS PRN Administration
Insomnia
Miconazole Nitrate 0 applic 04/13/25 11:00 04/16/25 08:15
Miconazole Powder Bottle TOPICAL 05/11/25 10:59 1 applic
BID RACHELLE Administration
Rivaroxaban 15 mg 04/13/25 08:00 04/16/25 08:19
Rivaroxaban 15 Mg Tablet PO 05/11/25 07:59 15 mg
DAILY RACHELLE Administration
Sodium Chloride 0 flush 04/13/25 01:00
Sodium Chloride 0.9% (Flush) Syringe IV 05/11/25 00:59
PER PROTOCOL RACHELLE
Sodium Hypochlorite 0 ml 04/13/25 11:00 04/16/25 12:36
Dakin's Solution 0.125% (1/4 Strength) 473 Ml Bottle TOPICAL 05/11/25 10:59 1 ml
DAILY RACHELLE Administration
Tamsulosin HCl 0.4 mg 04/13/25 08:00 04/16/25 08:14
Tamsulosin 0.4 Mg Capsule PO 05/11/25 07:59 0.4 mg
DAILY RACHELLE Administration
Tramadol HCl 50 mg 04/12/25 23:47 04/16/25 03:29
Tramadol Hcl 50 Mg Tablet PO 05/10/25 23:46 50 mg
Q8HPRN PRN Administration
severe pain
Home Medications
�Medication �Instructions �Recorded
allopurinol 300 mg tablet 300 mg PO DAILY Gout 02/08/08
atorvastatin 20 mg tablet (Lipitor) 20 mg PO DAILY HLD 02/08/08
pantoprazole 40 mg tablet,delayed 40 mg PO DAILY Gastrointestinal 11/29/20
release issue
empagliflozin 10 mg tablet 10 mg PO DAILY 30 days #30 tabs 05/22/21
(Jardiance)
alfuzosin 10 mg tablet,extended 10 mg PO DAILY Urinary Issue 12/30/22
release 24 hr
levothyroxine 50 mcg tablet 50 mcg PO DAILY Thyroid 12/30/22
calcitriol 0.25 mcg capsule 0.25 mcg PO DAILY Kidney Disease 10/08/23
metolazone 5 mg tablet 5 mg PO FR Fluid Retention/Swelling 10/08/23
rivaroxaban 15 mg tablet (Xarelto) 15 mg PO DAILY Blood Clot 10/08/23
Prevention/Tx
torsemide 20 mg tablet 20 mg PO DAILY Fluid 10/08/23
Retention/Swelling
potassium chloride 10 mEq 10 meq PO DAILY Electrolyte 10/31/24
tablet,extended release Repletion
tramadol 50 mg tablet 50 mg PO Q8HPRN PRN PAIN 03/28/25
doxycycline hyclate 100 mg tablet 100 mg PO BID 04/12/25
lorazepam 0.5 mg tablet 0.5 mg PO HSPRN PRN Insomnia 04/12/25
tirzepatide 10 mg/0.5 mL 10 mg SC TH 04/12/25
subcutaneous pen injector
(Diann)
Vital Signs and Labs
-
Vital Signs and Labs:
Vital Signs
Temp Pulse Resp BP Pulse Ox
36.4 C 40 17 148/64 98
04/16/25 07:00 04/16/25 07:00 04/16/25 07:00 04/16/25 07:00 04/16/25 07:00
Lab Results
04/16/25 09:33
04/16/25 09:33
Sodium 136 mmol/L (135-145) 04/16/25 09:33
Potassium 3.9 mmol/L (3.5-5.1) 04/16/25 09:33
BUN 77 mg/dl (9-20) H 04/16/25 09:33
Glucose 148 mg/dl (70-99) H 04/16/25 09:33
Calcium 8.8 mg/dl (8.4-10.2) 04/16/25 09:33
Phosphorus 4.6 mg/dl (2.5-4.5) H 04/13/25 05:28
Boq-B-Ngxnemlshzb Pept 6280 pg/ml 04/14/25 07:12
Vitamin B12 Cancelled 04/13/25 11:07
Medications
-
Medications:
Generic Name Dose Route Start Last Admin
Trade Name Freq PRN Reason Stop Dose Admin
Acetaminophen 650 mg 04/12/25 23:47 04/16/25 08:14
Acetaminophen 325 Mg Tablet PO 05/10/25 23:46 650 mg
Q4HPRN PRN Administration
Mild Pain / Temp > 101
Albuterol Sulfate 2.5 mg 04/12/25 23:47 04/14/25 16:07
Albuterol Nebs 2.5 Mg/3 Ml Ampul INH 2.5 mg
R Q4HPRN PRN Administration
SOB
Protocol
Allopurinol 300 mg 04/13/25 08:00 04/16/25 08:14
Allopurinol 300 Mg Tablet PO 05/11/25 07:59 300 mg
DAILY RACHELLE Administration
Atorvastatin Calcium 20 mg 04/13/25 08:00 04/16/25 08:15
Atorvastatin (Lipitor) 20 Mg Tablet PO 05/11/25 07:59 20 mg
DAILY RACHELLE Administration
Benzonatate 200 mg 04/14/25 11:41 04/16/25 08:15
Benzonatate 100 Mg Capsule PO 05/12/25 11:40 200 mg
TIDPRN PRN Administration
productive cough
Calcitriol 0.25 mcg 04/13/25 08:00 04/16/25 08:19
Calcitriol 0.25 Microgram Capsule PO 05/11/25 07:59 0.25 mcg
DAILY RACHELLE Administration
Cefdinir 300 mg 04/15/25 22:00 04/16/25 08:14
Cefdinir 300 Mg Capsule PO 300 mg
Q12 RACHELLE Administration
Dextrose 12.5 grams 04/13/25 19:16
Dextrose 50% (0.5 Grams/Ml) 50 Ml Syringe IV 05/11/25 19:15
[id number] PRN
hypoglycemia
Furosemide 80 mg 04/15/25 20:00 04/16/25 08:15
Furosemide 40 Mg (10 Mg/Ml) 4 Ml Vial IV 05/13/25 19:59 80 mg
BID RACHELLE Administration
Glucagon 1 mg 04/13/25 20:00
Glucagon 1 Mg Vial IM 05/11/25 19:59
PRN PRN
hypoglycemia - no IV access
Protocol
Guaifenesin 1,200 mg 04/13/25 12:34 04/16/25 08:14
Guaifenesin 600 Mg Extended Release Tablet PO 05/11/25 07:59 1,200 mg
Q12 RACHELLE Administration
Insulin Aspart 0 units 04/14/25 07:30 04/16/25 12:36
Insulin Aspart Low Resistance 300 Units/3 Ml Pen.Injctr SC 05/12/25 07:29 Not Given
AC RACHELLE
Protocol
Levothyroxine Sodium 50 mcg 04/13/25 06:00 04/16/25 06:09
Levothyroxine 50 Mcg Tablet PO 05/11/25 05:59 50 mcg
DAILY @ 0600 RACHELLE Administration
Lorazepam 0.5 mg 04/12/25 23:47 04/16/25 00:28
Lorazepam 0.5 Mg Tablet PO 05/10/25 23:46 0.5 mg
HS PRN Administration
Insomnia
Miconazole Nitrate 0 applic 04/13/25 11:00 04/16/25 08:15
Miconazole Powder Bottle TOPICAL 05/11/25 10:59 1 applic
BID RACHELLE Administration
Rivaroxaban 15 mg 04/13/25 08:00 04/16/25 08:19
Rivaroxaban 15 Mg Tablet PO 05/11/25 07:59 15 mg
DAILY RACHELLE Administration
Sodium Chloride 0 flush 04/13/25 01:00
Sodium Chloride 0.9% (Flush) Syringe IV 05/11/25 00:59
PER PROTOCOL RACHELLE
Sodium Hypochlorite 0 ml 04/13/25 11:00 04/16/25 12:36
Dakin's Solution 0.125% (1/4 Strength) 473 Ml Bottle TOPICAL 05/11/25 10:59 1 ml
DAILY RACHELLE Administration
Tamsulosin HCl 0.4 mg 04/13/25 08:00 04/16/25 08:14
Tamsulosin 0.4 Mg Capsule PO 05/11/25 07:59 0.4 mg
DAILY RACHELLE Administration
Tramadol HCl 50 mg 04/12/25 23:47 04/16/25 03:29
Tramadol Hcl 50 Mg Tablet PO 05/10/25 23:46 50 mg
Q8HPRN PRN Administration
severe pain
Home Medications
-
Home Medications
allopurinol 300 mg tablet 300 mg PO DAILY Gout 02/08/08
atorvastatin 20 mg tablet (Lipitor) 20 mg PO DAILY HLD 02/08/08
pantoprazole 40 mg tablet,delayed release 40 mg PO DAILY Gastrointestinal issue 11/29/20
empagliflozin 10 mg tablet (Jardiance) 10 mg PO DAILY 30 days #30 tabs 05/22/21
alfuzosin 10 mg tablet,extended release 24 hr 10 mg PO DAILY Urinary Issue 12/30/22
levothyroxine 50 mcg tablet 50 mcg PO DAILY Thyroid 12/30/22
calcitriol 0.25 mcg capsule 0.25 mcg PO DAILY Kidney Disease 10/08/23
metolazone 5 mg tablet 5 mg PO FR Fluid Retention/Swelling 10/08/23
rivaroxaban 15 mg tablet (Xarelto) 15 mg PO DAILY Blood Clot Prevention/Tx 10/08/23
torsemide 20 mg tablet 20 mg PO DAILY Fluid Retention/Swelling 10/08/23
potassium chloride 10 mEq tablet,extended release 10 meq PO DAILY Electrolyte Repletion 10/31/24
tramadol 50 mg tablet 50 mg PO Q8HPRN PRN PAIN 03/28/25
doxycycline hyclate 100 mg tablet 100 mg PO BID 04/12/25
lorazepam 0.5 mg tablet 0.5 mg PO HSPRN PRN Insomnia 04/12/25
tirzepatide 10 mg/0.5 mL subcutaneous pen injector (Diann) 10 mg SC TH 04/12/25
--- NOTE | 2025-04-16 13:11 | W.PN.HOSP.TC ---
Addendum entered and electronically signed by Avani Delcid MD 04/16/25 14:27:
I saw and evaluated the patient independently. I reviewed and discussed the resident�s note and agree with findings and plan as documented by Dr. Sen.
GENERAL: well developed, well nourished, male in no apparent distress--sitting in the chair, sleepier than usual, slow to respond
HEENT: NC/AT-- off O2 NC
HEART: regular rate and rhythm, +S1, +S2, bradycardic
LUNGS : raspy breath sounds bilaterally much improved
ABDOM: soft, nontender, nondistended, + bowel sounds
EXT: no cyanosis, clubbing, or 3+ edema to left arm and hand improved with compression (and left shoulder)
NEUROLOGIC: grossly intact
new event--acute change in MS, concern for stroke--stroke alert called--neuro at bedside--head CT negative--? if related to ativan that he received at 1AM to sleep?--will place on hold for now (it is a home med)--MRI, ECHO, carotid US all
pending--Xarelto held, asa 81 mg started
Productive cough likely due to acute heart failure exacerbation--no signs of active pna, chronic bronchitis, bronchiectasis, scarring, ILD, or chronic aspiration--change cefepime to oral cefdinir to finish course (day 4 total of ABX)---IS, mucinex,
speech eval, CT chest with apparent volume overload--apprec pulm/ID--Respiratory culture normal johana and blood cultures negative
Chronic kidney disease stage IV--renal dose meds--no IV contrast--bladder scan--apprec renal--no worsening of creat with diuresis
HFpEF--EF 55%--cont lasix with trending creat- Follow daily weights (down from 117kg to 111kg)--increased lasix to 80mg IV BID-follow creat-- sodium restricted diet, fluid restriction, monitor I/Os
Acute left upper extremity swelling--pt stated this was NOT new and due to needing should repair--US checked and was neg for DVT--cont compression and gurwinder-wrap
Chronic Macrocytic anemia-- Hemoglobin is steady ~9--B12/folate/TSH all WNL-- iron studies do show low iron but also low TIBC, more consistent with chronic disease
LLE Wound--Squamous Cell Carcinoma--He sees wax engraver for his left lower extremity wound--apprec wound care--vanco/cefepime changed to oral cefdinir--has been on Augmentin since 02/22...
Gout--continue allopurinol
Permanent Atrial Fibrillation/Chronic Bradycardia--EKG shows atrial fibrillation with slow ventricular response--apprec cards--Xarelto, now on hold for stroke alert
Type 2 Diabetes mellitus - Stable. Continue Jardiance - Follow glucose and cover with SSI as needed - HGB A1C 6.4%
Hypothyroidism--Continue levothyroxine
Hyperlipidemia--Continue atorvastatin 20 mg
Pressure ulcers both stage I and stage II (POA)--Stage I to sacrum and buttocks, fungal appearing rash to buttock sulcus- Stage II to right buttocks - apprec Wound care
DVT Proph--Xarelto
Code status--Full code
Original Note:
Today's Communication/Plan
-
- neuro following, continue Lasix dosing, trend labs and weights
Assessment / Plan
Assessment / Plan
Acute change in mental status:
- today nurse informed us that patient was slurring speech and had change in mental status. On exam patient states that ' he doesn't feel like himself'. Neuro exam normal. Stroke alert called, Dr. Estrada saw patient
- patients CT scan was normal, ordered MRI w/o contrast, ordered carotid u/s,
-will start patient on aspirin 81 mg
- NPO for dysphagia evaluation
- Hold xarelto and continue aspirin
- Neurology will continue to follow
productive cough due to unknown cause
small bilateral effusions/ cardiomegaly
Hx of HFpEF:
- ROS positive for productive cough, and SOB
- Labs shows normal wbc count, stable vitals, afebrile.
- Respiratory exam positive for bilateral rhonchi and crackles heard in the lower lobes. Patient is on 2 L of oxygen and saturating 95%.
- Differential diagnosis is community-acquired pneumonia, chronic bronchitis, interstitial process, bronchiectasis, aspiration pneumonia
- CXR done today more c/w basilar atelectasis / scarring - though he does have coarse L sided breath sounds on exam.
- Continue patient on cefepime 1000 mg IV every 12 hourly to protect against gram-positive, gram-negative, Pseudomonas and vancomycin for MRSA
- Patient is on as needed guaifenesin 1200 mg p.o. every 12 and albuterol sulfate to help expectorate mucus and to aid in breathing.
-Infectious disease consulted and would like to continue vancomycin and cefepime, also may consider CT of the chest for better visualization of infiltrates, and trend Vanco levels
-Respiratory and blood cultures pending
-Videofluoroscopic swallowing examination completed and mild oropharyngeal dysphagia is noted. Started patient on regular diet and thin liquids with aspiration precautions. Speech to follow
- weight decreased from 114 kgs to [address]
- CT scan of chest without IV is limited and shows Significant cardiomegaly with small bilateral pleural effusions. Small amount of irregular airspace consolidation within the left lung base, likely scarring, Diffuse subcutaneous stranding within
the chest wall suggestive of third spacing/anasarca.
- Continue to diurese patient with Lasix 80 mg and observe. Suspect these findings of cough, sob, cardiomegaly, bilateral small pleural effusions, and weight gain due to his CHF.
- Consulted pulmonology.
- Incentive spirometry
- Tesslon pearls to help assist with chronic cough
- Ordered DuoNeb to help assist in shortness of breath
- increase lasix dose to 80 mg bid
Chronic kidney disease stage IV
- His serum creatinine is 3.1same as yesterday yesterday and BUN is 83
-Bladder scan ordered
- Follow daily weights, sodium restricted diet, fluid restriction, monitor ins and outs
- Previous echocardiograms from recent 2024 admission shows ejection fraction is 55%
- Post void residual 74 so there is slight urinary retention, will place on condom catheter
- increase lasix dose to 80 mg bid
Acute left upper extremity swelling:
- Due to unknown cause
- No pain, pallor, paresthesias, paralysis, shortness of breath, unstable vitals
- Peripheral vascular ultrasound of the left upper extremity ordered and negative for venous thrombosis however there is severe diffuse subcutaneous edema
- Differential is cellulitis, lymphedema, contact dermatitis
- Supportive care such as elevating limb, potentially compression and observation for any red flag symptoms
Macrocytic anemia:
- Hemoglobin is 8.7 which is his lowest hemoglobin level when looking through his values on previous admissions, and MCV is
- Patient does not exhibit any clinical signs of bleeding
- Ordered vitamin B12, folate, TSH, iron studies
- Will transfuse if hemoglobin is less than 7 with 1 unit of PRBCs
LLE Wound
Squamous Cell Carcinoma:
-He sees wax engraver for his left lower extremity wound
-Physical exam of skin shows left lower extremity wound wrapped in Gurwinder bandage
- s/p surgery and XRT 3 months ago. Now poorly healing wound followed by Wound Care.
- On Augmentin from 02/22 - present.
-Wound care following
- Infectious disease recommends local care and Dakin solution
Gout:
- continue allopurinol
Permanent Atrial Fibrillation
Chronic Bradycardia
-EKG shows atrial fibrillation with slow ventricular response
-Physical examination shows bradycardia and irregular rhythm
- His heart rate today went down to as low as 34, patient is asymptomatic with no dizziness syncope shortness of breath headache visual changes.
- Cardiology consulted and recommend observation as this bradycardia has been chronic stable ongoing for many years
- Continue to monitor heart rate and correlate with clinical symptoms for any further care
- Continue on Xarelto
- PT/OT recommend skilled rehab 1 to 2 hours a day
Diabetes mellitus:
- Stable. Continue Jardiance.
- Follow glucose and cover with SSI as needed.
- Update A1C.
Hypothyroidism
-Continue levothyroxine
Hyperlipidemia:
- Continue atorvastatin 20 mg
DVT Prophylaxis: On Xarelto.
Full code
Anticipated Discharge: Today
Subjective/Interval History
-
Date of Service: April 16, 2025
Patient is still complaining of a chronic productive cough. He states that his shortness of breath is improving. No fever, chills, nausea, vomiting, diarrhea, abdominal pain, body aches, headache, blurry vision, syncope.
Objective Data
-
Labs:
Laboratory Results
04/16/25
09:33
WBC 7.9
Hgb 9.0 L
Hct 27.7 L
Plt Count 219
Sodium 136
Potassium 3.9
Chloride 106
Carbon Dioxide 23
BUN 77 H
Creatinine 3.3 H
Glucose 148 H
Calcium 8.8
Total Bilirubin 0.9
AST 22
ALT 17
Alkaline Phosphatase 157 H
Vital Signs:
Vital Signs
Temp Pulse Resp BP Pulse Ox
97.5 F 40 17 148/64 98
04/16/25 07:00 04/16/25 07:00 04/16/25 07:00 04/16/25 07:00 04/16/25 07:00
I&O
04/15/25 04/16/25 04/17/25
06:59 06:59 06:59
Intake Total 1860 / 1860 480 / 480
Output Total 1750 / 1750 1100 / 1100
Balance 110 / 110 -620 / -620
Review of Systems
-
History Source: Patient
All other systems: Reviewed and negative
Physical Exam
-
General: Well Developed
Respiratory: Other (wheezing heard on left lower lobe of lung)
Cardiac: Irregular Rhythm and Bradycardic
GI: Soft, Nontender, Nondistended and Normal Bowel Sounds
Musculoskeletal: Other (bilateral lower extremity edema, with left lower extremity wound. left upper extremity is swollen and erythematous but decreasing from before, nontender, sensation to touch is intact, capillary refill normal, distal pulses
2+, range of movement normal. There is large pad of prominent fat on back.)
Skin: Warm and Dry
Neuro: Awake, Alert, Oriented and AO x 3
Data Reviewed
-
Labs: Labs Reviewed by me and Discussed with Physician
--- NOTE | 2025-04-16 14:31 | RR ---
Addendum entered by Gail Ramirez RN 04/16/25 16:46:
A Rapid Response was called on this patient, please see Rapid Response form. at 1130 i went into room to do wound care. During medication administration at 8am the patient was sitting in chair eating using both arms to eat and maneuver and was a
minimal one assist oob to chair to bathroom. When i entered room at 1130 he was deep sleeping onto right side in bed.I woke him up but he kept falling asleep. RLE wound care done per md order and he was able to lift leg to assist me. when i went
to do LLE wound he stated he was unable to move his leg. i lifted leg twice it just plopped down on bed. he said at baseline at home split level home he uses walker. I asked how long it was he could not use his leg, he stated he was not sure.
Wound care was completed on that leg. then i removed the mayank wrap on his LUE. When i moved up the body i realized he was unable to lift his arm also. at which point i started to conduct a more detailed NIH and neuro exam. I noted a slight slurred
speech, slight left eye and left mouth droop, he answered all questions appropriately. Again, i asked how long it was that he was unable to move his LUE and he stated just today. A couple minutes later i asked again and he stated for months. He
kept falling asleep during interview and when eyes open they were blank stare at eye level ahead. BS 125. I placed on monitor, HR 30s BP good. pt AAOx3 because uncertaintly of knowing if his LUE and LLE are his baseline or new, it was decided to
call stroke alert and rapid at same time. Pt went down for CT scan, neuro did come to bedside. Pt returned to room. At 1400 i reentered the room he is much more alert and back to his personality and alertness when i met him this AM. His
is now at bedside and confirms his speech is his normal baseline with slight slur . his LUE is his baseline as is his LLE also at his baseline but he was not lying in bed. Tele was dc as per MD order.
Original Note:
A Rapid Response was called on this patient, please see Rapid Response form. at 1130 i went into room to do wound care. During medication administration at 8am the patient was sitting in chair eating using both arms to eat and maneuver and was a
minimal one assist oob to chair to bathroom. When i entered room at 1130 he was deep sleeping onto right side in bed.I woke him up but he kept falling asleep. RLE wound care done per md order and he was able to lift leg to assist me. when i went
to do LLE wound he stated he was unable to move his leg. i lifted leg twice it just plopped down on bed. he said at baseline at home split level home he uses walker. I asked how long it was he could not use his leg, he stated he was not sure.
Wound care was completed on that leg. then i removed the mayank wrap on his LUE. When i moved up the body i realized he was unable to lift his arm also. at which point i started to conduct a more detailed NIH and neuro exam. I noted a slight slurred
speech, slight left eye and left mouth droop, he answered all questions appropriately. Again, i asked how long it was that he was unable to move his RUE and he stated just today. A couple minutes later i asked again and he stated for months. He
kept falling asleep during interview and when eyes open they were blank stare at eye level ahead. BS 125. I placed on monitor, HR 30s BP good. pt AAOx3 because uncertaintly of knowing if his LUE and LLE are his baseline, it was decided to call
stroke alert and rapid at same time. Pt went down for CT scan, neuro did come to bedside. Pt returned to room. At 1400 i reentered the room he is much more alert and back to his personality and alertness when i met him this AM. His is now
at bedside and confirms his speech is his normal . his LUE is his baseline as is his LLE Tele was dc as per MD order.
[2025-04-16 15:00] VITALS: BP 147/56
[2025-04-16 15:54] VITALS: BMI 36.5
--- NOTE | 2025-04-16 16:22 | W.PN.PUL3 ---
Today's Communication / Plan
-
IV Lasix
Encourage incentive spirometer
Mucolytics
Maintain SpO2 >90 -94%
Pulmonary service will continue to briefly follow along assuming he continues to clinically improve
Assessment
-
Patient is an 84 year old M with PMH significant for A-Fib, HFpEF and CKD who presents to ED for evaluation of cough and possible pneumonia. Patient states that he has had cough productive of mucus for about 2-3 weeks now. He reports SOB with
exertion as well but denies fevers, chills, N/V/D. He has been using OTC cough syrup with temporary improvement in his symptoms. He was seen by his Ruling Technician today and sent for CXR for concern of possible pneumonia. Patient was then referred
to the ED for further evaluation. CT without signs of PNA, more CHF and placed on IV lasix. We are consulted for evaluation.
SOB/cough
ERENDIRA on CKD
Pulm edema on CXR
Suspect acute HF exacerbation
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
Hypertension
DM-II
CKD IV
Permanent Atrial Fibrillation
Chronic Bradycardia
HFpEF
Hypothyroidism
Squamous Cell Skin Cancer
ARIN intolerant of CPAP
Bilateral TKA
Bilateral TSA
Left Revision TSA
Lumbar Laminectomy
T&A
Left JD
LLE Skin Biopsy / Excision
Plan
No oxygen was needed on admission, currently saturating 95% on RA
No baseline use of O2 at home
Prior history of lung disease is NOT noted --
Denies prior known history of lung disease, trivial smoker in past for <5 years, quit 50 years ago.
Denies family history of lung disease.
It is unlikely he would develop new lung disease at this age
CT chest on 04/14/2025 shows bilateral small pleural effusions (R >L) with increased attenuation bilaterally, suspected interstitial edema
Suspect patient has acute HF exacerbation with ERENDIRA on CKD
Cough may be present from pulmonary edema
Sputum culture obtained and shows usual respiratory johana
CT not showing discreet consolidation suggesting PNA, he has no constitutional signs/symptoms
Would stop abx and observe off (PCT not useful in renal patients) - he is now on cefdnir s/p vanc/cefepime
He did not cough on my examination
He does have history of ARIN but is noncompliant wtih PAP.
BiPAP was trialed night of 04/14 - 04/15 on 8/4 cmH2O but patient could not tolerate this more than a few hours. This should be discussed as an outpatient
Refused BiPAP again last night (04/15 - 04/16)
At risk for OHS - blood gas with no signs of hypercapnia with pH 7.34, pCO2 43, which is not consistent with OHS
Prior ECHO results are reviewed indicating low normal EF 55%, moderate to severe MR, mod-severe PH noted
proBNP elevated at 6280
Agree with IV diuresis, currently with 80 mg IV Lasix BID
May need RHC to establish fluid status -would monitor clinical status for now on IV diuresis and if patient clinically improves then no need for RHC
Prior PFT in 2009 showing restrictive lung disease
This would typically be seen in obese and/or HF patients
It would likely yield the same result if not worsened if this were repeated
Weight loss measures recommended
Obesity likely contributing to respiratory symptoms
Will need outpatient pulmonary evaluation in our office for PFTs and 6MWT--if cough was ongoing and needed further w/u
Reviewed with patient
We will briefly follow
Diagnostic Data
Chest X-Ray: 04/11/25- Mild bibasilar opacities, more likely to represent atelectasis and/or scarring. Mild pneumonia would be an alternative consideration in the appropriate clinical setting.
CT Scan: 04/14/25-1. Limited study secondary to respiratory motion artifact.
2. Significant cardiomegaly with small bilateral pleural effusions. Small amount of irregular airspace consolidation within the left lung base, likely scarring.
3. Diffuse subcutaneous stranding within the chest wall suggestive of third spacing/anasarca.
Echo: 07/28/24- Dilated left ventricle with preserved left ventricular function. Estimated ejection fraction 55%. Moderate to severe, eccentric mitral regurgitation. Moderate to severe tricuspid regurgitation. Pulmonary hypertension Estimated
pulmonary artery pressure of 71mmHg. Mildly dilated ascending aorta at 4.2 cm Compared to the previous report 08/15/2022 there is been an increase in the degree of mitral regurgitation and tricuspid regurgitation. Previous report with mild mitral
digitation and mild tricuspid regurgitation. PA pressure also has increased. Previously estimated 35 to 40 mmHg
PFT's: 2009-FVC is 3.33L or 78% of predicted. FEV1 was 2.81L or 90% of predicted. FEV1/FVC ratio was 81%. TLC is 75%. Diffusing capacity is 103%.
Impression: Spirometry suggests Restrictive Lung Disease. The lung volumes revealed mild restriction with a TLC of 75% of predicted. The diffusing capacity was preserved at 103% of predicted. There was no significant improvement in the FEV1 post
bronchodilator.
Reports and relevant images were personally reviewed.
Total time spent on this consultation __41__ minutes which includes review of history, physical exam, medications, laboratory data, personal review of imaging, extensive review of outpatient records, discussion with care team and respiratory therapy.
Subjective Data
-
Date of Service:
Date of Service: April 16, 2025
Chief Complaint: Pulmonary Follow Up
Subjective:
Patient seen today (late note entry). Afebrile overnight. Currently on room air, breathing comfortably. No acute events reported from overnight. Currently denies shortness of breath, HELMS, fevers or chills.
Review of Systems
General: Other (Negative unless mentioned above)
Objective Data
Data Reviewed
Vital Signs / I&O / Oxygen:
Vital Signs
Temp Pulse Resp BP Pulse Ox
97.9 F 49 18 137/65 94
04/15/25 23:17 04/15/25 23:17 04/15/25 23:17 04/15/25 23:17 04/15/25 23:17
Intake and Output
04/15/25 04/16/25 04/17/25
06:59 06:59 06:59
Intake Total 1860 / 1860 480 / 480
Output Total 1750 / 1750 1100 / 1100
Balance 110 / 110 -620 / -620
SaO2 94
Physical Exam
General: Respiratory Distress (negative), Comfortable and Sweats (negative)
HEENT: Normocephalic and Anicteric
Cardiovascular: S1-S2, Murmur (ARMOND heard across anterior precordium) and Peripheral Edema (Trace bilateral lower extremity edema)
Respiratory: Wheeze (negative), Crackles (Bibasilar in the posterior lung ramirez), Rhonchi (negative) and Non-Labored Respirations
GI: Soft, Non Distended, Non Tender and Normal Bowel Sounds
Neurology: Awake, Alert, Tremors (negative) and Other
Skin: Warm, Dry, Cyanosis (negative) and Other (Lower extremity bandages in place)
Labs/Micro/Reports
Lab Data
04/15/25 08:19
Microbiology
04/12/25 21:26 Blood/Venous Blood Culture - Preliminary
No Growth in 72 hours- Final report to follow
04/12/25 21:20 Blood/Venous Blood Culture - Preliminary
No Growth in 72 hours- Final report to follow
04/13/25 11:00 Sputum Respiratory Culture - Final
Usual Respiratory Johana
04/13/25 11:00 Sputum Gram Stain - Final
04/13/25 12:16 Nose Nasal Screen MRSA (PCR) - Final
MRSA not detected - performed by PCR methodology.
[2025-04-16 16:49] LABS: Glucose - Point of Care 98 mg/dl (70-99)
[2025-04-16 22:07] LABS: Glucose - Point of Care 181 mg/dl (70-99)
[2025-04-16 23:48] VITALS: BP 126/61
[2025-04-17 04:31] VITALS: BMI 36.0
[2025-04-17] MEDS: SYNTHROID 50 MCG PO (06:09)
[2025-04-17 06:54] LABS: Hematocrit 29.8 % (39.0-52.0); Hemoglobin 9.3 g/dL (13.0-18.0); Mean Corp Hgb Conc. 31.2 g/dL (33.0-37.0); Mean Corpuscular Volume 101.0 fL (80.0-94.0); Nucleated Red Blood Cells % 0 % (-); Platelet Count 203 10^3/uL (130-400); Red Cell Dist. Width 16.4 % (11.5-14.5)
[2025-04-17 07:00] VITALS: BP 140/66
[2025-04-17 07:12] LABS: ALT (SGPT) 17 U/L (0-50); AST (SGOT) 22 U/L (17-59); Albumin 2.9 g/dl (3.5-5.0); Alkaline Phosphatase 164 U/L (38-126); Blood Urea Nitrogen 80 mg/dl (9-20); Calcium 8.9 mg/dl (8.4-10.2); Carbon Dioxide 25 mmol/L (22-30); Chloride 108 mmol/L (98-107); Estimated Creatinine Clearance 21 ml/min; Glucose 96 mg/dl (70-99); Magnesium 2.3 mg/dl (1.6-2.3); Potassium 4.3 mmol/L (3.5-5.1); Sodium 139 mmol/L (135-145); Total Protein 5.7 g/dl (6.3-8.2); eGFR 18.97
[2025-04-17 07:43] LABS: Glucose - Point of Care 276 mg/dl (70-99)
[2025-04-17] MEDS: ROCALTROL 0.25 MCG PO (08:24)
[2025-04-17] MEDS: FLOMAX 0.4 MG PO (08:24)
[2025-04-17] MEDS: LIPITOR 20 MG PO (08:24)
[2025-04-17] MEDS: MUCINEX 1200 MG PO ×2 (08:24→20:39)
[2025-04-17] MEDS: OMNICEF 300 MG PO ×2 (08:25→20:39)
[2025-04-17] MEDS: LOW STRENGTH ASPIRIN 81 MG PO (08:25)
[2025-04-17] MEDS: ZYLOPRIM 300 MG PO (08:25)
[2025-04-17] MEDS: LASIX 80 MG IV ×2 (08:25→20:40)
[2025-04-17] MEDS: NOVOLOG FLEXPEN-LOW RESISTANCE 3 UNITS SC (08:26)
[2025-04-17] MEDS: DAKIN'S SOLUTION 0.125% 1/4 STRENGTH 473 ML TOPICAL (08:26)
[2025-04-17] MEDS: DESENEX/MITRAZOL/ZEASORB 1 APPLIC TOPICAL ×2 (08:26→20:29)
--- NOTE | 2025-04-17 08:41 | W.PN.HOSP.TC ---
Addendum entered and electronically signed by Kirit Mccartney MD 04/17/25 22:16:
Attending Addendum-
I saw and evaluated the patient. I reviewed the resident�s note and agree with findings and plan as documented in the resident�s note. Sub: Cough improved. Still wet and productive. had stroke alert yesterday. no further episodes. Denies CP palps
SOB fevers chills. Full 12 point ROS reviewed and negative except as documented Exam: Vitals reviewed in chart GEN-NAD heart RRR 3/6 SM @ apex Lungs fine crackles at bases Neuro AAO x 3 MS 5/ LE 1+ pitting edema B/L
Plan:
#Acute change in MS
-related to ativan?
-MRI/MRA/CD- no significant abnormalities, ECHO relatively unchanged from previous- EF 55-60%
-appreciate neuro input possible TIA t/c transition to eliquis from xarelto?
-CTM
# Productive cough likely due to acute heart failure exacerbation cont oral cefdinir to finish course, cont IS, mucinex, apprec pulm/ID--Respiratory culture normal johana and blood cultures negative, pulm to sign off
# ERENDIRA on Chronic kidney disease stage IV
- avoid NT agents
- baseline cr @ 2.6
- improving cont diuresis
# AE HFpEF
-repeat echo 04/17-EF 55-60%
-Follow daily weights (down from 117kg to 110kg)-cont lasix to 80mg IV BID-follow creat-- sodium restricted diet, fluid restriction, monitor I/Os
-d/w cards- on torsemide and metolazone as OP
-convert to PO diuretics on DC
#Chronic Macrocytic anemia-- Hemoglobin is steady ~9--B12/folate/TSH all WNL-- iron studies do show low iron but also low TIBC, more consistent with chronic disease
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
#Gout--continue allopurinol
#Permanent Atrial Fibrillation/Chronic Bradycardia--cont Xarelto
#Type 2 Diabetes mellitus - Stable. Jardiance/nancyunobduliaro on hold Follow glucose and cover with SSI as needed - HGB A1C 6.4%
#Hypothyroidism--Continue levothyroxine
#Hyperlipidemia--Continue atorvastatin
#Pressure ulcers both stage I and stage II (POA)--Stage I to sacrum and buttocks, fungal appearing rash to buttock sulcus- Stage II to right buttocks - apprec Wound care
#BPH- cont flomax
DVT Proph--Xarelto
Code status--Full code
Dispo [facility] to [facility] d/w CM and admissions at OR
ACP
Patient consented to discuss, was alone, time spent explanation of advance directives, changes in health status, patient�s health care wishes if the patient becomes unable to make health decisions, goals of care, code status, and prognosis- 16
minutes
Time spent coordinating care, review of plan of care with resident, personally reviewed previous records in EMR, med rec, labs, radiology, d/w nursing, CM and OR, total time documented is exclusive of any additional time listed that was spent in
advance care planning discussion -�51 minutes
Original Note:
Today's Communication/Plan
-
Pending cardiology recommendations regarding transition PO diuretic dose. He is on lasix IV 80 milligrams BID. At home, he was on metolazone 5 mg po and torsemide 20 mg po. He was discharged from his last hospitalization at 103 kg. He presented at
177 kg and is now at 110 kg.
MRI brain demonstrated no acute intracranial abnormality. Since it was negative for stroke, Xarelto 50 mg p.o. daily was resumed, and aspirin was stopped.
Continuing cefdinir for lower extremity wounds.
Anticipate discharge tomorrow.
Assessment / Plan
Assessment / Plan
Impression
84y M with PMH significant for A-Fib, HFpEF and CKD who presented to ED for cough productive of green/yellow mucus for 2 to 3 months with concern for possible pneumonia.
Plan
Productive cough likely due to CHF
Small bilateral effusions/cardiomegaly
Hx of HFpEF:
- Gained 10 kg between this admission and last discharge
- ROS positive for productive cough and SOB
- Labs shows normal wbc count, stable vitals, afebrile.
- Respiratory exam positive for bilateral rhonchi and crackles heard in the lower lobes. Patient is on 2 L of oxygen and saturating 95%.
- Differential diagnosis is community-acquired pneumonia, chronic bronchitis, interstitial process, bronchiectasis, aspiration pneumonia
- CXR: more c/w basilar atelectasis / scarring - though he does have coarse L sided breath sounds on exam.
- Patient is on as needed guaifenesin 1200 mg p.o. every 12 and albuterol sulfate to help expectorate mucus and to aid in breathing.
-Infectious disease consulted: cefepime 1000 mg IV every 12 hourly and vancomycin. Transitioned to cefdinir.
-Respiratory and blood cultures pending
-Videofluoroscopic swallowing examination completed and mild oropharyngeal dysphagia is noted. Started patient on regular diet and thin liquids with aspiration precautions. Speech to follow
- weight decreased from 114 kgs to 111 [address]gs[address]
- CT scan of chest without IV is limited and shows Significant cardiomegaly with small bilateral pleural effusions. Small amount of irregular airspace consolidation within the left lung base, likely scarring, Diffuse subcutaneous stranding within
the chest wall suggestive of third spacing/anasarca.
- Incentive spirometry
- Tesslon pearls to assist with chronic cough. Mucinex 1200 mg
- Ordered DuoNeb to assist in shortness of breath
- lasix 80 mg bid IV. Pending cardiology recommendations regarding transition PO diuretic (dose).
Chronic kidney disease stage IV
Creatinine 3.4 on admission. Baseline around 2.5.
-Bladder scan ordered
- Follow daily weights, sodium restricted diet, fluid restriction, monitor ins and outs
- Previous echocardiograms from recent 2024 admission shows ejection fraction is 55%
- Post void residual 74, slight urinary retention. Placed condom catheter
LLE Wound
Squamous Cell Carcinoma:
-He sees foundry worker apprentice for his left lower extremity wound
-Physical exam of skin shows left lower extremity wound wrapped in Gurwinder bandage
- s/p surgery and XRT 3 months ago. Now poorly healing wound followed by Wound Care.
- On Augmentin, started 02/22
- Wound care following
- Infectious disease recommends: local care and Dakin solution, cefdinir 300 mg Q12h 04/15/25-present
Gout:
- continue allopurinol
Acute left upper extremity swelling:
- Due to unknown cause
- No pain, pallor, paresthesias, paralysis, shortness of breath, unstable vitals
- Peripheral vascular ultrasound of the left upper extremity ordered and negative for venous thrombosis however there is severe diffuse subcutaneous edema
- Differential is cellulitis, lymphedema, contact dermatitis
- Supportive care such as elevating limb, potentially compression and observation for any red flag symptoms
Macrocytic anemia:
Hemoglobin 8.7 and MCV 99 on admission. Baseline Hb appears to be 12
Patient does not exhibit clinical signs of bleeding
B12, folate, and TSH normal,
Iron studies: Iron less than 20 low, TIBC 211 low, saturation unable to be calculated due to low iron. Ferritin not ordered
- Will transfuse if hemoglobin is less than 7 with 1 unit of PRBCs
Permanent Atrial Fibrillation
Chronic Bradycardia
-EKG shows atrial fibrillation with slow ventricular response
-Physical examination shows bradycardia and irregular rhythm
- His heart rate today went down to as low as 34, patient is asymptomatic with no dizziness syncope shortness of breath headache visual changes.
- Cardiology consulted and recommend observation as this bradycardia has been chronic stable ongoing for many years
- Continue to monitor heart rate and correlate with clinical symptoms for any further care
- Continue on Xarelto
- PT/OT recommend skilled rehab 1 to 2 hours a day
Acute change in mental status 04/16/2025�resolved
04/16/25: Nurse reported slurred speech and change in mental status. Patient states that ' he doesn't feel like himself'. Neuro exam normal. Stroke alert called; Dr. Estrada saw patient
Neurology following
- NPO for dysphagia evaluation. Resumed regular diet after [employer] evaluation gave clearance
� Held Xarelto and started aspirin 81 mg for 1 day
- CT head noncon: Negative
- Carotid u/s: Technically difficult study. Mild calcified plaque is noted bilaterally proximal internal carotid arteries. Based on velocity measurements noted, any internal carotid artery stenosis is less than 50% bilaterally. Antegrade flow
bilateral vertebral arteries
- MRI brain & MRA head: No acute intracranial abnormality noted. No focal hemodynamically significant stenosis, aneurysm or occlusion.
- Resumed Xarelto after MRI brain negative for stroke.
Diabetes mellitus:
A1c 6.4 03/29/2025
- Stable. Continue Jardiance.
- Follow glucose and cover with SSI as needed.
- Update A1C.
Hypothyroidism
-Continue levothyroxine
Hyperlipidemia:
- Continue atorvastatin 20 mg
DVT Prophylaxis: Xarelto per neurology for AMS 04/16/2025
Diet: regular
Full code
Anticipated Discharge: Within 24 hours
Subjective/Interval History
-
Date of Service: April 17, 2025
No acute events overnight. Patient did not have any complaints. He states his cough and his lower extremity pain from the wounds feel improved. Denied chest pain, shortness of breath, vision changes, abdominal pain, nausea vomiting diarrhea.
Objective Data
-
Labs:
Laboratory Results
04/17/25
06:33
WBC 8.8
Hgb 9.3 L
Hct 29.8 L
Plt Count 203
Sodium 139
Potassium 4.3
Chloride 108 H
Carbon Dioxide 25
BUN 80 H
Creatinine 3.1 H
Glucose 96
Calcium 8.9
Total Bilirubin 0.8
AST 22
ALT 17
Alkaline Phosphatase 164 H
Vital Signs:
Vital Signs
Temp Pulse Resp BP Pulse Ox
97.5 F 40 18 140/66 95
04/17/25 07:00 04/17/25 08:25 04/17/25 07:00 04/17/25 08:25 04/17/25 07:00
I&O
04/16/25 04/17/25 04/18/25
06:59 06:59 06:59
Intake Total 480 / 480 1140 / 1140
Output Total 1100 / 1100 775 / 775
Balance -620 / -620 365 / 365
Review of Systems
-
History Source: Patient
All other systems: Reviewed and negative
Physical Exam
-
General: Well Developed, Well Nourished, No Apparent Distress and Comfortable
HEENT: Normocephalic, Atraumatic, Moist Mucous Membranes, Anicteric, Nose Appears Normal and Ears Appear Normal
Respiratory: Clear to Auscultation
Cardiac: Regular Rhythm and S1/S2
GI: Soft, Nontender, Normal Bowel Sounds and Distended
Musculoskeletal: No Clubbing, No Cyanosis and Other (Bilateral lower extremities wrapped; nontender to palpation)
Skin: Warm and Dry
Neuro: Awake and Alert
Psych: Calm
--- NOTE | 2025-04-17 10:31 | W.PN.UPDATE ---
Update Note
Progress Note Update
- Outpatient follow up with [facility] Pulmonary clinic, information added to d/c section
- Pulmonary team available as needed. D/w Hospitalist team. Please call as needed.
[2025-04-17 11:24] LABS: Ferritin 80.1 ng/ml (17.9-464.0)
[2025-04-17 11:43] LABS: Glucose - Point of Care 144 mg/dl (70-99)
--- NOTE | 2025-04-17 12:24 | W.PN.ID1 ---
Date of Service
Date of Service: April 17, 2025
Today's Communication
Continue current course of cefdinir
Assessment / Plan
Left lower extremity wounds with possible superinfection
Bibasilar infiltrates
Chronic cough with sputum production
Suspected bronchitis
HTN
DM type II
CKD stage IV
A-fib
Bradycardia
CHF
Hypothyroidism
SCC left lower extremity
ARIN
Recommendations:
MRSA PCR negative.
Sputum culture unrevealing.
Continue cefdinir x 7 additional days.
Continue local care to left lower extremity wounds. Will need ongoing follow-up with Dermatology as an outpatient. Alternatively, may consider referral to wound care center.
Chief Complaint
-: Other (Bronchitis)
Subjective / Review of Systems
Patient seen and examined. Reports feeling well. Minimal cough at this time. No fevers or chills.
Review of Systems: No Fever and No Chills
Vital Signs / Physical Exam
Vital Signs
Vital Signs
Temp Pulse Resp BP Pulse Ox
97.5 F 40 18 140/66 95
04/17/25 07:00 04/17/25 08:25 04/17/25 07:00 04/17/25 08:25 04/17/25 07:00
Physical Exam
Constitutional: No Acute Distress, Comfortable and Non-toxic
Eyes: Sclera Anicteric
Cardiovascular: S1/S2; Negative S3/S4
Pulmonary: Coarse and Non Labored
Gastrointestinal: Soft and Non Tender
Extremities: Edema and Other (Bilateral lower extremity Gurwinder wrap's in place.)
Wound: Other (Superficial wounds on bilateral lower extremities. Mild slough. No significant purulence. Minimal to no odor.)
Neurological: Awake and Alert
Psychological: Calm
Objective Data
Lab Data
Lab Results
04/17/25 06:33
04/17/25 06:33
Estimated Creat Clear 21 ml/min 04/17/25 06:33
Lactic Acid 0.9 mmol/L (0.7-2.0) 04/12/25 21:20
Total Bilirubin 0.8 mg/dl (0.2-1.3) 04/17/25 06:33
AST 22 U/L (17-59) 04/17/25 06:33
ALT 17 U/L (0-50) 04/17/25 06:33
Alkaline Phosphatase 164 U/L (38-126) H 04/17/25 06:33
Most recent labs reviewed.
Micro Results:
04/12/25 21:26 Blood Culture - Preliminary
Blood/Venous No Growth in 4 days- Final report to follow
04/12/25 21:20 Blood Culture - Preliminary
Blood/Venous No Growth in 4 days- Final report to follow
04/13/25 11:00 Respiratory Culture - Final
Sputum Usual Respiratory Lluvia
Gram Stain - Final
04/13/25 12:16 Nasal Screen MRSA (PCR) - Final
Nose MRSA not detected - performed by PCR methodology.
04/12/25 22:38 Influenza Types A & B (DIONISIO) - Final
Nasal Swab Negative for Influenza A & B, NAAT
Negative results must be combined with clinical observations
and patient history.
Nucleic Acid Amplification test (NAAT)performed on the
[employer] platform.
Imaging:
04/11/2025 CXR (2 view): mild bibasilar opacities suspected to be atelectasis versus scarring. Pneumonia a possible consideration. Please see full dictation for additional detail.
Chest X-Ray: Image Reviewed and Report Reviewed
[2025-04-17] MEDS: NOVOLOG FLEXPEN-LOW RESISTANCE SC ×2 (14:39→17:49)
--- NOTE | 2025-04-17 14:42 | W.PN.NEPH.PH ---
Today's Communication / Plan
-
continue lasix today
Assessment/Plan
-
84y M with PMH significant for A-Fib, HFpEF and CKD who presents to ED for evaluation of cough and possible pneumonia. Patient states that he has had cough productive of green / yellow mucus for about 2-3 months now. He reports SOB with
activity / exertion. No fevers / chills. No N/V/D. He was seen by Dr. Segal and sent for CXR for concern of possible pneumonia.
Patient is also being followed by Wound Care for non-healing wound to [facility]. He underwent skin biopsy / excision followed by XRT which he completed about 3 months ago.
Renal consultation for acute on chronic kidney disease
Creatinine on admission 3.4> 3.1 /baseline near 2.3-2.6 labile over the last year
Has been on recent antibiotic therapy noted of lower extremity wounds
His weights are significantly elevated since March 15 about 14 kg(30 pounds)
Impression
Acute on chronic kidney disease stage IV
Pneumonia/CHF not convinced that this is pneumonia at this time but rather hypervolemia with hypertension and significant weight gain in a month.(Severe pulmonary hypertension ,preserved EF)
Anemia of chronic disease.
A-fib stable.= Bradycardic chronic
Hypertensive
Plan
continue Lasix 80 mg IV BID
follow BMP
goal weight closer to 103kg
Antibiotics per ID renally dosed
-
-
Date of Service: April 17, 2025
CC / HPI / ROS
-
Chief Complaint:
Acute kidney
History of Present Illness:
Creatinine down from 3.3 to 3.1
Nonoliguric
Hemodynamically stable
on lasix 80 IV BID for decompensated HF, weights down
Review of Systems:
Nonoliguric
Shortness of breath improved
No chest pain
Labs
-
Labs:
WBC 8.8 10^3/uL (4.8-10.8) 04/17/25 06:33
RBC 2.95 10^6/uL (4.70-6.10) L 04/17/25 06:33
Hgb 9.3 g/dL (13.0-18.0) L 04/17/25 06:33
Hct 29.8 % (39.0-52.0) L 04/17/25 06:33
Plt Count 203 10^3/uL (130-400) 04/17/25 06:33
Sodium 139 mmol/L (135-145) 04/17/25 06:33
Potassium 4.3 mmol/L (3.5-5.1) 04/17/25 06:33
Chloride 108 mmol/L (98-107) H 04/17/25 06:33
Carbon Dioxide 25 mmol/L (22-30) 04/17/25 06:33
BUN 80 mg/dl (9-20) H 04/17/25 06:33
Creatinine 3.1 mg/dL (0.7-1.3) H 04/17/25 06:33
eGFR 18.97 04/17/25 06:33
Glucose 96 mg/dl (70-99) 04/17/25 06:33
Calcium 8.9 mg/dl (8.4-10.2) 04/17/25 06:33
Phosphorus 4.6 mg/dl (2.5-4.5) H 04/13/25 05:28
Cup-Q-Wonurzkwkyl Pept 6280 pg/ml 04/14/25 07:12
Albumin 2.9 g/dl (3.5-5.0) L 04/17/25 06:33
Physical Exam
-
Vital Signs:
Vital Signs
Temp Pulse Resp BP Pulse Ox
97.5 F 40 18 140/66 95
04/17/25 07:00 04/17/25 08:25 04/17/25 07:00 04/17/25 08:25 04/17/25 07:00
Cardiovascular:: Regular rate and rhythm
Respiratory:: Bilateral: Coarse
Lung Excursion:: Normal
Abdomen:: Nontender and Soft
Bowel Sounds:: Normal
Extremity Edema:: +1: Bilateral:
[2025-04-17 15:00] VITALS: BP 135/63
--- NOTE | 2025-04-17 15:26 | W.PN.NEURO.1 ---
Addendum entered and electronically signed by Maury Hardwick MD 04/17/25 20:22:
I have seen and examined the patient today on 04/17/2025. I have also discussed the patient's assessment and the management plan with the nurse practitioner Sheree Corona and I agree with her assessment and management plan. The following is my
addendum.
The patient is an 84 years old male who presented to the hospital on 04/12/2025 for a productive cough. A stroke alert was activated due to dysarthria. The patient had speech difficulty and right arm weakness that was reported on 04/16/2025. The
patient has left leg weakness also but apparently that has been present for about 3 to 4 months. The patient is not a good historian. The patient has a history of atrial fibrillation and was on Xarelto, therefore he was not a candidate for
thrombolysis.
-MRI Brain 04/17/25: No acute intracranial abnormality noted.
-MRA COW 04/17/25: No focal hemodynamically significant stenosis, aneurysm or occlusion.
The MRI of the brain is negative for an acute stroke. The patient's dysarthria was likely secondary to metabolic encephalopathy in the setting of CKD and use of lorazepam, however transient ischemic attack cannot be ruled out.
It is okay to start anticoagulation for atrial fibrillation, however, the patient had symptoms while being on Xarelto, therefore, Eliquis may be considered instead of Xarelto.
Original Note:
Today's Communication / Plan
-
.
Neuro Assessment/Plan
Assessment
This is an 84-year-old man who presented to [facility] on 04/12/2025 with productive cough.
Stroke alert advised activated due to dysarthria.
The patient reports that his left leg weakness began approximately 3-4 months ago, but his speech changes and inability to move his right arm are new developments that occurred today. He was last able to move his right arm a few weeks ago. The
left-sided weakness has been present and was noted to be weak both yesterday and two days ago.
-MRI Brain 04/17/25: No acute intracranial abnormality noted.
-MRA COW 04/17/25: No focal hemodynamically significant stenosis, aneurysm or occlusion.
-Carotid Ultrasound 04/17/25: Technically difficult study. Mild calcified plaque is noted bilaterally proximal internal carotid arteries. Based on velocity measurements noted, any internal carotid artery stenosis is less than 50% bilaterally.
Antegrade flow bilateral vertebral arteries.
I. Transient dysarthria; MRI brain is negative for stroke. Transient speech change likely due to toxic metabolic encephalopathy in the setting of CKD and lorazepam usage, unlikely to be TIA but possible.
II. Permanent A-fib
III. LS DJD, s/p remote lumbar laminectomy.
Plan
-Okay to resume home Xarelto tonight 04/17/25 and stopping aspirin.
-Goal normotension.
-Would attempt to avoid sedating medications.
-Provide patient with a stroke education packet.
-Okay to continue home atorvastatin 20mg daily as LDL is 47.
-Goal normoglycemia.
-We will follow as-needed. Please contact our Neurology service with any questions/concerns.
Subjective/Objective
Subjective Data
Date of Service: April 17, 2025
No acute events overnight. Patient reports that he feels back to his baseline. Of note, he had received PRN lorazepam for sleep preceding the stroke alert.
Objective Data
Vital Signs
Temp Pulse Resp BP Pulse Ox
98.1 F 45 18 135/63 97
04/17/25 15:00 04/17/25 15:00 04/17/25 15:00 04/17/25 15:00 04/17/25 15:00
Lab Results
04/17/25 06:33
04/17/25 06:33
Sodium 139 mmol/L (135-145) 04/17/25 06:33
Potassium 4.3 mmol/L (3.5-5.1) 04/17/25 06:33
BUN 80 mg/dl (9-20) H 04/17/25 06:33
Glucose 96 mg/dl (70-99) 04/17/25 06:33
Calcium 8.9 mg/dl (8.4-10.2) 04/17/25 06:33
Phosphorus 4.6 mg/dl (2.5-4.5) H 04/13/25 05:28
Zyd-A-Jmqetlvhybp Pept 6280 pg/ml 04/14/25 07:12
Vitamin B12 Cancelled 04/13/25 11:07
Patient Allergies
No Known Allergies Allergy (Verified 04/12/25 16:24)
Review of Systems
-
Constitutional: Weakness
EENT: Negative Blurry Vision, Decreased Vision or Swallowing Difficulty
Neuro: Weakness; Negative Dizzy, Headache, Numbness, Ataxia, Tremors or Speech Problem
Physical Exam
-
General: No Apparent Distress
Eyes: No Ptosis and PERRLA
HEENT: Normocephalic and Atraumatic
Neck: Full Range of Motion
GI: Non-distended
Psych: Agitated
Extended Neurological Exam
Mood & Affect: Mood Unremarkable and Affect Unremarkable
Attention Span & Concentration: Awake, Alert and Interactive
Memory: Unremarkable
Tremor: Hand Tremor Absent and Head Tremor Absent
Involuntary Movement: None
Speech: Quality Unremarkable (back at his baseline), Quantity Unremarkable and Rate of Production Unremarkable
Cranial Nerve II: Left Eye: Pupillary Reactivity Unremarkable, Pupillary Size Unremarkable and Visual Canseco Intact
Cranial Nerve II: Right Eye: Pupillary Reactivity Unremarkable, Pupillary Size Unremarkable and Visual Canseco Intact
Cranial Nerves III, IV, : Extraocular Movement: Extraocular Movement Full in all Directions
Cranial Nerve VII: Facial Symmetry: Normal Facial Symmetry
Cranial Nerve VIII: Hearing: Grossly Reduced
Cranial Nerves IX, X: Palate Movement: Palate Elevation Symmetric
Cranial Nerve XI: Shoulder Shrug: Unremarkable
Cranial Nerve XII: Tongue Protusion: Midline
Muscle Strength, Overall: Reduced Throughout (RUE 5-/5, LUE 4/5, BLE 3/5)
Coordination: Nngpot-tlne-yosjfo Testing Unremarkable
Gait & Station: Unable to Assess
Data Reviewed
-
CT Head: Report Reviewed and Image Reviewed
MRI Head: Report Reviewed and Image Reviewed
MRA Head: Report Reviewed and Image Reviewed
Carotid Ultrasound: Report Reviewed
Labs: Report Reviewed
Lipid Profile: Report Reviewed
HgbA1C: Report Reviewed
Reviewed with: Physician and Patient
[2025-04-17 16:39] LABS: Glucose - Point of Care 143 mg/dl (70-99)
[2025-04-17] MEDS: XARELTO 15 MG PO (17:50)
[2025-04-17 18:20] VITALS: BMI 36.0
[2025-04-17 21:59] LABS: Glucose - Point of Care 138 mg/dl (70-99)
[2025-04-17 23:10] VITALS: BP 102/71
[2025-04-18 05:22] VITALS: BMI 35.3
[2025-04-18] MEDS: SYNTHROID 50 MCG PO (06:08)
[2025-04-18 07:13] VITALS: BP 129/72
[2025-04-18 07:13] LABS: Hematocrit 30.7 % (39.0-52.0); Hemoglobin 10.3 g/dL (13.0-18.0); Mean Corp Hgb Conc. 33.6 g/dL (33.0-37.0); Mean Corpuscular Volume 94.5 fL (80.0-94.0); Platelet Count 253 10^3/uL (130-400); Red Cell Dist. Width 16.5 % (11.5-14.5)
--- NOTE | 2025-04-18 07:36 | W.PN.HOSP.TC ---
Addendum entered and electronically signed by Kirit Mccartney MD 04/18/25 21:18:
Attending Addendum-
I saw and evaluated the patient. I reviewed the resident�s note and agree with findings and plan as documented in the resident�s note. Sub: Cough greaty improved. feels weak ready for rehab. Denies CP palps SOB fevers chills. Full 12 point ROS
reviewed and negative except as documented Exam: Vitals reviewed in chart GEN-NAD heart RRR 3/6 SM @ apex Lungs fine crackles at bases Neuro AAO x 3 MS 5/ LE 1+ pitting edema B/L
Plan:
#Acute change in MS
-related to ativan?
-resolved
-MRI/MRA/CD- no significant abnormalities, ECHO relatively unchanged from previous- EF 55-60%
-appreciate neuro input continue xarelto
-CTM
# Productive cough likely due to acute heart failure exacerbation cont oral cefdinir to finish course, cont IS, mucinex, apprec pulm/ID--Respiratory culture normal johana and blood cultures negative, pulm to sign off
# ERENDIRA on Chronic kidney disease stage IV
- avoid NT agents
- baseline cr @ 2.6
- improving cont diuresis as OP appreci nephro input
-resptart home dose torsemide and 1/2 metolazone on dc
# AE HFpEF
-repeat echo 04/17-EF 55-60%
-Follow daily weights (down from 117kg to 110kg)-cont lasix to 80mg IV BID-follow creat-- sodium restricted diet, fluid restriction, monitor I/Os
-d/w cards- cont torsemide and metolazone as OP
-convert to PO diuretics on DC
#Chronic Macrocytic anemia-- Hemoglobin is steady ~9--B12/folate/TSH all WNL-- iron studies do show low iron but also low TIBC, more consistent with chronic disease
#LLE Wound--Squamous Cell Carcinoma--He sees employee's representative for his left lower extremity wound--apprec wound care-cont cefdinir
#Gout--continue allopurinol
#Permanent Atrial Fibrillation/Chronic Bradycardia--cont Xarelto
#Type 2 Diabetes mellitus - Stable. Tio/rajan on hold Follow glucose and cover with SSI as needed - HGB A1C 6.4%
#Hypothyroidism--Continue levothyroxine
#Hyperlipidemia--Continue atorvastatin
#Pressure ulcers both stage I and stage II (POA)--Stage I to sacrum and buttocks, fungal appearing rash to buttock sulcus- Stage II to right buttocks - apprec Wound care
#BPH- cont flomax
DVT Proph--Xarelto
Code status--Full code
Dispo DC to [facility] today
Time spent coordinating care, DC planning, review of DC plan of care with resident, transition of care, review of records, med rec/scripts sent electronically, consults, notes, d/w consultants, nursing, and CM d/w admission at [facility] � 32 mins >50% of
this time was devoted to counseling and coordination of care
Original Note:
Today's Communication/Plan
-
Transition Lasix 80 mg IV twice daily to home torsemide 20 mg p.o. daily and metolazone 2.5 mg p.o. daily (half previous home dose) at discharge per nephrology.
Discharged with 6 days of cefdinir 300 mg every 12 hours for lower extremity wounds.
Assessment / Plan
Assessment / Plan
Impression
84y M with PMH significant for A-Fib, HFpEF and CKD who presented to ED for cough productive of green/yellow mucus for 2 to 3 months with concern for possible pneumonia.
Plan
Pulmonary edema due to CHF exacerbation
Cough
Small bilateral effusions/cardiomegaly
Hx of HFpEF:
- Gained 10 kg between this admission and last discharge
- ROS positive for productive cough and SOB. Respiratory exam positive for bilateral rhonchi and crackles heard in the lower lobes. Patient is on 2 L of oxygen and saturating 95%.
- Labs shows normal wbc count, stable vitals, afebrile.
- Differential diagnosis is community-acquired pneumonia, chronic bronchitis, interstitial process, bronchiectasis, aspiration pneumonia
- CXR: more c/w basilar atelectasis / scarring - though he does have coarse L sided breath sounds on exam.
- as needed guaifenesin 1200 mg p.o. every 12 and albuterol sulfate to help expectorate mucus and to aid in breathing.
-Infectious disease consulted: cefepime 1000 mg IV every 12 hourly and vancomycin. Transitioned to cefdinir.
-Respiratory and blood cultures pending
-Videofluoroscopic swallowing examination completed and mild oropharyngeal dysphagia is noted. Started patient on regular diet and thin liquids with aspiration precautions. Speech to follow
- weight decreased from 117.7 kgs to 108 kgs
- CT scan of chest without IV is limited and shows Significant cardiomegaly with small bilateral pleural effusions. Small amount of irregular airspace consolidation within the left lung base, likely scarring, Diffuse subcutaneous stranding within
the chest wall suggestive of third spacing/anasarca.
- Incentive spirometry
- Tesslon pearls to assist with chronic cough. Mucinex 1200 mg
- Ordered DuoNeb to assist in shortness of breath
- lasix 80 mg bid IV. Transition to home torsemide 20 mg p.o. daily and metolazone 2.5 mg p.o. daily (half previous home dose) at discharge per nephrology
- Echo 04/17/2025: EF 55 to 60%. LV cavity moderately increased and severe concentric LVH. RV cavity moderately dilated, but systolic function WNL. Left atrial volume severely abnormal. Severely dilated right atrium. Aortic valve sclerosis.
Moderate to severe mitral valve regurg. Severe tricuspid regurg; estimated pulmonary artery pressure 65 mmHg. Ascending aorta moderately dilated. IVC dilated. Severe pulmonary hypertension
Chronic kidney disease stage IV
Creatinine 3.4 on admission. Baseline around 2.5.
-Bladder scan ordered
- Follow daily weights, sodium restricted diet, fluid restriction, monitor ins and outs
- Previous echocardiograms from recent 2024 admission shows ejection fraction is 55%
- Post void residual 74, slight urinary retention. Placed condom catheter
LLE Wound
Squamous Cell Carcinoma:
-He sees employee's representative for his left lower extremity wound
-Physical exam of skin shows left lower extremity wound wrapped in Gurwinder bandage
- s/p surgery and XRT 3 months ago. Now poorly healing wound followed by Wound Care.
- On Augmentin, started 02/22
- Wound care following
- Infectious disease recommends: local care and Dakin solution, cefdinir 300 mg Q12h 04/15/25-present
Gout:
- continue allopurinol
Acute left upper extremity swelling:
- Due to unknown cause
- No pain, pallor, paresthesias, paralysis, shortness of breath, unstable vitals
- Peripheral vascular ultrasound of the left upper extremity ordered and negative for venous thrombosis however there is severe diffuse subcutaneous edema
- Differential is cellulitis, lymphedema, contact dermatitis
- Supportive care such as elevating limb, potentially compression and observation for any red flag symptoms
Macrocytic anemia:
Hemoglobin 8.7 and MCV 99 on admission. Baseline Hb appears to be 12
Patient does not exhibit clinical signs of bleeding
B12, folate, and TSH normal,
Iron studies: Iron less than 20 low, TIBC 211 low, saturation unable to be calculated due to low iron. Ferritin not ordered
- Will transfuse if hemoglobin is less than 7 with 1 unit of PRBCs
Permanent Atrial Fibrillation
- Continue Xarelto
-EKG shows atrial fibrillation with slow ventricular response
Chronic Bradycardia
- HR 40s, patient is asymptomatic. Not on a beta-patricio
- Cardiology consulted and recommend observation as this bradycardia has been chronic stable ongoing for many years
- Monitor heart rate and correlate with clinical symptoms for any further care
- PT/OT recommend skilled rehab 1 to 2 hours a day
Acute change in mental status 04/16/2025�resolved
04/16/25: Nurse reported slurred speech and change in mental status. Patient states that ' he doesn't feel like himself'. Neuro exam normal. Stroke alert called; Dr. Estrada saw patient
- NPO for dysphagia evaluation. Resumed regular diet after [employer] evaluation gave clearance
� Held Xarelto and started aspirin 81 mg for 1 day
- CT head noncon: Negative
- Carotid u/s: Technically difficult study. Mild calcified plaque is noted bilaterally proximal internal carotid arteries. Based on velocity measurements noted, any internal carotid artery stenosis is less than 50% bilaterally. Antegrade flow
bilateral vertebral arteries
- MRI brain & MRA head: No acute intracranial abnormality noted. No focal hemodynamically significant stenosis, aneurysm or occlusion.
- Resumed Xarelto after MRI brain negative for stroke.
Neurology: Consider switching to Eliquis from Xarelto due to patient having stroke/TIA symptoms on Xarelto
- Neuro deficits likely due to to metabolic derangement in association with as needed lorazepam use. Recommended minimizing benzodiazepine. Lorazepam held
Diabetes mellitus:
A1c 6.4 03/29/2025
- Stable. Continue Jardiance.
- Follow glucose and cover with SSI as needed.
- Update A1C.
Hypothyroidism
-Continue levothyroxine
Hyperlipidemia:
- Continue atorvastatin 20 mg
DVT Prophylaxis: Xarelto per neurology for AMS 04/16/2025
Diet: regular
Full code
Anticipated Discharge: Today
Subjective/Interval History
-
Date of Service: April 18, 2025
Objective Data
-
Labs:
Microbiology Results - Entire Visit
04/12/25 21:26 Blood/Venous Blood Culture - Final
No Growth - Final Report
04/12/25 21:20 Blood/Venous Blood Culture - Final
No Growth - Final Report
04/13/25 11:00 Sputum Respiratory Culture - Final
Usual Respiratory Johana
04/13/25 11:00 Sputum Gram Stain - Final
04/13/25 12:16 Nose Nasal Screen MRSA (PCR) - Final
MRSA not detected - performed by PCR methodology.
04/12/25 22:38 Nasal Swab Influenza Types A & B (DIONISIO) - Final
Negative for Influenza A & B, NAAT
Negative results must be combined with clinical observations
and patient history.
Nucleic Acid Amplification test (NAAT)performed on the
[employer] platform.
Hematology and Coagulation - Last 24 hours
04/18/25 Range/Units
06:27
WBC 8.8 (4.8-10.8) 10^3/uL
RBC 3.25 L (4.70-6.10) 10^6/uL
Hgb 10.3 L (13.0-18.0) g/dL
Hct 30.7 L (39.0-52.0) %
MCV 94.5 H (80.0-94.0) fL
MCH 31.7 H (27.0-31.0) pg
MCHC 33.6 (33.0-37.0) g/dL
RDW 16.5 H (11.5-14.5) %
Plt Count 253 D (130-400) 10^3/uL
MPV 10.5 H (7.4-10.4) fL
Blood Gas and Chemistry - Last 24 hours
04/17/25 04/18/25 Range/Units
06:33 06:27
Sodium 138 (135-145) mmol/L
Potassium 4.1 (3.5-5.1) mmol/L
Chloride 105 (98-107) mmol/L
Carbon Dioxide 25 (22-30) mmol/L
BUN 81 H (9-20) mg/dl
Creatinine (bl 2.5) 3.0 H (0.7-1.3) mg/dL
Estimated Creat Clear 22 ml/min
eGFR 19.74
Glucose 114 H (70-99) mg/dl
Calcium 9.3 (8.4-10.2) mg/dl
Ferritin 80.1 (17.9-464.0) ng/ml
Total Bilirubin 0.8 (0.2-1.3) mg/dl
AST 23 (17-59) U/L
ALT 17 (0-50) U/L
Alkaline Phosphatase 184 H (38-126) U/L
Total Protein 6.0 L (6.3-8.2) g/dl
Albumin 3.2 L (3.5-5.0) g/dl
Cr downtrendin.4 on admission; 3.1-3.3 since admission
Miscellaneous Lab Results - Last 24 hours
04/17/25 04/17/25 04/17/25 Range/Units
07:41 11:41 16:38
POC Glucose 276 H 144 H 143 H (70-99) mg/dl
04/17/25 Range/Units
21:58
POC Glucose 138 H (70-99) mg/dl
Vital Signs:
Vital Signs
Temp Pulse Resp BP Pulse Ox
98.1 F 71 20 129/72 94
04/18/25 07:13 04/18/25 07:13 04/18/25 07:13 04/18/25 07:13 04/18/25 07:13
I&O
04/17/25 04/18/25 04/19/25
06:59 06:59 06:59
Intake Total 1140 / 1140 1280 / 1280
Output Total 775 / 775 1050 / 1050
Balance 365 / 365 230 / 230
Weight-Last 4 Days
04/16/25 04/17/25 04/18/25 04/19/25
06:59 06:59 06:59 06:59
Actual Weight 111.901 kg 110.495 kg 108.454 kg
On admission 117.7 kg
Review of Systems
-
History Source: Patient
All other systems: Reviewed and negative
Physical Exam
-
General: Well Developed, Well Nourished, No Apparent Distress, Comfortable and Conversant
HEENT: Normocephalic, Atraumatic, Anicteric, Nose Appears Normal and Ears Appear Normal
Respiratory: Clear to Auscultation
Cardiac: Regular Rhythm and S1/S2
GI: Soft, Nontender, Normal Bowel Sounds and Distended
Musculoskeletal: No Clubbing, No Cyanosis and Other (b/l Lower legs wrapped in gurwinder wrap; r knee with bandage)
Skin: Warm and Dry
Neuro: Awake
Psych: Calm
[2025-04-18 07:42] LABS: ALT (SGPT) 17 U/L (0-50); AST (SGOT) 23 U/L (17-59); Albumin 3.2 g/dl (3.5-5.0); Alkaline Phosphatase 184 U/L (38-126); Blood Urea Nitrogen 81 mg/dl (9-20); Calcium 9.3 mg/dl (8.4-10.2); Carbon Dioxide 25 mmol/L (22-30); Chloride 105 mmol/L (98-107); Estimated Creatinine Clearance 22 ml/min; Glucose 114 mg/dl (70-99); Potassium 4.1 mmol/L (3.5-5.1); Sodium 138 mmol/L (135-145); Total Protein 6.0 g/dl (6.3-8.2); eGFR 19.74
[2025-04-18] MEDS: ZYLOPRIM 300 MG PO (07:49)
[2025-04-18] MEDS: FLOMAX 0.4 MG PO (07:49)
[2025-04-18] MEDS: MUCINEX 1200 MG PO (07:49)
[2025-04-18] MEDS: LASIX 80 MG IV (07:50)
[2025-04-18] MEDS: OMNICEF 300 MG PO (07:50)
[2025-04-18] MEDS: LIPITOR 20 MG PO (07:50)
[2025-04-18] MEDS: DAKIN'S SOLUTION 0.125% 1/4 STRENGTH 473 ML TOPICAL (07:56)
[2025-04-18] MEDS: DESENEX/MITRAZOL/ZEASORB 1 APPLIC TOPICAL (07:56)
[2025-04-18 08:03] LABS: Glucose - Point of Care 108 mg/dl (70-99)
[2025-04-18] MEDS: NOVOLOG FLEXPEN-LOW RESISTANCE SC (08:04)
[2025-04-18] MEDS: ROCALTROL 0.25 MCG PO (08:11)
--- NOTE | 2025-04-18 09:15 | CM ---
Addendum entered by Carolann Jackson 04/18/25 10:31:
IMM explained & signed. In chart
spoke with Elizabeth and updated
Addendum entered by Carolann Jackson 04/18/25 10:09:
Rec call from Alejandra at [facility]
bed available today - tt resident
PLAN: [facility] today
Report #: [phone]-[facility] floor
Fax #: [phone]
transportation forms on chart
Original Note:
PT rec SNF
LM with Alejandra at [facility] regarding bed availability
updated careport
tt resident
PLAN: SNF, pending bed availability
--- NOTE | 2025-04-18 11:04 | W.PN.ID1 ---
Date of Service
Date of Service: April 18, 2025
Today's Communication
Continue antibiotics.
Assessment / Plan
Left lower extremity wounds with possible superinfection
Bibasilar infiltrates
Chronic cough with sputum production
Suspected bronchitis
HTN
DM type II
CKD stage IV
A-fib
Bradycardia
CHF
Hypothyroidism
SCC left lower extremity
ARIN
Recommendations:
MRSA PCR negative.
Sputum culture unrevealing.
Continue cefdinir x 6 additional days.
Continue local care to left lower extremity wounds. Will need ongoing follow-up with Dermatology as an outpatient. Alternatively, may consider referral to wound care center.
Chief Complaint
-: Other (Bronchitis)
Subjective / Review of Systems
Review of Systems: No Fever and No Chills
Vital Signs / Physical Exam
Vital Signs
Vital Signs
Temp Pulse Resp BP Pulse Ox
98.1 F 71 20 129/72 95
04/18/25 07:13 04/18/25 07:50 04/18/25 07:13 04/18/25 07:50 04/18/25 09:46
Physical Exam
Constitutional: No Acute Distress, Comfortable and Non-toxic
Pulmonary: Coarse and Non Labored
Gastrointestinal: Soft and Non Distended
Extremities: Edema and Other (Bilateral lower extremity Gurwinder wrap's in place.)
Wound: Other (Superficial wounds on bilateral lower extremities. Mild slough. No significant purulence. Minimal to no odor.)
Psychological: Calm
Objective Data
Lab Data
Lab Results
04/18/25 06:27
04/18/25 06:27
Estimated Creat Clear 22 ml/min 04/18/25 06:27
Lactic Acid 0.9 mmol/L (0.7-2.0) 04/12/25 21:20
Total Bilirubin 0.8 mg/dl (0.2-1.3) 04/18/25 06:27
AST 23 U/L (17-59) 04/18/25 06:27
ALT 17 U/L (0-50) 04/18/25 06:27
Alkaline Phosphatase 184 U/L (38-126) H 04/18/25 06:27
Most recent labs reviewed.
Micro Results:
04/12/25 21:26 Blood Culture - Final
Blood/Venous No Growth - Final Report
04/12/25 21:20 Blood Culture - Final
Blood/Venous No Growth - Final Report
04/13/25 11:00 Respiratory Culture - Final
Sputum Usual Respiratory Lluvia
Gram Stain - Final
04/13/25 12:16 Nasal Screen MRSA (PCR) - Final
Nose MRSA not detected - performed by PCR methodology.
04/12/25 22:38 Influenza Types A & B (DIONISIO) - Final
Nasal Swab Negative for Influenza A & B, NAAT
Negative results must be combined with clinical observations
and patient history.
Nucleic Acid Amplification test (NAAT)performed on the
[employer] platform.
Imaging:
04/11/2025 CXR (2 view): mild bibasilar opacities suspected to be atelectasis versus scarring. Pneumonia a possible consideration. Please see full dictation for additional detail.
[2025-04-18 11:22] LABS: Glucose - Point of Care 177 mg/dl (70-99)
--- NOTE | 2025-04-18 11:40 | W.PN.NEPH.PH ---
Today's Communication / Plan
-
diurese
Assessment/Plan
-
84y M with PMH significant for A-Fib, HFpEF and CKD who presents to ED for evaluation of cough and possible pneumonia. Patient states that he has had cough productive of green / yellow mucus for about 2-3 months now. He reports SOB with
activity / exertion. No fevers / chills. No N/V/D. He was seen by Dr. Segal and sent for CXR for concern of possible pneumonia.
Patient is also being followed by Wound Care for non-healing wound to the [facility]. He underwent skin biopsy / excision followed by XRT which he completed about 3 months ago.
Renal consultation for acute on chronic kidney disease
Creatinine on admission 3.4> 3.1 /baseline near 2.3-2.6 labile over the last year
Has been on recent antibiotic therapy noted of lower extremity wounds
His weights are significantly elevated since March 15 about 14 kg(30 pounds)
Impression
Acute on chronic kidney disease stage IV
Pneumonia/CHF not convinced that this is pneumonia at this time but rather hypervolemia with hypertension and significant weight gain in a month.(Severe pulmonary hypertension ,preserved EF)
Anemia of chronic disease.
A-fib stable.= Bradycardic chronic
Hypertensive
Plan
continue Lasix 80 mg IV BID
follow BMP
goal weight closer to 103kg still
Antibiotics per ID renally dosed
-
-
Date of Service: April 18, 2025
CC / HPI / ROS
-
Chief Complaint:
Acute kidney
History of Present Illness:
ERENDIRA/Cr down to 3.0
Nonoliguric
Hemodynamically stable
on lasix 80 IV BID for decompensated HF, weights down
Review of Systems:
Nonoliguric
Shortness of breath improved
No chest pain
Labs
-
Labs:
WBC 8.8 10^3/uL (4.8-10.8) 04/18/25 06:27
RBC 3.25 10^6/uL (4.70-6.10) L 04/18/25 06:27
Hgb 10.3 g/dL (13.0-18.0) L 04/18/25 06:27
Hct 30.7 % (39.0-52.0) L 04/18/25 06:27
Plt Count 253 10^3/uL (130-400) D 04/18/25 06:27
Sodium 138 mmol/L (135-145) 04/18/25 06:27
Potassium 4.1 mmol/L (3.5-5.1) 04/18/25 06:27
Chloride 105 mmol/L (98-107) 04/18/25 06:27
Carbon Dioxide 25 mmol/L (22-30) 04/18/25 06:27
BUN 81 mg/dl (9-20) H 04/18/25 06:27
Creatinine 3.0 mg/dL (0.7-1.3) H 04/18/25 06:27
eGFR 19.74 04/18/25 06:27
Glucose 114 mg/dl (70-99) H 04/18/25 06:27
Calcium 9.3 mg/dl (8.4-10.2) 04/18/25 06:27
Phosphorus 4.6 mg/dl (2.5-4.5) H 04/13/25 05:28
Jpn-A-Ygzpasmqjdn Pept 6280 pg/ml 04/14/25 07:12
Albumin 3.2 g/dl (3.5-5.0) L 04/18/25 06:27
Physical Exam
-
Vital Signs:
Vital Signs
Temp Pulse Resp BP Pulse Ox
98.1 F 71 20 129/72 95
04/18/25 07:13 04/18/25 07:50 04/18/25 07:13 04/18/25 07:50 04/18/25 09:46
Cardiovascular:: Regular rate and rhythm
Respiratory:: Bilateral: Coarse
Lung Excursion:: Normal
Abdomen:: Nontender and Soft
Bowel Sounds:: Normal
Extremity Edema:: +3: Bilateral:
[2025-04-18] MEDS: NOVOLOG FLEXPEN-LOW RESISTANCE 1 UNITS SC (12:55)
[2025-04-18 14:39] VITALS: BP 128/70
--- NOTE | 2025-04-18 16:42 | W.DCSUMMARY ---
Addendum entered and electronically signed by Kirit Mccartney MD 04/18/25 21:20:
Read, reviewed, and agree. See same day progress note for additional details. [place] updated and reviewed admission
Gennaro Mccartney MD
Original Note:
Documented by User: Tahira Meredith MD, Resident 04/18/25 16:59
Discharge Summary
Discharge Data
Date of Admission: 04/12/25
Date of Discharge: 04/18/25
Total time spent discharging patient (in min): 45
-
Pending Results: No
Hospital Course
84y M with PMH significant for A-Fib, HFpEF and CKD who presented to ED for cough productive of green/yellow mucus for 2 to 3 months with concern for possible pneumonia.
Patient was 118 kg on admission. He was 103 kg on discharge from last admission. Chest CT demonstrated small bilateral effusions and significant cardiomegaly. Echo demonstrated preserved ejection fraction and diffusely dilated heart chambers. He
was started on IV Lasix 80 mg twice daily. Patient reported his cough improving. Weight decreased to 108 kg by discharge, and he was discharged on his home torsemide 20 mg p.o. daily and metolazone 2.5 mg p.o. daily (half his previous home dose).
Given presence of lower extremity wounds and concern for pneumonia, patient was started on cefepime and vancomycin. Sputum culture demonstrated usual true johana. Transitioned to cefdinir, given lower extremity wounds. Discharged on cefdinir 300
mg every 12 hours for 6 days. Wound care followed.
He was found to be bradycardic with heart rate in the 40s, but he was asymptomatic, denying chest pain and palpitations. Cardiology recommended continued monitoring, as the patient was asymptomatic.
On 04/16/25, stroke alert was called due to the patient having slurred speech. CT head Noncon was negative for acute intracranial abnormality, as well as brain MRI and head MRA. Xarelto was held for 1 day, and aspirin was started for 1 day.
Xarelto was resumed after the negative MRIs. Carotid ultrasound demonstrated less than 50% stenosis bilaterally.
Chest x-ray 04/11/2025
Mild bibasilar opacities, more likely to represent atelectasis and/or scarring. Mild pneumonia would be an alternative consideration in the appropriate clinical setting.
Peripheral vascular ultrasound 04/13/2025
1. No sonographic evidence for left upper extremity venous thrombosis.
2. Severe diffuse subcutaneous edema.
Chest CT 04/10/2025
1. Limited study secondary to respiratory motion artifact.
2. Significant cardiomegaly with small bilateral pleural effusions. Small amount of irregular airspace consolidation within the left lung base, likely scarring.
3. Diffuse subcutaneous stranding within the chest wall suggestive of third spacing/anasarca.
4. Additional findings above.
Stroke alert:
Head CT 04/16/2025
No acute intracranial abnormality.
Carotid ultrasound 04/17/2025
Technically difficult study. Mild calcified plaque is noted bilaterally proximal internal carotid arteries. Based on velocity measurements noted, any internal carotid artery stenosis is less than 50% bilaterally. Antegrade flow bilateral vertebral
arteries
Brain MRI and head MRA 04/17/2025
No acute intracranial abnormality noted.
No focal hemodynamically significant stenosis, aneurysm or occlusion.
Pulmonary edema due to CHF exacerbation
Cough
Hx of HFpEF:
- Gained 10 kg between this admission and last discharge
- ROS positive for productive cough and SOB. Respiratory exam positive for bilateral rhonchi and crackles heard in the lower lobes. Patient is on 2 L of oxygen and saturating 95%.
- Labs shows normal wbc count, stable vitals, afebrile.
- Differential diagnosis is community-acquired pneumonia, chronic bronchitis, interstitial process, bronchiectasis, aspiration pneumonia
- CXR: more c/w basilar atelectasis / scarring - though he does have coarse L sided breath sounds on exam.
- as needed guaifenesin 1200 mg p.o. every 12 and albuterol sulfate to help expectorate mucus and to aid in breathing.
-Infectious disease consulted: cefepime 1000 mg IV every 12 hourly and vancomycin. Transitioned to cefdinir.
-Videofluoroscopic swallowing examination completed and mild oropharyngeal dysphagia is noted. Started patient on regular diet and thin liquids with aspiration precautions. Speech to follow
- weight decreased from 117.7 kgs to 108 kgs
- CT scan of chest without IV is limited and shows Significant cardiomegaly with small bilateral pleural effusions. Small amount of irregular airspace consolidation within the left lung base, likely scarring, Diffuse subcutaneous stranding within
the chest wall suggestive of third spacing/anasarca.
- Incentive spirometry
- Tesslon pearls to assist with chronic cough. Mucinex 1200 mg
- Ordered DuoNeb to assist in shortness of breath
- lasix 80 mg bid IV. Transition to home torsemide 20 mg p.o. daily and metolazone 2.5 mg p.o. daily (half previous home dose) at discharge per nephrology
- Echo 04/17/2025: EF 55 to 60%. LV cavity moderately increased and severe concentric LVH. RV cavity moderately dilated, but systolic function WNL. Left atrial volume severely abnormal. Severely dilated right atrium. Aortic valve sclerosis.
Moderate to severe mitral valve regurg. Severe tricuspid regurg; estimated pulmonary artery pressure 65 mmHg. Ascending aorta moderately dilated. IVC dilated. Severe pulmonary hypertension
Chronic kidney disease stage IV
Creatinine 3.4 on admission. Baseline around 2.5.
-Bladder scan ordered
- Follow daily weights, sodium restricted diet, fluid restriction, monitor ins and outs
- Previous echocardiograms from recent 2024 admission shows ejection fraction is 55%
- Post void residual 74, slight urinary retention. Placed condom catheter
LLE Wound
Squamous Cell Carcinoma:
-He sees medication aide for his left lower extremity wound
-Physical exam of skin shows left lower extremity wound wrapped in Gurwinder bandage
- s/p surgery and XRT 3 months ago. Now poorly healing wound followed by Wound Care.
- On Augmentin, started 02/22
- Wound care following
- Infectious disease recommends: local care and Dakin solution, cefdinir 300 mg Q12h 04/15/25-present
Gout:
- continue allopurinol
Acute left upper extremity swelling:
- Due to unknown cause
- No pain, pallor, paresthesias, paralysis, shortness of breath, unstable vitals
- Peripheral vascular ultrasound of the left upper extremity ordered and negative for venous thrombosis however there is severe diffuse subcutaneous edema
- Differential is cellulitis, lymphedema, contact dermatitis
- Supportive care such as elevating limb, potentially compression and observation for any red flag symptoms
Macrocytic anemia:
Hemoglobin 8.7 and MCV 99 on admission. Baseline Hb appears to be 12
Patient does not exhibit clinical signs of bleeding
B12, folate, and TSH normal,
Iron studies: Iron less than 20 low, TIBC 211 low, saturation unable to be calculated due to low iron. Ferritin not ordered
- Will transfuse if hemoglobin is less than 7 with 1 unit of PRBCs
Permanent Atrial Fibrillation
- Continue Xarelto
-EKG shows atrial fibrillation with slow ventricular response
Chronic Bradycardia
- HR 40s, patient is asymptomatic. Not on a beta-patricio
- Cardiology consulted and recommend observation as this bradycardia has been chronic stable ongoing for many years
- Monitor heart rate and correlate with clinical symptoms for any further care
- PT/OT recommend skilled rehab 1 to 2 hours a day
Acute change in mental status 04/16/2025�resolved
04/16/25: Nurse reported slurred speech and change in mental status. Patient states that ' he doesn't feel like himself'. Neuro exam normal. Stroke alert called; Dr. Estrada saw patient
- NPO for dysphagia evaluation. Resumed regular diet after WHEEL BUFFER evaluation gave clearance
� Held Xarelto and started aspirin 81 mg for 1 day. Resumed Xarelto after MRI brain negative for stroke.
- CT head noncon: Negative
- Carotid u/s: Technically difficult study. Mild calcified plaque is noted bilaterally proximal internal carotid arteries. Based on velocity measurements noted, any internal carotid artery stenosis is less than 50% bilaterally. Antegrade flow
bilateral vertebral arteries
- MRI brain & MRA head: No acute intracranial abnormality noted. No focal hemodynamically significant stenosis, aneurysm or occlusion.
Neurology: Consider switching to Eliquis from Xarelto due to patient having stroke/TIA symptoms on Xarelto
- Neuro deficits likely due to to metabolic derangement in association with as needed lorazepam use. Recommended minimizing benzodiazepine. Lorazepam held
Diabetes mellitus:
A1c 6.4 03/29/2025
- Stable. Continue Jardiance.
- Follow glucose and cover with SSI as needed.
- Update A1C.
Hypothyroidism
-Continue levothyroxine
Hyperlipidemia:
- Continue atorvastatin 20 mg
Discharge Plan
-
Patient Disposition: Longterm/SNF
Discharge Diagnosis/Procedures: Productive cough likely due to acute heart failure exacerbation, acute on chronic kidney disease, heart failure with preserved ejection fraction, acute left upper extremity swelling, chronic macrocytic anemia, left
lower extremity wound, gout, permanent atrial fibrillation, chronic asymptomatic bradycardia, type 2 diabetes mellitus, hypothyroidism, hyperlipidemia, pressure ulcers for stage I and stage II
Condition: Fair
Diet: Diabetic, Carb Controlled
Activity: As tolerated
Driving Restrictions: Not until seen by your Dr
Bathing Restrictions: None
Wound Care: CBC and CMP with PCP in 1 week
Activity Restrictions/Additional Instructions:
Wound Care Instructions Left Leg- Clean with Dakins moistened gauze and apply Xeroform, ABD and wrap with noé or kerlix. Change daily and PRN drainage.
Right Leg- Clean with normal saline or soap and water and apply Xeroform, ABD and noé. Rae daily
Buttocks- Apply antifungal powder to gluteal sulcus followed by Calazime. Apply BID and with incontinence care.
Turning schedule
Apply Compression to LE daily
Keep heels off-loaded with pillow or air cushion when in bed
Change briefs frequently and use barrier ointment
Change position in chair frequently and use an air or gel cushion- Avoid sliding when standing.
Follow up with Dr. Tristan as scheduled.
Referrals:
Malathi Herrera, DO [Active, Pulmonary Medicine] - in one to two months
Roe Shetty MD [Family Provider, [facility]] - in less than 1 week
Additional Discharge Medication Instructions: Please resume torsamide 20 mg daily and take metolazone at 2.5 mg daily, half your previous dose.
Labs per PCP at [facility].
Please take cefdinir 200 mg Q12h for 6 more days.
Please see activity therapy teacher Dr. Malathi Herrera to follow-up on your chronic cough.
Please resume your weekly Mounjaro injections on . Please resume Jardiance and continue Xarelto.
It was a pleasure to be part of your care team.
Prescriptions:
New
benzonatate 100 mg Capsule
200 mg PO TIDPRN PRN (Reason: productive cough) Qty: 10 0RF
cefdinir 300 mg Capsule
300 mg PO Q12 Qty: 14 0RF
Continued
atorvastatin [Lipitor] 20 MG tablet
20 mg PO DAILY
allopurinol 300 MG tablet
300 mg PO DAILY
pantoprazole 40 MG tablet,delayed release (DR/EC)
40 mg PO DAILY
levothyroxine 50 mcg tablet
50 mcg PO DAILY
alfuzosin 10 mg tablet extended release 24 hr
10 mg PO DAILY
torsemide 20 mg Tablet
20 mg PO DAILY
calcitriol 0.25 mcg Capsule
0.25 mcg PO DAILY
Xarelto 15 mg tablet
15 mg PO DAILY
potassium chloride 10 mEq Tablet Extended Release
10 meq PO DAILY
tramadol 50 mg Tablet
50 mg PO Q8HPRN PRN (Reason: PAIN)
Mounjaro 10 mg/0.5 mL Pen Injector
10 mg SC TH
Jardiance 10 MG tablet
10 mg PO DAILY 30 Days Qty: 30 0RF
Changed
metolazone 5 mg Tablet
2.5 mg PO DAILY Qty: 0 0RF
Discontinued
lorazepam 0.5 mg Tablet
0.5 mg PO HSPRN PRN (Reason: Insomnia)
doxycycline hyclate 100 mg Tablet
100 mg PO BID
Discharge Orders:
Discharge Patient (As Directed); Ordered 04/18/25
Ordered By: Tahira Meredith
Discharge Date and Time
Discharge Date/Time: 04/18/25 15:39
Print Language: FIJIAN

Documented by User: Kirit Mccartney MD 04/18/25 21:15
Discharge Summary
Discharge Data
Date of Admission: 04/12/25
Date of Discharge: 04/18/25
Discharge Plan
-
Patient Disposition: Longterm/SNF
Discharge Diagnosis/Procedures: Productive cough likely due to acute heart failure exacerbation, acute on chronic kidney disease, heart failure with preserved ejection fraction, acute left upper extremity swelling, chronic macrocytic anemia, left
lower extremity wound, gout, permanent atrial fibrillation, chronic asymptomatic bradycardia, type 2 diabetes mellitus, hypothyroidism, hyperlipidemia, pressure ulcers for stage I and stage II
Condition: Fair
Diet: Diabetic, Carb Controlled
Activity: As tolerated
Driving Restrictions: Not until seen by your Dr
Bathing Restrictions: None
Wound Care: CBC and CMP with PCP in 1 week
Activity Restrictions/Additional Instructions:
Wound Care Instructions Left Leg- Clean with Dakins moistened gauze and apply Xeroform, ABD and wrap with noé or kerlix. Change daily and PRN drainage.
Right Leg- Clean with normal saline or soap and water and apply Xeroform, ABD and noé. Rae daily
Buttocks- Apply antifungal powder to gluteal sulcus followed by Calazime. Apply BID and with incontinence care.
Turning schedule
Apply Compression to LE daily
Keep heels off-loaded with pillow or air cushion when in bed
Change briefs frequently and use barrier ointment
Change position in chair frequently and use an air or gel cushion- Avoid sliding when standing.
Follow up with Dr. Tristan as scheduled.
Referrals:
Malathi Herrera DO [Active, Pulmonary Medicine] - in one to two months
Roe Shetty MD [Family Provider, [facility]] - in less than 1 week
Additional Discharge Medication Instructions: Please resume torsamide 20 mg daily and take metolazone at 2.5 mg daily, half your previous dose.
Labs per PCP at [facility].
Please take cefdinir 200 mg Q12h for 6 more days.
Please see activity therapy teacher Dr. Malathi Herrera to follow-up on your chronic cough.
Please resume your weekly Mounjaro injections on . Please resume Jardiance and continue Xarelto.
It was a pleasure to be part of your care team.
Prescriptions:
New
benzonatate 100 mg Capsule
200 mg PO TIDPRN PRN (Reason: productive cough) Qty: 10 0RF
cefdinir 300 mg Capsule
300 mg PO Q12 Qty: 14 0RF
Continued
atorvastatin [Lipitor] 20 MG tablet
20 mg PO DAILY
allopurinol 300 MG tablet
300 mg PO DAILY
pantoprazole 40 MG tablet,delayed release (DR/EC)
40 mg PO DAILY
levothyroxine 50 mcg tablet
50 mcg PO DAILY
alfuzosin 10 mg tablet extended release 24 hr
10 mg PO DAILY
torsemide 20 mg Tablet
20 mg PO DAILY
calcitriol 0.25 mcg Capsule
0.25 mcg PO DAILY
Xarelto 15 mg tablet
15 mg PO DAILY
potassium chloride 10 mEq Tablet Extended Release
10 meq PO DAILY
tramadol 50 mg Tablet
50 mg PO Q8HPRN PRN (Reason: PAIN)
Mounjaro 10 mg/0.5 mL Pen Injector
10 mg SC TH
Jardiance 10 MG tablet
10 mg PO DAILY 30 Days Qty: 30 0RF
Changed
metolazone 5 mg Tablet
2.5 mg PO DAILY Qty: 0 0RF
Discontinued
lorazepam 0.5 mg Tablet
0.5 mg PO HSPRN PRN (Reason: Insomnia)
doxycycline hyclate 100 mg Tablet
100 mg PO BID
Discharge Orders:
Discharge Patient (As Directed); Ordered 04/18/25
Ordered By: Tahira Meredith
Discharge Date and Time
Discharge Date/Time: 04/18/25 15:39
Print Language: FIJIAN
== END 2025-04-18 15:39 | DRG 291 ==
LOC: 3 WEST ACU 23:17
PROVIDERS: Internal Medicine; Specialist; Student in an Organized Health Care Education/Training Program; ADMITTING PHYSICIAN Hospitalist; ATTENDING PHYSICIAN Family Medicine; CONSULT PHYSICIAN Internal Medicine; CONSULT PHYSICIAN Internal Medicine Infectious Disease; CONSULT PHYSICIAN Internal Medicine Nephrology; CONSULT PHYSICIAN Psychiatry & Neurology Neurology; EMERGENCY PHYSICIAN Emergency Medicine; FAMILY PHYSICIAN Family Medicine; OTHER PHYSICIAN Internal Medicine Cardiovascular Disease
DX: I13.0 Hypertensive heart and chronic kidney disease with heart failure and stage 1 through stage 4 chronic kidney disease, or unspecified chronic kidney disease (principal); I50.33 Acute on chronic diastolic (congestive) heart failure; N17.9 Acute kidney failure, unspecified; N18.4 Chronic kidney disease, stage 4 (severe); I48.21 Permanent atrial fibrillation; J98.11 Atelectasis; G93.40 Encephalopathy, unspecified; Z87.891 Personal history of nicotine dependence; D53.9 Nutritional anemia, unspecified; C44.729 Squamous cell carcinoma of skin of left lower limb, including hip; E03.9 Hypothyroidism, unspecified; L89.151 Pressure ulcer of sacral region, stage 1; L89.312 Pressure ulcer of right buttock, stage 2; E11.40 Type 2 diabetes mellitus with diabetic neuropathy, unspecified; E11.22 Type 2 diabetes mellitus with diabetic chronic kidney disease; M10.9 Gout, unspecified; E66.9 Obesity, unspecified; I27.20 Pulmonary hypertension, unspecified; Z79.01 Long term (current) use of anticoagulants; Z79.82 Long term (current) use of aspirin; Z79.899 Other long term (current) drug therapy
CPT/HCPCS: 36415; 70450; 70544; 70551; 71046; 71250; 74230; 80048; 80053; 80202; 82607; 82728; 82746; 82805; 82962; 83540; 83550; 83605; 83735; 83880; 84100; 84443; 85025; 85027; 86850; 86900; 86901; 87040; 87070; 87205; 87502; 87641; 87811; 92526; 92610; 92611; 93005; 93306; 93880; 93971; 94640; 94660; 97116; 97167; 97530; 97535

== ENCOUNTER → 2025-04-20 11:09 | Outpatient (REF) | payer OTHER, MEDICARE, SELFPAY ==
[2025-04-20 12:00] LABS: Hematocrit 29.4 % (39.0-52.0); Hemoglobin 9.2 g/dL (13.0-18.0); Mean Corp Hgb Conc. 31.3 g/dL (33.0-37.0); Mean Corpuscular Volume 100.7 fL (80.0-94.0); Nucleated Red Blood Cells % 0 % (-); Platelet Count 237 10^3/uL (130-400); Red Cell Dist. Width 16.9 % (11.5-14.5)
[2025-04-20 12:11] LABS: Blood Urea Nitrogen 77 mg/dl (9-20); Calcium 8.8 mg/dl (8.4-10.2); Carbon Dioxide 29 mmol/L (22-30); Chloride 102 mmol/L (98-107); Glucose 105 mg/dl (70-99); Potassium 4.1 mmol/L (3.5-5.1); Sodium 136 mmol/L (135-145); eGFR 22.40
== END ==
LOC: OLABP 11:09
PROVIDERS: ATTENDING PHYSICIAN Family Medicine
DX: I50.33 Acute on chronic diastolic (congestive) heart failure (principal); C44.729 Squamous cell carcinoma of skin of left lower limb, including hip; D50.9 Iron deficiency anemia, unspecified; D52.8 Other folate deficiency anemias; E03.9 Hypothyroidism, unspecified
CPT/HCPCS: 36415; 80048; 85025

== ENCOUNTER → 2025-04-26 12:33 | Outpatient (REF) | payer MEDICARE, OTHER, SELFPAY ==
[2025-04-26 14:15] LABS: Blood Urea Nitrogen 88 mg/dl (9-20); Calcium 9.1 mg/dl (8.4-10.2); Carbon Dioxide 29 mmol/L (22-30); Chloride 100 mmol/L (98-107); Glucose 118 mg/dl (70-99); Potassium 4.5 mmol/L (3.5-5.1); Sodium 137 mmol/L (135-145); eGFR 18.27
== END ==
LOC: OLABP 12:33
PROVIDERS: ATTENDING PHYSICIAN Family Medicine
DX: R00.1 Bradycardia, unspecified (principal); N18.30 Chronic kidney disease, stage 3 unspecified; I50.33 Acute on chronic diastolic (congestive) heart failure; C44.729 Squamous cell carcinoma of skin of left lower limb, including hip; D50.9 Iron deficiency anemia, unspecified; D52.8 Other folate deficiency anemias; E03.9 Hypothyroidism, unspecified; E11.9 Type 2 diabetes mellitus without complications; E78.5 Hyperlipidemia, unspecified; G47.33 Obstructive sleep apnea (adult) (pediatric); I13.0 Hypertensive heart and chronic kidney disease with heart failure and stage 1 through stage 4 chronic kidney disease, or unspecified chronic kidney disease; I27.20 Pulmonary hypertension, unspecified; I48.21 Permanent atrial fibrillation; J18.9 Pneumonia, unspecified organism; L43.9 Lichen planus, unspecified; L89.151 Pressure ulcer of sacral region, stage 1; L89.312 Pressure ulcer of right buttock, stage 2; M10.9 Gout, unspecified
CPT/HCPCS: 36415; 80048

== ENCOUNTER → 2025-05-02 09:14 | Outpatient (REF) | payer MEDICARE, OTHER, SELFPAY ==
[2025-05-02 10:30] LABS: Hematocrit 26.1 % (39.0-52.0); Hemoglobin 8.0 g/dL (13.0-18.0); Mean Corp Hgb Conc. 30.7 g/dL (33.0-37.0); Mean Corpuscular Volume 96.7 fL (80.0-94.0); Nucleated Red Blood Cells % 0 % (-); Platelet Count 231 10^3/uL (130-400); Red Cell Dist. Width 16.4 % (11.5-14.5)
[2025-05-02 10:58] LABS: Blood Urea Nitrogen 97 mg/dl (9-20); Calcium 8.9 mg/dl (8.4-10.2); Carbon Dioxide 28 mmol/L (22-30); Chloride 99 mmol/L (98-107); Glucose 189 mg/dl (70-99); Potassium 4.2 mmol/L (3.5-5.1); Sodium 134 mmol/L (135-145); eGFR 21.44
== END ==
LOC: OLABP 09:14
PROVIDERS: ATTENDING PHYSICIAN Family Medicine
DX: I50.33 Acute on chronic diastolic (congestive) heart failure (principal); C44.729 Squamous cell carcinoma of skin of left lower limb, including hip; D50.9 Iron deficiency anemia, unspecified; D52.8 Other folate deficiency anemias; E03.9 Hypothyroidism, unspecified; E11.9 Type 2 diabetes mellitus without complications; E78.5 Hyperlipidemia, unspecified; G47.33 Obstructive sleep apnea (adult) (pediatric); I13.0 Hypertensive heart and chronic kidney disease with heart failure and stage 1 through stage 4 chronic kidney disease, or unspecified chronic kidney disease; I27.20 Pulmonary hypertension, unspecified; I48.21 Permanent atrial fibrillation; J18.9 Pneumonia, unspecified organism; L43.9 Lichen planus, unspecified; L89.151 Pressure ulcer of sacral region, stage 1
CPT/HCPCS: 36415; 80048; 85025

== ENCOUNTER → 2025-05-06 11:41 | Outpatient (REF) | payer MEDICARE, OTHER, SELFPAY ==
[2025-05-06 12:33] LABS: Hematocrit 29.3 % (39.0-52.0); Hemoglobin 9.3 g/dL (13.0-18.0); Mean Corp Hgb Conc. 31.7 g/dL (33.0-37.0); Mean Corpuscular Volume 96.4 fL (80.0-94.0); Platelet Count 275 10^3/uL (130-400); Red Cell Dist. Width 16.4 % (11.5-14.5)
[2025-05-06 12:47] LABS: Calcium 9.2 mg/dl (8.4-10.2); Carbon Dioxide 28 mmol/L (22-30); Chloride 100 mmol/L (98-107); Glucose 265 mg/dl (70-99); Potassium 4.6 mmol/L (3.5-5.1); Sodium 136 mmol/L (135-145); eGFR 18.27
[2025-05-06 14:10] LABS: Glycohemoglobin (HgbA1c) 7.1 % (4.0-5.9)
[2025-05-06 14:55] LABS: Blood Urea Nitrogen 133 mg/dl (9-20)
== END ==
LOC: OLABP 11:41
PROVIDERS: ATTENDING PHYSICIAN Family Medicine
DX: R00.1 Bradycardia, unspecified (principal); M10.9 Gout, unspecified; N18.30 Chronic kidney disease, stage 3 unspecified; L89.320 Pressure ulcer of left buttock, unstageable; I48.21 Permanent atrial fibrillation; E78.5 Hyperlipidemia, unspecified; E11.9 Type 2 diabetes mellitus without complications; E03.9 Hypothyroidism, unspecified
CPT/HCPCS: 80048; 83036; 85027

== ENCOUNTER 2025-05-06 18:40 | Inpatient (IN) | payer MEDICARE, OTHER, SELFPAY ==
[2025-05-06] VITALS (24 sets, daily range): BP systolic 116–149; BP diastolic 60–77; PULSE 2–48; BMI 37.7; BMI 35.3
[2025-05-06 16:12] LABS: Hematocrit 29.5 % (39.0-52.0); Hemoglobin 8.9 g/dL (13.0-18.0); Mean Corp Hgb Conc. 30.2 g/dL (33.0-37.0); Mean Corpuscular Volume 97.0 fL (80.0-94.0); Nucleated Red Blood Cells % 0.5 % (-); Platelet Count 240 10^3/uL (130-400); Red Cell Dist. Width 16.6 % (11.5-14.5)
[2025-05-06 16:26] LABS: INR 1.84; PT 21.4 Sec (11.4-14.6)
--- NOTE | 2025-05-06 16:30 | ED.GENMED ---
History of Present Illness
General
Chief Complaint: Heart Rate Problem
Time Seen by Provider: 05/06/25 15:55
History of Present Illness
History of Present Illness:
84-year-old male with history of A-fib on Xarelto, CHF, CKD presenting to the emergency department from [facility] for low heart rate and cough. Patient notes cough and difficulty breathing. Per nursing facility, patient has had decreased
responsiveness and lethargy for the past few days. Patient limited historian on arrival given clinical condition. On review of EMR, recent admission from 04/12 to 04/18. At that time patient had difficulty breathing, was found to have pleural
effusions and cardiomegaly with concern for CHF, as well as concomitant possible pneumonia with chronic lower extremity wounds. Patient was placed on antibiotics. At that time noted to also have heart rate in the 40s, however asymptomatic.
Patient presently denying chest pain. Family not immediately available on arrival for additional information
Past History
Past History
ED Past Medical History: Arrthythmia (afib), Cancer (Basal cell skin cancer), CHF, GERD, HTN, Hypercholesterolemia, NIDDM, Renal failure (Chronic kidney disease stage IV), Other (OA. Pulmonary Hypertension, [place] planus; lumbar DJD status post
epidural steroid injections x 2 spring 2024) and Other (Chronic DJD of left shoulder; obstructive sleep apnea, lymphedema and chronic wounds bilateral lower extremities; gout)
ED Past Surgical History: Orthopedic (Andres rotator cuff, Back surgery, Carpal tunnel, Andres total knee, Left THR) and Other (Varicose vein surgery , cataract surgery Left eye, basal cell skin cancer removal)
Social History
Tobacco: Former smoker
Alcohol: Occasional
Personal:
Living: with family
Employment: Retired
Family History
Family History: Other (Noncontributory)
Phy Exam
Physical Exam
Physical Exam:
General: Moderate distress
HEENT: protecting airway
Neck: appears supple
CV: Bradycardic, regular rhythm, no evidence of cyanosis
Resp: Rhonchorous breath sounds bilaterally with increased work of breathing
Abd: Soft and non-distended, no tenderness to palpation
Extremities: No deformities, chronic appearing wounds to bilateral shins without significant erythema. Mild clear drainage
Neuro: alert, no focal neurologic deficit
: deferred
Rectal: deferred
Psych: Normal affect
Skin: Intact
Sepsis
Sepsis Screening
Sepsis Assessment: Septic Shock
Sepsis Screening: Lactate >2mmol/L and Need for mechanical ventilation or BiPAP
Sepsis Screen
Sepsis Screen: Septic Shock
Date: 05/06/25
Time: 17:31
Course
Orders/Labs/Results
Orders:
Orders
05/06/25 15:59
Electrocardiogram (*1) Urgent
Reason for Study: Chest Pain
EKG- Treatment ONCE
05/06/25 16:02
Atropine Sulfate [Atropine 0.1 mg/ml Syringe] 2 mg .ROUTE .STK-MED ONE
05/06/25 16:06
BNP [NT-proBNP] Urgent
Complete Blood Count/With Diff Urgent
Comprehensive Metabolic Panel Urgent
Prothrombin Time Urgent
Troponin I Urgent
05/06/25 16:09
Straight cath- Treatment ONCE
CR Chest Portable - 1 View Urgent
Comment:
Reason For Exam: pna
Reason Study Needs to be Portable: Unable to Transport
05/06/25 16:13
Lactic Acid Q4H
Comment: ON ICE, CANCEL 2ND ORDER IF FIRST LACTIC ACID LEVEL <2
Urinalysis Reflex To Culture Urgent
Date Specimen was Collected: 05/06/25
Time Specimen was Collected: 16:10
Urine Microscopic Reflex Cult Urgent
Blood Culture Q20M
AJIT Source: Blood/Venous
Specimen Description:
Comment: Urgent from separate sites. If patient screens positive for possible sepsis
Blood Culture Q20M
AJIT Source: Blood/Venous
Specimen Description:
Comment: Urgent from separate sites. If patient screens positive for possible sepsis
05/06/25 16:15
COVID-19 Antigen Urgent
Source: Nasal Swab
Influenza A+B Rapid Molecular Urgent
AJIT Source: Nasal Swab
Specimen Description:
0.9% Sodium Chloride 500 ml [Nss] 500 ml IV BOLUS
05/06/25 17:25
Vancomycin [Vancocin] 2,000 mg 0.9% Sodium Chloride 500 ml [Nss] 500 ml IV NOW
05/06/25 17:26
Cefepime HCl [Maxipime] 2,000 mg IV NOW STA
05/06/25 20:15
Lactic Acid Q4H
Comment: ON ICE, CANCEL 2ND ORDER IF FIRST LACTIC ACID LEVEL <2
Abnormal Lab Results
05/06/25 05/06/25
16:06 16:13
WBC 13.0 H 10^3/uL
(4.8-10.8)
RBC 3.04 L 10^6/uL
(4.70-6.10)
Hgb 8.9 L g/dL
(13.0-18.0)
Hct 29.5 L %
(39.0-52.0)
MCV 97.0 H fL
(80.0-94.0)
MCHC 30.2 L g/dL
(33.0-37.0)
RDW 16.6 H %
(11.5-14.5)
MPV 11.8 H fL
(7.4-10.4)
Abs Immat Gran (auto) 0.3 H 10^3/uL
(0-0.05)
Absolute Neuts (auto) 10.8 H 10^3/uL
(1.4-6.5)
Immature Gran % 2.2 H %
(0-0.5)
Neutrophils % 83.1 H %
(42.2-75.2)
Lymphocytes % 10.1 L %
(20.5-51.1)
PT 21.4 H Sec
(11.4-14.6)
Sodium 134 L mmol/L
(135-145)
BUN 139 H* mg/dl
(9-20)
Creatinine 3.2 H mg/dL
(0.7-1.3)
Glucose 322 H mg/dl
(70-99)
Lactic Acid 2.3 H mmol/L
(0.7-2.0)
Alkaline Phosphatase 155 H U/L
(38-126)
Troponin I 0.139 H* ng/ml
Total Protein 6.1 L g/dl
(6.3-8.2)
Albumin 3.2 L g/dl
(3.5-5.0)
Urine Bacteria (Reflex) Few A
(Negative)
Urine Glucose 3+ A
(Negative)
Urine Albumin (Reflex) 1+ A
(Neg - Trace)
05/06/25 16:06
05/06/25 16:06
Vital Signs
Initial and Last Documented VS:
Initial Vital Signs
Temp Pulse Resp BP Pulse Ox
96.6 F L 36 20 124/67 89
05/06/25 16:00 05/06/25 16:00 05/06/25 16:00 05/06/25 16:00 05/06/25 16:00
Last Documented Vital Signs
Temp Pulse Resp BP Pulse Ox
96.6 F L 48 17 128/73 100
05/06/25 16:00 05/06/25 17:15 05/06/25 17:15 05/06/25 17:15 05/06/25 17:15
MDM/Problems Addressed
MDM/Problems Addressed:
84-year-old male with history of A-fib on Xarelto, CHF, CKD presenting to the emergency department for cough, lethargy, low heart rate. Vital signs on arrival significant for bradycardia and tachypnea as well as hypothermia
On exam, patient is ill in appearance. Increased work of breathing with rhonchorous respirations and active cough. Respiratory called to bedside for BiPAP. On review of EMR, patient's bradycardia does not appear to be new. No signs of heart
block. Initially on arrival, not knowing underlying history, 1 dose of atropine administered without significant change in heart rate. On review of EMR and recent hospital admission, patient had been admitted for CHF and concern for pneumonia with
interval improvement. Patient had subsequently been discharged to SNF. Patient's did arrive to the hospital shortly after patient's arrival. She notes when she saw him this afternoon, appeared very tired, eyes Rolling back to his head, with
increased work of breathing. At this time concern for sepsis from pulmonary source, pneumonia versus influenza versus COVID. Patient does have additional source of possible infection with his lower extremities, however they do not appear to be
acutely infected. Plan for laboratory analysis, cultures, chest x-ray imaging.
17:20 - Labs consistent with leukocytosis and elevated lactic acid, consistent with sepsis with suspected source again being pulmonary. Negative COVID and flu. Patient's BUN is significantly elevated with concern for dehydration component.
Starting gentle hydration, however given no history of CHF, do not feel patient warrants full 30 cc/kg fluid bolus to avoid pulmonary edema. Chest x-ray does not show obvious infiltrate, however limited given that it is a 1 view. Strong clinical
suspicion, so starting broad-spectrum antibiotics. Ultimate plan for admission for patient's increased work of breathing and concern for sepsis. Goals of care discussed with at bedside, notes that he is currently full code
*Pulse Oximetry
Patient hypoxic: no
*EKG
Interpreted by ED Provider?: Yes
EKG Intrepretation Date: 05/06/25
EKG Intrepretation Time: 17:21
Interpretation: abnormal
Comparison EKG: no changes (04/12/25)
Heart Rate: 43
Rate: bradycardiac
Rhythm: sinus
[place]: normal axis
Interval: normal interval
QRS Pattern: wide non-specific
Ischemia: no ischemia
*Critical Care Note
Total Time (30-74mins, 75-104mins- exclusive of procedures): 42
comment:
The high probability of a clinically significant, sudden or life threatening deterioration of the pulmonary system(s) required my full and direct attention, intervention and personal management. The aggregate critical care time was 42 minutes. This
time is in addition to time spent performing reported procedures but includes the following:
[x] Data Review and interpretation
[x] Patient assessment and monitoring of vital signs
[x] Documentation
[x] Medication orders and management
ED Attending Note
-
Portions of this chart may have been created with voice recognition software.� Occasional wrong word or��sound alike� substitutions may have occurred due to the inherent limitations of voice recognition software.
Discharge Plan
Departure
Patient Disposition: Admit
Date of Disposition: 05/06/25
Time of Disposition: 17:31
Presentation/result/management discussed w/ accepting MD/DO: Hospitalist
Patient with high blood pressure during this ER visit?: No
Condition: Critical
Discharge Problem:
Sepsis, Acute on chronic kidney failure, Respiratory failure
Prescriptions:
No Action
atorvastatin [Lipitor] 20 MG tablet
20 mg PO HS
allopurinol 300 MG tablet
300 mg PO DAILY
pantoprazole 40 MG tablet,delayed release (DR/EC)
40 mg PO DAILY
levothyroxine 50 mcg tablet
50 mcg PO DAILY
alfuzosin 10 mg tablet extended release 24 hr
10 mg PO DAILY
calcitriol 0.25 mcg Capsule
0.25 mcg PO DAILY
potassium chloride 10 mEq Tablet Extended Release
10 meq PO DAILY
tramadol 50 mg Tablet
100 mg PO Q8HPRN PRN (Reason: severe pain)
Jardiance 10 MG tablet
10 mg PO DAILY 30 Days Qty: 30 0RF
metolazone 2.5 mg Tablet
2.5 mg PO DAILY
acetaminophen 325 mg Tablet
650 mg PO Q4H PRN (Reason: mild pain/fever)
torsemide 20 mg tablet
40 mg PO DAILY
prednisone 20 mg tablet
40 mg PO QPM
Rx Instructions:
beginning 05/01/25 x 5 days
acetaminophen 500 mg Tablet
1,000 mg PO TID
lorazepam 0.5 mg tablet
0.5 mg PO HSPRN PRN (Reason: insomnia)
insulin aspart U-100 [Novolog U-100 Insulin aspart] 100 unit/mL Solution
1 sliding scale dose SC QID
Rx Instructions:
70-149=hold
150-199=1 unit
200-249=3 unit
250-299=5 unit
300-349=7 unit
350-399=9 unit
400-499=11 unit
melatonin 5 mg Tablet
5 mg PO HS
rivaroxaban 15 mg Tablet
15 mg PO DAILY
lidocaine-menthol [Icy Hot Patch (lido-menthol)] 4-1 % Adhesive Patch,Medicated
1 patch TOPICAL DAILY
Rx Instructions:
left shoulder
tirzepatide 10 mg/0.5 mL Pen Injector
10 mg SC QWEEK
Rx Instructions:
Thursday
benzonatate 100 mg capsule
200 mg PO TIDPRN PRN (Reason: cough)
Referrals:
Kirit Mccartney MD [Family Provider, Family Practice]
Interventions
Interventions:
*Risk Screen - Suicide Last Done: 05/06/25 16:49
*General Assessment Last Done: 05/06/25 16:49
*Neglect/Abuse Screening Last Done: 05/06/25 16:49
*ED- Fall Risk Assessment Last Done: 05/06/25 16:49
*ED COVID-19 Vaccine History Last Done: 05/06/25 16:49
*ED Influenza Vaccine History Last Done: 05/06/25 16:49
ED- Cardiac Assessment Last Done: 05/06/25 16:15
ED- Pulmonary Assessment Last Done: 05/06/25 16:15
Discharge Date and Time
Print Language: ROMANSH
[2025-05-06 16:38] LABS: Urine Character Clear (Clear)
[2025-05-06 16:41] LABS: Troponin I 0.139 ng/ml
[2025-05-06 16:45] LABS: Urine Red Blood Cell 0-2 /HPF (0-2); Urine White Cell 0-2 /HPF (0-5)
[2025-05-06 16:48] LABS: COVID-19 Antigen Negative (Negative)
[2025-05-06 16:51] LABS: ALT (SGPT) 25 U/L (0-50); AST (SGOT) 23 U/L (17-59); Albumin 3.2 g/dl (3.5-5.0); Alkaline Phosphatase 155 U/L (38-126); Calcium 9.5 mg/dl (8.4-10.2); Carbon Dioxide 25 mmol/L (22-30); Chloride 100 mmol/L (98-107); Estimated Creatinine Clearance 22 ml/min; Glucose 322 mg/dl (70-99); Potassium 4.5 mmol/L (3.5-5.1); Sodium 134 mmol/L (135-145); Total Protein 6.1 g/dl (6.3-8.2); eGFR 18.27
[2025-05-06 17:02] LABS: Blood Urea Nitrogen 139 mg/dl (9-20)
[2025-05-06] MEDS: NSS 500 IV (17:51)
[2025-05-06] MEDS: MAXIPIME 2000 MG IV (17:52)
[2025-05-06] MEDS: VANCOCIN 540 MG IV (17:52)
[2025-05-06] MEDS: STERILE WATER FOR INJECTION 20 ML INTRAVES (17:54)
--- NOTE | 2025-05-06 18:12 | HPS.HSE ---
Family Physician
-
Family Physician: Kirit Mccartney MD
Chief Complaint
-
lethargy
History of Present Illness
84-year-old male past medical history of permanent atrial fibrillation on Xarelto, HFpEF, CKD 4, chronic macrocytic anemia, left lower extremity wound, gout, type 2 diabetes, hypothyroidism, hyperlipidemia, pressure ulcers, BPH, presenting from [place]
run for low heart rate and cough and shortness of breath. He has had decreased responsiveness and lethargy for the past few days. His cough is not fully improved from recent admission.
No vomiting or diarrhea or urinary symptoms.
Patient was recently admitted from 04/12 to 04/18 and was found to have pleural effusions and cardiomegaly treated for CHF exacerbation as well as contaminant possible pneumonia and chronic lower extremity wounds. He was treated with antibiotics.
He also had heart rate of 40s at the time which was asymptomatic.
Medical History
Past Medical History
Past Medical History: Reports Other ( permanent atrial fibrillation on Xarelto, HFpEF, CKD 4, chronic macrocytic anemia, left lower extremity wound, gout, type 2 diabetes, hypothyroidism, hyperlipidemia, pressure ulcers, BPH)
Past Surgical History: Reports Other ( Orthopedic (Andres rotator cuff, Back surgery, Carpal tunnel, Andres total knee, Left THR) and Other (Varicose vein surgery , cataract surgery Left eye, basal cell skin cancer removal))
Social History
Tobacco: Non-smoker
Alcohol: None
Drug: None
Family History
Family History: Not pertinent
Allergies / Home Medications
Allergies reflects when Allergies were last updated in [employer].
Home Medications with original date entered in [employer]
Allergy/Medication List:
Allergies
Allergy/AdvReac Type Severity Reaction Status Date / Time
No Known Allergies Allergy Verified 04/12/25 16:24
Home Medications
allopurinol 300 mg tablet 300 mg PO DAILY Gout 02/08/08
atorvastatin 20 mg tablet (Lipitor) 20 mg PO HS HLD 02/08/08
pantoprazole 40 mg tablet,delayed release 40 mg PO DAILY Gastrointestinal issue 11/29/20
alfuzosin 10 mg tablet,extended release 24 hr 10 mg PO DAILY Urinary Issue 12/30/22
levothyroxine 50 mcg tablet 50 mcg PO DAILY Thyroid 12/30/22
calcitriol 0.25 mcg capsule 0.25 mcg PO DAILY Kidney Disease 10/08/23
potassium chloride 10 mEq tablet,extended release 10 meq PO DAILY Electrolyte Repletion 10/31/24
tramadol 50 mg tablet 100 mg PO Q8HPRN PRN severe pain 03/28/25
empagliflozin 10 mg tablet (Jardiance) 10 mg PO DAILY heart failure 30 days #30 tabs 04/16/25
acetaminophen 325 mg tablet 650 mg PO Q4H PRN mild pain/fever 05/06/25
acetaminophen 500 mg tablet 1,000 mg PO TID 05/06/25
benzonatate 100 mg capsule 200 mg PO TIDPRN PRN cough 05/06/25
insulin aspart U-100 100 unit/mL subcutaneous solution (Novolog U-100 Insulin aspart) 1 sliding scale dose SC QID 05/06/25
lidocaine 4 %-menthol 1 % topical patch (Icy Hot Patch (lidocaine-menthol)) 1 patch topical DAILY 05/06/25
lorazepam 0.5 mg tablet 0.5 mg PO HSPRN PRN insomnia 05/06/25
melatonin 5 mg tablet 5 mg PO HS 05/06/25
metolazone 2.5 mg tablet 2.5 mg PO DAILY 05/06/25
prednisone 20 mg tablet 40 mg PO QPM Pain 05/06/25
rivaroxaban 15 mg tablet 15 mg PO DAILY 05/06/25
tirzepatide 10 mg/0.5 mL subcutaneous pen injector 10 mg SC QWEEK 05/06/25
torsemide 20 mg tablet 40 mg PO DAILY 05/06/25
Review of Systems
-
History Source: Patient
A 12 point ROS was completed and negative except as noted: Yes
Constitutional: Reports No Symptoms
EENT: Reports No Symptoms
Respiratory: Reports No Symptoms
Cardiac: Reports No Symptoms
Abdomen/GI: Reports No Symptoms
: Reports No Symptoms
Musculoskeletal: Reports No Symptoms
Skin: Reports No Symptoms
Neurological: Reports No Symptoms
Endocrine: Reports No Symptoms
Hematologic/Lymphatic: Reports No Symptoms
Psych: Reports No Symptoms
Physical Exam
Vital Signs
Vital Signs
Temp Pulse Resp BP Pulse Ox
96.8 F L 53 17 116/69 99
05/06/25 18:11 05/06/25 18:00 05/06/25 18:00 05/06/25 18:00 05/06/25 18:00
Physical Exam
General: Well Developed, Well Nourished and No Apparent Distress
HEENT: NormoCephalic, Moist mucous membranes and Atraumatic
Respiratory: Clear
Cardiac: S1/S2 and Regular Rhythm; No Murmur or Rub
GI: Soft, Non Tender, Non Distended and Normal Bowel Sounds; No Organomegaly
Rectal: Deferred by Provider
Musculoskeletal: No Clubbing, No Cyanosis and No Edema
Skin: No Rash
Neuro: Nonfocal/grossly intact
Laboratory Results
-
05/06/25 16:06
05/06/25 16:06
Laboratory Results
PT 21.4 Sec (11.4-14.6) H 05/06/25 16:06
INR 1.84 05/06/25 16:06
Lactic Acid 2.3 mmol/L (0.7-2.0) H 05/06/25 16:13
Total Bilirubin 0.6 mg/dl (0.2-1.3) 05/06/25 16:06
AST 23 U/L (17-59) 05/06/25 16:06
ALT 25 U/L (0-50) 05/06/25 16:06
Alkaline Phosphatase 155 U/L (38-126) H 05/06/25 16:06
Troponin I 0.139 ng/ml H* 05/06/25 16:06
Data Reviewed
-
Lab Data: Labs Reviewed by me
Old Records: Reviewed
Impression/Plan
-
IMPRESSION:
PLAN:
# Suspected sepsis (metabolic encephalopathy, hypothermia) possible source pneumonia
-Lactic acid 2.3
- Urinalysis unremarkable
-Wounds do not appear infected and have improved as per
- Chest x-ray shows low lung volumes with crowding of the central/vascular markings
- Blood cultures pending
-500 cc IV fluids given +500 cc from vancomycin
-Continue gentle IV fluids
- Vancomycin/Zosyn
# Hypoxemia secondary to suspected pneumonia versus less likely CHF
-O2 saturation 89%
- Cardiac BNP of 16,000 from 6200 but not overtly volume overloaded and this could be elevated from infection/CKD
-Patient currently on BiPAP due to hypoxemia and respiratory distress
- Check VBG
- Gentle IV fluids, hold off on diuresis at this time
# Acute on chronic bradycardia secondary to mild hypothermia
-Previously heart rate was 40s
-Body temperature 96.6
- Check TSH
# Hyperglycemia secondary to infection
# Type 2 diabetes
- Blood sugar 322
- Hold Jardiance
- Insulin sliding scale
# Nonischemic myocardial injury
- Troponin of 0.139
- Appears to be chronically elevated in the setting of CKD 4
- No chest pain
- EKG shows wide QRS rhythm with occasional PVCs, right bundle branch block which is old
Permanent atrial fibrillation
- Continue Xarelto
Chronic HFpEF
- Cardiac BNP 16,000
- Hold metolazone
- Hold torsemide
CKD 4
- Renal function at base
- Continue calcitriol
Chronic macrocytic anemia
- Hemoglobin stable at 8.9
Chronic lower extremity wounds
- Appear improved
Gout
- Continue allopurinol
- Patient on prednisone, unclear why started on 05/01 for 5 days
Chronic pain
- Continue tramadol
Hypothyroidism
- Continue levothyroxine
Hyperlipidemia
- Continue statin
BPH
- Continue alfuzosin
Anxiety
- Continue Ativan
Full code
DVT prophylaxis�SCDs
Regular diet
[2025-05-06 21:00] LABS: Venous Blood Gas B.E. 1.2 mmol/L (-4 to +4); Venous Blood Gas O2 Sat % 99.9 %
[2025-05-06] MEDS: OFIRMEV 100 IV (21:24)
[2025-05-06 21:40] LABS: Troponin I 0.134 ng/ml
--- NOTE | 2025-05-06 21:46 | PHA.VAN.IN ---
Assessment
- Assessment
Renal Function: Appears similar to baseline (CKD)
Minimum Temperature: 96.6F
Concomitant Antimicrobials: Piperacillin/tazobactam
Plan
- Plan
Initial / Loading Dose: Vancomycin 2000mg administered 05/06 at 1800
Maintenance Regimen: Will dose by level due to renal function.
Monitoring: Random vancomycin level 05/07 with AM labs.
MRSA Screen: Ordered per protocol
Pharmacokinetics Vancomycin I
- -
Patient Age: 84
Patient Sex: Male
Vancomycin Day #: 1
Indication: Pulmonary/Respiratory
Requesting Provider: Dr. Knutson
Pertinent Antimicrobial Allergies:
No Known Allergies Allergy (Verified 05/06/25 19:42)
Height / Weight:
Height 5 ft 10 in
Actual Weight 111.612 kg
Pertinent Past Medical History: BMI ~35, CKD Stage 4
- Vital Signs / Lab Results
Temp Pulse Resp BP Pulse Ox
97.1 F 38 14 123/69 100
05/06/25 19:23 05/06/25 20:45 05/06/25 20:45 05/06/25 20:00 05/06/25 20:45
Lab Results - Hematology
05/06/25
16:06
WBC 13.0 H
Lab Results - Chemistry
05/06/25
16:06
BUN 139 H*
Creatinine 3.2 H
Estimated Creat Clear 22
Albumin 3.2 L
05/06/25 05/06/25
16:13 16:13
Lactic Acid 2.3 H Cancelled
Lab Results - Urine
05/06/25
16:13
Urine Nitrite (Reflex) Negative
Leukocyte Esterase Rfl Negative
Urine WBC (Reflex) 0-2
Ur Squamous Epith Cells 3-5
Urine Bacteria (Reflex) Few A
Microbiology Results
11/15/25 16:15 Influenza Types A & B (DIONISIO) - Final
Nasal Swab Negative for Influenza A & B, NAAT
Negative results must be combined with clinical observations
and patient history.
Nucleic Acid Amplification test (NAAT)performed on the
[employer] platform.
[2025-05-06] MEDS: LIPITOR PO (22:08)
[2025-05-06] MEDS: NSS 1000 IV (22:08)
[2025-05-06 22:23] LABS: Glucose - Point of Care 182 mg/dl (70-99)
[2025-05-06] MEDS: ZOSYN 50 IV (23:46)
[2025-05-07] VITALS (12 sets, daily range): BP systolic 111–128; BP diastolic 53–88; BMI 35.3
[2025-05-07] MEDS: ULTRAM 50 MG PO ×3 (01:35→15:24)
[2025-05-07 03:55] LABS: Hematocrit 26.4 % (39.0-52.0); Hemoglobin 8.4 g/dL (13.0-18.0); Mean Corp Hgb Conc. 31.8 g/dL (33.0-37.0); Mean Corpuscular Volume 91.3 fL (80.0-94.0); Nucleated Red Blood Cells % 0.4 % (-); Platelet Count 298 10^3/uL (130-400); Red Cell Dist. Width 16.3 % (11.5-14.5)
[2025-05-07 04:11] LABS: ALT (SGPT) 23 U/L (0-50); AST (SGOT) 24 U/L (17-59); Albumin 2.9 g/dl (3.5-5.0); Alkaline Phosphatase 113 U/L (38-126); Calcium 9.2 mg/dl (8.4-10.2); Carbon Dioxide 25 mmol/L (22-30); Chloride 104 mmol/L (98-107); Estimated Creatinine Clearance 22 ml/min; Glucose 151 mg/dl (70-99); Potassium 4.5 mmol/L (3.5-5.1); Sodium 136 mmol/L (135-145); Total Protein 5.6 g/dl (6.3-8.2); eGFR 18.97
[2025-05-07 04:21] LABS: Blood Urea Nitrogen 142 mg/dl (9-20); Troponin I 0.158 ng/ml
[2025-05-07] MEDS: ZOSYN 50 IV ×4 (05:22→23:36)
[2025-05-07] MEDS: SYNTHROID 50 MCG PO (05:22)
--- NOTE | 2025-05-07 07:00 | PTCARENOTE ---
Pt received to IMU from ED with pads on chest for HR in the 30's. Pt asymptomatic. at bedside. AAOx1. Confused/forgetful. Moaning out a lot overnight. Can be agitated at times. +2 LE edema with venous wound on RLE and s/p XRT wound to LLE. Two
stage 2 noted to right buttock area. Wound care completed as documented. On arrival to floor at beginning of shift pt denied pain but then started to complain of whole body pain. Pt wearing BIPAP 10/5/3L so IV Ofirmev ordered after TT with Lea SAMANIEGO
with good relief. During overnight hours pt pulling at BIPAP, wires and IV tubing constantly. At approx 0440 this am Lea SAMANIEGO TT'd and order entered for B/L mitts and all four side rails. Mitts applied as ordered. Pt growling at times. But other
times is lucid. Afebrile. SB/BBB on CM 30's-50's. Hypoactive BS round/obese abdomen. No BM overnight. External urinary device applied and voided 200mls lisandra urine. Remains bedrest with bed alarm on and working. Monitoring troponins and elevated
overnight and reported to Lea SAMANIEGO. Next troponin 0830ish. Maintained on Q2hr turns. Day shift RN updated.
--- NOTE | 2025-05-07 07:31 | PTCARENOTE ---
Pt AAAOx1 Bradycardic ay 38-40. Pt yelling out very confused , mitts in place as pt pulls on everything , protecting IVs . Pt has a L rotator cuff problem. Pt has a past HX of Bradycardia
[2025-05-07] MEDS: TESSALON PERLES 200 MG PO ×2 (08:04→15:24)
[2025-05-07] MEDS: FLOMAX 0.4 MG PO (08:04)
[2025-05-07] MEDS: ZYLOPRIM 300 MG PO (08:05)
[2025-05-07] MEDS: PROTONIX 40 MG PO (08:05)
[2025-05-07] MEDS: KCL 10 MEQ PO (08:05)
[2025-05-07] MEDS: TYLENOL 1000 MG PO ×3 (08:05→21:08)
[2025-05-07] MEDS: XARELTO 15 MG PO (08:05)
[2025-05-07] MEDS: ROCALTROL 0.25 MCG PO (08:06)
[2025-05-07] MEDS: LIDOCAINE 4% PATCH 1 PATCH TOPICAL (08:06)
[2025-05-07] MEDS: NOVOLOG FLEXPEN-LOW RESISTANCE SC (08:14)
[2025-05-07 08:26] LABS: Glucose - Point of Care 149 mg/dl (70-99)
--- NOTE | 2025-05-07 08:37 | PHA.VAN.FU ---
Vancomycin Assessment / Plan
- Assessment
Renal Function: Stable
WBC's are: Stable
Concomitant Antimicrobials: piperacillin/tazobactam
- Assessment - Therapeutic Drug Monitoring
Random Level: 23.7 - drawn ~12.5H after 2g loading dose
- Dosing Plan
Dosing by Level: Hold off on dosing today
- Monitoring Plan
Random Level: 05/08 0600
- Follow Up
Pharmacy will continue to follow.
Vancomycin Follow UP
- -
Patient Age: 84
Patient Sex: Male
Vancomycin Day #: 2
Indication: Pulmonary/Respiratory
Requesting Provider: Dr. Knutson
Pertinent Antimicrobial Allergies:
NKDA
Height / Weight:
Height 5 ft 10 in
Actual Weight 111.612 kg
Pertinent Past Medical History: BMI ~35, CKD Stage 4
- Vital Signs / Lab Results
Temp Pulse Resp BP Pulse Ox
97.2 F 38 20 118/60 98
05/07/25 07:04 05/07/25 08:00 05/07/25 08:00 05/07/25 08:00 05/07/25 08:01
Lab Results - Hematology
05/06/25 05/07/25
16:06 03:19
WBC 13.0 H 13.1 H
Lab Results - Chemistry
05/06/25 05/07/25
16:06 03:19
BUN 139 H* 142 H*
Creatinine 3.2 H 3.1 H
Estimated Creat Clear 22 22
Albumin 3.2 L 2.9 L
05/06/25 05/06/25 05/07/25
16:13 16:13 00:10
Lactic Acid 2.3 H Cancelled Cancelled
Lab Results - Urine
05/06/25
16:13
Urine Nitrite (Reflex) Negative
Leukocyte Esterase Rfl Negative
Ur Squamous Epith Cells 3-5
Microbiology Results
05/06/25 16:15 Influenza Types A & B (DIONISIO) - Final
Nasal Swab Negative for Influenza A & B, NAAT
Negative results must be combined with clinical observations
and patient history.
Nucleic Acid Amplification test (NAAT)performed on the
[employer] platform.
Therapeutic Drug Monitoring
Random Vancomycin 23.7 ug/ml 05/07/25 06:20
--- NOTE | 2025-05-07 09:30 | PTCARENOTE ---
Pt bladder scan for 200 after bladder scan pt stated he could pee when ever he wanted I told him to Pee and he did.Pt OOB to chair assist of 2, bed alarm on , mitts off for a trial, breakfast ordered .Pt more cooperative and more lucid. Coughing up
some clear mucous.
[2025-05-07 10:00] LABS: Troponin I 0.139 ng/ml
--- NOTE | 2025-05-07 10:14 | W.PN.HOSP.TC ---
Today's Communication/Plan
-
see plan
Assessment / Plan
Assessment / Plan
Gen: NAD, Awake and alert
Eyes: EOMI, PERRLA, no scleral icterus.
Neck: supple.
CV: matt, irreg/irreg, +S1/S2, no m/r/g.
Resp: B/L rhonchi.
Abd: +BS, soft, NT, ND
Skin: C/D/I gauze dressings on both LEs
Neuro: CN 2-12 intact, non-focal.
Psych: Normal mood and affect.
05/06/25 16:15 Nasal Swab Influenza Types A & B (DIONISIO) - Final
Negative for Influenza A & B, NAAT
Negative results must be combined with clinical observations
and patient history.
Nucleic Acid Amplification test (NAAT)performed on the
[employer] platform.
CXR: Low lung volumes with crowding of the central/vascular markings. No suspected acute pulmonary process.
Suspected sepsis (acute metabolic encephalopathy, hypothermia):
-CXR without PNA, COVID/Flu NEG, U/A unremarkable
-Wounds do not appear infected and have improved as per
-Lactic acid 2.3, recheck lactic acid, cont IVFs
-cont IVFs
-cont empiric Vancomycin/Zosyn for now
Acute hypoxemic respiratory failure:
-was on BIPAP due to respiratory distress, now weaned to RA (currently 97% on RA)
-CXR without PNA
-proBNP 16,000 but likely falsely elevated due to CKD4
-no evidence of PNA or CHF, ? bronchitis as etiology
Acute on chronic bradycardia:
-likely secondary to mild hypothermia
-underlying permanent Afib, cont Xarelto
-Previously heart rate was 40s
-Body temperature 96.6
-TSH normal
-HR as low as 17
-check ECG
-c/s cards
-suspect pt will need PPM
Chronic HFpEF:
-with lactic acidosis, possible sepsis, and elevated BUN pt is appropriately being continued on IVFs
-holding home metolazone/torsemide
Other problems:
DM2: SSI/accuchecks, check a1c
CKD4
Elevated trop, chronic, likely nonischemic myocardial injury in the setting of CKD4
Chronic macrocytic anemia
Chronic lower extremity wounds: c/s wound care
Gout: cont allopurinol
Chronic pain with chronic opioid use with dependence: cont tramadol
Hypothyroidism: cont levothyroxine
HLD: cont statin
BPH: cont alfuzosin
Anxiety: cont Ativan
Obesity due to excess calories
FULL/Xarelto
Anticipated Discharge: > 48 hours
Subjective/Interval History
-
Date of Service: May 07, 2025
Denies CP/SOB.
Objective Data
-
Labs:
Laboratory Results
05/07/25
03:19
WBC 13.1 H
Hgb 8.4 L
Hct 26.4 L
Plt Count 298 D
Sodium 136
Potassium 4.5
Chloride 104
Carbon Dioxide 25
BUN 142 H*
Creatinine 3.1 H
Glucose 151 H
Calcium 9.2
Total Bilirubin 0.8
AST 24
ALT 23
Alkaline Phosphatase 113
Vital Signs:
Vital Signs
Temp Pulse Resp BP Pulse Ox
97.2 F 38 20 118/60 98
05/07/25 07:04 05/07/25 08:00 05/07/25 08:00 05/07/25 08:00 05/07/25 08:01
I&O
05/06/25 05/07/25 05/08/25
06:59 06:59 06:59
Intake Total 100 / 100
Output Total 1050 / 1050
Balance -950 / -950
--- NOTE | 2025-05-07 10:22 | PTCARENOTE ---
DXR Malaika TT re pt HR 17 and sent cardiac strip
--- NOTE | 2025-05-07 10:26 | PTCARENOTE ---
Ekg ordered and cards consult
[2025-05-07] MEDS: NSS 1000 IV ×2 (10:49→21:08)
--- NOTE | 2025-05-07 11:27 | CON.CAR ---
Consultation
Consultation Request
Date/Time Consultation Requested: 05/07/2025 at 10:24 AM
Date/Time Consultation Performed: 05/07/2025 at 11:15 AM
Requesting Provider: Matthew Dai MD
Performing Provider: Jayce Bennett MD
Reason for Consultation: bradycardia
Medical History
-
Chief Complaint: cough
History of Present Illness:
84 y/o male (patient of Dr. Gallegos) with permanent AFIB on Xarelto, bradycardia, HFpEF, CKD IV, hypertension, moderate to severe MR and TR, obesity, and ARIN (unable to tolerate CPAP) who is here for decreased responsiveness and lethargy for the
past few days, being treated for sepsis NOS. Cardiology is consulted for bradycardia. Patient denies complaints. States that he feels 'great' now that he is back in bed. He is a limited historian.
Past Medical History
Past Medical History: Arrhythmias, CHF, HTN and Other (as above)
Social History
Tobacco: Former Smoker
Family History
Family History: Reviewed & Not Pertinent
Allergies / Home Medications
Allergy/AdvReac Type Severity Reaction Status Date / Time
No Known Allergies Allergy Verified 05/06/25 19:42
�Medication �Instructions �Recorded �Confirmed �Type
allopurinol 300 mg tablet 300 mg PO DAILY Gout 02/08/08 05/06/25 History
atorvastatin 20 mg tablet (Lipitor) 20 mg PO HS HLD 02/08/08 05/06/25 History
pantoprazole 40 mg tablet,delayed 40 mg PO DAILY Gastrointestinal 11/29/20 05/06/25 History
release issue
alfuzosin 10 mg tablet,extended 10 mg PO DAILY Urinary Issue 12/30/22 05/06/25 History
release 24 hr
levothyroxine 50 mcg tablet 50 mcg PO DAILY Thyroid 12/30/22 05/06/25 History
calcitriol 0.25 mcg capsule 0.25 mcg PO DAILY Kidney Disease 10/08/23 05/06/25 History
potassium chloride 10 mEq 10 meq PO DAILY Electrolyte 10/31/24 05/06/25 History
tablet,extended release Repletion
tramadol 50 mg tablet 100 mg PO Q8HPRN PRN severe pain 03/28/25 05/06/25 History
empagliflozin 10 mg tablet 10 mg PO DAILY heart failure 30 04/16/25 05/06/25 Rx
(Jardiance) days #30 tabs
acetaminophen 325 mg tablet 650 mg PO Q4H PRN mild pain/fever 05/06/25 05/06/25 History
acetaminophen 500 mg tablet 1,000 mg PO TID Pain 05/06/25 05/06/25 History
benzonatate 100 mg capsule 200 mg PO TIDPRN PRN cough 05/06/25 05/06/25 History
insulin aspart U-100 100 unit/mL 1 sliding scale dose SC QID 05/06/25 05/06/25 History
subcutaneous solution (Novolog Diabetes
U-100 Insulin aspart)
lidocaine 4 %-menthol 1 % topical 1 patch topical DAILY Pain 05/06/25 05/06/25 History
patch (Icy Hot Patch
(lidocaine-menthol))
lorazepam 0.5 mg tablet 0.5 mg PO HSPRN PRN insomnia 05/06/25 05/06/25 History
melatonin 5 mg tablet 5 mg PO HS Sleep 05/06/25 05/06/25 History
metolazone 2.5 mg tablet 2.5 mg PO DAILY Fluid 05/06/25 05/06/25 History
Retention/Swelling
prednisone 20 mg tablet 40 mg PO QPM Pain 05/06/25 05/06/25 History
rivaroxaban 15 mg tablet 15 mg PO DAILY Blood Clot 05/06/25 05/06/25 History
Prevention/Tx
tirzepatide 10 mg/0.5 mL 10 mg SC QWEEK Diabetes 05/06/25 05/06/25 History
subcutaneous pen injector
torsemide 20 mg tablet 40 mg PO DAILY Fluid 05/06/25 05/06/25 History
Retention/Swelling
Review of Systems
-
All other systems: Negative unless noted
Physical Exam
Vital Signs
Temp Pulse Resp BP Pulse Ox
97.2 F 41 12 111/74 97
05/07/25 07:04 05/07/25 10:30 05/07/25 10:30 05/07/25 10:00 05/07/25 09:00
Lab Results
05/07/25 03:19
05/07/25 03:19
Troponin I 0.139 ng/ml H* 05/07/25 09:22
Kmh-[id number] Pept 30472 pg/ml 05/06/25 16:06
Physical Exam
General: Well Developed and Well Nourished
Respiratory: Clear and Non Labored Respirations
Cardiac: S1/S2, Regular Rhythm (Slow rate), Irregular Rhythm, Murmur and Peripheral Edema
Impression / Plan
-
84 y/o male (patient of Dr. Gallegos) with permanent AFIB on Xarelto, bradycardia, HFpEF, CKD IV, hypertension, moderate to severe MR and TR, obesity, and ARIN (unable to tolerate CPAP) who is here for decreased responsiveness and lethargy for the
past few days, being treated for sepsis NOS. Cardiology is consulted for bradycardia.
Bradycardia, chronic
- Asymptomatic. Holter monitor earlier this year showed average heart rate 37 bpm
- Reviewed telemetry. Heart rate as low as 30s. No long pauses.
- He is off of all AV lelo blocking agents
- Follow telemetry
Concern for sepsis
- Hypothermia on admission with toxic metabolic encephalopathy. Lactic acid 2.3.
- Continue empiric antibiotics per primary team
Permanent A-fib
- Slow rate. Asymptomatic.
- Not on meds due to bradycardia
- Continue Xarelto 15 mg daily (renal dosing)
HFpEF (EF 55-60%)
- Weight up from discharge in March (239 pounds) but lactate and BUN/creatinine elevation on admission so was given IV fluids
- Hold diuresis for now with concern for sepsis
- Discharge regimen from 04/18/2025: Torsemide 20 mg daily, metolazone 2.5 mg daily, Jardiance 10 mg daily
Data Reviewed
-
EKG: Tracing Personally Visualized and interpreted (slow AF)
Radiology: Image Personally Visualized and interpreted
Medical Tests (Nuc Med, Echo etc): Report Reviewed by me
Labs: Labs Reviewed by me, Discussed with Physician and Discussed with Patient
--- NOTE | 2025-05-07 11:33 | PTCARENOTE ---
Pt back in bed
--- NOTE | 2025-05-07 11:47 | PTCARENOTE ---
PT and daughter here visiting
[2025-05-07 12:40] LABS: Glucose - Point of Care 223 mg/dl (70-99)
[2025-05-07] MEDS: NOVOLOG FLEXPEN-LOW RESISTANCE 2 UNITS SC (13:05)
[2025-05-07 17:13] LABS: Glucose - Point of Care 176 mg/dl (70-99)
[2025-05-07] MEDS: NOVOLOG FLEXPEN-LOW RESISTANCE 1 UNITS SC (17:18)
[2025-05-07] MEDS: REMOVE LIDOCAINE PATCH 1 PATCH REMOVE (20:09)
[2025-05-07] MEDS: LIPITOR 20 MG PO (21:08)
[2025-05-07 21:45] LABS: Glucose - Point of Care 203 mg/dl (70-99)
--- NOTE | 2025-05-07 23:42 | PTCARENOTE ---
assumed care of patient. pt is AAOx3, CHEESH-NA, can be forgetful at times. bed alarm on in case but pt uses call lucas appropriately. moist, productive cough noted. male external catheter changed and working. bilateral lower extremity dressing changed,
drainage soaking through to bed. full bed bath and bed change done. wounds cleaned with saline, adaptic, ABD's, and wrapped. q2t. IV fluids infusing. able to take pills with applesauce without issues. care ongoing.
[2025-05-08] VITALS (13 sets, daily range): BP systolic 90–136; BP diastolic 49–113; BMI 35.9
[2025-05-08] MEDS: ULTRAM 50 MG PO ×2 (00:11→07:37)
[2025-05-08] MEDS: DUONEB 3 ML INH ×2 (00:35→20:39)
--- NOTE | 2025-05-08 01:13 | PTCARENOTE ---
pt moaning out a lot, PRN pain meds given. pt wheezing, lungs course, 97% RA, but admits to feeling SOB. 2L NC applied for comfort. notified covering ALLERGIST/IMMUNOLOGIST, PRN nebs ordered and given per AUG.
[2025-05-08] MEDS: MORPHINE SULFATE 1 MG IV ×2 (01:23→07:35)
--- NOTE | 2025-05-08 01:34 | PTCARENOTE ---
pt still tachypneic after neb treatment. oxygen stable 95% 2L NC. PRN morphine given per MAR for SOB/wheezes.
[2025-05-08] MEDS: TESSALON PERLES 200 MG PO ×3 (04:25→21:10)
[2025-05-08] MEDS: SYNTHROID 50 MCG PO (04:25)
[2025-05-08 05:00] LABS: Hematocrit 28.5 % (39.0-52.0); Hemoglobin 8.8 g/dL (13.0-18.0); Mean Corp Hgb Conc. 30.9 g/dL (33.0-37.0); Mean Corpuscular Volume 97.6 fL (80.0-94.0); Nucleated Red Blood Cells % 0.5 % (-); Platelet Count 241 10^3/uL (130-400); Red Cell Dist. Width 16.8 % (11.5-14.5)
[2025-05-08 05:10] LABS: Calcium 8.9 mg/dl (8.4-10.2); Carbon Dioxide 26 mmol/L (22-30); Chloride 106 mmol/L (98-107); Estimated Creatinine Clearance 22 ml/min; Glucose 128 mg/dl (70-99); Potassium 4.3 mmol/L (3.5-5.1); Sodium 140 mmol/L (135-145); eGFR 18.97
[2025-05-08 05:44] LABS: Blood Urea Nitrogen 131 mg/dl (9-20)
[2025-05-08] MEDS: ZOSYN 50 IV ×4 (05:44→23:00)
[2025-05-08] MEDS: LIDOCAINE 4% PATCH 1 PATCH TOPICAL (07:36)
[2025-05-08] MEDS: PROTONIX 40 MG PO (07:37)
[2025-05-08] MEDS: XARELTO 15 MG PO (07:37)
[2025-05-08] MEDS: FLOMAX 0.4 MG PO (07:37)
[2025-05-08] MEDS: TYLENOL 1000 MG PO ×3 (07:38→21:10)
[2025-05-08] MEDS: KCL 10 MEQ PO (07:38)
[2025-05-08] MEDS: ROCALTROL 0.25 MCG PO (07:39)
[2025-05-08 07:42] LABS: Glucose - Point of Care 118 mg/dl (70-99)
[2025-05-08] MEDS: ZYLOPRIM 300 MG PO (07:54)
[2025-05-08] MEDS: NOVOLOG FLEXPEN-LOW RESISTANCE SC ×2 (07:54→16:34)
--- NOTE | 2025-05-08 07:56 | PTCARENOTE ---
Pt co of SOB o2 at @2l 96%. Given Morphine 1 mg . Pt states he feels better after Morphine. DR Mccartney and resident aware. Hod fluids for now.
--- NOTE | 2025-05-08 08:06 | PTCARENOTE ---
Pt co that pacer pads were botheering him, taken off as it was not a DR order and he is known to Cards for a low HR
--- NOTE | 2025-05-08 08:06 | W.PN.HOSP.TC ---
Addendum entered and electronically signed by Kirit Mccartney MD 05/08/25 20:49:
Attending Addendum-
I saw and evaluated the patient. I reviewed the resident�s note and agree with findings and plan as documented in the resident�s note. Sub: Patient tearful when speaking about son on hospice. States pain in left shoulder is well controlled.
Urinating as usual. Complains of wet cough. Denies CP palps fevers chills. Full 12 point ROS reviewed and negative except as documented Exam: Vitals reviewed in chart GEN-NAD heart bradycardic lungs crackles at bases with wet cough abd obese soft NT
ND pos BS LE 2+ pitting edema Left shoulder significant effusion palpated, pulses strong
Plan:
# Possible sepsis (metabolic encephalopathy, ERENDIRA, elevated trop) unclear source
- recent course of steroids for left shoulder
- Lactic acid and WBC trending down
- Blood and urine cultures NGTD
- 500 cc IV fluids given in ED
- DC IVF, restart diuretics
- DC Vancomycin cont zosyn for now
- tap left shoulder
#Left Shoulder Effusion
- c/s ortho for tap
- r/o septic joint
# Acute Hypoxemic Respiratory Failure
- likely from CHF
- weaned off bipap to NC
# Dysphagia
- c/s pseech for eval
# Acute on chronic bradycardia
-EP consult for eval
-cards input appreciated- may require PPM
# Type 2 diabetes
- better controlled
- reviewed accuchecks
- Hold Jardiance/mounjaro
- Insulin sliding scale
# Nonischemic myocardial injury
- Troponin trending down
- Appears to be chronically elevated in the setting of CKD 4
# Permanent atrial fibrillation
- Continue Xarelto
# Acute Exacerbation HFpEF
- last cho 04/17/25- EF 55-60%
- Hold metolazone
- restart torsemide
- daily weights, strict I and O's
# ERENDIRA on CKD 4
- baseline cr @ 2.6
- c/s nephro for eval
- poor prognosis patient refusing HD and is a poor candidate regardless
# Chronic macrocytic anemia
- Hemoglobin stable at 8.9
# Chronic lower extremity wounds
- Appear improved
- wound care c/s for eval
# Gout
- Continue allopurinol
# Chronic pain
- Continue tramadol
# Hypothyroidism
- Continue levothyroxine
# Hyperlipidemia
- Continue atorvastatin
# BPH
- Continue alfuzosin
# Anxiety
- DC Ativan
Full code
DVT prophylaxis�SCDs
ACP
Patient consented to discuss, was alone, time spent explanation of advance directives, changes in health status, patient�s health care wishes if the patient becomes unable to make health decisions, goals of care, code status, and prognosis, would
like to be FULL court but refusing HD if needed- 16 minutes
Time spent coordinating care, review of plan of care with resident, personally reviewed previous records in EMR, med rec, labs, radiology, d/w nursing, total time documented is exclusive of any additional time listed that was spent in advance care
planning discussion -�51 minutes
Original Note:
Today's Communication/Plan
-
Consult ortho for possible aspiration of fluid from left shoulder joint
Consult nephro for hyperuremia
Speech eval
Discontinue IVF
Resume torsemide
Assessment / Plan
Assessment / Plan
84 y/o male with pmh of permanent afib on Xarelto, HFpEF, CKD stage IV, Chronic macrocytic anemia, Left LE wound (basal skin cancer removal?), pressure ulcers, gout, type 2DM, hypothyroidism, hyperlipidemia, BPH presented to ED on 05/06 from [facility] for cough, SOB and bradycardia. He has had decreased responsiveness and lethargy for the past few days.
He was recently admitted to from 04/12 to 10/28 and was found to have pleural effusions and cardiomegaly treated for CHF as well as for contaminant possible Pneumonia and chronic LE wounds. He was treated with ab's. He also had asymptomatic
bradycardia as low as 40's.
Suspected Sepsis (acute metabolic encephalopathy, hypothermia)
-CXR without Pneumonia, COVID/ Flu neg, U/A neg
-Leukocytosis improved - WBC 10.6
-Lactic acid 2.3
-Discontinued IVF due to SOB and Volume overload
-nasal MRSA Neg- Discontinue Vancomycin
-Continue Zosyn 05/07 #D2
Chest Xray
Low lung volumes with crowding of the central/vascular markings.
No suspected acute pulmonary process.
Left shoulder swellling
-Limited ROM due to pain and swelling
-? Possible source of infection
-Consult orthopedics, input appreciated
Acute Hypoxemic Respiratory Failure
-was on BIPAP due to respiratory distress, now on 2L O2 sat 98%
-Chest Xray no evidence of Pneumonia
-No evidence of CHF- proBNP 16,000 high likely elevated due to CKD stage IV
-Start Mucinex
Acute on Chronic Bradycardia likely secondary to mild hypothermia
-Body Temp 97.4
-HR as low as 30's. At previous admission on 04/12 HR was 40's
-TSH normal
-ECG - slow afib, HR 37, RBBB, Premature Ventricular complexes
-Cardiology consulted, input appreciated
---Follow telemetry
---No AV blocking medications
---Possible PPM? EF study?
Acute on chronic kidney disease stage IV
-Azotemia with BUN 131 likely 2/2 advanced cardiorenal syndrome vs recent steroid intake vs dehydration
-Pt is volume overloaded unlikely dehydrated
-Consult Nephrology, input appreciated
-Patient declines dialysis
-Check Bladder scan for his baseline incontinance
-Follow BMP
Chronic HFpEF
-Echo 04/17/25 - EF 55-60%, Severe LVH, moderate to severe mitral valve regurgitation, severe tricuspid regurgitation, severely dilated RA, estimated Pulmonary arterial Pressure 65 mmHg, Ascending aorta and IVC dilated
-Pt has elevated lactic acid level, possible sepsis, hypothermia, elevated BUN
-Discontinue IVF due to SOB, volume overload
-Resume torsemide 20mg, Hold metolazone
Permanent Atrial fibrillation
-Continue Xarelto 15mg (renal dosing)
-Slow rate - not on meds due to bradycardia
-Asymptomatic
Type 2 Diabetes Mellitus
-Blood glucose 128
-Hold Jaridance and Tirzepatide
-Insulin Sliding Scale
-HbA1C 7.1
-Montior Glucose
Nonischemic Myocardial Injury
-Troponin 0.139, Chronically elevated likely secondary to CKD stage IV
-Denies Chest pain
Chronic Macrocytic Anemia
-Hb 8.8, MCV 97.6
Chronic Extremity wounds
-LLE wound s/p surgery and XRT 3 months ago for squamous cell carcinoma
-Wound care consulted, input appreciated
Gout
-Continue Allopurinol
Chronic Pain
- Continue Tramadol and Morphine PRN
Hypothyroidism
-Continue Levothyroxine
Hyperlipidemia
-Continue Statin
BPH
-Continue Tamsulosin
Anxiety
-Continue Ativan
Obstructive Sleep Apnea
-unable to tolerate CPAP
Obesity
-due to excess calories
Full code
DVT prophylaxis: Xarelto
Cholesterol lowering diet
Anticipated Discharge: > 48 hours
Subjective/Interval History
-
Date of Service: May 08, 2025
He complains about fatigue, SOB and pain on his left shoulder. He can slightly lift his left arm. Denies Chest pain, palpitations.
Objective Data
-
Labs:
Laboratory Results
05/08/25
04:32
WBC 10.6
Hgb 8.8 L
Hct 28.5 L
Plt Count 241
Sodium 140
Potassium 4.3
Chloride 106
Carbon Dioxide 26
BUN 131 H*
Creatinine 3.1 H
Glucose 128 H
Calcium 8.9
Vital Signs:
Vital Signs
Temp Pulse Resp BP Pulse Ox
97.3 F 34 13 126/61 90
05/08/25 07:20 05/08/25 06:00 05/08/25 06:00 05/08/25 06:00 05/08/25 06:00
I&O
05/07/25 05/08/25 05/09/25
06:59 06:59 06:59
Intake Total 100 / 100 1160 / 1160
Output Total 1050 / 1050 450 / 450
Balance -950 / -950 710 / 710
Review of Systems
-
History Source: Patient
Constitutional: Reports Weight Gain and Weakness (left arm)
EENT: Reports No Symptoms Reported
Respiratory: Reports Cough and Trouble Breathing
Cardiac: Reports No Symptoms
Abdomen/GI: Reports No Symptoms
Breast: Reports No Symptoms
Genitourinary: Reports No Symptoms
Musculoskeletal: Reports Joint Pain (left shoulder) and Joint Swelling
Skin: Reports Other (wounds covered in dressings)
Neuro: Reports No Symptoms
Endocrine: Reports No Symptoms
Hematologic / Lymphatic: Reports No Symptoms
Allergy / Immunology: Reports No Symptoms
Psych: Reports Sad
Physical Exam
-
General: Well Developed, No Apparent Distress and Obese
HEENT: Normocephalic and Atraumatic
Respiratory: Crackles
Cardiac: Regular Rhythm, S1/S2 and Bradycardic
Breast: Deferred by me
GI: Soft, Nontender, Nondistended and Normal Bowel Sounds
Rectal: Deferred by Provider
Musculoskeletal: No Clubbing, No Cyanosis, Edema, Left Upper Extrem, Edema, Right Lower Extrem and Edema, Left Lower Extrem
Skin: Warm and Dry
Neuro: Awake
Hematologic / Lymphatic: No Lymphadenopathy
Psych: Agitated
--- NOTE | 2025-05-08 10:13 | WOUNDNOTE ---
RIGHT BUTTOCK STAGE 2 PI AND DTI 1939, [id number]
--- NOTE | 2025-05-08 10:14 | WOUNDNOTE ---
RIGHT BUTTOCK DTI and STAGE 2 PI
--- NOTE | 2025-05-08 10:15 | WOUNDNOTE ---
LEFT LE MEDIAL VIEW
--- NOTE | 2025-05-08 10:15 | W.PN.CD ---
Today's Communication / Plan
-
Follow telemetry
Resume torsemide
Impression / Plan
-
84 y/o male (patient of Dr. Gallegos) with permanent AFIB on Xarelto, bradycardia, HFpEF, CKD IV, hypertension, moderate to severe MR and TR, obesity, and ARIN (unable to tolerate CPAP) who is here for decreased responsiveness and lethargy for the
past few days, being treated for sepsis NOS. Cardiology is consulted for bradycardia.
Bradycardia, chronic
- Asymptomatic. Holter monitor earlier this year showed average heart rate 37 bpm
- Reviewed telemetry. Heart rate as low as 30s. No long pauses.
- He is off of all AV lelo blocking agents
- Follow telemetry
- May need PPM this admission. Would like to have source of sepsis identified first.
Concern for sepsis
- Hypothermia on admission with toxic metabolic encephalopathy. Lactic acid 2.3 -> 1.5. WBC 12.4.
- Unclear source. CXR clear. No evidence of UTI on UA. Flu negative. Blood cultures no growth.
- Continue empiric antibiotics per primary team
Permanent A-fib
- Slow rate. Asymptomatic.
- Not on meds due to bradycardia
- Continue Xarelto 15 mg daily (renal dosing)
HFpEF (EF 55-60%)
- Weight up from discharge in March (239 pounds) but lactate and BUN/creatinine elevation on admission so was given IV fluids
- Hemodynamically stable with weight gain and SOB -> would resume diuretics (Torsemide 20mg daily, hold Metolazone for now)
- Discharge regimen from 04/18/2025: Torsemide 20 mg daily, metolazone 2.5 mg daily, Jardiance 10 mg daily
Subjective: Says he has pain all over today and feels short of breath.
Physical Exam
Vital Signs/Labs
Vital Signs
Temp Pulse Resp BP Pulse Ox
97.3 F 35 21 111/60 99
05/08/25 07:20 05/08/25 10:00 05/08/25 10:00 05/08/25 10:00 05/08/25 10:00
05/07/25 05/08/25 05/09/25
06:59 06:59 06:59
Actual Weight 246 lb 1 oz 250 lb 3.594 oz
05/08/25 04:32
05/08/25 04:32
PT 21.4 Sec (11.4-14.6) H 05/06/25 16:06
INR 1.84 05/06/25 16:06
05/06/25
16:06
Xzu-[id number]-Tdtupxblhbm Pept [id number]
LAB Results
05/06/25 05/06/25 05/07/25
16:06 20:55 03:19
Troponin I 0.139 H* 0.134 H* 0.158 H*
05/07/25
09:22
Troponin I 0.139 H*
Physical Exam
Constitutional: No acute distress
Cardiovascular: Systolic murmur present and Other (slow rate, irrefular rhythm)
Respiratory: Respiratory effort normal and Crackles Present
Data Reviewed
-
Date of Service: May 08, 2025
Medical Decision Making: Reviewed Test Results, Test Interpretation and Review of Case with other Provider
EKG: Tracing Personally Visualized and interpreted (tele: slow afib with HR 30s)
Echo: Report Reviewed by me
X-Ray/CT/US/MRI/NUC/PET: Report Reviewed by me
Labs: Labs Reviewed by me
--- NOTE | 2025-05-08 10:48 | WOUNDNOTE ---
[facility] RN note: Patient admitted with pneumonia and sepsis
See H&P for complete history.
PMH: TN
DM type II
CKD stage IV
A-fib
Bradycardia
CHF
Hypothyroidism
SCC left lower extremity
ARIN
Wound Location and type/assessment: Patient admitted with stage 2 to right buttock and chronic wounds to left and right lower legs. Patient lethargic and minimally responsive during assessment. Patient follows with Dr. Tristan for left leg chronic
leg wound. Patient is s/p XRT to left leg x 1 year ago (per patient report). [place] texted with Dr. Ramirez who explained he had not seen patient since last hospital admission on 04/15/25. Left lower leg wound with necrotic tissue, but no odor
noted. Right leg wounds appear stable since last admission. Right lower wound open blisters and venous wounds, all measured as cluster. Also noted on assessment is DTI to right proximal buttock. Please see worklist for measurements and details of
all wounds. Heel intact and adhesive foam applied.
Appetite: Fair
Pressure redistribution devices in place: Centrella Max Air, turning scheduled, heels off-loaded with pillows under calves.
Plan: Will recommend cleaning bilateral leg wounds with Vashe moistened gauze and applying adaptic, ABD and Graciela. Calazime and off-loading recommended for stage 2 PI and DTI on right buttock. LUISA Morales given update. Patient has several
comorbidities including sepsis, pneumonia, HF and bradycardia. Wounds may worsen and new wounds may develop even with optimal care.
--- NOTE | 2025-05-08 11:12 | CM ---
I.A: Completed By KULDIP Zapata. Patient and his have a very sick son who is disabled from an accident and may go on Hospice. Patient is really sleepy.
Patient stated that he lives with spouse in a multilevel home, 6 CODI in and 6 STI, but prior to this hospitalization, was at [facility] only Short Term.
DME: [employer].
PCP is Dr. Kirit Hebert
[facility]: [facility]
CM will continue to follow for discharge planning needs. PLAN: TBD, SNF vs. Home vs [facility] Discussion
[2025-05-08] MEDS: DEMADEX 20 MG PO (11:13)
[2025-05-08 12:25] LABS: Glucose - Point of Care 211 mg/dl (70-99)
[2025-05-08] MEDS: NOVOLOG FLEXPEN-LOW RESISTANCE 2 UNITS SC (12:26)
[2025-05-08] MEDS: ROBITUSSIN 200 MG PO ×2 (12:54→21:10)
--- NOTE | 2025-05-08 13:40 | W.CON.NEPH ---
Consultation
-
Date/Time Consultation Requested: 05/08/2025 1:00 PM
Date/Time Consultation Performed: 05/08/2025 1:40 PM
Requesting Provider: Dr. Burnette
Performing Provider: Dr. Hardy
Reason for Consultation: Chronic kidney disease stage IV azotemia
Medical History
-
Chief Complaint: CKD 4/azotemia
History of Present Illness:
84y M with PMH significant for A-Fib (on OAT), HFpEF (on torsemide and metolazone) and CKD IV (~3) , moderate to severe MR and TR , who presents to ED for evaluation of hypoxic respiratory failure and suspected sepsis. On presentation his
weights were up he had decreased responsiveness and lethargy he had a persistent cough. He was also notably bradycardic. patient's weights since recent admission had also escalated. he was recently admitted from 04/12/2025 through 04/18/2025 for
congestive heart failure exacerbation and possible pneumonia. Sepsis workup has been negative thus far .Nephrology was consulted for persistent chronic kidney disease stage IV with significant azotemia as noted by a BUN of 131 and creatinine of 3.1.
Patient is also being followed by Wound Care for non-healing wound to the E. He underwent skin biopsy / excision followed by XRT which he completed about 3 months ago.
Renal consultation for acute on chronic kidney disease
Past Medical History
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
Social History
Tobacco: Non-Smoker
Alcohol: None
Family History
Family History: Not Pertinent
Allergies / Home Medications
Allergy/AdvReac Type Severity Reaction Status Date / Time
No Known Allergies Allergy Verified 05/06/25 19:42
�Medication �Instructions �Recorded �Confirmed �Type
allopurinol 300 mg tablet 300 mg PO DAILY Gout 02/08/08 05/06/25 History
atorvastatin 20 mg tablet (Lipitor) 20 mg PO HS HLD 02/08/08 05/06/25 History
pantoprazole 40 mg tablet,delayed 40 mg PO DAILY Gastrointestinal 11/29/20 05/06/25 History
release issue
alfuzosin 10 mg tablet,extended 10 mg PO DAILY Urinary Issue 12/30/22 05/06/25 History
release 24 hr
levothyroxine 50 mcg tablet 50 mcg PO DAILY Thyroid 12/30/22 05/06/25 History
calcitriol 0.25 mcg capsule 0.25 mcg PO DAILY Kidney Disease 10/08/23 05/06/25 History
potassium chloride 10 mEq 10 meq PO DAILY Electrolyte 10/31/24 05/06/25 History
tablet,extended release Repletion
tramadol 50 mg tablet 100 mg PO Q8HPRN PRN severe pain 03/28/25 05/06/25 History
empagliflozin 10 mg tablet 10 mg PO DAILY heart failure 30 04/16/25 05/06/25 Rx
(Jardiance) days #30 tabs
acetaminophen 325 mg tablet 650 mg PO Q4H PRN mild pain/fever 05/06/25 05/06/25 History
acetaminophen 500 mg tablet 1,000 mg PO TID Pain 05/06/25 05/06/25 History
benzonatate 100 mg capsule 200 mg PO TIDPRN PRN cough 05/06/25 05/06/25 History
insulin aspart U-100 100 unit/mL 1 sliding scale dose SC QID 05/06/25 05/06/25 History
subcutaneous solution (Novolog Diabetes
U-100 Insulin aspart)
lidocaine 4 %-menthol 1 % topical 1 patch topical DAILY Pain 05/06/25 05/06/25 History
patch (Icy Hot Patch
(lidocaine-menthol))
lorazepam 0.5 mg tablet 0.5 mg PO HSPRN PRN insomnia 05/06/25 05/06/25 History
melatonin 5 mg tablet 5 mg PO HS Sleep 05/06/25 05/06/25 History
metolazone 2.5 mg tablet 2.5 mg PO DAILY Fluid 05/06/25 05/06/25 History
Retention/Swelling
prednisone 20 mg tablet 40 mg PO QPM Pain 05/06/25 05/06/25 History
rivaroxaban 15 mg tablet 15 mg PO DAILY Blood Clot 05/06/25 05/06/25 History
Prevention/Tx
tirzepatide 10 mg/0.5 mL 10 mg SC QWEEK Diabetes 05/06/25 05/06/25 History
subcutaneous pen injector
torsemide 20 mg tablet 40 mg PO DAILY Fluid 05/06/25 05/06/25 History
Retention/Swelling
Review of Systems
-
History Source: Patient
All other systems: Negative unless noted
Constitutional: Weight Gain
Respiratory: Cough and Trouble Breathing
: Incontinence
Musculoskeletal: Edema and Other (Bilateral lower extremity wounds)
Skin: Other (Bilateral lower extremity wounds)
Physical Exam
Vital Signs
Vital Signs
Temp Pulse Resp BP Pulse Ox
97.9 F 34 21 111/60 99
05/08/25 11:23 05/08/25 11:13 05/08/25 10:00 05/08/25 11:13 05/08/25 10:00
Lab Results
05/08/25 04:32
05/08/25 04:32
WBC 10.6 10^3/uL (4.8-10.8) 05/08/25 04:32
RBC 2.92 10^6/uL (4.70-6.10) L 05/08/25 04:32
Hgb 8.8 g/dL (13.0-18.0) L 05/08/25 04:32
Hct 28.5 % (39.0-52.0) L 05/08/25 04:32
Plt Count 241 10^3/uL (130-400) 05/08/25 04:32
Sodium 140 mmol/L (135-145) 05/08/25 04:32
Potassium 4.3 mmol/L (3.5-5.1) 05/08/25 04:32
Chloride 106 mmol/L (98-107) 05/08/25 04:32
Carbon Dioxide 26 mmol/L (22-30) 05/08/25 04:32
BUN 131 mg/dl (9-20) H* 05/08/25 04:32
Creatinine 3.1 mg/dL (0.7-1.3) H 05/08/25 04:32
eGFR 18.97 05/08/25 04:32
Glucose 128 mg/dl (70-99) H 05/08/25 04:32
Calcium 8.9 mg/dl (8.4-10.2) 05/08/25 04:32
Qfv-M-Nladuopbwdf Pept 09255 pg/ml 05/06/25 16:06
Albumin 2.9 g/dl (3.5-5.0) L 05/07/25 03:19
Physical Exam
General , appears chronically ill, obese, awake alert and orient x 3 mild respiratory distress
HEENT no cephalic atraumatic extraocular muscle intact no scleral icterus
Neck: No JVD ,neck supple
lungs coarse with bilateral rhonchi decreased breath sounds towards the bases with normal lung excursion
heart : S1-S2 bradycardic
abdomen soft nontender positive bowel sounds, no palpable hepatomegaly
extremities +2 pretibial edema
Vascular: +1 radial pulses anterior tibialis pulses not palpable
Neurologically nonfocal alert and oriented x 3
Skin no lesions no abrasions no petechiae , bilateral lower extremity wounds with dressings in place
Psych normal affect no bizarre behavior, answers questions appropriate
Data Reviewed
-
Radiology: Image Personally Visualized and interpreted (Chest x-ray personally reviewed showed no evidence of overt congestive heart failure, no pneumonic process)
Labs: Labs Reviewed by me ([facility])
Old Records: Reviewed (Reviewed nephrology consultation from 04/13/25 from EMR : re: ERENDIRA/CKD)
Assessment/Plan
-
Impression
Acute on chronic kidney disease stage IV
Azotemia with BUN greater than 130
Chronic HFpEF
Type 2 diabetes
Gout
Chronic opioid use for pain
BPH
Pneumonia/CHF hx: not convinced that this is pneumonia at this time but rather hypervolemia with hypertension and significant weight gain in a month.(Severe pulmonary hypertension ,preserved EF)
Anemia of chronic disease.
A-fib stable.= Bradycardic chronic
Secondary hyperparathyroidism
Chronic lower extremity ulcerative lesion
Hypothyroid
Plan
Profound azotemia likely a function of advanced cardiorenal syndrome
Oral diuretics initiated by cardiology (agree: weights up), check bladder scan as patient has baseline incontinent
follow BMP
Follow weights and accurate I's and O's is capable
Patient will not pursue dialysis at his request which I agree with given his advanced cardiac comorbidities and age (this was again discussed with patient at bedside and confirmed)
Zosyn renally dosed
Unfortunately I have very little to offer
--- NOTE | 2025-05-08 15:43 | PTOTSP ---
Speech Therapy Evaluation:
Pt with known mild oropharyngeal dysphagia s/p VSE completed during recent admission on 04/13. Currently admitted with sepsis, unclear source. CXR without PNA. Adequate tolerance of PO at bedside. WBC WNL. Increased risk of aspiration given
SOB/tenuous respiratory status.
Recommend:
1. Regular solids and thin liquids
2. Meds as tolerated (puree per pt preference)
3. Aspiration precautions: sit upright, single sips, slow rate
4. INSTRUMENT ADJUSTER to follow to monitor tolerance of diet and educate on aspiration precautions, likely brief
--- NOTE | 2025-05-08 15:56 | PTCARENOTE ---
Pt co of being Dizzy while getting OOB . HR 38.
--- NOTE | 2025-05-08 16:36 | W.PN.UPDATE ---
Update Note
Progress Note Update
Full orthopedic consult dictated: Patient seen with Dr. Bella
Patient was admitted to IMU for sepsis and orthopedics was asked to come evaluate him for left shoulder effusion. He does have large left shoulder effusion without warmth, erythema or pain. Passively range of motion is minimal. Distal
neurovascular was intact. After receiving patient's permission the left shoulder was sterilely aspirated 120 mL cloudy yellow joint fluid. The left shoulder joint fluid was sent for cell count, crystal analysis, Gram stain along with
cultures/sensitivities. I am going to check Lyme progressive as well. Orthopedics will continue to follow along.
--- NOTE | 2025-05-08 16:36 | PTCARENOTE ---
Ortho here aspirated 70 ml of fluid from l shoulder, pt rené well. Pt OOB in chair watching tv AAOX3. nO CO OF PAIN
[2025-05-08 16:42] LABS: Glucose - Point of Care 144 mg/dl (70-99)
--- NOTE | 2025-05-08 17:05 | PTCARENOTE ---
pT HAD EXTRA LARGE bm IN br
[2025-05-08 17:55] LABS: Body Fluid Second Tech CMC
[2025-05-08] MEDS: REMOVE LIDOCAINE PATCH 1 PATCH REMOVE (19:49)
[2025-05-08] MEDS: LIPITOR 20 MG PO (21:10)
--- NOTE | 2025-05-08 21:12 | W.PN.UPDATE ---
Update Note
Progress Note Update
Mr hSai's left shoulder aspiration showed fluid culture WBC 78,600, no crystals, Gram stain with many WBC and no organism. Fluid culture pending. I have discussed with Dr. Bella and tentatively placed him on the OR schedule for left
shoulder arthroscopic irrigation and debridement with Dr. Fine May 09, 2025. He will be made n.p.o. for now and proceed with surgery if okay with medicine.
[2025-05-08 21:29] LABS: Glucose - Point of Care 203 mg/dl (70-99)
[2025-05-09] VITALS (17 sets, daily range): BP systolic 101–127; BP diastolic 44–71; BMI 36.2
[2025-05-09] MEDS: ULTRAM 50 MG PO (00:26)
--- NOTE | 2025-05-09 03:00 | PTCARENOTE ---
assumed care of patient. pt is AAOx3, EWIIAAPAAYP, forgetful at times. pt moans out a lot at times but denies pain. VSS. 2L NC, 98%. pt did desat once to low 80s. productive cough noted. able to take pills whole in applesauce without issues. pt frequently
asking to be 'put out so he can get some sleep'. positive environment maintained. care ongoing.
[2025-05-09] MEDS: MORPHINE SULFATE 1 MG IV ×2 (03:11→09:14)
--- NOTE | 2025-05-09 03:19 | PTCARENOTE ---
pt very restless. c/o SOB. PRN morphine given per MAR with positive effect.
[2025-05-09] MEDS: SYNTHROID 50 MCG PO (05:04)
[2025-05-09] MEDS: ZOSYN 50 IV (05:04)
[2025-05-09 05:22] LABS: Hematocrit 29.5 % (39.0-52.0); Hemoglobin 9.0 g/dL (13.0-18.0); Mean Corp Hgb Conc. 30.5 g/dL (33.0-37.0); Mean Corpuscular Volume 98.3 fL (80.0-94.0); Platelet Count 210 10^3/uL (130-400); Red Cell Dist. Width 16.9 % (11.5-14.5)
--- NOTE | 2025-05-09 05:57 | W.PN.ORTHO ---
Today's Communication / Plan
-
84-year-old male with possible sepsis with large effusion of the left shoulder and cell count exceeding typical threshold for concern for infection at 78,000 WBC with PMNs above 90%.
- Discussed findings with the patient. Recommended for operative debridement irrigation today with Dr. Fine pending medical optimization/clearance.
- Consent obtained and placed on file.
- N.p.o.
- Continue nonweightbearing and rest of the left upper extremity. Will update orders postoperatively
Assessment
.
Distal Motor Intact: Yes
Dressing:
Clean, dry and intact.
Plan
.
Activity:
Out of bed.
PT/OT
Subjective
.
.:
Patient resting comfortably.
Reports shoulder improved at this timeframe
Vital Signs and Labs
.
Vital Signs and Labs:
Lab Results
05/09/25 05:09
Temp Pulse Resp BP Pulse Ox
97.6 F 39 15 111/59 99
05/09/25 03:17 05/09/25 04:00 05/09/25 04:00 05/09/25 04:00 05/09/25 04:00
PT 21.4 Sec (11.4-14.6) H 05/06/25 16:06
INR 1.84 05/06/25 16:06
Joint aspirate cell count 78,600 PMN cell percentage 90.7. Negative for crystals. Many WBCs on Gram stain but no organisms. Cultures pending
Physical Exam
-
Mild return to effusion of the left shoulder. No erythema.
[2025-05-09 06:05] LABS: ALT (SGPT) 19 U/L (0-50); AST (SGOT) 15 U/L (17-59); Albumin 2.8 g/dl (3.5-5.0); Alkaline Phosphatase 103 U/L (38-126); Calcium 9.0 mg/dl (8.4-10.2); Carbon Dioxide 25 mmol/L (22-30); Chloride 105 mmol/L (98-107); Estimated Creatinine Clearance 23 ml/min; Glucose 119 mg/dl (70-99); Potassium 4.2 mmol/L (3.5-5.1); Sodium 136 mmol/L (135-145); Total Protein 5.5 g/dl (6.3-8.2); eGFR 19.74
[2025-05-09] MEDS: NOVOLOG FLEXPEN-LOW RESISTANCE SC ×3 (06:07→18:34)
[2025-05-09] MEDS: ROBITUSSIN 200 MG PO (06:09)
[2025-05-09 06:17] LABS: Glucose - Point of Care 124 mg/dl (70-99)
[2025-05-09 06:22] LABS: Blood Urea Nitrogen 129 mg/dl (9-20)
[2025-05-09] MEDS: TYLENOL 1000 MG PO ×2 (09:07→21:23)
[2025-05-09] MEDS: DEMADEX 20 MG PO (09:07)
[2025-05-09] MEDS: KCL 10 MEQ PO (09:07)
[2025-05-09] MEDS: PROTONIX 40 MG PO (09:07)
[2025-05-09] MEDS: LIDOCAINE 4% PATCH 1 PATCH TOPICAL (09:08)
[2025-05-09] MEDS: ZYLOPRIM 300 MG PO (09:08)
[2025-05-09] MEDS: FLOMAX 0.4 MG PO (09:08)
[2025-05-09] MEDS: ROCALTROL 0.25 MCG PO (09:14)
--- NOTE | 2025-05-09 09:17 | W.PN.HOSP.TC ---
Addendum entered and electronically signed by Kirit Mccartney MD 05/09/25 21:01:
Attending Addendum-
I saw and evaluated the patient. I reviewed the resident�s note and agree with findings and plan as documented in the resident�s note. Sub: Continues to have pain in left shoulder. Urinating as usual. Cough improved 'I think im getting my shoulder
fixed' Denies CP palps fevers chills. Full 12 point ROS reviewed and negative except as documented Exam: Vitals reviewed in chart GEN-NAD heart bradycardic lungs crackles at bases abd obese soft NT ND pos BS LE 2+ pitting edema Left shoulder
effusion palpated, decreased ROM, 2+ distal pulses Neuro- AAO x 2 follows commands
Plan:
# Septic arthritis of Left Shoulder Joint
- WBC trending up
- Blood and urine cultures NGTD
- cont zosyn for now, ID c/s
- s/p left shoulder joint aspiration 05/08- 120mls yellow cloudy fluid, fluid analysis consistent with septic joint-fluid cx NGTD
- 05/09- to OR for washout and debridement with Dr. Fine
- add IV pain meds for control
# Acute Hypoxemic Respiratory Failure
- from CHF
- weaned off bipap to NC
# Acute on chronic bradycardia
-cards input appreciated- for eventual leadless Micra pacemaker this admission
# Type 2 diabetes
- better controlled
- reviewed accuchecks
- Hold Jardiance/mounjaro
- Insulin sliding scale
# Nonischemic myocardial injury
- Troponin trending down
- Appears to be chronically elevated in the setting of CKD 4
# Permanent atrial fibrillation
- hold Xarelto for OR
# Acute Exacerbation HFpEF
- last echo 04/17/25- EF 55-60%
- restart metolazone, cont torsemide
- Jardiance on hold
- daily weights, strict I and O's, fluid restrict
# ERENDIRA on CKD 4
- cardiorenal
- restart diuretics
- baseline cr @ 2.6, monitor renal fx closely
- appreciate nephro input
- poor prognosis patient refusing HD and is a poor candidate regardless
# Chronic macrocytic anemia
- Hemoglobin stable
# Chronic lower extremity wounds
- Appear improved
- wound care
# Gout
- Continue allopurinol
# Chronic pain
- Continue tramadol
# Hypothyroidism
- Continue levothyroxine
# Hyperlipidemia
- Continue atorvastatin
# BPH
- Continue alfuzosin
# Anxiety
- DC Ativan
Full code
DVT prophylaxis�SCDs
Time spent coordinating care, review of plan of care with resident, personally reviewed records in EMR, med rec, consults, notes, labs, radiology, d/w nursing, cards, ortho, nephro � 55 mins
Original Note:
Today's Communication/Plan
-
OR Scheduled today for arthroscopic irrigation and debridement
Start Metolazone
Narrow zosyn to cephalozin
Assessment / Plan
Assessment / Plan
84 y/o male with pmh of permanent afib on Xarelto, HFpEF, CKD stage IV, Chronic macrocytic anemia, Left LE wound (basal skin cancer removal?), pressure ulcers, gout, type 2DM, hypothyroidism, hyperlipidemia, BPH presented to ED on 05/06 from [place] for cough, SOB and bradycardia. He has had decreased responsiveness and lethargy for the past few days.
He was recently admitted to from 04/12 to 04/18 and was found to have pleural effusions and cardiomegaly treated for CHF as well as for contaminant possible Pneumonia and chronic LE wounds. He was treated with ab's. He also had asymptomatic
bradycardia as low as 40's.
Suspected Sepsis (acute metabolic encephalopathy, hypothermia)
-CXR without Pneumonia, COVID/ Flu neg, U/A neg
-Leukocytosis WBC 11.2
-Lactic acid 2.3
-Discontinued IVF due to SOB and Volume overload
-nasal MRSA Neg- Discontinue Vancomycin
-Infectious Disease consulted, input appreciated
-Narrow Zosyn #D3 to Cefazolin #D1
-Blood Cx- pending
Chest Xray
Low lung volumes with crowding of the central/vascular markings.
No suspected acute pulmonary process.
Left shoulder septic arthritis
-Limited ROM due to pain and swelling, no erythema, warmth on exam
-Consult orthopedics, input appreciated
-IV dilaudid 0.5mg prn
-Left shoulder tap
-joint aspiration fluid- septic arthritis- WBC 46797, PMN Cells 90.7
-Lyme order pending
-None weightbearing status on left arm
-OR Scheduled today for arthroscopic irrigation and debridement - then PT eval
-NPO
-Hold Xarelto
Acute Hypoxemic Respiratory Failure
-was on BIPAP due to respiratory distress, now on 2L O2 sat 98%
-Chest Xray no evidence of Pneumonia
-No evidence of CHF- proBNP 16,000 high likely elevated due to CKD stage IV
-Start Mucinex
Acute on Chronic Bradycardia likely secondary to mild hypothermia
-Body Temp 97.4
-HR as low as 30's. At previous admission on 04/12 HR was 40's
-TSH normal
-ECG - slow afib, HR 37, RBBB, Premature Ventricular complexes
-Cardiology consulted, input appreciated
---Follow telemetry
---No AV blocking medications
---Leadless Micro Medtronic Pacemaker will be placed once infection is under control
Acute on chronic kidney disease stage IV
-Azotemia with BUN 129 likely 2/2 advanced cardiorenal syndrome vs recent steroid intake vs dehydration
-Pt is volume overloaded unlikely dehydrated
-Consult Nephrology, input appreciated
-Patient declines dialysis
-Baseline Cr 2.3-2.6 per records. Creatinine today 3
-Check Bladder scan for his baseline incontinance - pending
-Follow BMP
Chronic HFpEF
-Echo 04/17/25 - EF 55-60%, Severe LVH, moderate to severe mitral valve regurgitation, severe tricuspid regurgitation, severely dilated RA, estimated Pulmonary arterial Pressure 65 mmHg, Ascending aorta and IVC dilated
-Pt has elevated lactic acid level, possible sepsis, hypothermia, elevated BUN
-Discontinue IVF due to SOB, volume overload
-Resume torsemide 20mg, Add metolazone 2.5mg PO
Dysphagia
-speech eval - Regular solids and thin liquids, meds as tolerated
Permanent Atrial fibrillation
-Hold Xarelto 15mg (renal dosing) due to sherwin OR today
-Slow rate - not on meds due to bradycardia
-Asymptomatic
Type 2 Diabetes Mellitus
-Blood glucose 119
-Hold Jaridance and Tirzepatide
-Insulin Sliding Scale
-HbA1C 7.1
-Monitor Glucose
Nonischemic Myocardial Injury
-Troponin 0.139, Chronically elevated likely secondary to CKD stage IV
Chronic Macrocytic Anemia
-Hb 9, MCV 98.3
Chronic Extremity wounds
-LLE wound s/p surgery and XRT 3 months ago for squamous cell carcinoma
-Wound care consulted, input appreciated
Gout
-Continue Allopurinol
Chronic Pain
- Continue Tramadol and Morphine PRN
Hypothyroidism
-Continue Levothyroxine
Hyperlipidemia
-Continue Statin
BPH
-Continue Tamsulosin
Anxiety
-Continue Ativan
Obstructive Sleep Apnea
-unable to tolerate CPAP
Obesity
-due to excess calories
Full code
DVT prophylaxis: Xarelto on hold
Cholesterol lowering diet
Anticipated Discharge: > 48 hours
Subjective/Interval History
-
Date of Service: May 09, 2025
Patient stated feeling awful and having pain all over his body. No bowel movements yet.
Objective Data
-
Labs:
Laboratory Results
05/09/25
05:09
WBC 11.2 H
Hgb 9.0 L
Hct 29.5 L
Plt Count 210
Sodium 136
Potassium 4.2
Chloride 105
Carbon Dioxide 25
BUN 129 H*
Creatinine 3.0 H
Glucose 119 H
Calcium 9.0
Total Bilirubin 0.6
AST 15 L
ALT 19
Alkaline Phosphatase 103
Vital Signs:
Vital Signs
Temp Pulse Resp BP Pulse Ox
97.5 F 36 18 120/62 91
05/09/25 07:38 05/09/25 06:00 05/09/25 06:00 05/09/25 06:00 05/09/25 06:00
I&O
05/08/25 05/09/25 05/10/25
06:59 06:59 06:59
Intake Total 1160 / 1160 200 / 200
Output Total 450 / 450 550 / 550
Balance 710 / 710 -350 / -350
Review of Systems
-
History Source: Patient
Constitutional: Reports Weight Gain and Weakness (left arm)
EENT: Reports No Symptoms Reported
Respiratory: Reports Cough and Trouble Breathing
Cardiac: Reports No Symptoms
Abdomen/GI: Reports No Symptoms
Breast: Reports No Symptoms
Genitourinary: Reports No Symptoms
Musculoskeletal: Reports Joint Pain (left shoulder) and Joint Swelling
Skin: Reports Other (wounds covered in dressings)
Neuro: Reports No Symptoms
Endocrine: Reports No Symptoms
Hematologic / Lymphatic: Reports No Symptoms
Allergy / Immunology: Reports No Symptoms
Psych: Reports Sad
Physical Exam
-
General: Well Developed, Appears in Distress, Pain and Obese
HEENT: Normocephalic and Atraumatic
Respiratory: Crackles
Cardiac: Regular Rhythm, S1/S2 and Bradycardic
Breast: Deferred by me
GI: Soft, Nontender, Normal Bowel Sounds and Distended
Rectal: Deferred by Provider
Genito-urinary: Donovan
Musculoskeletal: No Clubbing, No Cyanosis, Edema, Left Upper Extrem, Edema, Right Lower Extrem and Edema, Left Lower Extrem
Skin: Warm and Dry
Neuro: Awake
Hematologic / Lymphatic: No Lymphadenopathy
Psych: Agitated
--- NOTE | 2025-05-09 10:00 | W.PN.UPDATE ---
Addendum entered and electronically signed by Robby Barker MD 05/09/25 10:42:
In terms of OR I think that his bradycardia is so long standing and he has not had syncope so I think the risk of asystolic arrest in the OR should be low.
OK to proceed to OR. Will review with Anesthesia.
I do not favor the added risk of temporary pacing wire before OR.
Original Note:
Update Note
Progress Note Update
EP Consult will be dictated.
Will plan for Micra Pacemaker implant when medically ready.
I consulted ID to help assess when infection is adequately controlled to allow a lower risk of pacemaker infection.
Given his increased infection risk a leadless Micra pacemaker has been chosen.
Robby Barker MD
--- NOTE | 2025-05-09 10:59 | W.PN.NEPH.PH ---
Today's Communication / Plan
-
Add back metolazone
follow bmp
check PVR bladder scan after surgery today
Assessment/Plan
-
Impression
Acute on chronic kidney disease stage IV
Azotemia with BUN greater than 130
Chronic HFpEF
Type 2 diabetes
Gout
Chronic opioid use for pain
BPH
Pneumonia/CHF hx: not convinced that this is pneumonia at this time but rather hypervolemia with hypertension and significant weight gain in a month.(Severe pulmonary hypertension ,preserved EF)
Anemia of chronic disease.
A-fib stable.= Bradycardic chronic
Secondary hyperparathyroidism
Chronic lower extremity ulcerative lesion
Hypothyroid
Plan
Profound azotemia likely a function of advanced cardiorenal syndrome
Oral diuretics initiated by cardiology (agree: weights up), check bladder scan as patient has baseline incontinent,will add back metolazone
follow BMP
Follow weights and accurate I's and O's is capable
Patient will not pursue dialysis at his request which I agree with given his advanced cardiac comorbidities and age (this was again discussed with patient at bedside and confirmed)
Zosyn renally dosed
Unfortunately I have very little to offer
-
-
Date of Service: May 09, 2025
CC / HPI / ROS
-
Chief Complaint:
CKD 4
History of Present Illness:
Creatinine at baseline 3
Hemodynamically stable
BUN up to 129
Review of Systems:
Nonoliguric around 500 cc
Weights
No chest pain or shortness of breath
Labs
-
Labs:
WBC 11.2 10^3/uL (4.8-10.8) H 05/09/25 05:09
RBC 3.00 10^6/uL (4.70-6.10) L 05/09/25 05:09
Hgb 9.0 g/dL (13.0-18.0) L 05/09/25 05:09
Hct 29.5 % (39.0-52.0) L 05/09/25 05:09
Plt Count 210 10^3/uL (130-400) 05/09/25 05:09
Sodium 136 mmol/L (135-145) 05/09/25 05:09
Potassium 4.2 mmol/L (3.5-5.1) 05/09/25 05:09
Chloride 105 mmol/L (98-107) 05/09/25 05:09
Carbon Dioxide 25 mmol/L (22-30) 05/09/25 05:09
BUN 129 mg/dl (9-20) H* 05/09/25 05:09
Creatinine 3.0 mg/dL (0.7-1.3) H 05/09/25 05:09
eGFR 19.74 05/09/25 05:09
Glucose 119 mg/dl (70-99) H 05/09/25 05:09
Calcium 9.0 mg/dl (8.4-10.2) 05/09/25 05:09
Nrw-Z-Aumauvgmcpa Pept 23018 pg/ml 05/06/25 16:06
Albumin 2.8 g/dl (3.5-5.0) L 05/09/25 05:09
Physical Exam
-
Vital Signs:
Vital Signs
Temp Pulse Resp BP Pulse Ox
97.5 F 36 18 120/62 91
05/09/25 07:38 05/09/25 06:00 05/09/25 06:00 05/09/25 06:00 05/09/25 06:00
Cardiovascular:: Regular rate and rhythm
Respiratory:: Bilateral: Coarse and Bilateral: Rhonchi
Lung Excursion:: Normal
Abdomen:: Nontender and Soft
Bowel Sounds:: Normal
Extremity Edema:: +2: Bilateral:
Donovan Catheter: No
--- NOTE | 2025-05-09 12:11 | CON.ID ---
Consultation
-
Date/Time Consultation Requested: 05/09/2025 0957
Date/Time Consultation Performed: May 09, 2025 1200
Requesting Provider: Dr. Robby Barker
Performing Provider: Dr. Britney Sosa
Reason for Consultation: Clearance for pacer placement
Chief Complaint / Past History
Chief Complaint
Left shoulder pain
History of Present Illness
84-year-old male with diabetes mellitus, atrial fibrillation, heart failure with preserved EF, CKD 4, chronic bradycardia who presented to the hospital from [facility] on May 06 due to bradycardia, cough, shortness of breath, and lethargy. In ED
temperature 96.9, white count 13, elevated lactic acid. O2 sat 89%, chest x-ray with very low lung volumes. He received vancomycin/cefepime in the ER then changed to Zosyn. In the meantime, patient has been having 2-month history of left shoulder
pain and effusion. He follows with orthopedic and had 2 arthrocentesis 03/13 and 03/15, both <7300 wbc, neg crystals, neg fluid cx's. CT shoulder with large effusion. Ortho reaspirated the left shoulder yesterday - fluid now with 78,600 WBC, 91%
polys, neg crystals, cx pending. He will go to OR for washout and cx's today. Patient with intermittent bradycardia down to as low as 17 yesterday. EP finance clerk recommends leadless Micra pacemaker when infection adequately controlled. Pt.
reports he feels weak. + cough/SOB. L shoulder with limited motion. No N/V/abd pain/diarrhea. No urine sxs.
Past History
Additional Past Medical History:
Diabetes mellitus
Atrial fibrillation
HFp EF
CKD 4
Hypothyroidism
Dyslipidemia
BPH
Venous insufficiency
LE skin SCC s/p resection/XRT
Chronic lower extremity wounds
Remote history of gout
Bilateral rotator cuff arthroscopic surgery
Left total hip replacement
Bilateral total knee replacement
Allergy History:
No Known Allergies Allergy (Verified 05/06/25 19:42)
Medications Reviewed: Yes
Current Antibiotics:
Zosyn day 4
Social History
Tobacco: Non-Smoker
Alcohol: None
Drug: None
Personal:
Family History
Family History: Not Pertinent
Review of Systems
Review of Systems
General: Change in Appetite
HEENT: Negative Headache or Pharyngitis
Cardiovascular: Dyspnea and Edema; Negative Chest Pain
Respiratory: Dyspnea and Cough
Gasteroenterology: Negative Nausea, Vomiting or Diarrhea
Genital / Urological: Negative Dysuria or Flank Pain
Endocrine: Weakness
Skin / Hair / Nails: Negative Rash
All systems: All other systems were reviewed and were negative
Vital Signs
Temp Pulse Resp BP Pulse Ox
97.5 F 36 18 120/62 91
05/09/25 07:38 05/09/25 06:00 05/09/25 06:00 05/09/25 06:00 05/09/25 06:00
Physical Exam
Physical Exam
Constitutional: Acutely Ill
Head: Other (No sinus tenderness)
Eyes: No Conjunctival Hemorrhage and Sclera Anicteric
Cardiovascular: S1/S2 (bradycardic)
Pulmonary: Non Labored and Other (decreased BS bases)
Gastrointestinal: Soft, Non Tender, Non Distended and Normal Bowel Sounds
Genito-Urinary: Negative CVA Tenderness
Extremities: Edema (BLE) and Venous Insufficiency (BLE)
Musculoskeletal: Joint Effusion (Left shoulder large effusion, no erythema)
Wound: Other (BLE wound photos reviewed)
Neurological: Awake
Lab / Diagnostic Study Results
05/09/25 05:09
05/09/25 05:09
Abs Immat Gran (auto) 0.3 10^3/uL (0-0.05) H 05/08/25 04:32
Absolute Neuts (auto) 8.1 10^3/uL (1.4-6.5) H 05/08/25 04:32
Absolute Lymphs (auto) 1.6 10^3/uL (1.2-3.4) 05/08/25 04:32
Absolute Monos (auto) 0.5 10^3/uL (0.1-0.6) 05/08/25 04:32
Absolute Basos (auto) 0.0 10^3/uL (0-0.2) 05/08/25 04:32
Immature Gran % 2.6 % (0-0.5) H 05/08/25 04:32
Neutrophils % 76.1 % (42.2-75.2) H 05/08/25 04:32
Lymphocytes % 15.3 % (20.5-51.1) L 05/08/25 04:32
Monocytes % 4.8 % (1.7-9.3) 05/08/25 04:32
Eosinophils % 1.1 % (0-6) 05/08/25 04:32
Basophils % 0.1 % (0-2) 05/08/25 04:32
PT 21.4 Sec (11.4-14.6) H 05/06/25 16:06
INR 1.84 05/06/25 16:06
Lactic Acid 1.5 mmol/L (0.7-2.0) 05/07/25 10:44
Ur Squamous Epith Cells 3-5 /LPF (Few) 05/06/25 16:13
Microbiology Results
Micro:
05/08/25 16:24 Body Fluid Culture - Preliminary
Joint Fluid No Growth After 18-24 Hours
Gram Stain - Preliminary
05/06/25 16:13 Blood Culture - Preliminary
Blood/Venous No Growth in 48 hours- Final report to follow
05/06/25 16:13 Blood Culture - Preliminary
Blood/Venous No Growth in 48 hours- Final report to follow
05/07/25 03:15 Nasal Screen MRSA (PCR) - Final
Nose MRSA not detected - performed by PCR methodology.
05/06/25 16:15 Influenza Types A & B (DIONISIO) - Final
Nasal Swab Negative for Influenza A & B, NAAT
Negative results must be combined with clinical observations
and patient history.
Nucleic Acid Amplification test (NAAT)performed on the
[employer] platform.
05/06/25 CXR: Low lung volumes with crowding of the central/vascular markings.
03/20/[address]: New widening of the left glenohumeral interval and anterior subluxation/dislocation of the left humeral head relative to the glenoid, which appears to be at least in part secondary to a very large glenohumeral joint effusion and
bursal fluid.
Assessment / Plan
# Suspect left shoulder septic arthritis
- 05/08 Synovial fluid 78,000 WBC, 90%PMN, neg crystals, cx neg to date (on Zosyn)
- For OR washout today. To send multiple aerobic and anaerobic cx's.
- Narrow Zosyn to cefazolin for now pending cx data.
# Bradycardia
- Since Bcx's x 2 negative
- Can place leadless Micra pacer now, if urgent. Otherwise, if not urgent, prefer to wait for shoulder OR cx with finalized abx plan before pacemaker placement
# Volume overload
# HFpEF
- On diurectics
[2025-05-09] MEDS: XARELTO PO (12:15)
[2025-05-09 12:36] LABS: Glucose - Point of Care 120 mg/dl (70-99)
[2025-05-09] MEDS: ZAROXOLYN 2.5 MG PO (13:08)
[2025-05-09] MEDS: ZOSYN IV (13:10)
[2025-05-09] MEDS: ANCEF 5 IV ×2 (14:00→21:23)
--- NOTE | 2025-05-09 14:14 | CM ---
F/U: Patient is being cleared to have surgery for heart pace maker. PLAN: Home PT vs. No Needs.
--- NOTE | 2025-05-09 14:16 | PTCARENOTE ---
NPO except am meds / current w sip apple juice. External purewick removed- has voided 600ml this shift. INT intact. Left arm is swollen painful- has lido patch on top of shoulder- INT removed from left arm now weeping copious amts serous
drainage- covidean intact. Wound care completed lower extremities and noew foams placed on buttocks and left back. Remains in AFIB 20s-60, bp 103/65. Report given to Rebecca, Escorted to OR with IV Ancef.
[2025-05-09] MEDS: TYLENOL PO (16:00)
[2025-05-09 17:08] LABS: Glucose - Point of Care 119 mg/dl (70-99)
--- NOTE | 2025-05-09 18:35 | PTCARENOTE ---
Returned to 3342, sleepy easily arousable. SB 35-40s, 120/59. Left shoulder dressing cdi with ice pack- sling not available yet. Zoll pads left intact for now. Offers no complaints nods yes to being comfortable.
[2025-05-09] MEDS: LIPITOR 20 MG PO (21:23)
[2025-05-09] MEDS: REMOVE LIDOCAINE PATCH 1 PATCH REMOVE (21:24)
[2025-05-09 21:46] LABS: Glucose - Point of Care 175 mg/dl (70-99)
[2025-05-10] VITALS (20 sets, daily range): BP systolic 87–156; BP diastolic 29–126; PULSE 39–55; O2SAT 99; BMI 35.6
[2025-05-10] MEDS: TESSALON PERLES 200 MG PO (04:15)
[2025-05-10] MEDS: DILAUDID 0.5 MG IV (04:16)
[2025-05-10 04:43] LABS: Hematocrit 29.0 % (39.0-52.0); Hemoglobin 8.9 g/dL (13.0-18.0); Mean Corp Hgb Conc. 30.7 g/dL (33.0-37.0); Mean Corpuscular Volume 94.5 fL (80.0-94.0); Platelet Count 242 10^3/uL (130-400); Red Cell Dist. Width 17.0 % (11.5-14.5)
--- NOTE | 2025-05-10 05:00 | PTCARENOTE ---
pt with harsh cough overnight. satting 92-95% on RA. cough in mildly productive of harrell secretions. lungs coarse b/l. pt given Tessalon pearls per orders. deep breathings encouraged. pt provided with bedside suctions for secretions.
[2025-05-10 05:12] LABS: ALT (SGPT) 18 U/L (0-50); AST (SGOT) 15 U/L (17-59); Albumin 2.8 g/dl (3.5-5.0); Alkaline Phosphatase 102 U/L (38-126); Calcium 8.9 mg/dl (8.4-10.2); Carbon Dioxide 26 mmol/L (22-30); Chloride 106 mmol/L (98-107); Estimated Creatinine Clearance 24 ml/min; Glucose 104 mg/dl (70-99); Potassium 4.3 mmol/L (3.5-5.1); Sodium 136 mmol/L (135-145); Total Protein 5.5 g/dl (6.3-8.2); eGFR 20.55
[2025-05-10 05:18] LABS: Blood Urea Nitrogen 120 mg/dl (9-20)
[2025-05-10] MEDS: SYNTHROID 50 MCG PO (05:37)
[2025-05-10] MEDS: ANCEF 5 IV ×3 (05:37→22:55)
--- NOTE | 2025-05-10 07:10 | W.PN.HOSP.TC ---
Addendum entered and electronically signed by Kirit Mccartney MD 05/10/25 20:52:
Attending Addendum-
I saw and evaluated the patient. I reviewed the resident�s note and agree with findings and plan as documented in the resident�s note. Sub: Pain in shoulder greatly improved. Seen with sister present. Has wet productive cough. Urinating as usual.
Denies CP palps fevers chills. Full 12 point ROS reviewed and negative except as documented Exam: Vitals reviewed in chart GEN-NAD heart bradycardic lungs crackles at bases abd obese soft NT ND pos BS LE 2+ pitting edema Left shoulder effusion
palpated, decreased ROM, 2+ distal pulses Neuro- AAO x 2 follows commands
Plan:
# Septic arthritis of Left Shoulder Joint
- WBC trending down
- Blood and urine cultures NGTD > 48 hours
- zosyn->ancef appreciate ID input
- s/p left shoulder joint aspiration 05/08- 120mls yellow cloudy fluid, fluid analysis consistent with septic joint-fluid cx NGTD
- 05/09- OR I and D of Left Shoulder with Dr. Fine
- cont limited WB
- cont IV pain meds for control
# Acute Hypoxemic Respiratory Failure
- resolved
- weaned from bipap->NC->now on RA
# Acute on chronic bradycardia
-cards input appreciated- leadless Micra pacemaker on 05/11, hold xarelto NPOpMN
# Type 2 diabetes
- better controlled
- reviewed accuchecks
- Hold Jardiance/mounjaro
- Insulin sliding scale
# Nonischemic myocardial injury
- Troponin trending down
- Appears to be chronically elevated in the setting of CKD 4
# Permanent atrial fibrillation
- hold Xarelto for OR
# Acute Exacerbation HFpEF
- improving
- echo 04/17/25- EF 55-60%
- cont home dose metolazone and torsemide
- Jardiance on hold
- daily weights, strict I and O's, fluid restrict
# ERENDIRA on CKD 4
- slow improvement, expect further improvement with PPM insertion
- cardiorenal
- cont diuretics
- baseline cr @ 2.6, monitor renal fx closely
- appreciate nephro input
- poor prognosis patient refusing HD and is a poor candidate
# Chronic macrocytic anemia
- Hemoglobin stable
# Chronic lower extremity wounds
- wound care
# Gout
- Continue allopurinol
# Chronic pain
- Continue tramadol prn
# Hypothyroidism
- Continue levothyroxine
# Hyperlipidemia
- Continue atorvastatin
# BPH
- Continue alfuzosin
# Anxiety
- DC Ativan
Full code
DVT prophylaxis�SCDs
Dispo From [place] [facility] eventual return back
Time spent coordinating care, review of plan of care with resident, personally reviewed records in EMR, med rec, consults, notes, labs, radiology, d/w nursing, cards, ortho, nephro � 52 mins
Original Note:
Today's Communication/Plan
-
Follow consults recs
Micra pacemaker implant tomorrow
Assessment / Plan
Assessment / Plan
84 y/o male with pmh of permanent afib on Xarelto, HFpEF, CKD stage IV, Chronic macrocytic anemia, Left LE wound (basal skin cancer removal?), pressure ulcers, gout, type 2DM, hypothyroidism, hyperlipidemia, BPH presented to ED on 05/06 from [place]
Run for cough, SOB and bradycardia. He has had decreased responsiveness and lethargy for the past few days.
He was recently admitted to from 04/12 to 04/18 and was found to have pleural effusions and cardiomegaly treated for CHF as well as for contaminant possible Pneumonia and chronic LE wounds. He was treated with ab's. He also had asymptomatic
bradycardia as low as 40's.
Suspected Sepsis (acute metabolic encephalopathy, hypothermia)
-CXR without Pneumonia, COVID/ Flu neg, U/A neg
-Leukocytosis WBC 11.2
-Lactic acid 2.3
-Discontinued IVF due to SOB and Volume overload
-nasal MRSA Neg- Discontinue Vancomycin
-Infectious Disease consulted, input appreciated
-Narrow Zosyn #D3 to Cefazolin #D2
-Blood Cx- pending
-05/09 washout intervention of the suspected shoulder infection with backup transcutaneous pacing.
-PT/OT eval
Chest Xray
Low lung volumes with crowding of the central/vascular markings.
No suspected acute pulmonary process.
Left shoulder septic arthritis
-Limited ROM due to pain and swelling, no erythema, warmth on exam
-Consult orthopedics, input appreciated
-IV dilaudid 0.5mg prn
-Left shoulder tap
-joint aspiration fluid- septic arthritis- WBC 02966, PMN Cells 90.7
-Lyme order pending
-None weightbearing status on left arm
-05/09 OR for arthroscopic irrigation and debridement - then PT eval
-Ordered Sling fo immobilization and soft tissue rest
-Hold Xarelto
Acute Hypoxemic Respiratory Failure
-was on BIPAP due to respiratory distress, now on 2L O2 sat 98%
-Chest Xray no evidence of Pneumonia
-No evidence of CHF- proBNP 16,000 high likely elevated due to CKD stage IV
-Start Mucinex
Acute on Chronic Bradycardia likely secondary to mild hypothermia
-Body Temp 97.4
-HR as low as 30's. At previous admission on 04/12 HR was 40's
-TSH normal
-ECG - slow afib, HR 37, RBBB, Premature Ventricular complexes
-Cardiology consulted, input appreciated
---Follow telemetry
---No AV blocking medications
-- 05/09 OR with backup transcutaneous pacing
---Leadless Micro Medtronic Pacemaker implant on 05/11
-NPO after midnight
Acute on chronic kidney disease stage IV
-Azotemia with BUN 129 likely 2/2 advanced cardiorenal syndrome vs recent steroid intake vs dehydration
-Pt is volume overloaded unlikely dehydrated
-Consult Nephrology, input appreciated
-Patient declines dialysis
-Baseline Cr 2.3-2.6 per records. Creatinine today 3
-Check Bladder scan for his baseline incontinance - pending
-Follow BMP
Chronic HFpEF
-Echo 04/17/25 - EF 55-60%, Severe LVH, moderate to severe mitral valve regurgitation, severe tricuspid regurgitation, severely dilated RA, estimated Pulmonary arterial Pressure 65 mmHg, Ascending aorta and IVC dilated
-Pt has elevated lactic acid level, possible sepsis, hypothermia, elevated BUN
-Discontinue IVF due to SOB, volume overload
-Resume torsemide 20mg, Add metolazone 2.5mg PO
-Check PVR bladder scan
Dysphagia
-speech eval - Regular solids and thin liquids, meds as tolerated
Permanent Atrial fibrillation
-Hold Xarelto 15mg (renal dosing) due to sherwin OR today
-Slow rate - not on meds due to bradycardia
-Asymptomatic
Type 2 Diabetes Mellitus
-Blood glucose 119
-Hold Jaridance and Tirzepatide
-Insulin Sliding Scale
-HbA1C 7.1
-Monitor Glucose
Nonischemic Myocardial Injury
-Troponin 0.139, Chronically elevated likely secondary to CKD stage IV
Chronic Macrocytic Anemia
-Hb 9, MCV 98.3
Chronic Extremity wounds
-LLE wound s/p surgery and XRT 3 months ago for squamous cell carcinoma
-Wound care consulted, input appreciated
Gout
-Continue Allopurinol
Chronic Pain
- Continue Tramadol and Morphine PRN
Hypothyroidism
-Continue Levothyroxine
Hyperlipidemia
-Continue Statin
BPH
-Continue Tamsulosin
Anxiety
-Continue Ativan
Obstructive Sleep Apnea
-unable to tolerate CPAP
Obesity
-due to excess calories
Full code
DVT prophylaxis: Xarelto on hold
Cholesterol lowering diet
Anticipated Discharge: > 48 hours
Subjective/Interval History
-
Date of Service: May 10, 2025
He looks comfortable and states he is feeling so much better today. He coughed a lot of white mucous. His SOB improved comparing to yesterday. Currently he is not having it. He denies chest pain, palpitations. No bms yet.
Objective Data
-
Labs:
Laboratory Results
05/10/25
04:30
WBC 10.6
Hgb 8.9 L
Hct 29.0 L
Plt Count 242
Sodium 136
Potassium 4.3
Chloride 106
Carbon Dioxide 26
BUN 120 H*
Creatinine 2.9 H
Glucose 104 H
Calcium 8.9
Total Bilirubin 0.6
AST 15 L
ALT 18
Alkaline Phosphatase 102
Vital Signs:
Vital Signs
Temp Pulse Resp BP Pulse Ox
96.8 F L 36 16 112/54 98
05/10/25 03:17 05/10/25 06:00 05/10/25 06:00 05/10/25 06:00 05/10/25 06:00
I&O
05/09/25 05/10/25 05/11/25
06:59 06:59 06:59
Intake Total 200 / 200 220 / 220
Output Total 550 / 550 1550 / 1550
Balance -350 / -350 -1330 / -1330
Review of Systems
-
History Source: Patient
Constitutional: Reports Weight Gain
EENT: Reports No Symptoms Reported
Respiratory: Reports Cough
Cardiac: Reports No Symptoms
Abdomen/GI: Reports No Symptoms
Breast: Reports No Symptoms
Genitourinary: Reports No Symptoms
Musculoskeletal: Reports Joint Pain (left shoulder) and Joint Swelling
Skin: Reports Other (wounds covered in dressings)
Neuro: Reports No Symptoms
Endocrine: Reports No Symptoms
Hematologic / Lymphatic: Reports No Symptoms
Allergy / Immunology: Reports No Symptoms
Physical Exam
-
General: Well Developed and Obese
HEENT: Normocephalic and Atraumatic
Respiratory: Crackles
Cardiac: Regular Rhythm, S1/S2 and Bradycardic
Breast: Deferred by me
GI: Soft, Nontender and Normal Bowel Sounds
Rectal: Deferred by Provider
Musculoskeletal: No Clubbing, No Cyanosis, Edema, Left Upper Extrem, Edema, Right Lower Extrem and Edema, Left Lower Extrem
Skin: Warm and Dry
Neuro: Awake
Hematologic / Lymphatic: No Lymphadenopathy
Psych: Calm
--- NOTE | 2025-05-10 07:21 | W.PN.ORTHO ---
Today's Communication / Plan
-
84 yo M POD1 left shoulder I&D under the direction of Dr. Fine
--Sling to left upper extremity for immobilization and soft tissue rest. May remove sling at rest.
--Limit weight bearing to left upper extremity.
--Initial joint fluid culture negative to date. Continue antibiotics per primary and ID. Currently cefazolin.
--Pain control prn.
--Case management for dc planning once medically stable.
--Orthopedics will continue to follow along.
Assessment
.
Distal Motor Intact: Yes
Dressing:
Clean, dry and intact.
Plan
.
Surgery / Date: L shoulder I&D, [place], 05/09/25
Activity:
Out of bed.
PT/OT
Subjective
.
.:
Mr. Gibbons is POD1 following his left shoulder I&D performed by Dr. Fine yesterday. He is resting comfortably in bed this morning. He reports his pain is well controlled at present, though he does feel restless. He has no questions or concerns
at this time.
Vital Signs and Labs
.
Vital Signs and Labs:
Lab Results
05/10/25 04:30
05/10/25 04:30
Temp Pulse Resp BP Pulse Ox
96.8 F L 36 16 112/54 98
05/10/25 03:17 05/10/25 06:00 05/10/25 06:00 05/10/25 06:00 05/10/25 06:00
PT 21.4 Sec (11.4-14.6) H 05/06/25 16:06
INR 1.84 05/06/25 16:06
Physical Exam
-
Directed exam of the left upper extremity reveals surgical dressing clean, dry and intact. Patient able to wiggle fingers, flex and extend wrist. Sensation intact to light touch. Capillary refill <2 seconds.
[2025-05-10 07:32] LABS: Glucose - Point of Care 107 mg/dl (70-99)
[2025-05-10] MEDS: NOVOLOG FLEXPEN-LOW RESISTANCE SC ×2 (07:48→12:01)
[2025-05-10] MEDS: TYLENOL 1000 MG PO ×3 (08:12→22:54)
[2025-05-10] MEDS: KCL 10 MEQ PO (08:13)
[2025-05-10] MEDS: ROCALTROL 0.25 MCG PO (08:13)
[2025-05-10] MEDS: ZAROXOLYN 2.5 MG PO (08:13)
[2025-05-10] MEDS: FLOMAX 0.4 MG PO (08:13)
[2025-05-10] MEDS: LIDOCAINE 4% PATCH 1 PATCH TOPICAL (08:13)
[2025-05-10] MEDS: XARELTO 15 MG PO (08:13)
[2025-05-10] MEDS: PROTONIX 40 MG PO (08:13)
[2025-05-10] MEDS: ZYLOPRIM 300 MG PO (08:13)
[2025-05-10] MEDS: DEMADEX 20 MG PO (08:13)
--- NOTE | 2025-05-10 10:13 | W.PN.CD ---
Today's Communication / Plan
-
Micra pacemaker implant tomorrow
Impression / Plan
-
84 y/o male (patient of Dr. Gallegos) with permanent AFIB on Xarelto, bradycardia, HFpEF, CKD IV, hypertension, moderate to severe MR and TR, obesity, and ARIN (unable to tolerate CPAP) who is here for decreased responsiveness and lethargy for the
past few days, being treated for sepsis NOS. Cardiology is consulted for bradycardia.
Complete Heart block
Left septic shoulder, s/p I/D/Washout 05/09/2025
- ID OK with Micra tomorrow 05/11/2025
Permanent AFib
Moderate to severe MR
Severe TR
Chronic HFpEF (EF 55-60%)
CKD 4
HTN
Obesity, BMI 35.6
Sleep apnea
Anemia
Subjective: No CP. No dyspnea. Feels better
Physical Exam
Vital Signs/Labs
Vital Signs
Temp Pulse Resp BP Pulse Ox
97.5 F 42 16 127/55 100
05/10/25 07:26 05/10/25 08:13 05/10/25 06:00 05/10/25 08:13 05/10/25 08:49
05/09/25 05/10/25 05/11/25
06:59 06:59 06:59
Actual Weight 114.5 kg 112.633 kg
05/10/25 04:30
05/10/25 04:30
PT 21.4 Sec (11.4-14.6) H 05/06/25 16:06
INR 1.84 05/06/25 16:06
05/06/25
16:06
Osi-E-Sczbzmztytg Pept 24017
Physical Exam
Constitutional: No acute distress
EENT: Anicteric
Cardiovascular: Rhythm & rate is regular (SLOW)
Respiratory: Respiratory effort normal and Rhonchi Present
GI: Soft and Distention absent
Neuro/Psych: AO x 3
Data Reviewed
-
Date of Service: May 10, 2025
--- NOTE | 2025-05-10 10:53 | W.PN.ID1 ---
Date of Service
Date of Service: May 10, 2025
Today's Communication
Continue cefazolin.
Assessment / Plan
#Left shoulder septic arthritis
- 05/08 Synovial fluid 78,000 WBC, 90%PMN, neg crystals, cx neg x48h (was on Zosyn). Asked micro to hold cx for 10 days.
- 05/09 s/p OR washout. Per Ortho, joint appeared infected. However, no OR cultures sent.
- Continue cefazolin for now pending cx data.
# Bradycardia
- Bcx's x 2 negative
- Clear for placement of leadless Micra pacer
# Volume overload
# HFpEF
- On diurectics
#Additional Past Medical History:
Diabetes mellitus
Atrial fibrillation
HFp EF
CKD 4
Hypothyroidism
Dyslipidemia
BPH
Venous insufficiency
LE skin SCC s/p resection/XRT
Chronic lower extremity wounds
Remote history of gout
Bilateral rotator cuff arthroscopic surgery
Left total hip replacement
Bilateral total knee replacement
Chief Complaint
-: Other (septic arthritis)
Subjective / Review of Systems
More alert today. He reports feeling improved overall. Left shoulder minimal pain.
Vital Signs / Physical Exam
Vital Signs
Vital Signs
Temp Pulse Resp BP Pulse Ox
97.5 F 42 16 127/55 100
05/10/25 07:26 05/10/25 08:13 05/10/25 06:00 05/10/25 08:13 05/10/25 08:49
Physical Exam
Constitutional: No Acute Distress and Comfortable
Eyes: No Conjunctival Hemorrhage and Sclera Anicteric
Cardiovascular: S1/S2 (bradycardic)
Pulmonary: Clear
Gastrointestinal: Soft, Non Tender, Non Distended and Normal Bowel Sounds
Extremities: Edema and Venous Insufficiency (ble)
Neurological: AO x 3
Objective Data
Lab Data
Lab Results
05/10/25 04:30
05/10/25 04:30
PT 21.4 Sec (11.4-14.6) H 05/06/25 16:06
INR 1.84 05/06/25 16:06
Estimated Creat Clear 24 ml/min 05/10/25 04:30
Lactic Acid 1.5 mmol/L (0.7-2.0) 05/07/25 10:44
Total Bilirubin 0.6 mg/dl (0.2-1.3) 05/10/25 04:30
AST 15 U/L (17-59) L 05/10/25 04:30
ALT 18 U/L (0-50) 05/10/25 04:30
Alkaline Phosphatase 102 U/L (38-126) 05/10/25 04:30
Most recent labs reviewed.
Micro Results:
05/08/25 16:24 Body Fluid Culture - Preliminary
Joint Fluid No Growth After 48 Hours
Gram Stain - Preliminary
05/06/25 16:13 Blood Culture - Preliminary
Blood/Venous No Growth in 72 hours- Final report to follow
05/06/25 16:13 Blood Culture - Preliminary
Blood/Venous No Growth in 72 hours- Final report to follow
05/07/25 03:15 Nasal Screen MRSA (PCR) - Final
Nose MRSA not detected - performed by PCR methodology.
05/06/25 16:15 Influenza Types A & B (DIONISIO) - Final
Nasal Swab Negative for Influenza A & B, NAAT
Negative results must be combined with clinical observations
and patient history.
Nucleic Acid Amplification test (NAAT)performed on the
[employer] platform.
05/06/25 CXR: Low lung volumes with crowding of the central/vascular markings.
03/20/[address]: New widening of the left glenohumeral interval and anterior subluxation/dislocation of the left humeral head relative to the glenoid, which appears to be at least in part secondary to a very large glenohumeral joint effusion and
bursal fluid.
Care Review
Plan reviewed with: Physician (Dr. Fine, Dr. Barker)
--- NOTE | 2025-05-10 11:08 | W.PN.NEPH.PH ---
Today's Communication / Plan
-
follow labs with diuretics
Assessment/Plan
-
Impression
Acute on chronic kidney disease stage IV
Azotemia with BUN greater than 130
Chronic HFpEF
Type 2 diabetes
Gout
Chronic opioid use for pain
BPH
Pneumonia/CHF hx: not convinced that this is pneumonia at this time but rather hypervolemia with hypertension and significant weight gain in a month.(Severe pulmonary hypertension ,preserved EF)
Anemia of chronic disease.
A-fib stable.= Bradycardic chronic
Secondary hyperparathyroidism
Chronic lower extremity ulcerative lesion
Hypothyroid
Plan
Profound azotemia likely a function of advanced cardiorenal syndrome
cr and BUN slightly better with diuresis
Cont Oral diuretics Torsemide and metolazone
Follow weights and accurate I's and O's is capable
Patient will not pursue dialysis at his request which I agree with given his advanced cardiac comorbidities and age (this was again discussed with patient at bedside and confirmed)
Zosyn renally dosed
for pacer tomorrow
-
-
Date of Service: May 10, 2025
CC / HPI / ROS
-
Chief Complaint:
CKD 4
History of Present Illness:
Creatinine at baseline 2.9
Hemodynamically stable
BUN down to 120
Review of Systems:
Nonoliguric around 1500 cc
Weights down
No chest pain or shortness of breath at rest
feels dizzy
Labs
-
Labs:
WBC 10.6 10^3/uL (4.8-10.8) 05/10/25 04:30
RBC 3.07 10^6/uL (4.70-6.10) L 05/10/25 04:30
Hgb 8.9 g/dL (13.0-18.0) L 05/10/25 04:30
Hct 29.0 % (39.0-52.0) L 05/10/25 04:30
Plt Count 242 10^3/uL (130-400) 05/10/25 04:30
Sodium 136 mmol/L (135-145) 05/10/25 04:30
Potassium 4.3 mmol/L (3.5-5.1) 05/10/25 04:30
Chloride 106 mmol/L (98-107) 05/10/25 04:30
Carbon Dioxide 26 mmol/L (22-30) 05/10/25 04:30
BUN 120 mg/dl (9-20) H* 05/10/25 04:30
Creatinine 2.9 mg/dL (0.7-1.3) H 05/10/25 04:30
eGFR 20.55 05/10/25 04:30
Glucose 104 mg/dl (70-99) H 05/10/25 04:30
Calcium 8.9 mg/dl (8.4-10.2) 05/10/25 04:30
Rql-Y-Cwwypyffump Pept 41618 pg/ml 05/06/25 16:06
Albumin 2.8 g/dl (3.5-5.0) L 05/10/25 04:30
Physical Exam
-
Vital Signs:
Vital Signs
Temp Pulse Resp BP Pulse Ox
97.5 F 42 16 127/55 100
05/10/25 07:26 05/10/25 08:13 05/10/25 06:00 05/10/25 08:13 05/10/25 08:49
Cardiovascular:: Regular rate and rhythm
Respiratory:: Bilateral: Coarse
Lung Excursion:: Normal
Abdomen:: Nontender and Soft
Bowel Sounds:: Normal
Extremity Edema:: +2: Bilateral:
Donovan Catheter: No
[2025-05-10 11:32] LABS: Glucose - Point of Care 141 mg/dl (70-99)
[2025-05-10] MEDS: FLUSH (NSS) 2 FLUSH IV (14:40)
[2025-05-10 15:15] LABS: Glucose - Point of Care 186 mg/dl (70-99)
[2025-05-10] MEDS: NOVOLOG FLEXPEN-LOW RESISTANCE 1 UNITS SC (18:05)
[2025-05-10 18:14] LABS: Glucose - Point of Care 187 mg/dl (70-99)
--- NOTE | 2025-05-10 18:48 | PTCARENOTE ---
Patient with 6 beat run V-tach, Dr. Cabrera notified. Pt asymptomatic and unchanged. He continues with HR in 30-50 range, cardiac pads are on pt chest
[2025-05-10] MEDS: LIPITOR 20 MG PO (19:40)
[2025-05-10] MEDS: MUCINEX 600 MG PO (19:40)
[2025-05-10] MEDS: REMOVE LIDOCAINE PATCH 1 PATCH REMOVE (19:41)
[2025-05-10 23:09] LABS: Glucose - Point of Care 157 mg/dl (70-99)
[2025-05-11] VITALS (22 sets, daily range): BP systolic 94–131; BP diastolic 41–85; BMI 35.5
[2025-05-11 05:21] LABS: Hematocrit 27.4 % (39.0-52.0); Hemoglobin 8.7 g/dL (13.0-18.0); Mean Corp Hgb Conc. 31.8 g/dL (33.0-37.0); Mean Corpuscular Volume 93.2 fL (80.0-94.0); Platelet Count 241 10^3/uL (130-400); Red Cell Dist. Width 17.2 % (11.5-14.5)
[2025-05-11] MEDS: ANCEF 5 IV (05:30)
[2025-05-11] MEDS: SYNTHROID 50 MCG PO (05:30)
[2025-05-11] MEDS: NOVOLOG FLEXPEN-LOW RESISTANCE 1 UNITS SC (05:37)
[2025-05-11 05:48] LABS: Glucose - Point of Care 178 mg/dl (70-99)
[2025-05-11 05:49] LABS: Calcium 9.0 mg/dl (8.4-10.2); Carbon Dioxide 27 mmol/L (22-30); Chloride 106 mmol/L (98-107); Estimated Creatinine Clearance 23 ml/min; Glucose 158 mg/dl (70-99); Potassium 4.1 mmol/L (3.5-5.1); Sodium 137 mmol/L (135-145); eGFR 19.74
[2025-05-11 06:00] LABS: Blood Urea Nitrogen 119 mg/dl (9-20)
--- NOTE | 2025-05-11 06:15 | PTCARENOTE ---
Cared for pt overnight. aaox3, forgetful. SB on monitor, HR remians 30-40bpm. Bp's stable. no assessment changes. Remains NPO after midnight in prep for pacemaker this am. L arm dressing remains in place. No other issues will monitor.
[2025-05-11 06:55] LABS: Magnesium 2.0 mg/dl (1.6-2.3)
--- NOTE | 2025-05-11 07:11 | W.PN.HOSP.TC ---
Addendum entered and electronically signed by Kirit Mccartney MD 05/11/25 20:44:
Attending Addendum-
I saw and evaluated the patient. I reviewed the resident�s note and agree with findings and plan as documented in the resident�s note. Sub: Complains of being hungry lack of sleep and significant left shoulder pain. Seen with present. cough
improved. Urinating as usual. Denies CP palps fevers chills. Full 12 point ROS reviewed and negative except as documented Exam: Vitals reviewed in chart GEN-NAD heart bradycardic lungs crackles at bases abd obese soft NT ND pos BS LE 2+ pitting
edema Left shoulder effusion palpated bandaged, decreased ROM, 2+ distal pulses Neuro- AAO x 2 follows commands
Plan:
# Septic arthritis of Left Shoulder Joint
- WBC trending up
- Blood and urine cultures NGTD > 48 hours
- zosyn->ancef appreciate ID input continue x 6 weeks until 06/19
- place picc in am
- s/p left shoulder joint aspiration 05/08- 120mls yellow cloudy fluid, fluid analysis consistent with septic joint-fluid cx NGTD
- 05/09- OR I and D of Left Shoulder with Dr. Fine
- cont limited WB
- cont IV pain meds for control
# Acute Hypoxemic Respiratory Failure
- resolved
- weaned from bipap->NC->now on RA
# Acute on chronic bradycardia
-cards input appreciated- leadless Micra pacemaker on 05/11->transfer to IVU post procedure
# Type 2 diabetes
- better controlled
- reviewed accuchecks
- Hold Jardiance/mounjaro
- Insulin sliding scale
# Nonischemic myocardial injury
- chronically elevated in the setting of CKD 4
# Permanent atrial fibrillation
- hold Xarelto for OR
- restart post procedure 15 mg due to eGFR
# Acute Exacerbation HFpEF
- 4 kg above last dc wt 108kg
- echo 04/17/25- EF 55-60%
- cont home dose metolazone and increase torsemide to 30
- Jardiance on hold due to renal fxn
- daily weights, strict I and O's, fluid restrict
# ERENDIRA on CKD 4
- stable, expect further improvement with PPM insertion
- cardiorenal
- cont diuretics
- baseline cr @ 2.6, monitor renal fx closely
- appreciate nephro input
- likely new baseline
# Chronic macrocytic anemia
- Hemoglobin stable
# Chronic lower extremity wounds
- wound care
# Gout
- Continue allopurinol
# Chronic pain
- Continue tramadol prn
# Hypothyroidism
- Continue levothyroxine
# Hyperlipidemia
- Continue atorvastatin
# BPH
- Continue alfuzosin
# Anxiety
- DC Ativan
Full code
DVT prophylaxis�SCDs->Xarelto on hold ok to restart q PM 05/12
Dispo From [facility] eventual return back in 24 to 48 hours
Time spent coordinating care, review of plan of care with resident, personally reviewed records in EMR, med rec, consults, notes, labs, radiology, d/w nursing and POA � 53 mins
Original Note:
Today's Communication/Plan
-
Leadless Micro Medtronic Pacemaker implant on 05/11 at 3:30pm
Hold Xarelto
NPO
Assessment / Plan
Assessment / Plan
84 y/o male with pmh of permanent afib on Xarelto, HFpEF, CKD stage IV, Chronic macrocytic anemia, Left LE wound (basal skin cancer removal?), pressure ulcers, gout, type 2DM, hypothyroidism, hyperlipidemia, BPH presented to ED on 05/06 from [place]
[facility] for cough, SOB and bradycardia. He has had decreased responsiveness and lethargy for the past few days.
He was recently admitted to from 04/12 to 10/28 and was found to have pleural effusions and cardiomegaly treated for CHF as well as for contaminant possible Pneumonia and chronic LE wounds. He was treated with ab's. He also had asymptomatic
bradycardia as low as 40's.
Suspected Sepsis (acute metabolic encephalopathy, hypothermia)
-CXR without Pneumonia, COVID/ Flu neg, U/A neg
-Leukocytosis WBC 11.2
-Lactic acid 2.3
-Discontinued IVF due to SOB and Volume overload
-nasal MRSA Neg- Discontinue Vancomycin
-Infectious Disease consulted, input appreciated
-Narrow Zosyn #D3 to Cefazolin#D3 - Plan for 6 weeks of IV abx through 06/19/25 per ID
-Blood Cx- No growth in 4 days- follow
-05/09 washout intervention of the suspected shoulder infection with backup transcutaneous pacing.
-PT/OT eval - SNF
Chest Xray
Low lung volumes with crowding of the central/vascular markings.
No suspected acute pulmonary process.
Left shoulder septic arthritis
-Limited ROM due to pain and swelling, no erythema, warmth on exam
-Consult orthopedics, input appreciated
-IV dilaudid 0.5mg prn
-Left shoulder tap
-joint aspiration fluid- septic arthritis- WBC 63921, PMN Cells 90.7
-Lyme order pending
-05/09 OR for arthroscopic irrigation and debridement - then PT eval
-None weightbearing status on left arm
-Ordered Sling fo immobilization and soft tissue rest
Acute Hypoxemic Respiratory Failure
-was on BIPAP due to respiratory distress, now on 2L O2 sat 98%
-Chest Xray no evidence of Pneumonia
-No evidence of CHF- proBNP 16,000 high likely elevated due to CKD stage IV
-Start Mucinex
Acute on Chronic Bradycardia likely secondary to mild hypothermia
-Body Temp 97.4
-HR as low as 30's. At previous admission on 04/12 HR was 40's
-TSH normal
-ECG - slow afib, HR 37, RBBB, Premature Ventricular complexes
-Cardiology consulted, input appreciated
---Follow telemetry
---No AV blocking medications
-- 05/09 OR with backup transcutaneous pacing
---Leadless Micro Medtronic Pacemaker implant on 05/11 at 3:30pm - Hold Xarelto 15mg after 8 AM
-NPO after midnight
Acute on chronic kidney disease stage IV
-Azotemia with BUN 129 likely 2/2 advanced cardiorenal syndrome vs recent steroid intake vs dehydration
-Pt is volume overloaded unlikely dehydrated
-Consult Nephrology, input appreciated
-Patient declines dialysis
-Baseline Cr 2.3-2.6 per records. Creatinine today 3
-Check PVR Bladder scan for his baseline incontinance per nephro - pending
-Follow BMP
Chronic HFpEF
-Echo 04/17/25 - EF 55-60%, Severe LVH, moderate to severe mitral valve regurgitation, severe tricuspid regurgitation, severely dilated RA, estimated Pulmonary arterial Pressure 65 mmHg, Ascending aorta and IVC dilated
-Pt has elevated lactic acid level, possible sepsis, hypothermia, elevated BUN
-Discontinue IVF due to SOB, volume overload
-Resume torsemide 20mg, Add metolazone 2.5mg PO
-I/O NB -910
-Weight 112.2kg - o.4kg decrease from yesterday 112.6
Dysphagia
-speech eval - Regular solids and thin liquids, meds as tolerated
Permanent Atrial fibrillation
-Hold Xarelto 15mg (renal dosing) due to sherwin PMM today
-Slow rate - not on meds due to bradycardia
-Asymptomatic
Constipation
- Started Sennokat- S with Miralax
- Follow
Type 2 Diabetes Mellitus
-Blood glucose 159
-Hold Jaridance and Tirzepatide
-Insulin Sliding Scale
-HbA1C 7.1
-Monitor Glucose
Nonischemic Myocardial Injury
-Troponin 0.139, Chronically elevated likely secondary to CKD stage IV
Chronic Macrocytic Anemia
-Hb 8.7
Chronic Extremity wounds
-LLE wound s/p surgery and XRT 3 months ago for squamous cell carcinoma
-Wound care consulted, input appreciated
Gout
-Continue Allopurinol
Chronic Pain
- Continue Tramadol and Morphine PRN
Hypothyroidism
-Continue Levothyroxine
Hyperlipidemia
-Continue Statin
BPH
-Continue Tamsulosin
Anxiety
-Continue Ativan
Obstructive Sleep Apnea
-unable to tolerate CPAP
Obesity
-due to excess calories
Full code
DVT prophylaxis: Xarelto on hold
Cholesterol lowering diet
Anticipated Discharge: 24 - 48 hours
Subjective/Interval History
-
Date of Service: May 11, 2025
HE is complaining about being hungry on NPO and not being able to sleep. He has a shoulder pain 9/10. He has a little bit of SOB and coughing decreased some. No bms yet. Denies CP, palpitations.
Objective Data
-
Labs:
Laboratory Results
05/11/25
05:04
WBC 11.5 H
Hgb 8.7 L
Hct 27.4 L
Plt Count 241
Sodium 137
Potassium 4.1
Chloride 106
Carbon Dioxide 27
BUN 119 H*
Creatinine 3.0 H
Glucose 158 H
Calcium 9.0
Vital Signs:
Vital Signs
Temp Pulse Resp BP Pulse Ox
97.7 F 42 18 126/85 98
05/11/25 03:45 05/11/25 06:00 05/11/25 06:00 05/11/25 06:00 05/11/25 06:00
I&O
05/10/25 05/11/25 05/12/25
06:59 06:59 06:59
Intake Total 220 / 220 640 / 640
Output Total 1550 / 1550 1550 / 1550
Balance -1330 / -1330 -910 / -910
Review of Systems
-
History Source: Patient
Constitutional: Reports Weight Gain
EENT: Reports No Symptoms Reported
Respiratory: Reports Cough
Cardiac: Reports No Symptoms
Abdomen/GI: Reports No Symptoms
Breast: Reports No Symptoms
Genitourinary: Reports No Symptoms
Musculoskeletal: Reports Joint Pain (left shoulder) and Joint Swelling
Skin: Reports Other (wounds covered in dressings)
Neuro: Reports No Symptoms
Endocrine: Reports No Symptoms
Hematologic / Lymphatic: Reports No Symptoms
Allergy / Immunology: Reports No Symptoms
Physical Exam
-
General: Well Developed and Obese
HEENT: Normocephalic and Atraumatic
Respiratory: Crackles
Cardiac: Regular Rhythm, S1/S2 and Bradycardic
Breast: Deferred by me
GI: Soft, Nontender and Normal Bowel Sounds
Rectal: Deferred by Provider
Musculoskeletal: No Clubbing, No Cyanosis, Edema, Left Upper Extrem, Edema, Right Lower Extrem and Edema, Left Lower Extrem
Skin: Warm and Dry
Neuro: Awake
Hematologic / Lymphatic: No Lymphadenopathy
Psych: Agitated
--- NOTE | 2025-05-11 07:30 | PTCARENOTE ---
Received pt from previous nurse. Pt AAOx3, forgetful. Pt's HR 30-40bpm. BP's stable. RA at 98%. NPO since midnight, pending pacemaker. Pt resting comfortably and denies any complaints. Plan of care ongoing. Call lucas within reach.
--- NOTE | 2025-05-11 07:39 | W.PN.ORTHO ---
Today's Communication / Plan
-
Sling as needed for comfort
Nursing may do dressing changes as indicated
Follow cultures
Physical therapy
Xarelto for DVT prophylactics
Observation for now
Assessment
.
Distal Motor Intact: Yes
Dressing:
Dressing changed with moderate bloody drainage on the anterior aspect. Incisions cleaned with alcohol and new dressing applied.
Plan
.
Surgery / Date: L shoulder I&D, [place], 05/09/25
DVT Prophylaxis: Other (Xarelto)
Activity:
Out of bed.
PT/OT
Discharge Plan: SNF (There is moderate)
Subjective
.
.:
Patient resting comfortably.
Vital Signs and Labs
.
Vital Signs and Labs:
Lab Results
05/11/25 05:04
05/11/25 05:04
Temp Pulse Resp BP Pulse Ox
97.7 F 42 18 126/85 98
05/11/25 03:45 05/11/25 06:00 05/11/25 06:00 05/11/25 06:00 05/11/25 06:00
PT 21.4 Sec (11.4-14.6) H 05/06/25 16:06
INR 1.84 05/06/25 16:06
Cultures no growth thus far (on antibiotics when obtained)
[2025-05-11] MEDS: DEMADEX 20 MG PO (07:56)
[2025-05-11] MEDS: ROCALTROL 0.25 MCG PO (07:56)
[2025-05-11] MEDS: PROTONIX 40 MG PO (07:59)
[2025-05-11] MEDS: LIDOCAINE 4% PATCH 1 PATCH TOPICAL (07:59)
[2025-05-11] MEDS: ZYLOPRIM 300 MG PO (07:59)
[2025-05-11] MEDS: FLOMAX 0.4 MG PO (07:59)
[2025-05-11] MEDS: TYLENOL 1000 MG PO ×3 (07:59→22:10)
[2025-05-11] MEDS: KCL 10 MEQ PO (07:59)
[2025-05-11] MEDS: MUCINEX 600 MG PO ×2 (07:59→22:10)
[2025-05-11] MEDS: ZAROXOLYN 2.5 MG PO (07:59)
--- NOTE | 2025-05-11 09:23 | W.PN.ID1 ---
Date of Service
Date of Service: May 11, 2025
Today's Communication
Continue cefazolin.
Assessment / Plan
#Left shoulder septic arthritis
- 05/08 Synovial fluid 78,000 WBC, 90%PMN, neg crystals, cx neg to date (was on Zosyn). Asked micro to hold cx for 10 days.
- 05/09 s/p OR washout. Per Ortho, joint appeared infected. However, NO OR cultures sent.
- Follow CRP, ESR
- Continue empiric cefazolin.
Plan for 6 weeks of IV abx through 06/19/25.
# Bradycardia
- Bcx's x 2 negative
- Clear for placement of leadless Micra pacer placement today.
#Additional Past Medical History:
Diabetes mellitus
Atrial fibrillation
HFp EF
CKD 4
Hypothyroidism
Dyslipidemia
BPH
Venous insufficiency
LE skin SCC s/p resection/XRT
Chronic lower extremity wounds
Remote history of gout
Bilateral rotator cuff arthroscopic surgery
Left total hip replacement
Bilateral total knee replacement
Chief Complaint
-: Other (septic arthritis)
Subjective / Review of Systems
No new complaints.
Vital Signs / Physical Exam
Vital Signs
Vital Signs
Temp Pulse Resp BP Pulse Ox
97.6 F 45 18 123/54 98
05/11/25 07:59 05/11/25 07:59 05/11/25 06:00 05/11/25 07:59 05/11/25 08:05
Physical Exam
Constitutional: No Acute Distress and Comfortable
Eyes: No Conjunctival Hemorrhage and Sclera Anicteric
Cardiovascular: S1/S2 (bradycardic)
Pulmonary: Clear
Gastrointestinal: Soft, Non Tender, Non Distended and Normal Bowel Sounds
Extremities: Edema and Venous Insufficiency (ble)
Musculoskeletal: Other (Left shoulder dressing dry)
Objective Data
Lab Data
Lab Results
05/11/25 05:04
05/11/25 05:04
PT 21.4 Sec (11.4-14.6) H 05/06/25 16:06
INR 1.84 05/06/25 16:06
Estimated Creat Clear 23 ml/min 05/11/25 05:04
Lactic Acid 1.5 mmol/L (0.7-2.0) 05/07/25 10:44
Total Bilirubin 0.6 mg/dl (0.2-1.3) 05/10/25 04:30
AST 15 U/L (17-59) L 05/10/25 04:30
ALT 18 U/L (0-50) 05/10/25 04:30
Alkaline Phosphatase 102 U/L (38-126) 05/10/25 04:30
Most recent labs reviewed.
Micro Results:
05/08/25 16:24 Body Fluid Culture - Preliminary
Joint Fluid No Growth After 72 Hours
Gram Stain - Preliminary
05/06/25 16:13 Blood Culture - Preliminary
Blood/Venous No Growth in 4 days- Final report to follow
05/06/25 16:13 Blood Culture - Preliminary
Blood/Venous No Growth in 4 days- Final report to follow
05/07/25 03:15 Nasal Screen MRSA (PCR) - Final
Nose MRSA not detected - performed by PCR methodology.
05/06/25 16:15 Influenza Types A & B (DIONISIO) - Final
Nasal Swab Negative for Influenza A & B, NAAT
Negative results must be combined with clinical observations
and patient history.
Nucleic Acid Amplification test (NAAT)performed on the
[employer] platform.
05/06/25 CXR: Low lung volumes with crowding of the central/vascular markings.
03/20/[address]: New widening of the left glenohumeral interval and anterior subluxation/dislocation of the left humeral head relative to the glenoid, which appears to be at least in part secondary to a very large glenohumeral joint effusion and
bursal fluid.
--- NOTE | 2025-05-11 11:55 | W.PN.NEPH.PH ---
Today's Communication / Plan
-
cont diuresis, follow labs
Assessment/Plan
-
Impression
Acute on chronic kidney disease stage IV
Azotemia with BUN greater than 130
Chronic HFpEF
Type 2 diabetes
Gout
Chronic opioid use for pain
BPH
Pneumonia/CHF hx: not convinced that this is pneumonia at this time but rather hypervolemia with hypertension and significant weight gain in a month.(Severe pulmonary hypertension ,preserved EF)
Anemia of chronic disease.
A-fib stable.= Bradycardic chronic
Secondary hyperparathyroidism
Chronic lower extremity ulcerative lesion
Hypothyroid
Plan
Profound azotemia likely a function of advanced cardiorenal syndrome-stable
cr stable with diuresis
Cont Oral diuretics Torsemide and metolazone
Follow weights and accurate I's and O's is capable
Patient will not pursue dialysis at his request which I agree with given his advanced cardiac comorbidities and age (this was again discussed with patient at bedside and confirmed)
Zosyn renally dosed
for pacer today
-
-
Date of Service: May 11, 2025
CC / HPI / ROS
-
Chief Complaint:
CKD 4
History of Present Illness:
Creatinine at baseline 3
Hemodynamically stable
BUN stable at 119
Review of Systems:
Nonoliguric around 1500 cc
Weights down
No chest pain or shortness of breath at rest
Labs
-
Labs:
WBC 11.5 10^3/uL (4.8-10.8) H 05/11/25 05:04
RBC 2.94 10^6/uL (4.70-6.10) L 05/11/25 05:04
Hgb 8.7 g/dL (13.0-18.0) L 05/11/25 05:04
Hct 27.4 % (39.0-52.0) L 05/11/25 05:04
Plt Count 241 10^3/uL (130-400) 05/11/25 05:04
Sodium 137 mmol/L (135-145) 05/11/25 05:04
Potassium 4.1 mmol/L (3.5-5.1) 05/11/25 05:04
Chloride 106 mmol/L (98-107) 05/11/25 05:04
Carbon Dioxide 27 mmol/L (22-30) 05/11/25 05:04
BUN 119 mg/dl (9-20) H* 05/11/25 05:04
Creatinine 3.0 mg/dL (0.7-1.3) H 05/11/25 05:04
eGFR 19.74 05/11/25 05:04
Glucose 158 mg/dl (70-99) H 05/11/25 05:04
Calcium 9.0 mg/dl (8.4-10.2) 05/11/25 05:04
Pjy-L-Hqqcqazkyrb Pept 31869 pg/ml 05/06/25 16:06
Albumin 2.8 g/dl (3.5-5.0) L 05/10/25 04:30
Physical Exam
-
Vital Signs:
Vital Signs
Temp Pulse Resp BP Pulse Ox
97.6 F 45 18 123/54 98
05/11/25 07:59 05/11/25 07:59 05/11/25 06:00 05/11/25 07:59 05/11/25 08:05
Cardiovascular:: Regular rate and rhythm
Respiratory:: Bilateral: Coarse
Lung Excursion:: Normal
Abdomen:: Nontender and Soft
Bowel Sounds:: Normal
Extremity Edema:: +2: Bilateral:
Donovan Catheter: No
[2025-05-11 12:19] LABS: Glucose - Point of Care 119 mg/dl (70-99)
[2025-05-11] MEDS: NOVOLOG FLEXPEN-LOW RESISTANCE SC ×2 (12:47→18:19)
--- NOTE | 2025-05-11 13:05 | W.PN.CD ---
Today's Communication / Plan
-
- Leadless pacemaker today.
Impression / Plan
-
84 y/o male (patient of Dr. Gallegos) with permanent AFIB on Xarelto, bradycardia, HFpEF, CKD IV, hypertension, moderate to severe MR and TR, obesity, and ARIN (unable to tolerate CPAP) who is here for decreased responsiveness and lethargy for the
past few days, being treated for sepsis NOS. Cardiology is consulted for bradycardia.
Complete Heart block
Left septic shoulder, s/p I/D/[place] 05/09/2025
- ID OK with Micra today-0 05/11/2025
-Consent signed from the patient.
- plan for leadless pacemaker today.
Permanent AFib
Moderate to severe MR
Severe TR
Chronic HFpEF (EF 55-60%)
CKD 4
HTN
Obesity, BMI 35.6
Sleep apnea
Anemia
Subjective: No CP. No dyspnea. Feels better
Physical Exam
Vital Signs/Labs
Vital Signs
Temp Pulse Resp BP Pulse Ox
97.4 F 45 18 123/54 98
05/11/25 11:17 05/11/25 07:59 05/11/25 06:00 05/11/25 07:59 05/11/25 08:05
05/10/25 05/11/25 05/12/25
06:59 06:59 06:59
Actual Weight 112.633 kg 112.2 kg
05/11/25 05:04
05/11/25 05:04
PT 21.4 Sec (11.4-14.6) H 05/06/25 16:06
INR 1.84 05/06/25 16:06
Magnesium 2.0 mg/dl (1.6-2.3) 05/11/25 05:04
05/06/25
16:06
Rak-L-Zqyyduhjmcj Pept 66575
Physical Exam
Constitutional: No acute distress and Comfortable
EENT: Anicteric and Moist mucous membranes
Cardiovascular: Rhythm & rate is regular, Pedal edema is absent and JVD pressure is normal
Respiratory: Respiratory effort normal, Wheeze Absent and Crackles Absent
GI: Soft, Non tender and Normal bowel sounds
Neuro/Psych: Alert, Oriented and AO x 3
Other: Skin (left shoulder bandages)
Data Reviewed
-
Date of Service: May 11, 2025
Medical Decision Making: Reviewed Test Results, Test Interpretation and Review of Case with other Provider
EKG: Tracing Personally Visualized and interpreted
Echo: Report Reviewed by me
Labs: Labs Reviewed by me
Old Records: Reviewed
--- NOTE | 2025-05-11 15:26 | CM ---
F/U: Pacemaker placed today and now NPO. Eventually, patient will be seen by PT/OT again to determine needs. PLAN: Anticipate Home No Needs vs. PT
--- NOTE | 2025-05-11 17:16 | ITS.CL.PACE ---
Signs Cleaner - Pacemaker Implant
Pacemaker Implant
Procedure Report:
Leadless Pacemaker (Micra) Implantation:
Mr. Gibbons is a very pleasant 84 yr old gentleman with tachy omero syndrome, with baseline bradycardia with permanent atrial fibrillation and compelte heart block and ventricualr escape in 30s who has septic arthritis with recent I&D of the
septic joint is advised a leadless PPM.
Indications: Complete heart block with permanent atrial fibrillation.
Date of the Procedure:
05/11/2025
Pre-Operative Diagnosis: Complete heart block with permanent atrial fibrillation.
Post-Operative Diagnosis: Complete heart block with permanent atrial fibrillation.
Procedure Performed: Leadless pacemaker placement
Performing Physician:
Rodriguez Pederson MD
Anesthesia:
See anesthesia records
Detailed Description of the Procedure:
Written informed consent was obtained from the patient�s son (Alphonso RIVERO) after a full explanation of the risks and benefits of the procedure including the risks of sedation and anesthesia.
The patient was brought to the electrophysiology laboratory in stable condition in fasting state. Continuous electrocardiographic and hemodynamic monitoring was initiated.
The initial rhythm was ventricular escpae with atrial fibrillation rhythm.
The procedure site was meticulously prepared with surgical scrub and allowed to dry with no pooling. Sterile draping was applied to cover the procedure site. The image intensifier was draped with sterile bag and positioned over the patient.
After infusion of local anesthetic, vascular access was obtained under ultrasound guidance and sheath was placed over guide wire as detailed below.
Heparin was infused.
An 8Fr sheath in right femoral vein was placed. Using the various dilators, the access was upgraded to 27Fr sheath for Micra implantation.
The 27 Fr Micra outer sheath was successfully and carefully advanced to the RA.
Leadless Pacemaker (Micra) implantation:
The delivery system of the Micra was prepped with removal of all air underwater and was advanced into the sheath to the RA with continuous saline irrigation. The sheath was pulled back to the IVC and the delivery sheath was advanced into the RV
cavity. The delivery system as placed against the ventricular septum using MAYORGA and MARYA fluoroscopic views and the septal approximation was confirmed with contrast injection. Once adequate location was confirmed, the locked sutures were unlocked and
the Micra was slowly advanced pulling back the delivery sheath releasing the anchoring hooks. The Micra was attached successfully to the RV septum. The PM was tested and adequate sensing and threshold noted.
Next, the tug test was done with the pulling the attached suture under fluoroscopic guidance with the three anchors securely embedded and showed movement and widening of the anchors with pulling them. The PPM again was tested showing stable
thresholds and excellent sensing.
The one side of the suture was cut and the other side was gradually and carefully pulled until free. The delivery system sheath was pulled back to the IVC and the PPM was again tested showing stable numbers.
Omero parameter settings were VVIR 60 bpm. �
Measured data in the Micra was sensing of 14 mV, impedance of 640 ohms and the threshold of 0.63 V at 0.24ms�
Implant device:
Medtronic Micra AV Model# [id number]; Serial No: [id number]
Procedure End
Following the completion of the Micra implant, catheters were removed.
Given patient dementia, the decision was made to also place a �figure of 8� sutures. The sheaths were removed and hemostasis achieved with manual compression.
Estimated Blood loss:
<5 cc
Specimens Removed:
None.
Implants / Devices:
None
Urine output:
None
Packs / Drains/ Tubes:
None
Instrument / Sponge Count Correct:
Yes
Complications of the Procedure:
None
Condition of Patient at Time of Transfer:
Hemodynamically stable with no neurological or vascular compromise.
Summary:
Successful implantation of MRI compatible Leadless ventricular pacemaker
[2025-05-11 17:47] LABS: Glucose - Point of Care 112 mg/dl (70-99)
--- NOTE | 2025-05-11 18:19 | PTCARENOTE ---
Patient moved to 2249 post pacemaker placement. All of the patients known belongings moved to new room. PCT in room to confirm patients phone, phone inspector hairspring, glasses, and other personal items made it to new room.
[2025-05-11] MEDS: ANCEF 10 IV (18:27)
--- NOTE | 2025-05-11 19:17 | PTCARENOTE ---
Pt from IMU received post placement of micra pacemaker in right femoral vein. Dressing dry and intact, no sign of bleeding or hematoma, figure of eight suture present. Pt sleepy post procedure, able later to talk on phone with his . Pt with
documented wounds in his left shoulder and bilateral legs. Male external urinary device in place. Telemetry shows vent. paced rhythm. Portable CXR done.
[2025-05-11 21:50] LABS: Glucose - Point of Care 124 mg/dl (70-99)
[2025-05-11] MEDS: REMOVE LIDOCAINE PATCH REMOVE (22:00)
[2025-05-11] MEDS: MIRALAX 17 GRAMS PO (22:10)
[2025-05-11] MEDS: SENOKOT-S 1 TABLET PO (22:10)
[2025-05-11] MEDS: LIPITOR 20 MG PO (22:10)
[2025-05-12] VITALS (17 sets, daily range): BP systolic 95–133; BP diastolic 53–90; PULSE 60–72; O2SAT 93–95; BMI 35.0
--- NOTE | 2025-05-12 01:15 | PTCARENOTE ---
Received patient from jason RN at 1900 resting in bed. R groin with figure 8 suture closure post leadless PPM placement. Sutures removed at 2114 and hemostasis pad with gauze and tegaderm dressing applied. No bleeding noted. Patient is AAOx2,
very forgetful. Agitated at times, requesting radioisotope technologist to be removed. V paced on monitor. 13 beat run of Vtach at 2211, construction ironworker helper [employer] NAVIGATOR made aware. No further orders at this time. Coarse rhonchi with moist, non-productive cough, on RA. Fall
precautions in place, care on-going
[2025-05-12 03:55] LABS: Hematocrit 28.1 % (39.0-52.0); Hemoglobin 8.6 g/dL (13.0-18.0); Mean Corp Hgb Conc. 30.6 g/dL (33.0-37.0); Mean Corpuscular Volume 97.6 fL (80.0-94.0); Platelet Count 213 10^3/uL (130-400); Red Cell Dist. Width 17.5 % (11.5-14.5)
[2025-05-12 04:29] LABS: Calcium 8.9 mg/dl (8.4-10.2); Carbon Dioxide 27 mmol/L (22-30); Chloride 109 mmol/L (98-107); Estimated Creatinine Clearance 23 ml/min; Glucose 111 mg/dl (70-99); Magnesium 2.1 mg/dl (1.6-2.3); Potassium 4.4 mmol/L (3.5-5.1); Sodium 140 mmol/L (135-145); eGFR 20.55
[2025-05-12 04:46] LABS: Blood Urea Nitrogen 114 mg/dl (9-20)
[2025-05-12] MEDS: ANCEF 10 IV ×2 (05:42→17:06)
[2025-05-12] MEDS: SYNTHROID 50 MCG PO (05:42)
--- NOTE | 2025-05-12 06:06 | W.PN.ORTHO ---
Today's Communication / Plan
-
Appreciate the primary/floor associate and b2b sales consultant team, continue Tx
Sling as needed for comfort LUE
RN change dressings prn
Follow Cx data, NGTD, appreciate ID, continue IV ABX
PT/OT, gentle elbow, wrist, hand, digit ROM OK
Xarelto for DVT ppx, or per primary
Orthopaedics to follow peripherally for now, please reengage with any pertinent questions related to the left shoulder
Outpatient follow-up with Ortho in 4 weeks upon D/c
Assessment
.
Distal Motor Intact: Yes
Dressing:
Intact left shoulder
Assessment:
POD#3 Left shoulder I&D
Good sensation/function axillary/radial nerves LUE
Plan
.
Surgery / Date: L shoulder I&D, Babatunde, 05/09/25
DVT Prophylaxis: Other (per primary)
Activity:
Out of bed if medically safe/OK
PT/OT, sling LUE for comfort
Discharge Plan: SNF (Appreciate CM)
Subjective
.
.:
Patient resting comfortably.
Vital Signs and Labs
.
Vital Signs and Labs:
Lab Results
05/12/25 03:37
05/12/25 03:37
Temp Pulse Resp BP Pulse Ox
97.4 F 61 14 133/73 99
05/11/25 19:23 05/12/25 02:00 05/12/25 02:00 05/12/25 02:00 05/12/25 02:00
PT 21.4 Sec (11.4-14.6) H 05/06/25 16:06
INR 1.84 05/06/25 16:06
--- NOTE | 2025-05-12 07:04 | W.PN.HOSP.TC ---
Addendum entered and electronically signed by Kirit Mccartney MD 05/12/25 20:20:
Attending Addendum-
I saw and evaluated the patient. I reviewed the resident�s note and agree with findings and plan as documented in the resident�s note. Sub: Feels greatly improved. Shoulder pain well controlled. Had asymptomatic 14 beat v tach overnight. Seen with
present. cough improved. Urinating as usual. Denies CP palps fevers chills. Full 12 point ROS reviewed and negative except as documented Exam: Vitals reviewed in chart GEN-NAD heart RRR no MRG lungs crackles at bases abd obese soft NT ND pos BS
LE 2+ non pitting edema Left shoulder effusion palpated, bandaged, decreased ROM, 2+ distal pulses Neuro- AAO x 2 follows commands
Plan:
# Sepsis secondary to Septic arthritis of Left Shoulder Joint with associated ERENDIRA and TME
- Blood and urine cultures NGTD
- zosyn->ancef appreciate ID input continue x 6 weeks until 06/19
- picc line ordered
- s/p left shoulder joint aspiration 05/08- 120mls yellow cloudy fluid, fluid analysis consistent with septic joint-fluid cx NGTD
- 05/09- OR I and D / washout Left Shoulder with Dr. Fine
- cont limited WB with gentle ROM exercises
- cont pain control f/u as OP in 4 weeks
# Acute Hypoxemic Respiratory Failure
- secondary to CHF
- resolved
- weaned from bipap->NC->now on RA
# Acute on chronic bradycardia
-s/p leadless Micra pacemaker on 05/11
-episode of nonsustained ventricular tachycardia post procedure->CTM on tele in IVU
-cards input appreciated
# Type 2 diabetes
- better controlled
- reviewed accuchecks
- Hold Jardiance/mounjaro due to renal fxn
- Insulin sliding scale
# Nonischemic myocardial injury
- chronically elevated in the setting of CKD 4
# Permanent atrial fibrillation
- hold Xarelto for OR- restart on 05/13
# Acute Exacerbation HFpEF
- resolving
- echo 04/17/25- EF 55-60%
- cont home dose metolazone and increased torsemide to 30
- Jardiance on hold due to renal fxn
- daily weights, strict I and O's, fluid restrict
# ERENDIRA on CKD 4
- stable, hopeful further improvement s/p PPM insertion
- cardiorenal
- cont diuretics
- baseline cr @ 2.6, monitor renal fx closely
- appreciate nephro input
- possibly new baseline
# Chronic macrocytic anemia
- Hemoglobin stable
# Chronic lower extremity wounds
- wound care
# Gout
- Continue allopurinol
# Chronic pain
- Continue tramadol prn
# Hypothyroidism
- Continue levothyroxine
# Hyperlipidemia
- Continue atorvastatin
# BPH
- Continue alfuzosin
# Anxiety
- DC Ativan
Full code
DVT prophylaxis�SCDs->Xarelto on hold ok to restart q PM 05/13
Dispo From [facility] DC back on monday 05/14 d/w CM
Time spent coordinating care, review of plan of care with resident, personally reviewed records in EMR, med rec, consults, notes, labs, radiology, d/w nursing cards and POA � 54 mins
Original Note:
Today's Communication/Plan
-
Picc line placement
Continue Cefazolin #D4
Assessment / Plan
Assessment / Plan
84 y/o male with pmh of permanent afib on Xarelto, HFpEF, CKD stage IV, Chronic macrocytic anemia, Left LE wound (basal skin cancer removal?), pressure ulcers, gout, type 2DM, hypothyroidism, hyperlipidemia, BPH presented to ED on 05/06 from [facility] for cough, SOB and bradycardia. He has had decreased responsiveness and lethargy for the past few days.
He was recently admitted to from 04/12 to 04/18 and was found to have pleural effusions and cardiomegaly treated for CHF as well as for contaminant possible Pneumonia and chronic LE wounds. He was treated with ab's. He also had asymptomatic
bradycardia as low as 40's.
Suspected Sepsis (acute metabolic encephalopathy, hypothermia)
-Moved IVU from IMU
-CXR without Pneumonia, COVID/ Flu neg, U/A neg
-Leukocytosis WBC 11.2
-Lactic acid 2.3
-Discontinued IVF due to SOB and Volume overload
-nasal MRSA Neg- Discontinue Vancomycin
-Infectious Disease consulted, input appreciated
-Narrow Zosyn #D3 to Cefazolin#D4 - Plan for 6 weeks of IV abx through 06/19/25 per ID
-Blood Cx- negative
-05/09 washout intervention of the suspected shoulder infection with backup transcutaneous pacing.
-PT/OT eval - SNF
-PICC line will be placed today
Chest Xray
Low lung volumes with crowding of the central/vascular markings.
No suspected acute pulmonary process.
Left shoulder septic arthritis
-Limited ROM due to pain and swelling, no erythema, warmth on exam
-Consult orthopedics, input appreciated
-IV dilaudid 0.5mg prn
-Left shoulder tap
-joint aspiration fluid- septic arthritis- WBC 30894, PMN Cells 90.7
-Lyme order pending
-05/09 OR for arthroscopic irrigation and debridement - then PT eval
-None weightbearing status on left arm
-Ordered Sling fo immobilization and soft tissue rest
Non Sustained Ventricular Tachycardia 05/12
-13 beats Vtach , it was less than 30 secs
Acute Hypoxemic Respiratory Failure
-was on BIPAP due to respiratory distress, now on 2L O2 sat 98%
-Chest Xray no evidence of Pneumonia
-No evidence of CHF- proBNP 16,000 high likely elevated due to CKD stage IV
-Start Mucinex
-Incentive spirometry
Chest Xray
New findings suggesting mild left lower lobe pneumonia. Atelectasis not excluded
New findings concerning for mild pulmonary edema.
Cardiomegaly. Stable
Acute on Chronic Bradycardia likely secondary to mild hypothermia
-Body Temp 97.4
-HR as low as 30's. At previous admission on 04/12 HR was 40's
-TSH normal
-ECG - slow afib, HR 37, RBBB, Premature Ventricular complexes
-Cardiology consulted, input appreciated
---Follow telemetry
---No AV blocking medications
-- 05/09 OR with backup transcutaneous pacing
---Leadless Micro Medtronic Pacemaker implant on 05/11
-Xarelto 15mg still on hold per cards
Acute on chronic kidney disease stage IV
-Azotemia with BUN 129 likely 2/2 advanced cardiorenal syndrome vs recent steroid intake vs dehydration
-Pt is volume overloaded unlikely dehydrated
-Consult Nephrology, input appreciated
-Patient declines dialysis
-Baseline Cr 2.3-2.6 per records. Creatinine today 2.9
-Check PVR Bladder scan for his baseline incontinance per nephro - pending
-Follow BMP
Chronic HFpEF
-Echo 04/17/25 - EF 55-60%, Severe LVH, moderate to severe mitral valve regurgitation, severe tricuspid regurgitation, severely dilated RA, estimated Pulmonary arterial Pressure 65 mmHg, Ascending aorta and IVC dilated
-Pt has elevated lactic acid level, possible sepsis, hypothermia, elevated BUN
-Discontinue IVF due to SOB, volume overload
-Continue torsemide 30mg, metolazone 2.5mg PO
-I/O NB -200
-Weight 110.7kg - 1.5kg decrease from yesterday 112.2kg
Dysphagia
-speech eval - Regular solids and thin liquids, meds as tolerated
-Cholesterol lowering diet
Permanent Atrial fibrillation
-Xarelto 15mg on hold since PPM placed
-Slow rate - not on meds due to bradycardia
-Asymptomatic
Constipation
- Started Sennokat- S with Miralax
- No bms today
-Will follow if no improvement by tm - enema
Type 2 Diabetes Mellitus
-Blood glucose 159
-Hold Jaridance and Tirzepatide
-Insulin Sliding Scale
-HbA1C 7.1
-Monitor Glucose
Nonischemic Myocardial Injury
-Troponin 0.139, Chronically elevated likely secondary to CKD stage IV
Chronic Macrocytic Anemia
-Hb 8.6
Chronic Extremity wounds
-LLE wound s/p surgery and XRT 3 months ago for squamous cell carcinoma
-Wound care consulted, input appreciated
Gout
-Continue Allopurinol
Chronic Pain
- Continue Tramadol and Morphine PRN
Hypothyroidism
-Continue Levothyroxine
Hyperlipidemia
-Continue Statin
BPH
-Continue Tamsulosin
Anxiety
-Continue Ativan
Obstructive Sleep Apnea
-unable to tolerate CPAP
Obesity
-due to excess calories
Full code
DVT prophylaxis: Xarelto on hold
Cholesterol lowering diet
Discharge to [facility], no bed availability until 05/14
Anticipated Discharge: 24 - 48 hours
Subjective/Interval History
-
Date of Service: May 12, 2025
He states feeling good. He does not have any pain. His coughing improving and SOB getting better than yesterday. No bms yet.
Objective Data
-
Labs:
Laboratory Results
05/12/25
03:37
WBC 11.7 H
Hgb 8.6 L
Hct 28.1 L
Plt Count 213
Sodium 140
Potassium 4.4
Chloride 109 H
Carbon Dioxide 27
BUN 114 H*
Creatinine 2.9 H
Glucose 111 H
Calcium 8.9
Vital Signs:
Vital Signs
Temp Pulse Resp BP Pulse Ox
97.4 F 63 17 104/53 98
05/11/25 19:23 05/12/25 06:00 05/12/25 06:00 05/12/25 06:00 05/12/25 06:00
I&O
05/11/25 05/12/25 05/13/25
06:59 06:59 06:59
Intake Total 640 / 640
Output Total 1550 / 1550 200 / 200
Balance -910 / -910 -200 / -200
Review of Systems
-
History Source: Patient
Constitutional: Reports Weight Gain
EENT: Reports No Symptoms Reported
Respiratory: Reports Cough
Cardiac: Reports No Symptoms
Abdomen/GI: Reports No Symptoms
Breast: Reports No Symptoms
Genitourinary: Reports No Symptoms
Musculoskeletal: Reports Joint Swelling
Skin: Reports Other (wounds covered in dressings)
Neuro: Reports No Symptoms
Endocrine: Reports No Symptoms
Hematologic / Lymphatic: Reports No Symptoms
Allergy / Immunology: Reports No Symptoms
Physical Exam
-
General: Well Developed and Obese
HEENT: Normocephalic and Atraumatic
Respiratory: Crackles
Cardiac: Regular Rhythm and S1/S2
Breast: Deferred by me
GI: Soft, Nontender, Nondistended and Normal Bowel Sounds
Rectal: Deferred by Provider
Genito-urinary: Deferred by me
Musculoskeletal: No Clubbing, No Cyanosis, Edema, Left Upper Extrem, Edema, Right Lower Extrem and Edema, Left Lower Extrem
Skin: Warm and Dry
Neuro: Awake
Hematologic / Lymphatic: No Lymphadenopathy
Psych: Calm
[2025-05-12 08:21] LABS: Glucose - Point of Care 148 mg/dl (70-99)
[2025-05-12] MEDS: ZAROXOLYN 2.5 MG PO (08:36)
[2025-05-12] MEDS: DEMADEX 30 MG PO (08:36)
[2025-05-12] MEDS: PROTONIX 40 MG PO (08:36)
[2025-05-12] MEDS: MIRALAX 17 GRAMS PO (08:36)
[2025-05-12] MEDS: ROCALTROL 0.25 MCG PO (08:36)
[2025-05-12] MEDS: KCL 10 MEQ PO (08:36)
[2025-05-12] MEDS: ZYLOPRIM 300 MG PO (08:36)
[2025-05-12] MEDS: FLOMAX 0.4 MG PO (08:36)
[2025-05-12] MEDS: NOVOLOG FLEXPEN-LOW RESISTANCE SC (08:37)
[2025-05-12] MEDS: LIDOCAINE 4% PATCH 1 PATCH TOPICAL (08:37)
[2025-05-12] MEDS: SENOKOT-S 1 TABLET PO ×2 (08:37→21:37)
[2025-05-12] MEDS: TYLENOL 1000 MG PO ×3 (08:37→21:36)
[2025-05-12] MEDS: MUCINEX 600 MG PO (08:37)
--- NOTE | 2025-05-12 08:49 | W.PN.ID1 ---
Date of Service
Date of Service: May 12, 2025
Today's Communication
See below.
Assessment / Plan
#Left shoulder septic arthritis
- 05/08 Synovial fluid 78,000 WBC, 90%PMN, neg crystals, cx neg to date (was on Zosyn). Asked micro to hold cx for 10 days.
- 05/09 s/p OR washout. Per Ortho, joint appeared infected. However, NO OR cultures sent.
- Continue empiric cefazolin 2g IV q12h x 6 weeks through 06/19/25.
- Follow weekly CBC/diff, CMP, ESR, CRP
- Place PICC.
- Infusion sheet submitted to case planner.
# Bradycardia, resolved
- Bcx's x 2 negative
- 05/11 s/p leadless Micra pacer placement today.
#Additional Past Medical History:
Diabetes mellitus
Atrial fibrillation
HFp EF
CKD 4
Hypothyroidism
Dyslipidemia
BPH
Venous insufficiency
LE skin SCC s/p resection/XRT
Chronic lower extremity wounds
Remote history of gout
Bilateral rotator cuff arthroscopic surgery
Left total hip replacement
Bilateral total knee replacement
Chief Complaint
-: Other (septic arthritis)
Subjective / Review of Systems
Shoulder better.
Vital Signs / Physical Exam
Vital Signs
Vital Signs
Temp Pulse Resp BP Pulse Ox
97.3 F 63 24 104/53 96
05/12/25 07:23 05/12/25 06:00 05/12/25 07:23 05/12/25 06:00 05/12/25 07:23
Physical Exam
Constitutional: No Acute Distress and Comfortable
Eyes: No Conjunctival Hemorrhage and Sclera Anicteric
Cardiovascular: Regular Rate and S1/S2
Pulmonary: Coarse
Gastrointestinal: Soft, Non Tender, Non Distended and Normal Bowel Sounds
Extremities: Edema and Venous Insufficiency (ble)
Musculoskeletal: Other (Left shoulder dressing dry)
Neurological: AO x 3
Objective Data
Lab Data
Lab Results
05/12/25 03:37
05/12/25 03:37
ESR 64 mm/hour (0-20) H 05/12/25 03:37
PT 21.4 Sec (11.4-14.6) H 05/06/25 16:06
INR 1.84 05/06/25 16:06
Estimated Creat Clear 23 ml/min 05/12/25 03:37
Lactic Acid 1.5 mmol/L (0.7-2.0) 05/07/25 10:44
Total Bilirubin 0.6 mg/dl (0.2-1.3) 05/10/25 04:30
AST 15 U/L (17-59) L 05/10/25 04:30
ALT 18 U/L (0-50) 05/10/25 04:30
Alkaline Phosphatase 102 U/L (38-126) 05/10/25 04:30
Most recent labs reviewed.
Micro Results:
05/06/25 16:13 Blood Culture - Final
Blood/Venous No Growth - Final Report
05/06/25 16:13 Blood Culture - Final
Blood/Venous No Growth - Final Report
05/08/25 16:24 Body Fluid Culture - Preliminary
Joint Fluid No Growth After 72 Hours
Gram Stain - Preliminary
05/07/25 03:15 Nasal Screen MRSA (PCR) - Final
Nose MRSA not detected - performed by PCR methodology.
05/06/25 16:15 Influenza Types A & B (DIONISIO) - Final
Nasal Swab Negative for Influenza A & B, NAAT
Negative results must be combined with clinical observations
and patient history.
Nucleic Acid Amplification test (NAAT)performed on the
[employer] platform.
05/06/25 CXR: Low lung volumes with crowding of the central/vascular markings.
03/20/[address]: New widening of the left glenohumeral interval and anterior subluxation/dislocation of the left humeral head relative to the glenoid, which appears to be at least in part secondary to a very large glenohumeral joint effusion and
bursal fluid.
--- NOTE | 2025-05-12 11:26 | W.PN.NEPH.PH ---
Today's Communication / Plan
-
Maintain current diuretics
CKD at baseline
We will sign off
Assessment/Plan
-
Impression
Acute on chronic kidney disease stage IV
Azotemia with BUN greater than 130
Chronic HFpEF
Type 2 diabetes
Gout
Chronic opioid use for pain
BPH
Pneumonia/CHF hx: not convinced that this is pneumonia at this time but rather hypervolemia with hypertension and significant weight gain in a month.(Severe pulmonary hypertension ,preserved EF)
Anemia of chronic disease.
A-fib stable.= Bradycardic chronic
Secondary hyperparathyroidism
Chronic lower extremity ulcerative lesion
Hypothyroid
Plan
Profound azotemia likely a function of advanced cardiorenal syndrome-stable
cr stable with diuresis
Cont Oral diuretics Torsemide and metolazone
Follow weights and accurate I's and O's is capable
Patient will not pursue dialysis at his request which I agree with given his advanced cardiac comorbidities and age (this was again discussed with patient at bedside and confirmed)
Zosyn renally dosed
s/p pacer on 05/11
We will sign off
-
-
Date of Service: May 12, 2025
CC / HPI / ROS
-
Chief Complaint:
CKD 4
History of Present Illness:
Creatinine at baseline 3
Hemodynamically stable
BUN stable at 114
Review of Systems:
Nonoliguric around 1500 cc
Weights down
No chest pain or shortness of breath at rest
Labs
-
Labs:
WBC 11.7 10^3/uL (4.8-10.8) H 05/12/25 03:37
RBC 2.88 10^6/uL (4.70-6.10) L 05/12/25 03:37
Hgb 8.6 g/dL (13.0-18.0) L 05/12/25 03:37
Hct 28.1 % (39.0-52.0) L 05/12/25 03:37
Plt Count 213 10^3/uL (130-400) 05/12/25 03:37
Sodium 140 mmol/L (135-145) 05/12/25 03:37
Potassium 4.4 mmol/L (3.5-5.1) 05/12/25 03:37
Chloride 109 mmol/L (98-107) H 05/12/25 03:37
Carbon Dioxide 27 mmol/L (22-30) 05/12/25 03:37
BUN 114 mg/dl (9-20) H* 05/12/25 03:37
Creatinine 2.9 mg/dL (0.7-1.3) H 05/12/25 03:37
eGFR 20.55 05/12/25 03:37
Glucose 111 mg/dl (70-99) H 05/12/25 03:37
Calcium 8.9 mg/dl (8.4-10.2) 05/12/25 03:37
Xzl-R-Upqpbuhldof Pept 30103 pg/ml 05/06/25 16:06
Albumin 2.8 g/dl (3.5-5.0) L 05/10/25 04:30
Physical Exam
-
Vital Signs:
Vital Signs
Temp Pulse Resp BP Pulse Ox
97.3 F 63 24 104/53 96
05/12/25 07:23 05/12/25 06:00 05/12/25 07:23 05/12/25 06:00 05/12/25 07:23
Cardiovascular:: Regular rate and rhythm
Respiratory:: Bilateral: Coarse
Lung Excursion:: Normal
Abdomen:: Nontender and Soft
Bowel Sounds:: Normal
Extremity Edema:: +2: Bilateral:
Donovan Catheter: No
--- NOTE | 2025-05-12 12:55 | PN.CDI ---
CDI
- -
CDI:
Physician Documentation Request
Admit Date: 05/06/25 18:40
Dear Doctor Babatunde,
05/06 Patient underwent Left shoulder arthroscopy with irrigation and extensivedebridement.
Could you provide further clarification regarding the debridement.
Please specify the type of debridement performed:
1. Excisional Debridement - defined as removal by excision of devitalized tissue, necrosis or slough
2. Non-excisional debridement - defined as removal of devitalized tissue, necrosis or slough by such methods as irrigation, brushing, scrubbing or washing.
If the debridement was excisional, please also include:
What was excised (necrotic tissue, gangrenous tissue, slough etc.)
For excisional or non-excisional, please also include:
1. Depth of debridement (skin, subcutaneous tissue, fascia, muscle, bone etc)
2. Size and appearance of the wound (L, W, D, color of wound, drainage)
Use of terms such as suspected, likely, concern for, or probable (associated with a specific diagnosis that is being evaluated, monitored, or treated as if it exists) are acceptable and can be coded in the inpatient setting, when documented at the
time of discharge.
Thank you,
Yvette Recio RN BSN
CDI Specialist
tiger text
Please use your independent medical judgment in providing your response.
[2025-05-12 13:17] LABS: Glucose - Point of Care 198 mg/dl (70-99)
--- NOTE | 2025-05-12 14:23 | CM ---
spoke to pt in room, [facility] not [facility] bed for him until thursday, Hospitalist aware. awaiting he is PICC. called and LM
--- NOTE | 2025-05-12 14:32 | PN.CDI ---
CDI
- -
CDI:
Physician Documentation Request
Admit Date: 05/06/25 18:40
Dear Doctor Bib
Patient presented to ED for low heart rate and cough/difficulty breathing.
05/06 cxr impression: Low lung volumes with crowding of the central/vascular markings. No suspected acute pulmonary process.
05/06 BNP 32344
05/07 hospitalist progress notes state ' acute hypoxemic respiratory failure.... proBNP 05782 but likely falsely elevated due to CKD4 no evidence of PNA or CHF, ? bronchitis as etiology'
05/08 hospitalist note states ' Acute Hypoxemic Respiratory Failure - likely from CHF # Acute Exacerbation HFpEF
Please clarify the following:
____ - Acute Exacerbation HFpEF is a valid diagnosis , Please indicate if POA
____ - Acute Exacerbation HFpEF is not a valid diagnosis for this patient
____ - Other
Use of terms such as suspected, likely, concern for, or probable (associated with a specific diagnosis that is being evaluated, monitored, or treated as if it exists) are acceptable and can be coded in the inpatient setting, when documented at the
time of discharge.
Thank you,
Yvette Recio RN, BSN
CDI Specialist
tiger text
Please use your independent medical judgment in providing your response.
--- NOTE | 2025-05-12 14:44 | PN.CDI ---
CDI
- -
CDI:
Physician Documentation Request
Admit Date: 05/06/25 18:[address] Mccartney,
[facility] is using an adapted version of the 2016 Third International Consensus Definitions for Sepsis and Septic Shock (Sepsis-3) where sepsis is defined as life threatening organ dysfunction caused by a deregulated host response to infection.
Please reference the official [facility] Sepsis Recognition Tool for further information, which can be found on the Intranet under Infection Prevention.
Clinical Indicators:
Patient presented with sob/cough/low heart rate.
H&P states 'suspected sepsis (metabolic encephalopathy, hypothermia)...Lactic acid 2.3'
Patient found to have septic arthritis of left shoulder joint.
Other diagnosis includes ERENDIRA on CKD4 with baseline creatinine of 2.6
Based on your medical judgment, can you please clarify whether or not the above organ dysfunction is related to or due to sepsis?
-- Sepsis due to infected left shoulder joint with organ dysfunction of acute metabolic encephalopathy
-- Sepsis due to infected left shoulder joint with organ dysfunction of
-- Other (please specify)
-- Clinically unable to determine��
Use of terms such as suspected, likely, concern for, or probable (associated with a specific diagnosis that is being evaluated, monitored, or treated as if it exists) are acceptable and can be coded in the inpatient setting when documented at the
time of discharge.
Please use your independent medical judgement in providing your response.
Thank you,
Yvette Recio RN, BSN
CDI Specialist
tiger text
[2025-05-12] MEDS: NOVOLOG FLEXPEN-LOW RESISTANCE 1 UNITS SC ×2 (15:17→18:32)
--- NOTE | 2025-05-12 17:36 | W.PN.CD ---
Today's Communication / Plan
-
OK for Xarelto tomorrow if H/H OK.
Cardiology will sign off
F/u in our office has been arranged
Impression / Plan
-
84 y/o male (patient of Dr. Gallegos) with permanent AFIB on Xarelto, bradycardia, HFpEF, CKD IV, hypertension, moderate to severe MR and TR, obesity, and ARIN (unable to tolerate CPAP) who is here for decreased responsiveness and lethargy for the
past few days, being treated for sepsis NOS. Cardiology is consulted for bradycardia.
Complete Heart block
- Micra leadless pacemaker placed 05/11/2025 w/o complication
- Tele V paced at 60 bpm, PVCs
Left septic shoulder, s/p I/D/[place] 05/09/2025
- ID OK with Micra implant
Permanent AFib
Moderate to severe MR
Severe TR
Chronic HFpEF (EF 55-60%)
CKD 4
HTN
Obesity, BMI 35.6
Sleep apnea
Anemia
Subjective: Feels better
Physical Exam
Vital Signs/Labs
Vital Signs
Temp Pulse Resp BP Pulse Ox
98 F 63 24 105/66 95
05/12/25 14:16 05/12/25 11:39 05/12/25 14:16 05/12/25 11:39 05/12/25 14:16
05/11/25 05/12/25 05/13/25
06:59 06:59 06:59
Actual Weight 112.2 kg 110.7 kg
05/12/25 03:37
05/12/25 03:37
PT 21.4 Sec (11.4-14.6) H 05/06/25 16:06
INR 1.84 05/06/25 16:06
Magnesium 2.1 mg/dl (1.6-2.3) 05/12/25 03:37
05/06/25
16:06
Pol-L-Wrdjqeqmjjm Pept 65827
Physical Exam
Constitutional: No acute distress
Cardiovascular: Rhythm & rate is regular
Respiratory: Respiratory effort normal
Other: Cath Site (right groin w/o bleed/hematoma)
Data Reviewed
-
Date of Service: May 12, 2025
[2025-05-12 18:33] LABS: Glucose - Point of Care 177 mg/dl (70-99)
[2025-05-12] MEDS: REMOVE LIDOCAINE PATCH REMOVE (21:02)
[2025-05-12 21:12] LABS: Glucose - Point of Care 210 mg/dl (70-99)
[2025-05-12] MEDS: MUCINEX 1200 MG PO (21:36)
[2025-05-12] MEDS: LIPITOR 20 MG PO (21:37)
[2025-05-12 21:40] LABS: Lyme Disease DNA by PCR Not Detected; Lyme Source Synovial fluid
--- NOTE | 2025-05-12 23:52 | PTCARENOTE ---
assumed care of patient at the change of shift. oriented x3; forgetful at times. denies any pain when asked. Vpaced on tele 60s-70s. bp stable. sat patient on the side of the bed-tolerated. + harsh/productive cough. thick/yellow secretions.
encouraged patient to cough up. 93% on RA. coarse lungs sounds. surgical incisions intact. no drainage noted. t/r q2 hour. LUE non weightbearing. re educated patient on importance. verbalized understanding. call lucas within reach. makes needs known.
[2025-05-13 03:35] VITALS: BP 145/80
[2025-05-13 03:50] LABS: Hematocrit 27.1 % (39.0-52.0); Hemoglobin 8.5 g/dL (13.0-18.0); Mean Corp Hgb Conc. 31.4 g/dL (33.0-37.0); Mean Corpuscular Volume 93.8 fL (80.0-94.0); Platelet Count 213 10^3/uL (130-400); Red Cell Dist. Width 17.6 % (11.5-14.5)
[2025-05-13 04:27] LABS: Blood Urea Nitrogen 114 mg/dl (9-20); Calcium 9.0 mg/dl (8.4-10.2); Carbon Dioxide 28 mmol/L (22-30); Chloride 104 mmol/L (98-107); Estimated Creatinine Clearance 22 ml/min; Glucose 132 mg/dl (70-99); Potassium 4.5 mmol/L (3.5-5.1); Sodium 136 mmol/L (135-145); eGFR 19.74
[2025-05-13 05:38] VITALS: BMI 35.1
--- NOTE | 2025-05-13 05:53 | PTCARENOTE ---
b/l LE wound care completed per order. CHG bath completed. L shoulder dressing loose. removed. x2 surgical sites with sutures; no new drainage noted. L shoulder swollen/fluid collection. cleansed and redressed. back and forth from chair to bed
overnight- x2 assist. generalized weakness noted, steady otherwise. chair alarm for safety.
[2025-05-13 06:56] VITALS: BP 131/79
[2025-05-13] MEDS: SYNTHROID 50 MCG PO (07:04)
[2025-05-13] MEDS: ANCEF 10 IV ×2 (07:04→17:25)
--- NOTE | 2025-05-13 07:26 | W.PN.HOSP.TC ---
Addendum entered and electronically signed by Avani Delcid MD 05/13/25 14:23:
I saw and evaluated the patient independently. I reviewed and discussed the resident�s note and agree with findings and plan as documented by Dr. Treviño.
GENERAL: well developed, well nourished, male in no apparent distress
HEENT: NC/AT--no O2 requirements
HEART: regular rate and rhythm, +S1, +S2
LUNGS : rhonchi bilaterally
ABDOM: soft, nontender, distended, + bowel sounds
EXT: no cyanosis, clubbing--3+ pitting edema bilateral LE and swollen left upper extremity
NEUROLOGIC: grossly intact
Suspected Sepsis (acute metabolic encephalopathy, hypothermia)--due to septic arthritis--apprec ortho and ID--s/p I&D in OR on 05/09--appears no OR cultures were sent as per ID--all cultures neg to date--has PICC line, zosyn narrowed to ancef
through 06/19/25-CXR without Pneumonia, COVID/ Flu neg, U/A neg --IVF were discontinued due to volume overload--lactic acid form 2.3 to 1.5--PT/OT--for SNF--pain control
septic arthritis--Non weightbearing status on left arm--Sling for immobilization and soft tissue rest--left arm swollen--check US r/o DVT
Non Sustained Ventricular Tachycardia 05/12--13 beats Vtach, it was less than 30 secs--keep K > 4 and Mag > 2
Acute Hypoxemic Respiratory Failure --due to acute exacerbation of HFpEF--proBNP 16,000--on oral torsemide--would give one time dose of lasix 40mg now--cont BiPAP--Incentive spirometry
Acute on Chronic Bradycardia due to complete heart block-HR as low as 30's. At previous admission on 04/12 HR was 40's-TSH normal-----Leadless Micro Medtronic Pacemaker implant on 05/11--apprec cards--Xarelto resumed
Acute on chronic kidney disease stage IV--Azotemia with BUN 129 likely due to advanced cardiorenal syndrome vs recent steroid intake vs dehydration--Pt is volume overloaded unlikely dehydrated--apprec renal--pt will not accept dialysis--creat at
baseline per renal
Acute on Chronic HFpEF--Echo 04/17/25 - EF 55-60%, Severe LVH, moderate to severe mitral valve regurgitation, severe tricuspid regurgitation, severely dilated RA, estimated Pulmonary arterial Pressure 65 mmHg, Ascending aorta and IVC
dilated-Discontinue IVF due to SOB, volume overload--cont oral diuretics but will give 1 time dose of lasix--proBNP 16,000--too high for renal explanation alone
Dysphagia--speech eval - Regular solids and thin liquids, meds as tolerated--Cholesterol lowering diet
Permanent Atrial fibrillation--Xarelto 15mg -Slow rate - not on meds due to bradycardia
Constipation--already on bowel regimen--adding mag citrate--
Type 2 Diabetes Mellitus-Hold Jaridance and Tirzepatide-Aspart Insulin Sliding Scale-HbA1C 7.1
Nonischemic Myocardial Injury-Troponin 0.139, Chronically elevated likely secondary to CKD stage IV
Chronic Macrocytic Anemia-Hb 8.6
Chronic Extremity wounds--LLE wound s/p surgery and XRT 3 months ago for squamous cell carcinoma--Wound care consulted, input appreciated
Gout -Continue Allopurinol
Chronic Pain- Continue Tramadol and Morphine PRN
Hypothyroidism-Continue Levothyroxine
Hyperlipidemia-Continue Statin
BPH-Continue Tamsulosin
Anxiety-Continue Ativan
Obstructive Sleep Apnea-unable to tolerate CPAP
Obesity -due to excess calories
code status--Full code
DVT prophylaxis: Xarelto
Discharge to [facility], no bed availability until 05/14
Original Note:
Today's Communication/Plan
-
Left UE venous doppler US
Follow K, Mg
Mg citrate
Assessment / Plan
Assessment / Plan
84 y/o male with pmh of permanent afib on Xarelto, HFpEF, CKD stage IV, Chronic macrocytic anemia, Left LE wound (basal skin cancer removal?), pressure ulcers, gout, type 2DM, hypothyroidism, hyperlipidemia, BPH presented to ED on 05/06 from [place]
Run for cough, SOB and bradycardia. He has had decreased responsiveness and lethargy for the past few days.
He was recently admitted to from 04/12 to 04/18 and was found to have pleural effusions and cardiomegaly treated for CHF as well as for contaminant possible Pneumonia and chronic LE wounds. He was treated with ab's. He also had asymptomatic
bradycardia as low as 40's.
Suspected Sepsis (acute metabolic encephalopathy, hypothermia)
-Moved IVU from IMU
-CXR without Pneumonia, COVID/ Flu neg, U/A neg
-Leukocytosis WBC 16.5
-Lactic acid 2.3
-Discontinued IVF due to SOB and Volume overload
-nasal MRSA Neg- Discontinue Vancomycin
-Infectious Disease consulted, input appreciated
-Narrow Zosyn #D3 to Cefazolin#D5 - Plan for 6 weeks of IV abx through 06/19/25 per ID
-Blood Cx- negative
-05/09 washout intervention of the suspected shoulder infection with backup transcutaneous pacing.
-PT/OT eval - SNF
-PICC line placed 05/12
-Continue pain control f/u as OP ortho in 4 weeks
Chest Xray
Low lung volumes with crowding of the central/vascular markings.
No suspected acute pulmonary process.
Left shoulder septic arthritis
-Limited ROM due to pain and swelling, no erythema, warmth on exam
-Consult orthopedics, input appreciated
-IV dilaudid 0.5mg prn
-Left shoulder tap
-joint aspiration fluid- septic arthritis- WBC 01369, PMN Cells 90.7
-Lyme order pending
-05/09 OR for arthroscopic irrigation and debridement - then PT eval
-None weightbearing status on left arm
-Ordered Sling fo immobilization and soft tissue rest
-Left UE Venous Doppler US
Non Sustained Ventricular Tachycardia 05/12
-13 beats Vtach , it was less than 30 secs
Acute Hypoxemic Respiratory Failure
-was on BIPAP due to respiratory distress, now on 2L O2 sat 98%
-Chest Xray no evidence of Pneumonia
-No evidence of CHF- proBNP 16,000 high likely elevated due to CKD stage IV
-Start Mucinex
-Incentive spirometry
Chest Xray
New findings suggesting mild left lower lobe pneumonia. Atelectasis not excluded
New findings concerning for mild pulmonary edema.
Cardiomegaly. Stable
Acute on Chronic Bradycardia likely secondary to mild hypothermia
-Body Temp 97.4
-HR as low as 30's. At previous admission on 04/12 HR was 40's
-TSH normal
-ECG - slow afib, HR 37, RBBB, Premature Ventricular complexes
-Cardiology consulted, input appreciated
---Follow telemetry
---No AV blocking medications
-- 05/09 OR with backup transcutaneous pacing
---Leadless Micro Medtronic Pacemaker implant on 05/11
-Resumed Xarelto 15mg 05/13 H&H stable
Acute on chronic kidney disease stage IV
-Azotemia with BUN 129 likely 2/2 advanced cardiorenal syndrome vs recent steroid intake vs dehydration
-Pt is volume overloaded unlikely dehydrated
-Consult Nephrology, input appreciated
-Patient declines dialysis
-Baseline Cr 2.3-2.6 per records. Creatinine today 2.9
-Check PVR Bladder scan for his baseline incontinance per nephro - pending
-Follow BMP
Chronic HFpEF
-Echo 04/17/25 - EF 55-60%, Severe LVH, moderate to severe mitral valve regurgitation, severe tricuspid regurgitation, severely dilated RA, estimated Pulmonary arterial Pressure 65 mmHg, Ascending aorta and IVC dilated
-Pt has elevated lactic acid level, possible sepsis, hypothermia, elevated BUN
-Discontinue IVF due to SOB, volume overload
-Continue torsemide 30mg, metolazone 2.5mg PO, give once IV lasix 40mg
-Follow I/O
-Check daily weight
Dysphagia
-speech eval - Regular solids and thin liquids, meds as tolerated
-Cholesterol lowering diet
Permanent Atrial fibrillation
-Xarelto 15mg
-Slow rate - not on meds due to bradycardia
-Asymptomatic
Constipation
- Started Sennokat- S with Miralax
- No bms today
- Mg Citrate
Type 2 Diabetes Mellitus
-Blood glucose 132
-Hold Jaridance and Tirzepatide
-Aspart Insulin Sliding Scale
-HbA1C 7.1
-Monitor Glucose
Nonischemic Myocardial Injury
-Troponin 0.139, Chronically elevated likely secondary to CKD stage IV
Chronic Macrocytic Anemia
-Hb 8.6
Chronic Extremity wounds
-LLE wound s/p surgery and XRT 3 months ago for squamous cell carcinoma
-Wound care consulted, input appreciated
Gout
-Continue Allopurinol
Chronic Pain
- Continue Tramadol and Morphine PRN
Hypothyroidism
-Continue Levothyroxine
Hyperlipidemia
-Continue Statin
BPH
-Continue Tamsulosin
Anxiety
-Continue Ativan
Obstructive Sleep Apnea
-unable to tolerate CPAP
Obesity
-due to excess calories
Full code
DVT prophylaxis: Xarelto
Cholesterol lowering diet
Discharge to [facility], no bed availability until 05/14
Anticipated Discharge: > 48 hours
Subjective/Interval History
-
Date of Service: May 13, 2025
He is sitting on the chair. He has left arm pain with movement. No bm yet. His SOB is improving on RA. He has a little bit of palpitations.
Objective Data
-
Labs:
Laboratory Results
05/13/25
03:37
WBC 16.5 H
Hgb 8.5 L
Hct 27.1 L
Plt Count 213
Sodium 136
Potassium 4.5
Chloride 104
Carbon Dioxide 28
BUN 114 H*
Creatinine 3.0 H
Glucose 132 H
Calcium 9.0
Vital Signs:
Vital Signs
Temp Pulse Resp BP Pulse Ox
97.5 F 62 20 145/80 95
05/13/25 06:57 05/13/25 06:57 05/13/25 06:57 05/13/25 03:35 05/13/25 06:57
I&O
05/12/25 05/13/25 05/14/25
06:59 06:59 06:59
Intake Total 1100 / 1100
Output Total 200 / 200 1700 / 1700
Balance -200 / -200 -600 / -600
Review of Systems
-
History Source: Patient
EENT: Reports No Symptoms Reported
Respiratory: Reports Cough
Cardiac: Reports No Symptoms
Abdomen/GI: Reports No Symptoms
Breast: Reports No Symptoms
Genitourinary: Reports No Symptoms
Musculoskeletal: Reports Joint Pain (left arm pain) and Joint Swelling
Skin: Reports Other (wounds covered in dressings)
Neuro: Reports No Symptoms
Endocrine: Reports No Symptoms
Hematologic / Lymphatic: Reports No Symptoms
Allergy / Immunology: Reports No Symptoms
Physical Exam
-
General: Well Developed and Obese
HEENT: Normocephalic and Atraumatic
Respiratory: Crackles
Cardiac: Regular Rhythm and S1/S2
Breast: Deferred by me
GI: Soft, Nontender, Nondistended and Normal Bowel Sounds
Rectal: Deferred by Provider
Genito-urinary: Deferred by me
Musculoskeletal: No Clubbing, No Cyanosis, Edema, Left Upper Extrem, Edema, Right Lower Extrem and Edema, Left Lower Extrem (fluid on dressing site)
Skin: Warm and Dry
Neuro: Awake
Hematologic / Lymphatic: No Lymphadenopathy
Psych: Calm
--- NOTE | 2025-05-13 08:42 | W.PN.ID1 ---
Date of Service
Date of Service: May 13, 2025
Today's Communication
See below.
Assessment / Plan
#Left shoulder septic arthritis
- 05/08 Synovial fluid 78,000 WBC, 90%PMN, neg crystals, cx neg to date (was on Zosyn). Asked micro to hold cx for 10 days.
- 05/09 s/p OR washout. Per Ortho, joint appeared infected. However, NO OR cultures sent.
- Continue empiric cefazolin 2g IV q12h x 6 weeks through 06/19/25.
- Follow weekly CBC/diff, CMP, ESR, CRP
- PICC placed
- Infusion sheet submitted to rehabilitation case coordinator.
# Leukocytosis, likely reactive
- Afebrile
- No diarrhea. Is constipated, no BM since admission.
# Bradycardia, resolved
- Bcx's x 2 negative
- 05/11 s/p leadless Micra pacer placement.
# Pulm edema
# hx HFpEF
- On torsemide, metolazone
#Additional Past Medical History:
Diabetes mellitus
Atrial fibrillation
HFp EF
CKD 4
Hypothyroidism
Dyslipidemia
BPH
Venous insufficiency
LE skin SCC s/p resection/XRT
Chronic lower extremity wounds
Remote history of gout
Bilateral rotator cuff arthroscopic surgery
Left total hip replacement
Bilateral total knee replacement
Chief Complaint
-: Other (septic arthritis)
Subjective / Review of Systems
Sitting up. Eating well.
No BM yet.
SOB stable, no cough.
Vital Signs / Physical Exam
Vital Signs
Vital Signs
Temp Pulse Resp BP Pulse Ox
97.5 F 62 20 145/80 95
05/13/25 06:57 05/13/25 06:57 05/13/25 06:57 05/13/25 03:35 05/13/25 06:57
Physical Exam
Constitutional: No Acute Distress and Comfortable
Eyes: No Conjunctival Hemorrhage and Sclera Anicteric
Cardiovascular: Regular Rate, S1/S2 and Murmur
Pulmonary: Rales
Gastrointestinal: Soft, Non Tender, Non Distended and Normal Bowel Sounds
Extremities: Edema and Venous Insufficiency (ble)
Musculoskeletal: Other (Left shoulder dressing dry)
Neurological: AO x 3
Lines: PICC (RUE)
Objective Data
Lab Data
Lab Results
05/13/25 03:37
05/13/25 03:37
ESR 64 mm/hour (0-20) H 05/12/25 03:37
PT 21.4 Sec (11.4-14.6) H 05/06/25 16:06
INR 1.84 05/06/25 16:06
Estimated Creat Clear 22 ml/min 05/13/25 03:37
Lactic Acid 1.5 mmol/L (0.7-2.0) 05/07/25 10:44
Total Bilirubin 0.6 mg/dl (0.2-1.3) 05/10/25 04:30
AST 15 U/L (17-59) L 05/10/25 04:30
ALT 18 U/L (0-50) 05/10/25 04:30
Alkaline Phosphatase 102 U/L (38-126) 05/10/25 04:30
Most recent labs reviewed.
Micro Results:
05/08/25 16:24 Body Fluid Culture - Preliminary
Joint Fluid NO GROWTH
Gram Stain - Preliminary
05/06/25 16:13 Blood Culture - Final
Blood/Venous No Growth - Final Report
05/06/25 16:13 Blood Culture - Final
Blood/Venous No Growth - Final Report
05/07/25 03:15 Nasal Screen MRSA (PCR) - Final
Nose MRSA not detected - performed by PCR methodology.
05/06/25 16:15 Influenza Types A & B (DIONISIO) - Final
Nasal Swab Negative for Influenza A & B, NAAT
Negative results must be combined with clinical observations
and patient history.
Nucleic Acid Amplification test (NAAT)performed on the
[employer] platform.
05/12/25 CXR: Findings suggest pulmonary edema, unchanged from prior study. There are probable bilateral pleural effusions, left greater than right.
05/06/25 CXR: Low lung volumes with crowding of the central/vascular markings.
03/20/[address]: New widening of the left glenohumeral interval and anterior subluxation/dislocation of the left humeral head relative to the glenoid, which appears to be at least in part secondary to a very large glenohumeral joint effusion and
bursal fluid.
[2025-05-13] MEDS: NOVOLOG FLEXPEN-LOW RESISTANCE SC ×2 (09:01→12:22)
[2025-05-13] MEDS: MUCINEX 1200 MG PO ×2 (09:02→19:44)
[2025-05-13] MEDS: XARELTO 15 MG PO (09:02)
[2025-05-13] MEDS: MIRALAX 17 GRAMS PO (09:02)
[2025-05-13] MEDS: FLOMAX 0.4 MG PO (09:03)
[2025-05-13] MEDS: DEMADEX 30 MG PO (09:03)
[2025-05-13] MEDS: KCL 10 MEQ PO (09:04)
[2025-05-13] MEDS: TYLENOL 1000 MG PO ×3 (09:04→22:00)
[2025-05-13] MEDS: ROCALTROL 0.25 MCG PO (09:04)
[2025-05-13] MEDS: ZAROXOLYN 2.5 MG PO (09:04)
[2025-05-13] MEDS: ZYLOPRIM 300 MG PO (09:05)
[2025-05-13] MEDS: PROTONIX 40 MG PO (09:05)
[2025-05-13] MEDS: LIDOCAINE 4% PATCH TOPICAL (09:05)
[2025-05-13] MEDS: SENOKOT-S 1 TABLET PO (09:05)
[2025-05-13 10:40] LABS: Magnesium 2.0 mg/dl (1.6-2.3)
--- NOTE | 2025-05-13 11:01 | PTCARENOTE ---
received patient this am, monitor shows V paced, VSS. patient is on aspiration precautions. patient has Right upper PIC line. left arm is edematous and shoulder has fluid noted, night RN changed dressing, and noticed the fluid. TT Dr. Bennett.
patients lungs are course throughout, alot of mucous, able to cough it up. patient is on RA, with o2 sat of 95%. patient wanted to go back to bed, able to bear weight on legs and ambulate to bed with assist of 2. family presently at bedside.
[2025-05-13 11:16] VITALS: BP 128/89
[2025-05-13] MEDS: LASIX 40 MG IV (12:18)
[2025-05-13] MEDS: FLUSH (NSS) 2 FLUSH IV ×2 (12:22→17:26)
[2025-05-13 12:23] LABS: Glucose - Point of Care 139 mg/dl (70-99)
[2025-05-13] MEDS: CITROMA 300 ML PO (12:42)
--- NOTE | 2025-05-13 13:47 | PTCARENOTE ---
mag citrate given as ordered.
--- NOTE | 2025-05-13 15:51 | PTCARENOTE ---
ultrasound of left arm completed.
[2025-05-13 16:06] VITALS: BP 129/80
[2025-05-13 17:14] LABS: Glucose - Point of Care 152 mg/dl (70-99)
[2025-05-13] MEDS: NOVOLOG FLEXPEN-LOW RESISTANCE 1 UNITS SC (17:15)
--- NOTE | 2025-05-13 17:28 | PTCARENOTE ---
as the day progresses patient is confused as to wether it is day or night. patient does know his name and date. also. patient has harsh, productive cough that it is difficult for patient to cough up. patient is presently sitting in a chair ,
upright, eating dinner.
--- NOTE | 2025-05-13 18:28 | PTCARENOTE ---
called central supply for k pad for left arm as ordered, central supply doesn't have a k pad or machine right now, therefore warm blanket applied to left arm.
--- NOTE | 2025-05-13 18:30 | PTCARENOTE ---
patient doesn't like sling on left arm, removed for comfort.
[2025-05-13 18:37] VITALS: BP 118/77
[2025-05-13] MEDS: REMOVE LIDOCAINE PATCH REMOVE (19:44)
[2025-05-13] MEDS: LIPITOR 20 MG PO (21:59)
[2025-05-13] MEDS: SENOKOT-S PO (21:59)
[2025-05-13 22:02] LABS: Glucose - Point of Care 157 mg/dl (70-99)
[2025-05-13 22:51] VITALS: BP 119/96
[2025-05-13] MEDS: ULTRAM 50 MG PO (23:46)
[2025-05-14] VITALS (7 sets, daily range): BP systolic 112–123; BP diastolic 66–80; BMI 35.1
--- NOTE | 2025-05-14 00:18 | PTCARENOTE ---
Pt rec'd at change of shift awake,alert calling out. Pt had been placed on bedpan during shift report then passed very large soft brown bm.
ASSISTANT BOOKKEEPER on telemetry. warm compresses applied to left arm. Drsg to left shoulder intact as well as b/l le drsg's. Pt 2 person assisted oob to recliner at 2100 for two hours to watch [place]. Back in bed at present. Occasionally calling out,
reoriented to time. Pain med given for c/o back and left shoulder discomfort. call lucas within reach
[2025-05-14 03:32] LABS: Hematocrit 28.4 % (39.0-52.0); Hemoglobin 8.5 g/dL (13.0-18.0); Mean Corp Hgb Conc. 29.9 g/dL (33.0-37.0); Mean Corpuscular Volume 97.6 fL (80.0-94.0); Platelet Count 181 10^3/uL (130-400); Red Cell Dist. Width 17.9 % (11.5-14.5)
[2025-05-14 03:50] LABS: Blood Urea Nitrogen 117 mg/dl (9-20); Calcium 9.0 mg/dl (8.4-10.2); Carbon Dioxide 29 mmol/L (22-30); Chloride 103 mmol/L (98-107); Estimated Creatinine Clearance 21 ml/min; Glucose 150 mg/dl (70-99); Magnesium 2.2 mg/dl (1.6-2.3); Potassium 4.8 mmol/L (3.5-5.1); Sodium 138 mmol/L (135-145); eGFR 18.27
[2025-05-14] MEDS: ANCEF 10 IV ×2 (05:18→17:35)
[2025-05-14] MEDS: SYNTHROID 50 MCG PO (05:18)
--- NOTE | 2025-05-14 05:48 | PTCARENOTE ---
Pt restless most of the night calling out, confused but reoriented to surroundings. At 0500 pt continued with harsh cough; productive yellow phlem. ,
sat on r/a 85% lungs coarse with pt using accessory muscles. House SHEET MILL SUPERVISOR called
--- NOTE | 2025-05-14 05:51 | W.PN.UPDATE ---
Update Note
Progress Note Update
Reported by the nursing staff that the patient is Afebrile desatting to 86% on RA. Afebrile.
On assessment, patient is alert, has difficult with breathing. Crackle lung on exam noted during the exam.
-Duo nebs prn,
-Patient placed on 2L of O2 and spo2 up to 93-94%.
-Chest x-ray, vbg, Pro BNP ordered.
-Advised the nursing staff to give morning doses of Torsemide and metolazone.
- Discussed with the nephrology performance solutions specialist and agrees with one time dose of IV lasix 40mg.
-Chest x-ray result is pending.
[2025-05-14] MEDS: ZAROXOLYN 2.5 MG PO (06:21)
[2025-05-14] MEDS: DEMADEX 30 MG PO (06:21)
--- NOTE | 2025-05-14 06:23 | PTCARENOTE ---
Pt seen by house MINING CAPTAIN. PCXR reviewed. venous blood gas and Pro BNp sent. AM diuretics given per MINING CAPTAIN . B/p 123/80
[2025-05-14 06:36] LABS: Venous Blood Gas B.E. 2.1 mmol/L (-4 to +4); Venous Blood Gas O2 Sat % 93.5 %
[2025-05-14 06:39] LABS: Venous Blood Gas O2 Therapy O2
[2025-05-14] MEDS: LASIX 40 MG IV (07:22)
[2025-05-14] MEDS: FLUSH (NSS) 2 FLUSH IV ×2 (07:23→17:35)
--- NOTE | 2025-05-14 07:24 | PTCARENOTE ---
received patient this am, patient is dyspneic at rest, coarse rhonchi throughout, able to cough sputum up at times. patient is on 2 LNC o2 sat 95%. night SYSTEM PROGRAMMER ordered 40 IV Lasix now, she is aware of Cr level., given as ordered. monitor shows V
paced, VSS. patient has PICC line in right upper arm. Left arm remains edematous, large dsg remains on shoulder area, arm elevated on pillow and warm blanket applied. patient states he has no pain at site. patient is inc of urine, male pouch
continues to leak. pure wick placed. bilat LE +3, Doppler pulses bilat. leg dressings changed by night RN.
--- NOTE | 2025-05-14 08:29 | W.PN.HOSP.TC ---
Addendum entered and electronically signed by Avani Delcid MD 05/14/25 13:50:
I saw and evaluated the patient independently. I reviewed and discussed the resident�s note and agree with findings and plan as documented by Dr. Treviño.
GENERAL: well developed, well nourished, male in some distress--SOB
HEENT: NC/AT--no O2 requirements
HEART: regular rate and rhythm, +S1, +S2
LUNGS : rhonchi bilaterally
ABDOM: soft, nontender, distended, + bowel sounds
EXT: no cyanosis, clubbing--3+ pitting edema bilateral LE and swollen left upper extremity
NEUROLOGIC: grossly intact
Acute Hypoxemic Respiratory Failure--due to acute exacerbation of HFpEF--proBNP 16,000--on oral torsemide--received one time dose of lasix 40mg 05/13--cont BiPAP--Incentive spirometry--happened again overnight with another one time lasix
dose--cancel d/c to SNF--pt in obvious CHF exacerbation--lasix drip--creat 3.2 and pt does not want dialysis--may need to re-consult cards/renal if no improvement or worsens--ABG checked and is stable
Suspected Sepsis with lactic acidosis (acute metabolic encephalopathy, hypothermia)--due to septic arthritis--apprec ortho and ID--s/p I&D in OR on 05/09--appears no OR cultures were sent as per ID--all cultures neg to date--has PICC line, zosyn
narrowed to ancef through 06/19/25--CXR without Pneumonia, COVID/ Flu neg, U/A neg--lactic acid form 2.3 to 1.5--PT/OT--for SNF--pain control
septic arthritis--Non weightbearing status on left arm--Sling for immobilization and soft tissue rest--left arm swollen, US positive for DVT
acute left arm DVT--US positive--Xarelto has already been started--continue
Non Sustained Ventricular Tachycardia 05/12--13 beats Vtach, it was less than 30 secs--keep K > 4 and Mag > 2
Acute on Chronic Bradycardia due to complete heart block-HR as low as 30's. At previous admission on 04/12 HR was 40's-TSH normal-----Leadless Micro Medtronic Pacemaker implant on 05/11--apprec cards--Xarelto resumed
Acute on chronic kidney disease stage IV--Azotemia with BUN 129 likely due to advanced cardiorenal syndrome vs recent steroid intake vs dehydration--Pt is volume overloaded unlikely dehydrated--apprec renal--pt will not accept dialysis--creat at
baseline per renal--follow while on lasix drip--bladder scan for retention
Acute on Chronic HFpEF--Echo 04/17/25 - EF 55-60%, Severe LVH, moderate to severe mitral valve regurgitation, severe tricuspid regurgitation, severely dilated RA, estimated Pulmonary arterial Pressure 65 mmHg, Ascending aorta and IVC
dilated--Discontinued IVF due to SOB, volume overload--s/p IV lasix x 2 (one in afternoon 05/13 and one early AM 05/14)--proBNP 24,900--too high for renal explanation alone--lasix drip starting
Dysphagia--speech eval - Regular solids and thin liquids, meds as tolerated--Cholesterol lowering diet
Permanent Atrial fibrillation--Xarelto 15mg -Slow rate - not on meds due to bradycardia
Constipation--already on bowel regimen--adding mag citrate--successful BM
Type 2 Diabetes Mellitus--Hold Jaridance and Tirzepatide--Aspart Insulin Sliding Scale-HbA1C 7.1
Nonischemic Myocardial Injury--Troponin 0.139, Chronically elevated likely secondary to CKD stage IV
Chronic Macrocytic Anemia-Hb 8.6
Chronic Extremity wounds--LLE wound s/p surgery and XRT 3 months ago for squamous cell carcinoma--Wound care consulted, input appreciated
Gout -Continue Allopurinol
Chronic Pain- Continue Tramadol and Morphine PRN
Hypothyroidism-Continue Levothyroxine
Hyperlipidemia-Continue Statin
BPH-Continue Tamsulosin
Anxiety-Continue Ativan
Obstructive Sleep Apnea-unable to tolerate CPAP
Obesity -due to excess calories
code status--Full code
DVT prophylaxis: Xarelto
canceled d/c to SNF
Original Note:
Today's Communication/Plan
-
ABG
Lasix ggt
Follow Badder scan results
Assessment / Plan
Assessment / Plan
84 y/o male with pmh of permanent afib on Xarelto, HFpEF, CKD stage IV, Chronic macrocytic anemia, Left LE wound (basal skin cancer removal?), pressure ulcers, gout, type 2DM, hypothyroidism, hyperlipidemia, BPH presented to ED on 05/06 from [place]
Run for cough, SOB and bradycardia. He has had decreased responsiveness and lethargy for the past few days.
He was recently admitted to from 04/12 to 04/18 and was found to have pleural effusions and cardiomegaly treated for CHF as well as for contaminant possible Pneumonia and chronic LE wounds. He was treated with ab's. He also had asymptomatic
bradycardia as low as 40's.
Suspected Sepsis (acute metabolic encephalopathy, hypothermia)
-Moved IVU from IMU
-CXR without Pneumonia, COVID/ Flu neg, U/A neg
-Leukocytosis WBC 16.5
-Lactic acid 2.3
-Discontinued IVF due to SOB and Volume overload
-nasal MRSA Neg- Discontinue Vancomycin
-Infectious Disease consulted, input appreciated
-Narrow Zosyn #D3 to Cefazolin#D6 - Plan for 6 weeks of IV abx through 06/19/25 per ID
-Blood Cx- negative
-05/09 washout intervention of the suspected shoulder infection with backup transcutaneous pacing.
-PT/OT eval - SNF
-PICC line placed 05/12
-Continue pain control f/u as OP ortho in 4 weeks
Chest Xray 05/14/25
Lines and tubes: Right upper partially PICC with catheter tip projecting over the region of the cavoatrial junction, unchanged..
Lungs: Small bilateral pleural effusions, more pronounced on the left which are similar in appearance to prior. Mild diffuse interstitial opacification. Mild basilar airspace opacities.
Heart: Cardiac and mediastinal contours are enlarged, similar to prior. There is a small radiodensity projecting over the lower heart border, possibly leadless pacemaker.
Left shoulder septic arthritis
-Limited ROM due to pain and swelling, no erythema, warmth on exam
-Consult orthopedics, input appreciated
-IV dilaudid 0.5mg prn
-Left shoulder tap
-joint aspiration fluid- septic arthritis- WBC 74249, PMN Cells 90.7
-Lyme order pending
-05/09 OR for arthroscopic irrigation and debridement - then PT eval
-None weightbearing status on left arm
-Ordered Sling fo immobilization and soft tissue rest
-Left UE Venous Doppler US - Nonocclusive thrombus in the proximal to mid basilic vein - left arm swelling improved
-rec warm compress, arm elevation
Non Sustained Ventricular Tachycardia 05/12
-13 beats Vtach , it was less than 30 secs
Acute Hypoxemic Respiratory Failure
-was on BIPAP due to respiratory distress, now on 2L O2 sat 98%
-Chest Xray no evidence of Pneumonia
-No evidence of CHF- proBNP 16,000 high likely elevated due to CKD stage IV
-Start Mucinex
-Incentive spirometry
Acute on Chronic Bradycardia likely secondary to mild hypothermia
-Body Temp 97.4
-HR as low as 30's. At previous admission on 04/12 HR was 40's
-TSH normal
-ECG - slow afib, HR 37, RBBB, Premature Ventricular complexes
-Cardiology consulted, input appreciated
---Follow telemetry
---No AV blocking medications
-- 05/09 OR with backup transcutaneous pacing
---Leadless Micro Medtronic Pacemaker implant on 05/11
-Resumed Xarelto 15mg 05/13 H&H stable
Acute on chronic kidney disease stage IV
-Azotemia with BUN 129 likely 2/2 advanced cardiorenal syndrome vs recent steroid intake vs dehydration
-Pt is volume overloaded unlikely dehydrated
-Consult Nephrology, input appreciated
-Patient declines dialysis
-Baseline Cr 2.3-2.6 per records. Creatinine today 3.2
-Check Bladder scan for urinary retention - pending
-Follow BMP
Acute exacerbation of Chronic HFpEF
-Echo 04/17/25 - EF 55-60%, Severe LVH, moderate to severe mitral valve regurgitation, severe tricuspid regurgitation, severely dilated RA, estimated Pulmonary arterial Pressure 65 mmHg, Ascending aorta and IVC dilated
-Pt has elevated lactic acid level, possible sepsis, hypothermia, elevated BUN
-Discontinue IVF due to SOB, volume overload
-D/c torsemide 30mg. Start Lasix ggt 20mg/h. Appreciate nephro input
-D/c Metolazone 2.5mg
-Pro BNP 18271
-Follow I/O
-Check daily weight
Dysphagia
-speech eval - Regular solids and thin liquids, meds as tolerated
-Cholesterol lowering diet
Permanent Atrial fibrillation
-Xarelto 15mg
-Slow rate - not on meds due to bradycardia
-Asymptomatic
Constipation
- Started Sennokat- S with Miralax
- No bms today
- Mg Citrate
Type 2 Diabetes Mellitus
-Blood glucose 150
-Hold Jaridance and Tirzepatide
-Aspart Insulin Sliding Scale
-HbA1C 7.1
-Monitor Glucose
Nonischemic Myocardial Injury
-Troponin 0.139, Chronically elevated likely secondary to CKD stage IV
Chronic Macrocytic Anemia
-Hb 8.6
Chronic Extremity wounds
-LLE wound s/p surgery and XRT 3 months ago for squamous cell carcinoma
-Wound care consulted, input appreciated
Gout
-Continue Allopurinol
Chronic Pain
- Continue Tramadol and Morphine PRN
Hypothyroidism
-Continue Levothyroxine
Hyperlipidemia
-Continue Statin
BPH
-Continue Tamsulosin
Anxiety
-Continue Ativan
Obstructive Sleep Apnea
-unable to tolerate CPAP
Obesity
-due to excess calories
Full code
DVT prophylaxis: Xarelto
Cholesterol lowering diet
Discharge to [facility], no bed availability until 05/14
Anticipated Discharge: > 48 hours
Subjective/Interval History
-
Date of Service: May 14, 2025
He is naked in the bed complaining about feeling hot. He has SOB and coughing. He denies Chest pain, palpitations. He had bms yesterday.
Per nurse last night he had difficulty breathing and his Osat was 86 on RA.
Objective Data
-
Labs:
Laboratory Results
05/14/25
02:57
WBC 13.7 H
Hgb 8.5 L
Hct 28.4 L
Plt Count 181
Sodium 138
Potassium 4.8
Chloride 103
Carbon Dioxide 29
BUN 117 H*
Creatinine 3.2 H
Glucose 150 H
Calcium 9.0
Vital Signs:
Vital Signs
Temp Pulse Resp BP Pulse Ox
97.5 F 60 20 114/73 93
05/14/25 07:04 05/14/25 07:22 05/14/25 07:04 05/14/25 07:22 05/14/25 07:04
I&O
05/13/25 05/14/25 05/15/25
06:59 06:59 06:59
Intake Total 1100 / 1100
Output Total 1700 / 1700 1300 / 1300
Balance -600 / -600 -1300 / -1300
Review of Systems
-
History Source: Patient
Constitutional: Reports Other (feels hot, denies sweating)
EENT: Reports No Symptoms Reported
Respiratory: Reports Cough
Cardiac: Reports No Symptoms
Abdomen/GI: Reports No Symptoms
Breast: Reports No Symptoms
Genitourinary: Reports No Symptoms
Musculoskeletal: Reports Joint Pain (left arm pain) and Joint Swelling
Skin: Reports Other (wounds covered in dressings)
Neuro: Reports No Symptoms
Endocrine: Reports No Symptoms
Hematologic / Lymphatic: Reports No Symptoms
Allergy / Immunology: Reports No Symptoms
Physical Exam
-
General: Well Developed and Obese
HEENT: Normocephalic and Atraumatic
Respiratory: Crackles
Cardiac: Regular Rhythm and S1/S2
Breast: Deferred by me
GI: Soft, Nontender, Nondistended and Normal Bowel Sounds
Rectal: Deferred by Provider
Genito-urinary: Deferred by me
Musculoskeletal: No Clubbing, No Cyanosis, Edema, Right Lower Extrem and Edema, Left Lower Extrem (fluid on dressing site)
Skin: Warm and Dry
Neuro: Awake
Hematologic / Lymphatic: No Lymphadenopathy
Psych: Calm and Confused
[2025-05-14 08:31] LABS: Glucose - Point of Care 150 mg/dl (70-99)
[2025-05-14] MEDS: NOVOLOG FLEXPEN-LOW RESISTANCE 1 UNITS SC ×3 (08:58→17:35)
[2025-05-14] MEDS: MUCINEX 1200 MG PO ×2 (08:59→20:08)
[2025-05-14] MEDS: XARELTO 15 MG PO (08:59)
[2025-05-14] MEDS: ZYLOPRIM 300 MG PO (08:59)
[2025-05-14] MEDS: KCL 10 MEQ PO (08:59)
[2025-05-14] MEDS: LIDOCAINE 4% PATCH TOPICAL (09:00)
[2025-05-14] MEDS: PROTONIX 40 MG PO (09:00)
[2025-05-14] MEDS: TYLENOL 1000 MG PO ×3 (09:00→21:27)
[2025-05-14] MEDS: ROCALTROL 0.25 MCG PO (09:00)
[2025-05-14] MEDS: FLOMAX 0.4 MG PO (09:00)
[2025-05-14] MEDS: SENOKOT-S 1 TABLET PO ×2 (09:00→20:08)
[2025-05-14] MEDS: MIRALAX PO (09:01)
--- NOTE | 2025-05-14 09:45 | W.PN.ID1 ---
Date of Service
Date of Service: May 14, 2025
Today's Communication
See below.
Assessment / Plan
#Left shoulder septic arthritis
- 05/08 Synovial fluid 78,000 WBC, 90%PMN, neg crystals, cx neg to date (was on Zosyn). Asked micro to hold cx for 10 days.
- 05/09 s/p OR washout. Per Ortho, joint appeared infected. However, NO OR cultures sent.
- Continue empiric cefazolin 2g IV q12h x 6 weeks through 06/19/25.
- Follow weekly CBC/diff, CMP, ESR, CRP
- Infusion sheet submitted to case management associate 05/12.
# Leukocytosis, likely reactive
- Afebrile
- No diarrhea. Is constipated, no BM since admission.
# Bradycardia, resolved
- Bcx's x 2 negative
- 05/11 s/p leadless Micra pacer placement.
# Acute on chronic HFpEF
# Acute hypoxic respiratory insufficiency
- Pro-BNP: 24,900
- Nephrology/Cardiology managing
# ERENDIRA on CKD4
#Additional Past Medical History:
Diabetes mellitus
Atrial fibrillation
HFp EF
CKD 4
Hypothyroidism
Dyslipidemia
BPH
Venous insufficiency
LE skin SCC s/p resection/XRT
Chronic lower extremity wounds
Remote history of gout
Bilateral rotator cuff arthroscopic surgery
Left total hip replacement
Bilateral total knee replacement
Chief Complaint
-: Other (septic arthritis)
Subjective / Review of Systems
Has SOB. O2 desat this am.
Vital Signs / Physical Exam
Vital Signs
Vital Signs
Temp Pulse Resp BP Pulse Ox
97.5 F 60 20 114/73 93
05/14/25 07:04 05/14/25 07:22 05/14/25 07:04 05/14/25 07:22 05/14/25 07:04
Physical Exam
Constitutional: No Acute Distress
Cardiovascular: Regular Rate, S1/S2, Murmur and Peripheral Edema
Pulmonary: Rales (crackles bases) and Other (labored)
Gastrointestinal: Soft, Non Tender, Non Distended and Normal Bowel Sounds
Extremities: Edema (BLE decreased) and Venous Insufficiency (ble)
Musculoskeletal: Other (Left shoulder dressing dry)
Lines: PICC (RUE)
Objective Data
Lab Data
Lab Results
05/14/25 02:57
05/14/25 02:57
ESR 64 mm/hour (0-20) H 05/12/25 03:37
PT 21.4 Sec (11.4-14.6) H 05/06/25 16:06
INR 1.84 05/06/25 16:06
Estimated Creat Clear 21 ml/min 05/14/25 02:57
Lactic Acid 1.5 mmol/L (0.7-2.0) 05/07/25 10:44
Total Bilirubin 0.6 mg/dl (0.2-1.3) 05/10/25 04:30
AST 15 U/L (17-59) L 05/10/25 04:30
ALT 18 U/L (0-50) 05/10/25 04:30
Alkaline Phosphatase 102 U/L (38-126) 05/10/25 04:30
Most recent labs reviewed.
Micro Results:
05/08/25 16:24 Body Fluid Culture - Preliminary
Joint Fluid NO GROWTH
Gram Stain - Preliminary
05/06/25 16:13 Blood Culture - Final
Blood/Venous No Growth - Final Report
05/06/25 16:13 Blood Culture - Final
Blood/Venous No Growth - Final Report
05/07/25 03:15 Nasal Screen MRSA (PCR) - Final
Nose MRSA not detected - performed by PCR methodology.
05/06/25 16:15 Influenza Types A & B (DIONISIO) - Final
Nasal Swab Negative for Influenza A & B, NAAT
Negative results must be combined with clinical observations
and patient history.
Nucleic Acid Amplification test (NAAT)performed on the
[place] platform.
05/14/25 CXR: No significant interval change. Small pleural effusions, more pronounced on the left, with adjacent airspace opacities which likely represent atelectasis.
05/12/25 CXR: Findings suggest pulmonary edema, unchanged from prior study. There are probable bilateral pleural effusions, left greater than right.
05/06/25 CXR: Low lung volumes with crowding of the central/vascular markings.
03/20/[address]: New widening of the left glenohumeral interval and anterior subluxation/dislocation of the left humeral head relative to the glenoid, which appears to be at least in part secondary to a very large glenohumeral joint effusion and
bursal fluid.
[2025-05-14 12:08] LABS: Glucose - Point of Care 181 mg/dl (70-99)
--- NOTE | 2025-05-14 12:16 | PTCARENOTE ---
patient inc. male external pouch placed over penis, draining yellow urine. bladder scanned patient as per doctor, 137. will start IV Lasix gtt. as ordered once obtained from pharmacy.
--- NOTE | 2025-05-14 12:32 | PTCARENOTE ---
removed left shoulder dressing, has 2 sites that have sutures, no drainage noted. shoulder is ecchymotic, swollen and feels like fluid aound shoulder area. hospitalist resident aware.
[2025-05-14 12:33] LABS: B.E. 3.4 mmol/L; HCO3 28.5 mmol/L (21-28); O2 Saturation % 99.4 % (94-98); PCO2 45 mmHg (35-48); PO2 100 mmHg (83-108)
--- NOTE | 2025-05-14 12:48 | PTCARENOTE ---
talked to Dr. Yanes on phone, make take dressing off of left shoulder and it is normal for shoulder to be swollen , not firm, feels like fluid, no further orders at this time.
[2025-05-14 12:51] LABS: Glucose - Point of Care 177 mg/dl (70-99)
[2025-05-14] MEDS: LASIX 50 IV (12:54)
--- NOTE | 2025-05-14 13:01 | PTCARENOTE ---
Addendum entered by Rebecca Cho RN 05/14/25 15:12:
correction right upper PICC
Original Note:
resp in room drawing blood gas. initiated IV lasix @ 2 ml/hr via left PICC.
--- NOTE | 2025-05-14 14:23 | PTCARENOTE ---
patient up OOB to chair with assist x 2, very stiff and slow, able to walk from bed to chair. bathed patient with CHG wipes. dsg. changed on left forearm and left thigh from patient scratching himself. patient need to be reoriented to day, thinking
it was night time. chair alarm on and call lucas in patients lap.
[2025-05-14 16:48] LABS: Glucose - Point of Care 170 mg/dl (70-99)
[2025-05-14] MEDS: REMOVE LIDOCAINE PATCH REMOVE (20:08)
[2025-05-14] MEDS: ULTRAM 50 MG PO (21:27)
[2025-05-14] MEDS: TESSALON PERLES 200 MG PO (21:27)
[2025-05-14] MEDS: LIPITOR 20 MG PO (21:27)
[2025-05-14 22:28] LABS: Glucose - Point of Care 147 mg/dl (70-99)
[2025-05-14] MEDS: DILAUDID 0.5 MG IV (23:10)
[2025-05-15] VITALS (7 sets, daily range): BP systolic 98–124; BP diastolic 60–110; O2SAT 96; BMI 34.7
--- NOTE | 2025-05-15 00:45 | PTCARENOTE ---
Assumed care on pt at 1900, aaox3, forgetful and confused at times, all safety measures in place. Pt calling out, complaining of difficulty breathing, sherwin neb tx given by RT, O2 increased at 3L, pox 94%, lungs diminished and coarse throughout, pt
not appearing in resp distress. Bladder scan for 378cc for decreased urine output, will follow protocol. Able swallow meds whole with applesauce, aspiration precautions maintained. T&R q2hr, prn pain med given for generalized discomfort, + effect.
Rectal temp 95.8, rechecked after warm blankets applied, T 96.2, fractionating still operator RESEARCH TECHNICIAN made aware. Call lucas within reach, POC ongoing.
[2025-05-15 05:02] LABS: Hematocrit 28.2 % (39.0-52.0); Hemoglobin 8.6 g/dL (13.0-18.0); Mean Corp Hgb Conc. 30.5 g/dL (33.0-37.0); Mean Corpuscular Volume 94.6 fL (80.0-94.0); Platelet Count 179 10^3/uL (130-400); Red Cell Dist. Width 17.9 % (11.5-14.5)
[2025-05-15] MEDS: SYNTHROID 50 MCG PO (05:09)
[2025-05-15] MEDS: ANCEF 10 IV ×2 (05:09→17:40)
--- NOTE | 2025-05-15 05:19 | PTCARENOTE ---
Pt V Paced on monitor, VSS. Lasix gtt per order. Bladder scan for 475ml. Straight cath for 425 ml clear yellow urine. Pt c/o generalized body pain/ back pain 01/29 Dilaudid IV PRN. Pt resting comfortable in bed. Wound care completed. Safety measures
in place, call lucas within reach
[2025-05-15 05:38] LABS: Blood Urea Nitrogen 119 mg/dl (9-20); Calcium 8.9 mg/dl (8.4-10.2); Carbon Dioxide 29 mmol/L (22-30); Chloride 101 mmol/L (98-107); Estimated Creatinine Clearance 18 ml/min; Glucose 108 mg/dl (70-99); Magnesium 2.5 mg/dl (1.6-2.3); Potassium 4.7 mmol/L (3.5-5.1); Sodium 138 mmol/L (135-145); eGFR 15.34
[2025-05-15] MEDS: LASIX 50 IV ×2 (06:37→14:22)
[2025-05-15 07:11] LABS: Glucose - Point of Care 112 mg/dl (70-99)
--- NOTE | 2025-05-15 07:23 | W.PN.HOSP.TC ---
Addendum entered and electronically signed by Samra Arguello MD 05/15/25 14:06:
Attending�addendum:
I saw and evaluated the patient independently. I reviewed and discussed the resident�s note and agree with findings and plan as documented in the resident�s note.� patient seen and examined at bedside, still complaining of shortness of breath,
continue the Lasix drip.
Physical�exam:
GENERAL : Patient is awake, looks tired
HEENT: Nonicteric sclerae, PERRLA, EOMI. Oropharynx clear. Moist mucous membranes. Conjunctivae appear well perfused.
CHEST: Chest wall is nontender.
HEART: Regular rate and rhythm without murmurs.
LUNGS: Diffuse bilateral Rales
ABDOMEN: Soft, positive bowel sounds, nontender, no organomegaly.
RECTAL: Deferred.
MUSCLES/EXTREMITIES: No abnormal range of motion, no swelling.SKIN: No rash, no excessive bruising, petechiae, or purpura.
NEUROLOGIC: Cranial nerves II-XII intact without motor/sensory deficit.
�
Assessment/plan:
Sepsis with acute organ dysfunction
Secondary to septic left shoulder
Continue IV antibiotic
Acute hypoxic respiratory failure.
Secondary to CHF exacerbation
Acute on chronic diastolic CHF.
Continue Lasix drip
Acute on chronic renal failure
Appreciate nephrology input, monitor BMP
Dysphagia.
Speech consult
DVT.
Continue Xarelto
CODE STATUS: Full code
DVT prophylaxis: Xarelto
Diet: Cardiac diet
Disposition: Continue Lasix drip
�
Total time spent on today�s encounter was 60 minutes which included time spent in counseling the patient/family regarding diagnosis and treatment plan as listed above, goals of care, and symptom management. Case was discussed with nursing staff,
specialists, and care coordinators/case management. All labs and imaging personally reviewed by me. Remainder the time spent in detailed review of previous records, lab data, imaging, and other medical provider documentation.
Original Note:
Today's Communication/Plan
-
Continue lasix ggt
Follow recs from cards, nephro, ortho
speech eval
Assessment / Plan
Assessment / Plan
84 y/o male with pmh of permanent afib on Xarelto, HFpEF, CKD stage IV, Chronic macrocytic anemia, Left LE wound (basal skin cancer removal?), pressure ulcers, gout, type 2DM, hypothyroidism, hyperlipidemia, BPH presented to ED on 05/06 from [place] for cough, SOB and bradycardia. He has had decreased responsiveness and lethargy for the past few days.
He was recently admitted to from 04/12 to 04/18 and was found to have pleural effusions and cardiomegaly treated for CHF as well as for contaminant possible Pneumonia and chronic LE wounds. He was treated with ab's. He also had asymptomatic
bradycardia as low as 40's.
Suspected Sepsis (acute metabolic encephalopathy, hypothermia)
-Moved IVU from IMU
-CXR without Pneumonia, COVID/ Flu neg, U/A neg
-Leukocytosis WBC 16.5
-Lactic acid 2.3
-Discontinued IVF due to SOB and Volume overload
-nasal MRSA Neg- Discontinue Vancomycin
-Infectious Disease consulted, input appreciated
-Narrow Zosyn #D3 to Cefazolin #D7 - Plan for 6 weeks of IV Q12h abx through 06/19/25 per ID, Follow weekly CBC/diff, CMP, ESR, CRP
-Blood Cx- negative
-05/09 washout intervention of the suspected shoulder infection with backup transcutaneous pacing.
-PT/OT eval - SNF
-PICC line placed 05/12
-Subcutaneous swelling - tt ortho for evaluation
Left shoulder septic arthritis
-Limited ROM due to pain and swelling, no erythema, warmth on exam
-Consult orthopedics, input appreciated
-IV dilaudid 0.5mg prn
-Left shoulder tap
-joint aspiration fluid- septic arthritis- WBC 44312, PMN Cells 90.7
-Lyme order pending
-05/09 OR for arthroscopic irrigation and debridement - then PT eval
-None weightbearing status on left arm
-Ordered Sling fo immobilization and soft tissue rest
-Left UE Venous Doppler US 05/03/2025- Nonocclusive thrombus in the proximal to mid basilic vein - left arm swelling improved
-rec warm compress, arm elevation
Non Sustained Ventricular Tachycardia 05/12
-13 beats Vtach , it was less than 30 secs
- no abnormality
Acute Hypoxemic Respiratory Failure
-was on BIPAP due to respiratory distress, now on 2L O2 sat 95%
-Start Mucinex
-Incentive spirometry
-Start Ipratropium/albuterol 3ml inh (duoneb) q4hprn
Chest Xray 05/15/25
-Cardiomegaly, pulmonary edema Probable small bilateral pleural effusions.
Chest Xray 05/14/25
Lines and tubes: Right upper partially PICC with catheter tip projecting over the region of the cavoatrial junction, unchanged..
Lungs: Small bilateral pleural effusions, more pronounced on the left which are similar in appearance to prior. Mild diffuse interstitial opacification. Mild basilar airspace opacities.
Heart: Cardiac and mediastinal contours are enlarged, similar to prior. There is a small radiodensity projecting over the lower heart border, possibly leadless pacemaker.
Acute on Chronic Bradycardia likely secondary to mild hypothermia
-Body Temp 97.4
-HR as low as 30's. At previous admission on 04/12 HR was 40's
-TSH normal
-ECG - slow afib, HR 37, RBBB, Premature Ventricular complexes
-Cardiology consulted, input appreciated
---Follow telemetry
---No AV blocking medications
-- 05/09 OR with backup transcutaneous pacing
---Leadless Micro Med[employer]onic Pacemaker implant on 05/11
-Resumed Xarelto 15mg 05/13 H&H stable
Acute on chronic kidney disease stage IV
-Azotemia with BUN 119 likely 2/2 advanced cardiorenal syndrome vs recent steroid intake vs dehydration
-Pt is volume overloaded
-Consult Nephrology, input appreciated
-Patient declines dialysis
-Baseline Cr 2.3-2.6 per records. Creatinine today 3.7
-Check Bladder scan for urinary retention - 429
-Follow BMP
Acute exacerbation of Chronic HFpEF
-Echo 04/17/25 - EF 55-60%, Severe LVH, moderate to severe mitral valve regurgitation, severe tricuspid regurgitation, severely dilated RA, estimated Pulmonary arterial Pressure 65 mmHg, Ascending aorta and IVC dilated
-Pt has elevated lactic acid level, possible sepsis, hypothermia, elevated BUN
-Discontinue IVF due to SOB, volume overload
-Continue Lasix 50ml lasix 2ml/h ggt, nephro input appreciated
-Goal weight loss at least 10lb (05/15 109.7kg/ 241.8 lbs)-- goal 231lb
-D/c Metolazone 2.5mg, D/c torsemide 30mg
-Pro BNP 77113
-Follow I/O
-Check daily weight
Dysphagia
-speech eval - Regular solids and thin liquids, meds as tolerated
-Cholesterol lowering diet
-05/15 intermittently choking/coughing with food consumption-- new speech eval.
Permanent Atrial fibrillation
-Xarelto 15mg
-Slow rate - not on meds due to bradycardia
-Asymptomatic
Constipation
- Started Sennokat- S with Miralax
- No bms today
- Mg Citrate
Type 2 Diabetes Mellitus
-Blood glucose 108
-Hold Jaridance and Tirzepatide
-Aspart Insulin Sliding Scale
-HbA1C 7.1
-Monitor Glucose
Nonischemic Myocardial Injury
-Troponin 0.139, Chronically elevated likely secondary to CKD stage IV
Chronic Macrocytic Anemia
-Hb 8.6
Chronic Extremity wounds
-LLE wound s/p surgery and XRT 3 months ago for squamous cell carcinoma
-Wound care consulted, input appreciated
Gout
-Continue Allopurinol
Chronic Pain
- Continue Tramadol and Morphine PRN
Hypothyroidism
-Continue Levothyroxine
Hyperlipidemia
-Continue Statin
BPH
-Continue Tamsulosin
Anxiety
-Continue Ativan
Obstructive Sleep Apnea
-unable to tolerate CPAP
Obesity
-due to excess calories
Full code
DVT prophylaxis: Xarelto
Cholesterol lowering diet
Discharge to Group-[facility]
Anticipated Discharge: 24 - 48 hours
Subjective/Interval History
-
Date of Service: May 15, 2025
He complains about feeling hot, denies sweating. He does not have appettite. He has been coughing and feeling like choking especially with food consumption. He denies CP, palpitations. He had bm and urinates to male [email or web address].
Objective Data
-
Labs:
Laboratory Results
05/15/25
04:28
WBC 15.1 H
Hgb 8.6 L
Hct 28.2 L
Plt Count 179
Sodium 138
Potassium 4.7
Chloride 101
Carbon Dioxide 29
BUN 119 H*
Creatinine 3.7 H
Glucose 108 H
Calcium 8.9
Vital Signs:
Vital Signs
Temp Pulse Resp BP Pulse Ox
97.4 F 62 20 98/72 95
05/15/25 07:07 05/15/25 06:00 05/15/25 07:07 05/15/25 03:41 05/15/25 07:07
I&O
05/14/25 05/15/25 05/16/25
06:59 06:59 06:59
Intake Total 260 / 260
Output Total 1300 / 1300 400 / 400
Balance -1300 / -1300 -140 / -140
Review of Systems
-
History Source: Patient
Constitutional: Reports No Appetite and Other (feels hot, denies sweating)
EENT: Reports No Symptoms Reported
Respiratory: Reports Cough and Trouble Breathing
Cardiac: Reports No Symptoms
Abdomen/GI: Reports No Symptoms
Breast: Reports No Symptoms
Genitourinary: Reports No Symptoms
Musculoskeletal: Reports Joint Swelling (left arm)
Skin: Reports Other (wounds covered in dressings)
Neuro: Reports No Symptoms
Endocrine: Reports No Symptoms
Hematologic / Lymphatic: Reports No Symptoms
Allergy / Immunology: Reports No Symptoms
Psych: Reports Anxious
Physical Exam
-
General: Well Developed and Obese
HEENT: Normocephalic, Atraumatic and Oxygen (2L)
Respiratory: Crackles
Cardiac: Regular Rhythm and S1/S2
Breast: Deferred by me
GI: Soft, Nontender, Nondistended and Normal Bowel Sounds
Rectal: Deferred by Provider
Genito-urinary: Deferred by me
Musculoskeletal: No Clubbing, No Cyanosis, Edema, Left Upper Extrem, Edema, Right Lower Extrem and Edema, Left Lower Extrem (fluid on dressing site)
Skin: Warm and Other (wet)
Neuro: Awake
Hematologic / Lymphatic: No Lymphadenopathy
Psych: Anxious
--- NOTE | 2025-05-15 08:00 | PTCARENOTE ---
Addendum entered by Joy Escalante RN 05/15/25 12:01:
Pt still on lasix gtt at 2ml/hr. Pt asking to sit on the side of the bed but is currently coughing a lot and not safe to sit up by himself. Pt's breakfast was ordered and he was set up to eat with no complaints. Call lucas in reach.
Original Note:
Received pt from construction foreman, pt has frequent productive cough, vpaced on the monitor
[2025-05-15] MEDS: NOVOLOG FLEXPEN-LOW RESISTANCE SC (08:31)
[2025-05-15] MEDS: LIDOCAINE 4% PATCH 1 PATCH TOPICAL (08:31)
[2025-05-15] MEDS: MIRALAX 17 GRAMS PO (08:31)
[2025-05-15] MEDS: MUCINEX 1200 MG PO ×2 (08:31→20:47)
[2025-05-15] MEDS: ZYLOPRIM 300 MG PO (08:32)
[2025-05-15] MEDS: ROCALTROL 0.25 MCG PO (08:32)
[2025-05-15] MEDS: PROTONIX 40 MG PO (08:32)
[2025-05-15] MEDS: FLOMAX 0.4 MG PO (08:32)
[2025-05-15] MEDS: TYLENOL 1000 MG PO ×2 (08:32→17:01)
[2025-05-15] MEDS: SENOKOT-S 1 TABLET PO ×2 (08:33→20:48)
[2025-05-15] MEDS: KCL 10 MEQ PO (08:33)
[2025-05-15] MEDS: XARELTO 15 MG PO (08:33)
--- NOTE | 2025-05-15 08:49 | W.PN.UPDATE ---
Update Note
Progress Note Update
Was contacted via the primary team yesterday regarding the patient. Checked back in on him today during rounds. Left shoulder portals have healed as expected. Sutures are out. No signs of infection. Expected edema changes and ecchymosis about
the left shoulder. Again, sling for comfort, but may range as tolerated shoulder and distal. If safe and deemed appropriate by the primary team some PT could be beneficial to work some gentle ROM. Continue treatment per the primary team with
regards to his multiple medical issues requiring management in the IVU but would, at this time, not recommend repeat I&D of the shoulder. Orthopedics following peripherally and is available with any pertinent follow-up questions
--- NOTE | 2025-05-15 09:53 | W.PN.UPDATE ---
Update Note
Progress Note Update
He had an Excisional Debridement - Using an arthroscopic technique. Using a sharver to excision of devitalized tissue, necrosis or slough
--- NOTE | 2025-05-15 09:57 | W.PN.UPDATE ---
Update Note
Progress Note Update
He had an excisional debridement using arthroscopic technique and a shaver to remove slough and necrotic tissue.
--- NOTE | 2025-05-15 10:04 | W.PN.ID1 ---
Date of Service
Date of Service: May 15, 2025
Today's Communication
Cotninue cefazolin.
Assessment / Plan
#Left shoulder septic arthritis
- 05/08 Synovial fluid 78,000 WBC, 90%PMN, neg crystals, cx neg to date (was on Zosyn). Asked micro to hold cx for 10 days.
- 05/09 s/p OR washout. Per Ortho, joint appeared infected. However, NO OR cultures sent.
- Continue empiric cefazolin 2g IV q12h x 6 weeks through 06/19/25.
- Follow weekly CBC/diff, CMP, ESR, CRP
- Infusion sheet submitted to behavioral health case manager 05/12.
# Leukocytosis, likely reactive
- Afebrile
- Bcx's x 2 negative
- No diarrhea.
# Bradycardia, resolved
- 05/11 s/p leadless Micra pacer placement.
# Acute on chronic HFpEF
# Acute hypoxic respiratory insufficiency
- Pro-BNP: 24,900
- Nephrology/Cardiology managing
# ERENDIRA on CKD4
# LUE non-occlusive thrombus mid basilic vein
#Additional Past Medical History:
Diabetes mellitus
Atrial fibrillation
HFp EF
CKD 4
Hypothyroidism
Dyslipidemia
BPH
Venous insufficiency
LE skin SCC s/p resection/XRT
Chronic lower extremity wounds
Remote history of gout
Bilateral rotator cuff arthroscopic surgery
Left total hip replacement
Bilateral total knee replacement
Chief Complaint
-: Other (septic arthritis)
Subjective / Review of Systems
SOB better.
Vital Signs / Physical Exam
Vital Signs
Vital Signs
Temp Pulse Resp BP Pulse Ox
97.4 F 62 20 98/72 95
05/15/25 07:07 05/15/25 06:00 05/15/25 07:07 05/15/25 03:41 05/15/25 07:07
Physical Exam
Constitutional: Comfortable
Cardiovascular: Regular Rate and S1/S2
Pulmonary: Rales (bases) and Non Labored
Gastrointestinal: Soft, Non Tender, Non Distended and Normal Bowel Sounds
Extremities: Edema (BLE and LUE)
Musculoskeletal: Other (left shoulder: + edema, no erythema)
Lines: PICC (RUE)
Objective Data
Lab Data
Lab Results
05/15/25 04:28
05/15/25 04:28
ESR 64 mm/hour (0-20) H 05/12/25 03:37
PT 21.4 Sec (11.4-14.6) H 05/06/25 16:06
INR 1.84 05/06/25 16:06
Estimated Creat Clear 18 ml/min 05/15/25 04:28
Lactic Acid 1.5 mmol/L (0.7-2.0) 05/07/25 10:44
Total Bilirubin 0.6 mg/dl (0.2-1.3) 05/10/25 04:30
AST 15 U/L (17-59) L 05/10/25 04:30
ALT 18 U/L (0-50) 05/10/25 04:30
Alkaline Phosphatase 102 U/L (38-126) 05/10/25 04:30
Most recent labs reviewed.
Micro Results:
05/08/25 16:24 Body Fluid Culture - Preliminary
Joint Fluid NO GROWTH
Gram Stain - Preliminary
05/06/25 16:13 Blood Culture - Final
Blood/Venous No Growth - Final Report
05/06/25 16:13 Blood Culture - Final
Blood/Venous No Growth - Final Report
05/07/25 03:15 Nasal Screen MRSA (PCR) - Final
Nose MRSA not detected - performed by PCR methodology.
05/06/25 16:15 Influenza Types A & B (DIONISIO) - Final
Nasal Swab Negative for Influenza A & B, NAAT
Negative results must be combined with clinical observations
and patient history.
Nucleic Acid Amplification test (NAAT)performed on the
[employer] platform.
05/14/25 CXR: No significant interval change. Small pleural effusions, more pronounced on the left, with adjacent airspace opacities which likely represent atelectasis.
05/12/25 CXR: Findings suggest pulmonary edema, unchanged from prior study. There are probable bilateral pleural effusions, left greater than right.
05/06/25 CXR: Low lung volumes with crowding of the central/vascular markings.
03/20/[address]: New widening of the left glenohumeral interval and anterior subluxation/dislocation of the left humeral head relative to the glenoid, which appears to be at least in part secondary to a very large glenohumeral joint effusion and
bursal fluid.
[2025-05-15] MEDS: LASIX IV (10:40)
[2025-05-15] MEDS: DUONEB 3 ML INH ×2 (11:13→20:31)
--- NOTE | 2025-05-15 11:14 | CM ---
Reviewed chart. Met with Mr. Gibbons to review discharge plans. He stats the plan is to SNF- [facility] when medically stable. Telephone call from [facility] Admissions. Will need to confirm with [facility] bed availability when
tentative discharge date is known. Medical work-up in progress. The discharge plan is to go to SNF/Rehab. hopefully [facility] if bed available when medically stable.
--- NOTE | 2025-05-15 11:36 | W.PN.NEPH.PH ---
Today's Communication / Plan
-
diurese
Assessment/Plan
-
Impression
Acute on chronic kidney disease stage IV
Azotemia with BUN greater than 130
Chronic HFpEF
Type 2 diabetes
Gout
Chronic opioid use for pain
BPH
Anemia of chronic disease.
A-fib stable.= Bradycardic chronic
Secondary hyperparathyroidism
Chronic lower extremity ulcerative lesion
Hypothyroid
Plan
still significantly volume overloaded
on lasix gtt.
goal weight loss about 10# at least
we discussed again that he does not want dialysis
I mentioned palliative care as an option
follow BMP
-
-
Date of Service: May 15, 2025
CC / HPI / ROS
-
Chief Complaint:
CKD 4
History of Present Illness:
ERENDIRA/Cr up to 3.7
BP low this am
BUN stable at 119
on lasix gtt for volume overload
Review of Systems:
Nonoliguric
No chest pain
on supplemental O2
Labs
-
Labs:
WBC 15.1 10^3/uL (4.8-10.8) H 05/15/25 04:28
RBC 2.98 10^6/uL (4.70-6.10) L 05/15/25 04:28
Hgb 8.6 g/dL (13.0-18.0) L 05/15/25 04:28
Hct 28.2 % (39.0-52.0) L 05/15/25 04:28
Plt Count 179 10^3/uL (130-400) 05/15/25 04:28
Sodium 138 mmol/L (135-145) 05/15/25 04:28
Potassium 4.7 mmol/L (3.5-5.1) 05/15/25 04:28
Chloride 101 mmol/L (98-107) 05/15/25 04:28
Carbon Dioxide 29 mmol/L (22-30) 05/15/25 04:28
BUN 119 mg/dl (9-20) H* 05/15/25 04:28
Creatinine 3.7 mg/dL (0.7-1.3) H 05/15/25 04:28
eGFR 15.34 05/15/25 04:28
Glucose 108 mg/dl (70-99) H 05/15/25 04:28
Calcium 8.9 mg/dl (8.4-10.2) 05/15/25 04:28
Qhj-T-Cqmlbwqqrdw Pept 47294 pg/ml 05/14/25 06:18
Albumin 2.8 g/dl (3.5-5.0) L 05/10/25 04:30
Physical Exam
-
Vital Signs:
Vital Signs
Temp Pulse Resp BP Pulse Ox
97.4 F 95 20 98/72 95
05/15/25 11:11 05/15/25 11:17 05/15/25 11:17 05/15/25 03:41 05/15/25 11:17
Cardiovascular:: Regular rate and rhythm
Respiratory:: Bilateral: Coarse
Lung Excursion:: Normal
Abdomen:: Nontender and Soft
Bowel Sounds:: Normal
Extremity Edema:: +2: Bilateral:
[2025-05-15 12:34] LABS: Glucose - Point of Care 181 mg/dl (70-99)
[2025-05-15] MEDS: NOVOLOG FLEXPEN-LOW RESISTANCE 1 UNITS SC ×2 (12:37→17:31)
--- NOTE | 2025-05-15 13:57 | W.PN.CD ---
Addendum entered and electronically signed by Samson Gallegos MD 05/15/25 15:47:
I saw and evaluated the patient, and I provided the substantive portion of the medical decision making.
I reviewed and agree with the note by Ms Gardner and it accurately reflects our care.
I personally performed the medical decision making of the this encounter and my assessment and plan is below:
Nephrology continue to follow given CKD and worsening creatinine. Additionally, need for diuresis.
- Continue diuresis complex situation given worsening creatinine and limited urine output
Original Note:
Today's Communication / Plan
-
Diuresis
Impression / Plan
-
I/P: 84M with permanent atrial fibrillation on Xarelto, bradycardia, HFpEF, CKD IV, hypertension, moderate to severe MR and TR, obesity, and ARIN (unable to tolerate CPAP) who is here for decreased responsiveness and lethargy for the past few days,
being treated for sepsis NOS. Cardiology is consulted for bradycardia.
Primary fly worker: Dr. Gallegos
HFpEF, acute on chronic
- CXR with pulmonary edema, increased compared to 05/11/2025
- Transitioned to oral diuretic 05/12/2025, now on Lasix drip which requires intensive monitoring
- Diuresis per nephrology in the setting of CKD stage IV
- Trend Daily weight, I/O, and BMP with diuresis
- Heart failure education
- Limited echo
Complete Heart block
- S/P Micra leadless pacemaker placed 05/11/2025
- Tele V paced at 60 bpm, PVCs
Sepsis, left shoulder, in setting of septic arthritis
- I/D/washout 05/09/2025
- Infectious disease following
Permanent atrial fibrillation
Moderate to severe MR, diuresis as above
CKD stage IV, with azotemia, nephrology following, he does not want to pursue dialysis
HTN
Hypercholesterolemia, on atorvastatin
Obesity, BMI 35.6, he would benefit from weight loss
Obstructive sleep apnea, he did not tolerate CPAP
Anemia, likely of chronic disease
SUBJECTIVE:
Cardiology reconsulted for volume overload. Patient requiring 3 L nasal cannula.
DATA:
Transthoracic echocardiogram, 04/17/2025:
SUMMARY
1. Left ventricular cavity size is 6.40 cm which is moderately increased.
2. Ejection fraction is 55-60% by Rodríguez's method of discs.
3. Severe concentric left ventricular hypertrophy.
4. Diastolic function indeterminate.
5. Right ventricular cavity size is moderately dialted.
6. Right ventricular systolic function is within normal limits.
7. Indexed left atrial volume is severely abnormal (>48 ml/m2).
8. Severely dilated right atrium.
9. Aortic valve sclerosis of multiple aortic cusps; but no aortic stenosis.
10. Moderate to severe mitral valve regurgitation.
11. Severe tricuspid regurgitation. Estimated pulmonary artery pressure of 65 mmHg assuming a right atrial pressure of 15 mmHg.
12. Ascending aorta is moderately dilated.
13. The inferior vena cava appears dilated.
14. Compared to a prior transthoracic echocardiogram study from 07/28/2024 The ascending aorta is mildy more dilated (4.5 cm compared to 4.2 cm). Mitral regurgitation remains moderate/severe and tricuspid regurgitation remains severe. Pulmonary
hypertension remains severe.
Physical Exam
Vital Signs/Labs
Vital Signs
Temp Pulse Resp BP Pulse Ox
97.4 F 63 20 110/75 95
05/15/25 11:11 05/15/25 12:00 05/15/25 11:17 05/15/25 11:09 05/15/25 11:17
05/14/25 05/15/25 05/16/25
06:59 06:59 06:59
Actual Weight 244 lb 14.937 oz 241 lb 13.553 oz
05/15/25 04:28
05/15/25 04:28
PT 21.4 Sec (11.4-14.6) H 05/06/25 16:06
INR 1.84 05/06/25 16:06
Magnesium 2.5 mg/dl (1.6-2.3) H 05/15/25 04:28
05/06/25 05/14/25
16:06 06:18
Cjk-J-Opxzisogmnj Pept [id number]
Physical Exam
Constitutional: No acute distress and Comfortable
EENT: Anicteric and Moist mucous membranes
Cardiovascular: Rhythm & rate is regular, Pedal edema is absent, Pedal edema present and S1S2 is normal
Respiratory: Respiratory effort normal and Crackles Present
GI: Soft, Distention absent, Flat and Normal bowel sounds
Neuro/Psych: Alert and Oriented
Other: Skin (Warm and dry)
Data Reviewed
-
Date of Service: May 15, 2025
Labs: Labs Reviewed by me
Old Records: Reviewed
[2025-05-15 17:30] LABS: Glucose - Point of Care 159 mg/dl (70-99)
[2025-05-15] MEDS: TYLENOL 650 MG PO (20:47)
[2025-05-15] MEDS: ULTRAM 50 MG PO (20:47)
[2025-05-15] MEDS: REMOVE LIDOCAINE PATCH REMOVE (20:48)
[2025-05-15 23:02] LABS: Glucose - Point of Care 183 mg/dl (70-99)
[2025-05-15] MEDS: TYLENOL PO (23:19)
[2025-05-15] MEDS: LIPITOR 20 MG PO (23:20)
[2025-05-16] VITALS (16 sets, daily range): BP systolic 101–137; BP diastolic 67–84; PULSE 68; BMI 34.9
--- NOTE | 2025-05-16 00:45 | PTCARENOTE ---
Assumed care on pt at 1900, aaox3, forgetful and confused at times, all safety measures in place. Pt calling out, complaining of difficulty breathing, sherwin neb tx given by RT, O2 increased at 3L, pox 94%, lungs diminished and coarse throughout, pt
not appearing in resp distress. Bladder scan for 378cc for decreased urine output, will follow protocol. Able swallow meds whole with applesauce, aspiration precautions maintained. T&R q2hr, prn pain med given for generalized discomfort, + effect.
Rectal temp 95.8, rechecked after warm blankets applied, T 96.2, data center consultant EVENTS ASSOCIATE made aware. Call lucas within reach, POC ongoing.
[2025-05-16 03:29] LABS: Hematocrit 27.0 % (39.0-52.0); Hemoglobin 8.4 g/dL (13.0-18.0); Mean Corp Hgb Conc. 31.1 g/dL (33.0-37.0); Mean Corpuscular Volume 94.1 fL (80.0-94.0); Platelet Count 173 10^3/uL (130-400); Red Cell Dist. Width 17.7 % (11.5-14.5)
[2025-05-16 03:44] LABS: Calcium 9.2 mg/dl (8.4-10.2); Carbon Dioxide 29 mmol/L (22-30); Chloride 100 mmol/L (98-107); Estimated Creatinine Clearance 18 ml/min; Glucose 131 mg/dl (70-99); Potassium 4.7 mmol/L (3.5-5.1); Sodium 135 mmol/L (135-145); eGFR 14.86
[2025-05-16] MEDS: DILAUDID 0.25 MG IV ×2 (03:54→15:54)
[2025-05-16 03:56] LABS: Blood Urea Nitrogen 120 mg/dl (9-20)
--- NOTE | 2025-05-16 04:10 | PTCARENOTE ---
Pt had Vtach beats on tele monitor this morning, asymptomatic, Bp 106/73, HR 60's, Pox 95% RA, T 96.5 axillary. scalloper ACCOUNT EXECUTIVE [employer] made aware, mag added to morning labs. Lasix gtt infusing at 2ml/hr via R PICC, continues with difficulty on urination,
bladder scanned this morning for 303cc after x1 episode of incontinence with bloody urine. IV Dilaudid 0.25mg given for L shoulder pain. LE wound tx done. T&R q2hr, call lucas within reach.
[2025-05-16 04:24] LABS: Magnesium 2.6 mg/dl (1.6-2.3)
[2025-05-16] MEDS: SYNTHROID 50 MCG PO (05:52)
[2025-05-16] MEDS: FLOMAX 0.4 MG PO (05:52)
[2025-05-16] MEDS: ANCEF 10 IV ×2 (05:53→17:41)
[2025-05-16 07:08] LABS: Glucose - Point of Care 125 mg/dl (70-99)
[2025-05-16] MEDS: DUONEB 3 ML INH (07:36)
[2025-05-16] MEDS: NOVOLOG FLEXPEN-LOW RESISTANCE SC ×2 (07:52→17:46)
--- NOTE | 2025-05-16 08:10 | W.PN.HOSP.TC ---
Addendum entered and electronically signed by Samra Arguello MD 05/16/25 13:24:
Attending�addendum:
I saw and evaluated the patient independently. I reviewed and discussed the resident�s note and agree with findings and plan as documented in the resident�s note.� patient seen and examined at bedside, still complaining of shortness of breath,
patient told me he is DNI/DNR which confirmed with his and daughter in the phone.
Will have family meeting today
Physical�exam:
GENERAL : Patient is awake, looks tired
HEENT: Nonicteric sclerae, PERRLA, EOMI. Oropharynx clear. Moist mucous membranes. Conjunctivae appear well perfused.
CHEST: Chest wall is nontender.
HEART: Regular rate and rhythm without murmurs.
LUNGS: Diffuse bilateral Rales
ABDOMEN: Soft, positive bowel sounds, nontender, no organomegaly.
RECTAL: Deferred.
MUSCLES/EXTREMITIES: No abnormal range of motion, no swelling.SKIN: No rash, no excessive bruising, petechiae, or purpura.
NEUROLOGIC: Cranial nerves II-XII intact without motor/sensory deficit.
�
Assessment/plan:
Sepsis with acute organ dysfunction
Secondary to septic left shoulder
Continue IV antibiotic
Acute hypoxic respiratory failure.
Secondary to CHF exacerbation
Acute on chronic diastolic CHF.
Continue Lasix drip
Added metolazone
Acute on chronic renal failure
Appreciate nephrology input, monitor BMP
Dysphagia.
Speech consult
DVT.
Continue Xarelto
CODE STATUS: DNR/DNI
DVT prophylaxis: Xarelto
Diet: Cardiac diet
Disposition: Continue Lasix drip-family meeting today
�
Total time spent on today�s encounter was 60 minutes which included time spent in counseling the patient/family regarding diagnosis and treatment plan as listed above, goals of care, and symptom management. Case was discussed with nursing staff,
specialists, and care coordinators/case management. All labs and imaging personally reviewed by me. Remainder the time spent in detailed review of previous records, lab data, imaging, and other medical provider documentation.
Addendum Dictated by: Samra Arguello MD
Original Note:
Today's Communication/Plan
-
Continue Lasix ggt
Start Metolazone
Assessment / Plan
Assessment / Plan
84 y/o male with pmh of permanent afib on Xarelto, HFpEF, CKD stage IV, Chronic macrocytic anemia, Left LE wound (basal skin cancer removal?), pressure ulcers, gout, type 2DM, hypothyroidism, hyperlipidemia, BPH presented to ED on 05/06 from [place]
[facility] for cough, SOB and bradycardia. He has had decreased responsiveness and lethargy for the past few days.
He was recently admitted to from 04/12 to 04/18 and was found to have pleural effusions and cardiomegaly treated for CHF as well as for contaminant possible Pneumonia and chronic LE wounds. He was treated with ab's. He also had asymptomatic
bradycardia as low as 40's.
Suspected Sepsis (acute metabolic encephalopathy, hypothermia)
-Moved IVU from IMU
-CXR without Pneumonia, COVID/ Flu neg, U/A neg
-Leukocytosis WBC 16.5
-Lactic acid 2.3
-Discontinued IVF due to SOB and Volume overload
-nasal MRSA Neg- Discontinue Vancomycin
-Infectious Disease consulted, input appreciated
-Narrow Zosyn #D3 to Cefazolin #D8 - Plan for 6 weeks of IV Q12h abx through 06/19/25 per ID, Follow weekly CBC/diff, CMP, ESR, CRP
-Blood Cx- negative
-05/09 washout intervention of the suspected shoulder infection with backup transcutaneous pacing.
-PT/OT eval - SNF
-PICC line placed 05/12
Left shoulder septic arthritis
-Limited ROM due to pain and swelling, no erythema, warmth on exam
-Consult orthopedics, input appreciated
-IV dilaudid 0.5mg prn
-Left shoulder tap
-joint aspiration fluid- septic arthritis- WBC 48828, PMN Cells 90.7
-Lyme order pending
-05/09 OR for arthroscopic irrigation and debridement - then PT eval
-None weightbearing status on left arm
-Ordered Sling fo immobilization and soft tissue rest
-Left UE Venous Doppler US 05/03/2025- Nonocclusive thrombus in the proximal to mid basilic vein - left arm swelling improved
-rec warm compress, arm elevation
-Subcutaneous swelling - appreciate ortho input- PT -gentle ROM
Non Sustained Ventricular Tachycardia 05/12
-13 beats Vtach , it was less than 30 secs
- no abnormality
Acute Hypoxemic Respiratory Failure
-was on BIPAP due to respiratory distress, now on RA O2 94
-Start Mucinex
-Incentive spirometry
-Start Ipratropium/albuterol 3ml inh (duoneb) q4hprn
Chest Xray 05/15/25
-Cardiomegaly, pulmonary edema Probable small bilateral pleural effusions.
Chest Xray 05/14/25
Lines and tubes: Right upper partially PICC with catheter tip projecting over the region of the cavoatrial junction, unchanged..
Lungs: Small bilateral pleural effusions, more pronounced on the left which are similar in appearance to prior. Mild diffuse interstitial opacification. Mild basilar airspace opacities.
Heart: Cardiac and mediastinal contours are enlarged, similar to prior. There is a small radiodensity projecting over the lower heart border, possibly leadless pacemaker.
Acute on Chronic Bradycardia likely secondary to mild hypothermia
-Body Temp 97.4
-HR as low as 30's. At previous admission on 04/12 HR was 40's
-TSH normal
-ECG - slow afib, HR 37, RBBB, Premature Ventricular complexes
-Cardiology consulted, input appreciated
---Follow telemetry
---No AV blocking medications
-- 05/09 OR with backup transcutaneous pacing
---Leadless Micro Medtronic Pacemaker implant on 05/11
-Resumed Xarelto 15mg 05/13 H&H stable
Acute on chronic kidney disease stage IV
-Azotemia with BUN 119 likely 2/2 advanced cardiorenal syndrome vs recent steroid intake vs dehydration
-Pt is volume overloaded
-Consult Nephrology, input appreciated
-Patient declines dialysis
-Baseline Cr 2.3-2.6 per records. Creatinine today 3.8
-Check Bladder scan for urinary retention - 429
-Follow BMP
Acute exacerbation of Chronic HFpEF
-Echo 04/17/25 - EF 55-60%, Severe LVH, moderate to severe mitral valve regurgitation, severe tricuspid regurgitation, severely dilated RA, estimated Pulmonary arterial Pressure 65 mmHg, Ascending aorta and IVC dilated
-Pt has elevated lactic acid level, possible sepsis, hypothermia, elevated BUN
-Discontinue IVF due to SOB, volume overload
-Continue Lasix 50ml IV lasix 4ml/h, nephro input appreciated
-Goal weight loss at least 10lb (05/15 109.7kg/ 241.8 lbs)-- goal 231lb/104kg
-add Metolazone 5mg, hold torsemide 30mg
-Pro BNP 92334
-Follow I/O
-Check daily weight
Dysphagia
-speech eval - Regular solids and thin liquids, meds as tolerated
-Cholesterol lowering diet
-05/15 intermittently choking/coughing with food consumption
-reconsult speech eval- Regular solids and thin liquids, meds as tolerated
Permanent Atrial fibrillation
-Xarelto 15mg
-Slow rate - not on meds due to bradycardia
-Asymptomatic
Constipation
- Started Sennokat- S with Miralax
- No bms today
- Mg Citrate
Type 2 Diabetes Mellitus
-Blood glucose 131
-Hold Jaridance and Tirzepatide
-Aspart Insulin Sliding Scale
-HbA1C 7.1
-Monitor Glucose
Nonischemic Myocardial Injury
-Troponin 0.139, Chronically elevated likely secondary to CKD stage IV
Chronic Macrocytic Anemia
-Hb 8.6
Chronic Extremity wounds
-LLE wound s/p surgery and XRT 3 months ago for squamous cell carcinoma
-Wound care consulted, input appreciated
Gout
-Continue Allopurinol
Chronic Pain
- Continue Tramadol and Morphine PRN
Hypothyroidism
-Continue Levothyroxine
Hyperlipidemia
-Continue Statin
BPH
-Continue Tamsulosin
Anxiety
-Continue Ativan
Obstructive Sleep Apnea
-unable to tolerate CPAP
Obesity
-due to excess calories
Full code
DVT prophylaxis: Xarelto
Cholesterol lowering diet
Discharge to [facility]
Anticipated Discharge: > 48 hours
Subjective/Interval History
-
Date of Service: May 16, 2025
He is comfortable sitting on the chair. Denies SOB on room air. No CP, palpitations. He reports feeling tired. He complains about coughing. He has been urinating normal.
Objective Data
-
Labs:
Laboratory Results
05/16/25
02:40
WBC 12.4 H
Hgb 8.4 L
Hct 27.0 L
Plt Count 173
Sodium 135
Potassium 4.7
Chloride 100
Carbon Dioxide 29
BUN 120 H*
Creatinine 3.8 H
Glucose 131 H
Calcium 9.2
Vital Signs:
Vital Signs
Temp Pulse Resp BP Pulse Ox
97.3 F 64 20 108/79 94
05/16/25 07:01 05/16/25 07:39 05/16/25 07:39 05/16/25 06:00 05/16/25 07:39
I&O
05/15/25 05/16/25 05/17/25
06:59 06:59 06:59
Intake Total 260 / 260 1224 / 1224
Output Total 400 / 400 500 / 500
Balance -140 / -140 724 / 724
Review of Systems
-
History Source: Patient
Constitutional: Reports No Appetite and Other (feels hot, denies sweating)
EENT: Reports No Symptoms Reported
Respiratory: Reports Cough
Cardiac: Reports No Symptoms
Abdomen/GI: Reports No Symptoms
Breast: Reports No Symptoms
Genitourinary: Reports No Symptoms
Musculoskeletal: Reports Joint Swelling (left arm)
Skin: Reports Other (wounds covered in dressings)
Neuro: Reports No Symptoms
Endocrine: Reports No Symptoms
Hematologic / Lymphatic: Reports No Symptoms
Allergy / Immunology: Reports No Symptoms
Physical Exam
-
General: Well Developed and Obese
HEENT: Normocephalic and Atraumatic
Respiratory: Crackles
Cardiac: Regular Rhythm and S1/S2
Breast: Deferred by me
GI: Soft, Nontender, Nondistended and Normal Bowel Sounds
Rectal: Deferred by Provider
Genito-urinary: Deferred by me
Musculoskeletal: No Clubbing, No Cyanosis, Edema, Left Upper Extrem (SQ effusion on dressing site), Edema, Right Lower Extrem and Edema, Left Lower Extrem
Skin: Warm and Other (wet)
Neuro: Awake
Hematologic / Lymphatic: No Lymphadenopathy
Psych: Calm
[2025-05-16] MEDS: KCL 10 MEQ PO (08:26)
[2025-05-16] MEDS: TYLENOL 1000 MG PO ×2 (08:26→15:15)
[2025-05-16] MEDS: ROCALTROL 0.25 MCG PO (08:26)
[2025-05-16] MEDS: PROTONIX 40 MG PO (08:26)
[2025-05-16] MEDS: MUCINEX 1200 MG PO ×2 (08:26→20:10)
[2025-05-16] MEDS: ZYLOPRIM 300 MG PO (08:26)
[2025-05-16] MEDS: XARELTO 15 MG PO (08:26)
[2025-05-16] MEDS: SENOKOT-S 1 TABLET PO ×2 (08:26→20:10)
[2025-05-16] MEDS: LIDOCAINE 4% PATCH 1 PATCH TOPICAL (08:27)
[2025-05-16] MEDS: MIRALAX 17 GRAMS PO (08:27)
[2025-05-16] MEDS: ULTRAM 50 MG PO (11:03)
--- NOTE | 2025-05-16 11:33 | W.PN.NEPH.PH ---
Today's Communication / Plan
-
diurese
Assessment/Plan
-
Impression
Acute on chronic kidney disease stage IV
Azotemia with BUN greater than 130
Chronic HFpEF
Type 2 diabetes
Gout
Chronic opioid use for pain
BPH
Anemia of chronic disease.
A-fib stable.= Bradycardic chronic
Secondary hyperparathyroidism
Chronic lower extremity ulcerative lesion
Hypothyroid
Plan
still significantly volume overloaded
on lasix gtt, increase to 40mg/hr
add metoalzone today
goal weight loss about 10# at least
we discussed again that he does not want dialysis
I mentioned palliative care as an option, or hospice if he fails to diurese
follow BMP
-
-
Date of Service: May 16, 2025
CC / HPI / ROS
-
Chief Complaint:
CKD 4
History of Present Illness:
ERENDIRA/Cr up to 3.8
BP low stable
BUN stable at 120
on lasix gtt for volume overload, but poor UOP
Review of Systems:
barely Nonoliguric
No chest pain
on supplemental O2
Labs
-
Labs:
WBC 12.4 10^3/uL (4.8-10.8) H 05/16/25 02:40
RBC 2.87 10^6/uL (4.70-6.10) L 05/16/25 02:40
Hgb 8.4 g/dL (13.0-18.0) L 05/16/25 02:40
Hct 27.0 % (39.0-52.0) L 05/16/25 02:40
Plt Count 173 10^3/uL (130-400) 05/16/25 02:40
Sodium 135 mmol/L (135-145) 05/16/25 02:40
Potassium 4.7 mmol/L (3.5-5.1) 05/16/25 02:40
Chloride 100 mmol/L (98-107) 05/16/25 02:40
Carbon Dioxide 29 mmol/L (22-30) 05/16/25 02:40
BUN 120 mg/dl (9-20) H* 05/16/25 02:40
Creatinine 3.8 mg/dL (0.7-1.3) H 05/16/25 02:40
eGFR 14.86 05/16/25 02:40
Glucose 131 mg/dl (70-99) H 05/16/25 02:40
Calcium 9.2 mg/dl (8.4-10.2) 05/16/25 02:40
Umc-J-Ovkosldiotk Pept 78725 pg/ml 05/14/25 06:18
Albumin 2.8 g/dl (3.5-5.0) L 05/10/25 04:30
Physical Exam
-
Vital Signs:
Vital Signs
Temp Pulse Resp BP Pulse Ox
97.6 F 74 20 102/84 91
05/16/25 11:11 05/16/25 08:21 05/16/25 11:11 05/16/25 08:21 05/16/25 11:11
Cardiovascular:: Regular rate and rhythm
Respiratory:: Bilateral: Coarse
Lung Excursion:: Normal
Abdomen:: Nontender and Soft
Bowel Sounds:: Normal
Extremity Edema:: +3: Bilateral:
--- NOTE | 2025-05-16 12:45 | W.PN.ID1 ---
Date of Service
Date of Service: May 16, 2025
Today's Communication
Continue cefazolin.
Assessment / Plan
#Left shoulder septic arthritis
- 05/08 Synovial fluid 78,000 WBC, 90%PMN, neg crystals, cx neg to date (was on Zosyn). Asked micro to hold cx for 10 days.
- 05/09 s/p OR washout. Per Ortho, joint appeared infected. However, NO OR cultures sent.
- Continue empiric cefazolin 2g IV q12h x 6 weeks through 06/19/25.
- Follow weekly CBC/diff, CMP, ESR, CRP
- Infusion sheet submitted to test case developer 05/12.
# Leukocytosis, likely reactive
- Afebrile
- Bcx's x 2 negative
- No diarrhea.
# Bradycardia, resolved
- 05/11 s/p leadless Micra pacer placement.
# Acute on chronic HFpEF
# Acute hypoxic respiratory insufficiency
- Pro-BNP: 24,900
- Nephrology/Cardiology managing
# ERENDIRA on CKD4
# LUE non-occlusive thrombus mid basilic vein
#Additional Past Medical History:
Diabetes mellitus
Atrial fibrillation
HFp EF
CKD 4
Hypothyroidism
Dyslipidemia
BPH
Venous insufficiency
LE skin SCC s/p resection/XRT
Chronic lower extremity wounds
Remote history of gout
Bilateral rotator cuff arthroscopic surgery
Left total hip replacement
Bilateral total knee replacement
Chief Complaint
-: Other (septic arthritis)
Vital Signs / Physical Exam
Vital Signs
Vital Signs
Temp Pulse Resp BP Pulse Ox
97.6 F 74 20 102/84 91
05/16/25 11:11 05/16/25 08:21 05/16/25 11:11 05/16/25 08:21 05/16/25 11:11
Physical Exam
Constitutional: Comfortable
Cardiovascular: Regular Rate and S1/S2
Pulmonary: Rales (bases) and Non Labored
Gastrointestinal: Soft, Non Tender, Non Distended and Normal Bowel Sounds
Extremities: Edema (BLE and LUE)
Musculoskeletal: Other (left shoulder: + edema, no erythema)
Lines: PICC (RUE)
Objective Data
Lab Data
Lab Results
05/16/25 02:40
05/16/25 02:40
ESR 64 mm/hour (0-20) H 05/12/25 03:37
PT 21.4 Sec (11.4-14.6) H 05/06/25 16:06
INR 1.84 05/06/25 16:06
Estimated Creat Clear 18 ml/min 05/16/25 02:40
Lactic Acid 1.5 mmol/L (0.7-2.0) 05/07/25 10:44
Total Bilirubin 0.6 mg/dl (0.2-1.3) 05/10/25 04:30
AST 15 U/L (17-59) L 05/10/25 04:30
ALT 18 U/L (0-50) 05/10/25 04:30
Alkaline Phosphatase 102 U/L (38-126) 05/10/25 04:30
Most recent labs reviewed.
Micro Results:
05/08/25 16:24 Body Fluid Culture - Preliminary
Joint Fluid NO GROWTH
Gram Stain - Preliminary
05/06/25 16:13 Blood Culture - Final
Blood/Venous No Growth - Final Report
05/06/25 16:13 Blood Culture - Final
Blood/Venous No Growth - Final Report
05/07/25 03:15 Nasal Screen MRSA (PCR) - Final
Nose MRSA not detected - performed by PCR methodology.
05/06/25 16:15 Influenza Types A & B (DIONISIO) - Final
Nasal Swab Negative for Influenza A & B, NAAT
Negative results must be combined with clinical observations
and patient history.
Nucleic Acid Amplification test (NAAT)performed on the
[employer] platform.
05/15/25 CXR: Cardiomegaly. Findings suggestive of pulmonary edema pattern, appears increased
05/14/25 CXR: No significant interval change. Small pleural effusions, more pronounced on the left, with adjacent airspace opacities which likely represent atelectasis.
05/12/25 CXR: Findings suggest pulmonary edema, unchanged from prior study. There are probable bilateral pleural effusions, left greater than right.
05/06/25 CXR: Low lung volumes with crowding of the central/vascular markings.
03/20/[address]: New widening of the left glenohumeral interval and anterior subluxation/dislocation of the left humeral head relative to the glenoid, which appears to be at least in part secondary to a very large glenohumeral joint effusion and
bursal fluid.
[2025-05-16] MEDS: ZAROXOLYN 5 MG PO (12:49)
[2025-05-16] MEDS: LASIX 50 IV (13:21)
[2025-05-16 14:02] LABS: Glucose - Point of Care 163 mg/dl (70-99)
[2025-05-16] MEDS: NOVOLOG FLEXPEN-LOW RESISTANCE 1 UNITS SC (14:14)
[2025-05-16] MEDS: DUONEB INH ×2 (14:55→19:24)
--- NOTE | 2025-05-16 15:08 | CM ---
Reviewed chart. Met with and Mrs. Gibbons to review discharge plans. Will continue to follow his progress. The plan was to go to [facility] for SNF/Rehab. Will need to confirm with [facility] bed availability when tentative discharge
date is known. Medical work-up in progress. The discharge plan is to go to SNF/Rehab. hopefully [facility] if bed available when medically stable.
[2025-05-16] MEDS: MORPHINE SULFATE 1 MG IV (17:41)
[2025-05-16 17:43] LABS: Glucose - Point of Care 140 mg/dl (70-99)
--- NOTE | 2025-05-16 19:12 | PTCARENOTE ---
~[id number]:Handoff report received from nightshift RN. Pt Aox4, forgetful at times, V paced 70s on tele, 3L NC, THRASHER with auditory insp. and exp. wheezes, moist productive cough with clear mucus. pt c/o 6/10 L shoulder pain but does not want anything
for it. L shoulder nonpitting edema, border marked, sutures present and SONIA. L hand +3 pitting edema. BLE +2 pitting edema. Scatterred BLE wound dressing CDI, BUE wound foams CDI. Patient heavy Ax2 OOB to chair, jose lift sling on chair for
transfer back. Patient incontinent of urine, post void residual scanned and sent to Dr Arguello. Patient incontinent or urine again still with post void residual. Male external catheter placed. Pt c/o pain, PRN tramadol given. Lasix gtt infusing per
order. All needs met at this time, call lucas within reach.
~[id number]: Patient OOB in chair yelling out 'I am done. I don't want to do this anymore. I am dying, my kidneys are shot and I am ready to go.' Dr. Arguello made aware. Patient and hsopitalist were both able to get in touch with and daughter to
inform them of his wishes. Patient code status changed to DNR by provider and purple DNR bracelet applied. Hospitalists requests to speak with fanily and patient when family arrives. PT/OT in to work with patient. All needs met at this time, call
lucas within reach.
~[id number]: Patient worked with DATA COLLECTION TECHNICIAN, no new orders at this time. Patient jose lift back to bed. Sister at bedside. Patient's and daughter arrived, TT sent to Dr. Arguello informing him of their arrival. All needs met at this time, call lucas
within reach.
~[id number]: Informed by respiratory that patient 'refused nebulizer because he just wants to .'
~[id number]: Dr Arguello and resident at bedside to speak with family. Hospice consult placed, CM notified via TT. PRN dilaudid given for pain management.
~[id number]: Pt stating he can't breathe, TT sent to Dr. Arguello, PRN morphine ordered for dyspnea. Family at bedside. Patient repeatedly requesting 'please given me something to put me out of my misery.' Support provided for family and patient.
~[id number]: PRN morphine given for dyspnea. Patient continually asks for someone to given him something to 'knock him out.' Education provided that this is not able to happen, but we can try to make him as comfortable as possible. All needs met at
this time, call lucas within reach. Handoff report given to nightshift RN.
--- NOTE | 2025-05-16 19:32 | HOSPNOTE ---
Hospice referral received will reach out to spouse tomorrow 05/17 per CM. Spouse is struggling with decline and son is presently on hospice services with . More information to follow.
[2025-05-16] MEDS: DILAUDID 0.5 MG IV ×2 (20:10→23:20)
[2025-05-16] MEDS: REMOVE LIDOCAINE PATCH REMOVE (20:18)
[2025-05-16 22:51] LABS: Glucose - Point of Care 138 mg/dl (70-99)
[2025-05-16] MEDS: TYLENOL PO (22:58)
[2025-05-16] MEDS: LIPITOR PO (22:58)
[2025-05-17] MEDS: LASIX 50 IV (02:17)
[2025-05-17] MEDS: ATIVAN 0.5 MG PO (02:30)
[2025-05-17 03:43] VITALS: BP 98/72
[2025-05-17 03:55] VITALS: BMI 34.2
[2025-05-17 04:39] LABS: Hematocrit 27.7 % (39.0-52.0); Hemoglobin 8.8 g/dL (13.0-18.0); Mean Corp Hgb Conc. 31.8 g/dL (33.0-37.0); Mean Corpuscular Volume 95.5 fL (80.0-94.0); Platelet Count 181 10^3/uL (130-400); Red Cell Dist. Width 18.0 % (11.5-14.5)
[2025-05-17 04:46] LABS: Calcium 9.0 mg/dl (8.4-10.2); Carbon Dioxide 28 mmol/L (22-30); Chloride 101 mmol/L (98-107); Estimated Creatinine Clearance 17 ml/min; Glucose 111 mg/dl (70-99); Potassium 4.7 mmol/L (3.5-5.1); Sodium 136 mmol/L (135-145); eGFR 13.97
[2025-05-17 05:07] LABS: Blood Urea Nitrogen 129 mg/dl (9-20)
--- NOTE | 2025-05-17 06:20 | PTCARENOTE ---
Pt V paced on monitor, VSS. Pt c/o generalized pain / Dilaudid PRN given. Pt agitated, pulling off oxygen and heart monitor. Pt stated 'I'll tonight'. [employer] made aware, Ativan x 1 ordered. Wound care completed. Safety measures in place, call
lucas within reach
[2025-05-17] MEDS: ANCEF 10 IV (06:26)
[2025-05-17] MEDS: SYNTHROID PO (06:58)
[2025-05-17] MEDS: DUONEB INH (07:36)
[2025-05-17 07:37] VITALS: BP 131/70
[2025-05-17] MEDS: ZYLOPRIM 300 MG PO (07:38)
[2025-05-17] MEDS: SENOKOT-S 1 TABLET PO (07:38)
[2025-05-17] MEDS: MUCINEX 1200 MG PO (07:38)
[2025-05-17] MEDS: PROTONIX 40 MG PO (07:38)
[2025-05-17] MEDS: FLOMAX 0.4 MG PO (07:38)
[2025-05-17] MEDS: ROCALTROL 0.25 MCG PO (07:38)
[2025-05-17] MEDS: XARELTO 15 MG PO (07:38)
[2025-05-17] MEDS: TYLENOL 1000 MG PO (07:38)
[2025-05-17] MEDS: DILAUDID 0.5 MG IV (07:39)
[2025-05-17] MEDS: LIDOCAINE 4% PATCH TOPICAL (07:41)
[2025-05-17] MEDS: MIRALAX 17 GRAMS PO (07:41)
[2025-05-17 08:15] LABS: Glucose - Point of Care 112 mg/dl (70-99)
--- NOTE | 2025-05-17 08:21 | W.PN.HOSP.TC ---
Addendum entered and electronically signed by Samra Arguello MD 05/17/25 13:31:
Attending�addendum:
I saw and evaluated the patient independently. I reviewed and discussed the resident�s note and agree with findings and plan as documented in the resident�s note.� patient seen and examined at bedside, still complaining of shortness of breath,
patient told me he is DNI/DNR which confirmed with his and daughter in the phone.
Will have family meeting today
Physical�exam:
GENERAL : Patient is awake, looks tired
HEENT: Nonicteric sclerae, PERRLA, EOMI. Oropharynx clear. Moist mucous membranes. Conjunctivae appear well perfused.
CHEST: Chest wall is nontender.
HEART: Regular rate and rhythm without murmurs.
LUNGS: Diffuse bilateral Rales
ABDOMEN: Soft, positive bowel sounds, nontender, no organomegaly.
RECTAL: Deferred.
MUSCLES/EXTREMITIES: No abnormal range of motion, no swelling.SKIN: No rash, no excessive bruising, petechiae, or purpura.
NEUROLOGIC: Cranial nerves II-XII intact without motor/sensory deficit.
�
Assessment/plan:
Sepsis with acute organ dysfunction
Acute hypoxic respiratory failure.
Acute on chronic diastolic CHF.
Acute on chronic renal failure
Dysphagia.
CODE STATUS: DNR/DNI
DVT prophylaxis: Xarelto
Diet: Cardiac diet
Disposition: Admit to inpatient hospice
�
Total time spent on today�s encounter was 60 minutes which included time spent in counseling the patient/family regarding diagnosis and treatment plan as listed above, goals of care, and symptom management. Case was discussed with nursing staff,
specialists, and care coordinators/case management. All labs and imaging personally reviewed by me. Remainder the time spent in detailed review of previous records, lab data, imaging, and other medical provider documentation.
Original Note:
Today's Communication/Plan
-
Discharge to hospice
Provide support care
Assessment / Plan
Assessment / Plan
84 y/o male with pmh of permanent afib on Xarelto, HFpEF, CKD stage IV, Chronic macrocytic anemia, Left LE wound (basal skin cancer removal?), pressure ulcers, gout, type 2DM, hypothyroidism, hyperlipidemia, BPH presented to ED on 05/06 from [place]
Run for cough, SOB and bradycardia. He has had decreased responsiveness and lethargy for the past few days.
He was recently admitted to from 04/12 to 04/18 and was found to have pleural effusions and cardiomegaly treated for CHF as well as for contaminant possible Pneumonia and chronic LE wounds. He was treated with ab's. He also had asymptomatic
bradycardia as low as 40's.
Suspected Sepsis (acute metabolic encephalopathy, hypothermia)
-Moved IVU from IMU
-CXR without Pneumonia, COVID/ Flu neg, U/A neg
-Leukocytosis WBC 16.5
-Lactic acid 2.3
-Discontinued IVF due to SOB and Volume overload
-nasal MRSA Neg- Discontinue Vancomycin
-Infectious Disease consulted, input appreciated
-Narrow Zosyn #D3 to Cefazolin #D9 - Plan for 6 weeks of IV Q12h abx through 06/19/25 per ID, Follow weekly CBC/diff, CMP, ESR, CRP
-Blood Cx- negative
-05/09 washout intervention of the suspected shoulder infection with backup transcutaneous pacing.
-PT/OT eval - SNF
-PICC line placed 05/12
-GOC was discussed with the pt and his - they both agreed proceeding with hospice
Left shoulder septic arthritis
-Limited ROM due to pain and swelling, no erythema, warmth on exam
-Consult orthopedics, input appreciated
-IV dilaudid 0.5mg prn
-Left shoulder tap
-joint aspiration fluid- septic arthritis- WBC 98547, PMN Cells 90.7
-Lyme order pending
-05/09 OR for arthroscopic irrigation and debridement - then PT eval
-None weightbearing status on left arm
-Ordered Sling fo immobilization and soft tissue rest
-Left UE Venous Doppler US 05/03/2025- Nonocclusive thrombus in the proximal to mid basilic vein - left arm swelling improved
-rec warm compress, arm elevation
-Subcutaneous swelling - appreciate ortho input- PT -gentle ROM
Non Sustained Ventricular Tachycardia 05/12
-13 beats Vtach , it was less than 30 secs
- no abnormality
Acute Hypoxemic Respiratory Failure
-was on BIPAP due to respiratory distress, now on RA O2sat 94
-Start Mucinex
-Incentive spirometry
-Start Ipratropium/albuterol 3ml inh (duoneb) q4hprn
Chest Xray 05/15/25
-Cardiomegaly, pulmonary edema Probable small bilateral pleural effusions
Chest Xray 05/14/25
Lines and tubes: Right upper partially PICC with catheter tip projecting over the region of the cavoatrial junction, unchanged..
Lungs: Small bilateral pleural effusions, more pronounced on the left which are similar in appearance to prior. Mild diffuse interstitial opacification. Mild basilar airspace opacities.
Heart: Cardiac and mediastinal contours are enlarged, similar to prior. There is a small radiodensity projecting over the lower heart border, possibly leadless pacemaker.
Acute on Chronic Bradycardia likely secondary to mild hypothermia
-Body Temp 97.4
-HR as low as 30's. At previous admission on 04/12 HR was 40's
-TSH normal
-ECG - slow afib, HR 37, RBBB, Premature Ventricular complexes
-Cardiology consulted, input appreciated
---Follow telemetry
---No AV blocking medications
-- 05/09 OR with backup transcutaneous pacing
---Leadless Micro Med[employer]onic Pacemaker implant on 05/11
-Resumed Xarelto 15mg 05/13 H&H stable
Acute on chronic kidney disease stage IV
-Azotemia with BUN 119 likely 2/2 advanced cardiorenal syndrome vs recent steroid intake vs dehydration
-Pt is volume overloaded
-Consult Nephrology, input appreciated
-Patient declines dialysis
-Baseline Cr 2.3-2.6 per records. Creatinine today 4
-Check Bladder scan for urinary retention - 429
-Follow BMP
Acute exacerbation of Chronic HFpEF
-Echo 04/17/25 - EF 55-60%, Severe LVH, moderate to severe mitral valve regurgitation, severe tricuspid regurgitation, severely dilated RA, estimated Pulmonary arterial Pressure 65 mmHg, Ascending aorta and IVC dilated
-Pt has elevated lactic acid level, possible sepsis, hypothermia, elevated BUN
-Discontinue IVF due to SOB, volume overload
-Continue Lasix 50ml IV lasix 4ml/h, nephro input appreciated
-Goal weight loss at least 10lb (05/15 109.7kg/ 241.8 lbs)-- goal 231lb/104kg-->today 108.1kg
-add Metolazone 5mg, hold torsemide 30mg
-Pro BNP 63617
-Follow I/O
-Check daily weight - 2.1kg loss
Dysphagia
-speech eval - Regular solids and thin liquids, meds as tolerated
-Cholesterol lowering diet
-05/15 intermittently choking/coughing with food consumption
-reconsult speech eval- Regular solids and thin liquids, meds as tolerated
Permanent Atrial fibrillation
-Xarelto 15mg
-Slow rate - not on meds due to bradycardia
-Asymptomatic
Constipation
- Started Sennokat- S with Miralax
- No bms today
- Mg Citrate
Type 2 Diabetes Mellitus
-Blood glucose 131
-Hold Jaridance and Tirzepatide
-Aspart Insulin Sliding Scale
-HbA1C 7.1
-Monitor Glucose
Nonischemic Myocardial Injury
-Troponin 0.139, Chronically elevated likely secondary to CKD stage IV
Chronic Macrocytic Anemia
-Hb 8.6
Chronic Extremity wounds
-LLE wound s/p surgery and XRT 3 months ago for squamous cell carcinoma
-Wound care consulted, input appreciated
Gout
-Continue Allopurinol
Chronic Pain
- Continue Tramadol and Morphine PRN
Hypothyroidism
-Continue Levothyroxine
Hyperlipidemia
-Continue Statin
BPH
-Continue Tamsulosin
Anxiety
-Continue Ativan
Obstructive Sleep Apnea
-unable to tolerate CPAP
Obesity
-due to excess calories
DNR. DNI
DVT prophylaxis: Xarelto
Cholesterol lowering diet
Discharge to Inpatient Hospice
Anticipated Discharge: Today
Subjective/Interval History
-
Date of Service: May 17, 2025
Overnight he has been complaining and requesting something to kill him. He reports pain with urination. He denies chest pain, abdominal pain, palpitations.
Objective Data
-
Labs:
Laboratory Results
05/17/25
03:59
WBC 11.4 H
Hgb 8.8 L
Hct 27.7 L
Plt Count 181
Sodium 136
Potassium 4.7
Chloride 101
Carbon Dioxide 28
BUN 129 H*
Creatinine 4.0 H
Glucose 111 H
Calcium 9.0
Vital Signs:
Vital Signs
Temp Pulse Resp BP Pulse Ox
97.4 F 85 20 98/72 92
05/17/25 07:59 05/17/25 06:00 05/17/25 03:52 05/17/25 03:43 05/17/25 03:52
I&O
05/16/25 05/17/25 05/18/25
06:59 06:59 06:59
Intake Total 1224 / 1224 100 / 100
Output Total 500 / 500 700 / 700
Balance 724 / 724 -600 / -600
Review of Systems
-
History Source: Patient
Constitutional: Reports Sleep Disturbance
EENT: Reports No Symptoms Reported
Respiratory: Reports No Symptoms
Cardiac: Reports No Symptoms
Abdomen/GI: Reports No Symptoms
Breast: Reports No Symptoms
Genitourinary: Reports Dysuria
Musculoskeletal: Reports Joint Swelling (left arm)
Skin: Reports Other (wounds covered in dressings)
Neuro: Reports No Symptoms
Endocrine: Reports No Symptoms
Hematologic / Lymphatic: Reports No Symptoms
Allergy / Immunology: Reports No Symptoms
Psych: Reports Depressed, Sad and Anxious
Physical Exam
-
General: Appears in Distress, Pain and Obese
HEENT: Normocephalic and Atraumatic
Respiratory: Clear to Auscultation
Cardiac: Regular Rhythm and S1/S2
Breast: Deferred by me
GI: Soft, Nontender, Nondistended and Normal Bowel Sounds
Rectal: Deferred by Provider
Genito-urinary: Other (no erythea. no discharge on penis)
Musculoskeletal: No Clubbing, No Cyanosis, Edema, Left Upper Extrem (SQ effusion on dressing site), Edema, Right Lower Extrem and Edema, Left Lower Extrem
Skin: Warm, Dry and Other (erythema around right inguinal area)
Neuro: Awake
Hematologic / Lymphatic: No Lymphadenopathy
Psych: Agitated, Depressed and Anxious
--- NOTE | 2025-05-17 08:59 | HOSPNOTE ---
Spoke with spouse who will be in at 11am and is in agreement with inpatient hospice. Admissions was called and patient will be moved to [facility]. Attending aware of plan. Will contact CM and update.
--- NOTE | 2025-05-17 09:00 | PTCARENOTE ---
Pt is agitated and yelling for staff. Complaints of having to pee, bladder scan showed 0mL. Pt complains of 8/10 pain, PRN medication given as ordered. Plan for hospice later today. V paced on tele monitor, VSS. Bed alarm on and audible. Call lucas
within reach.
[2025-05-17] MEDS: NOVOLOG FLEXPEN-LOW RESISTANCE SC (09:09)
--- NOTE | 2025-05-17 09:17 | CM ---
Reviewed chart. Received message from Arlene [employer] Con[employer] Operator who is planning on having him go to inpatient hospice today. Spouse is scheduled to be here around 11:00 a.m to sign on to inpatient hospice. Medical work-up progress. The discharge plan is
to go to inpatient hospice.
[2025-05-17] MEDS: MORPHINE SULFATE 1 MG IV (09:26)
[2025-05-17 10:55] VITALS: BP 109/78
[2025-05-17 11:43] VITALS: BP 109/72
--- NOTE | 2025-05-17 13:59 | W.DCSUMMARY ---
Addendum entered and electronically signed by Samra Arguello MD 05/17/25 16:01:
Attending�addendum:
I saw and evaluated the patient independently. I reviewed and discussed the resident�s note and agree with findings and plan as documented in the resident�s note.� patient admitted under inpatient hospice
Physical�exam:
GENERAL : Patient is awake, looks tired
HEENT: Nonicteric sclerae, PERRLA, EOMI. Oropharynx clear. Moist mucous membranes. Conjunctivae appear well perfused.
CHEST: Chest wall is nontender.
HEART: Regular rate and rhythm without murmurs.
LUNGS: Diffuse bilateral Rales
ABDOMEN: Soft, positive bowel sounds, nontender, no organomegaly.
RECTAL: Deferred.
MUSCLES/EXTREMITIES: No abnormal range of motion, no swelling.SKIN: No rash, no excessive bruising, petechiae, or purpura.
NEUROLOGIC: Cranial nerves II-XII intact without motor/sensory deficit.
�
Assessment/plan:
Sepsis with acute organ dysfunction
Acute hypoxic respiratory failure.
Acute on chronic diastolic CHF.
Acute on chronic renal failure
Dysphagia.
CODE STATUS: DNR/DNI
DVT prophylaxis: Xarelto
Diet: Cardiac diet
Disposition: Admit to inpatient hospice
Total time spent on today's encounter was 40 minutes which included time spent in counseling the patient/family regarding diagnosis and treatment plan as listed above, goals of care, and symptom management. Case was discussed with nursing staff,
specialists, and care coordinators/case management. All labs and imaging personally reviewed by me. Remainder the time spent in detailed review of previous records, lab data, imaging, and other medical provider documentation
Original Note:
Documented by User: Jose Luis Treviño MD, Resident 05/17/25 14:54
Discharge Summary
Discharge Data
Date of Admission: 05/06/25
Date of Discharge: 05/17/25
-
Pending Results: No
Hospital Course
Discharging Physician : Dr. Jose Luis Treviño, Dr. Samra Arguello
Disposition : Hospice
Primary care physician : Kirit Mccartney MD
Principal Discharge diagnosis :
Acute hypoxic respiratory failure
Sepsis with acute organ dysfunction
Acute on chronic diastolic CHF.
Acute on chronic renal failure
Dysphagia
Chronic Discharge diagnosis :
Chronic Macrocytic Anemia
Chronic Extremity wounds
Gout
Chronic Pain
Hypothyroidism
Hyperlipidemia
BPH
Anxiety
Obstructive Sleep Apnea
Hospital Course :
84 y/o male with pmh of permanent afib on Xarelto, HFpEF, CKD stage IV, Chronic macrocytic anemia, Left LE wound (basal skin cancer removal?), pressure ulcers, gout, type 2DM, hypothyroidism, hyperlipidemia, BPH presented to ED on 05/06 from [place]
Run for cough, SOB and bradycardia. He has had decreased responsiveness and lethargy for the past few days.
He was recently admitted to from 04/12 to 04/18 and was found to have pleural effusions and cardiomegaly treated for CHF as well as for contaminant possible Pneumonia and chronic LE wounds. He was treated with ab's. He also had asymptomatic
bradycardia as low as 40's.
Patient has a complicated prolonged history required pacemaker insertion, prolonged IV antibiotics, was feeling better but then developed acute hypoxic respiratory failure secondary to CHF exacerbation and was started on Lasix drip, worsening kidney
function, patient and family requested comfort measures only, hospice consulted.
Patient will be admitted under inpatient hospice.
Discharge Plan
-
Patient Disposition: Hospice - Inpatient
Discharge Diagnosis/Procedures: 05/11 MICRA pacemaker implant
Driving Restrictions: No driving for 24 hours
Activity Restrictions/Additional Instructions:
Wound Care Instructions Bilateral LE Clean with Vashe Moistened gauze and apply adaptic (may add alginate for moderate to heavy drainage), ABD and wrap with kerlix. Change daily and PRN drainage.
DTI Right Buttock- Keep covered with silicone border foam and continue all off-loading measures.
Stage 2 PI right buttock- Clean with normal saline or soap and water and apply Calazime BID or with incontinence care PRN.
Stand Alone Forms: DC Instructions- Cath/EP Lab
Referrals:
[facility] [Outside]
Julisa Gardner CRNP [Specified Professional Personl, Cardiology] - 05/31/25 2:20 pm
Kirit Mccartney MD [Family Provider, Family Practice]
Prescriptions:
No Action
atorvastatin [Lipitor] 20 MG tablet
20 mg PO HS
allopurinol 300 MG tablet
300 mg PO DAILY
pantoprazole 40 MG tablet,delayed release (DR/EC)
40 mg PO DAILY
levothyroxine 50 mcg tablet
50 mcg PO DAILY
alfuzosin 10 mg tablet extended release 24 hr
10 mg PO DAILY
calcitriol 0.25 mcg Capsule
0.25 mcg PO DAILY
potassium chloride 10 mEq Tablet Extended Release
10 meq PO DAILY
tramadol 50 mg Tablet
100 mg PO Q8HPRN PRN (Reason: severe pain)
Jardiance 10 MG tablet
10 mg PO DAILY 30 Days Qty: 30 0RF
metolazone 2.5 mg Tablet
2.5 mg PO DAILY
acetaminophen 325 mg Tablet
650 mg PO Q4H PRN (Reason: mild pain/fever)
torsemide 20 mg tablet
40 mg PO DAILY
prednisone 20 mg tablet
40 mg PO QPM
Rx Instructions:
beginning 05/01/25 x 5 days
acetaminophen 500 mg Tablet
1,000 mg PO TID
lorazepam 0.5 mg tablet
0.5 mg PO HSPRN PRN (Reason: insomnia)
insulin aspart U-100 [Novolog U-100 Insulin aspart] 100 unit/mL Solution
1 sliding scale dose SC QID
Rx Instructions:
70-149=hold
150-199=1 unit
200-249=3 unit
250-299=5 unit
300-349=7 unit
350-399=9 unit
400-499=11 unit
melatonin 5 mg Tablet
5 mg PO HS
rivaroxaban 15 mg Tablet
15 mg PO DAILY
lidocaine-menthol [Icy Hot Patch (lido-menthol)] 4-1 % Adhesive Patch,Medicated
1 patch TOPICAL DAILY
Rx Instructions:
left shoulder
tirzepatide 10 mg/0.5 mL Pen Injector
10 mg SC QWEEK
Rx Instructions:
Thursday
benzonatate 100 mg capsule
200 mg PO TIDPRN PRN (Reason: cough)
Discharge Orders:
Discharge Patient (As Directed); Ordered 05/17/25
Ordered By: Samra Arguello
Discharge Date and Time
Discharge Date/Time: 05/17/25 11:55
Print Language: HUNGARIAN

Documented by User: Samra Arguello MD 05/17/25 16:00
Discharge Summary
Discharge Data
Date of Admission: 05/06/25
Date of Discharge: 05/17/25
Discharge Plan
-
Patient Disposition: Hospice - Inpatient
Discharge Diagnosis/Procedures: 05/11 MICRA pacemaker implant
Driving Restrictions: No driving for 24 hours
Activity Restrictions/Additional Instructions:
Wound Care Instructions Bilateral LE Clean with Vashe Moistened gauze and apply adaptic (may add alginate for moderate to heavy drainage), ABD and wrap with kerlix. Change daily and PRN drainage.
DTI Right Buttock- Keep covered with silicone border foam and continue all off-loading measures.
Stage 2 PI right buttock- Clean with normal saline or soap and water and apply Calazime BID or with incontinence care PRN.
Stand Alone Forms: DC Instructions- Cath/EP Lab
Referrals:
[facility] [Outside]
Julisa Gardner CRNP [Specified Professional Personl, Cardiology] - 05/31/25 2:20 pm
Kirit Mccartney MD [Family Provider, Family Practice]
Prescriptions:
No Action
atorvastatin [Lipitor] 20 MG tablet
20 mg PO HS
allopurinol 300 MG tablet
300 mg PO DAILY
pantoprazole 40 MG tablet,delayed release (DR/EC)
40 mg PO DAILY
levothyroxine 50 mcg tablet
50 mcg PO DAILY
alfuzosin 10 mg tablet extended release 24 hr
10 mg PO DAILY
calcitriol 0.25 mcg Capsule
0.25 mcg PO DAILY
potassium chloride 10 mEq Tablet Extended Release
10 meq PO DAILY
tramadol 50 mg Tablet
100 mg PO Q8HPRN PRN (Reason: severe pain)
Jardiance 10 MG tablet
10 mg PO DAILY 30 Days Qty: 30 0RF
metolazone 2.5 mg Tablet
2.5 mg PO DAILY
acetaminophen 325 mg Tablet
650 mg PO Q4H PRN (Reason: mild pain/fever)
torsemide 20 mg tablet
40 mg PO DAILY
prednisone 20 mg tablet
40 mg PO QPM
Rx Instructions:
beginning 05/01/25 x 5 days
acetaminophen 500 mg Tablet
1,000 mg PO TID
lorazepam 0.5 mg tablet
0.5 mg PO HSPRN PRN (Reason: insomnia)
insulin aspart U-100 [Novolog U-100 Insulin aspart] 100 unit/mL Solution
1 sliding scale dose SC QID
Rx Instructions:
70-149=hold
150-199=1 unit
200-249=3 unit
250-299=5 unit
300-349=7 unit
350-399=9 unit
400-499=11 unit
melatonin 5 mg Tablet
5 mg PO HS
rivaroxaban 15 mg Tablet
15 mg PO DAILY
lidocaine-menthol [Icy Hot Patch (lido-menthol)] 4-1 % Adhesive Patch,Medicated
1 patch TOPICAL DAILY
Rx Instructions:
left shoulder
tirzepatide 10 mg/0.5 mL Pen Injector
10 mg SC QWEEK
Rx Instructions:
Thursday
benzonatate 100 mg capsule
200 mg PO TIDPRN PRN (Reason: cough)
Discharge Orders:
Discharge Patient (As Directed); Ordered 05/17/25
Ordered By: Samra Arguello
Discharge Date and Time
Discharge Date/Time: 05/17/25 11:55
Print Language: HUNGARIAN
== END 2025-05-17 11:55 | disposition hospice, inpatient (51) | DRG 853 ==
LOC: IVU 18:40
PROVIDERS: Internal Medicine; Internal Medicine Cardiovascular Disease; Nurse Practitioner Family; Physician Assistant Surgical; Specialist; ADMITTING PHYSICIAN Hospitalist; ATTENDING PHYSICIAN General Practice; CONSULT PHYSICIAN Internal Medicine Cardiovascular Disease; CONSULT PHYSICIAN Internal Medicine Infectious Disease; CONSULT PHYSICIAN Specialist; CONSULT PHYSICIAN Student in an Organized Health Care Education/Training Program; EMERGENCY PHYSICIAN Student in an Organized Health Care Education/Training Program; FAMILY PHYSICIAN Family Medicine
PROC: 5A09357 Assistance with Respiratory Ventilation, Less than 24 Consecutive Hours, Continuous Positive Airway Pressure (ICD-10-PCS; 2025-05-06)
PROC: 0R9K3ZZ Drainage of Left Shoulder Joint, Percutaneous Approach (ICD-10-PCS; 2025-05-08)
PROC: 0RBK4ZZ Excision of Left Shoulder Joint, Percutaneous Endoscopic Approach (ICD-10-PCS; 2025-05-09)
PROC: 02HK3NZ Insertion of Intracardiac Pacemaker into Right Ventricle, Percutaneous Approach (ICD-10-PCS; 2025-05-11)
PROC: 02HV33Z Insertion of Infusion Device into Superior Vena Cava, Percutaneous Approach (ICD-10-PCS; 2025-05-12)
DX: A41.89 Other specified sepsis (principal); Z00.6 Encounter for examination for normal comparison and control in clinical research program; G92.8 Other toxic encephalopathy; J96.01 Acute respiratory failure with hypoxia; I50.33 Acute on chronic diastolic (congestive) heart failure; I48.21 Permanent atrial fibrillation; I13.0 Hypertensive heart and chronic kidney disease with heart failure and stage 1 through stage 4 chronic kidney disease, or unspecified chronic kidney disease; N18.4 Chronic kidney disease, stage 4 (severe); I5A Non-ischemic myocardial injury (non-traumatic); I45.2 Bifascicular block; N17.9 Acute kidney failure, unspecified; N25.81 Secondary hyperparathyroidism of renal origin; M00.9 Pyogenic arthritis, unspecified; I44.2 Atrioventricular block, complete; I82.612 Acute embolism and thrombosis of superficial veins of left upper extremity; I47.20 Ventricular tachycardia, unspecified; E87.20 Acidosis, unspecified; I49.5 Sick sinus syndrome; Z66 Do not resuscitate; Z51.5 Encounter for palliative care; R65.20 Severe sepsis without septic shock; E11.22 Type 2 diabetes mellitus with diabetic chronic kidney disease; M25.412 Effusion, left shoulder; D53.9 Nutritional anemia, unspecified; M1A.9XX0 Chronic gout, unspecified, without tophus (tophi); E11.65 Type 2 diabetes mellitus with hyperglycemia; E03.9 Hypothyroidism, unspecified; E78.00 Pure hypercholesterolemia, unspecified; L89.312 Pressure ulcer of right buttock, stage 2; N40.0 Benign prostatic hyperplasia without lower urinary tract symptoms; R68.0 Hypothermia, not associated with low environmental temperature; I49.3 Ventricular premature depolarization; G89.29 Other chronic pain; F41.9 Anxiety disorder, unspecified; G47.33 Obstructive sleep apnea (adult) (pediatric); I08.1 Rheumatic disorders of both mitral and tricuspid valves; D63.1 Anemia in chronic kidney disease; I27.20 Pulmonary hypertension, unspecified; M19.012 Primary osteoarthritis, left shoulder; D50.9 Iron deficiency anemia, unspecified; E66.09 Other obesity due to excess calories; K21.9 Gastro-esophageal reflux disease without esophagitis; R13.10 Dysphagia, unspecified; Z87.891 Personal history of nicotine dependence; Z79.4 Long term (current) use of insulin; Z79.891 Long term (current) use of opiate analgesic; Z79.01 Long term (current) use of anticoagulants; Z11.52 Encounter for screening for COVID-19; Z68.35 Body mass index [BMI] 35.0-35.9, adult; K59.00 Constipation, unspecified
CPT/HCPCS: 33274; 36600; 51701; 71045; 80048; 80053; 80202; 81003; 81015; 82550; 82805; 82962; 83036; 83605; 83735; 83880; 84443; 84484; 85025; 85027; 85610; 85652; 87015; 87040; 87070; 87205; 87476; 87502; 87641; 87811; 89051; 89060; 92526; 92610; 93005; 93308; 93971; 94640; 94660; 96365; 96366; 96375; 97110; 97163; 97167; 97530; 97535; 99291; C1769; C1786; C1894

== ENCOUNTER 2025-05-17 11:56 | Inpatient (IN) | payer OTHER, SELFPAY ==
[2025-05-17 12:08] VITALS: BP 109/72
[2025-05-17] MEDS: ATIVAN 1 MG IV ×4 (12:46→21:45)
[2025-05-17 13:31] LABS: Glucose - Point of Care 108 mg/dl (70-99)
--- NOTE | 2025-05-17 13:48 | PTCARENOTE ---
Unable to complete admission at this time, pt sleeping and not at bedside.
--- NOTE | 2025-05-17 14:55 | HPS.HSE ---
Addendum entered and electronically signed by Samra Arguello MD 05/17/25 16:00:
Attending�addendum:
I saw and evaluated the patient independently. I reviewed and discussed the resident�s note and agree with findings and plan as documented in the resident�s note.� patient admitted under inpatient hospice
Physical�exam:
GENERAL : Patient is awake, looks tired
HEENT: Nonicteric sclerae, PERRLA, EOMI. Oropharynx clear. Moist mucous membranes. Conjunctivae appear well perfused.
CHEST: Chest wall is nontender.
HEART: Regular rate and rhythm without murmurs.
LUNGS: Diffuse bilateral Rales
ABDOMEN: Soft, positive bowel sounds, nontender, no organomegaly.
RECTAL: Deferred.
MUSCLES/EXTREMITIES: No abnormal range of motion, no swelling.SKIN: No rash, no excessive bruising, petechiae, or purpura.
NEUROLOGIC: Cranial nerves II-XII intact without motor/sensory deficit.
�
Assessment/plan:
Sepsis with acute organ dysfunction
Acute hypoxic respiratory failure.
Acute on chronic diastolic CHF.
Acute on chronic renal failure
Dysphagia.
CODE STATUS: DNR/DNI
DVT prophylaxis: Xarelto
Diet: Cardiac diet
Disposition: Admit to inpatient hospice
Total time spent on today's encounter was 75 minutes which included time spent in counseling the patient/family regarding diagnosis and treatment plan as listed above, goals of care, and symptom management. Case was discussed with nursing staff,
specialists, and care coordinators/case management. All labs and imaging personally reviewed by me. Remainder the time spent in detailed review of previous records, lab data, imaging, and other medical provider documentation.
Original Note:
Family Physician
-
Family Physician: INTERVIEWE UNKNOWN - PT NOT
Chief Complaint
-
admit ti hospice
History of Present Illness
84 y/o male with pmh of permanent afib on Xarelto, HFpEF, CKD stage IV, Chronic macrocytic anemia, Left LE wound (basal skin cancer removal?), pressure ulcers, gout, type 2DM, hypothyroidism, hyperlipidemia, BPH presented to ED on 05/06 from [place]
[facility] for cough, SOB and bradycardia. He has had decreased responsiveness and lethargy for the past few days.
He was recently admitted to from 04/12 to 04/18 and was found to have pleural effusions and cardiomegaly treated for CHF as well as for contaminant possible Pneumonia and chronic LE wounds. He was treated with ab's. He also had asymptomatic
bradycardia as low as 40's.
Patient has a complicated prolonged history required pacemaker insertion, prolonged IV antibiotics, was feeling better but then developed acute hypoxic respiratory failure secondary to CHF exacerbation and was started on Lasix drip, worsening kidney
function, patient and family requested comfort measures only, hospice consulted.
Patient will be admitted under inpatient hospice.
Medical History
Past Medical History
Past Medical History: Reports Other ( permanent atrial fibrillation on Xarelto, HFpEF, CKD 4, chronic macrocytic anemia, left lower extremity wound, gout, type 2 diabetes, hypothyroidism, hyperlipidemia, pressure ulcers, BPH)
Past Surgical History: Reports Other ( Orthopedic (Andres rotator cuff, Back surgery, Carpal tunnel, Andres total knee, Left THR) and Other (Varicose vein surgery , cataract surgery Left eye, basal cell skin cancer removal))
Social History
Tobacco: Non-smoker
Alcohol: None
Drug: None
Family History
Family History: Not pertinent
Allergies / Home Medications
Allergies reflects when Allergies were last updated in [facility].
Home Medications with original date entered in [facility]
Allergy/Medication List:
Allergies
Allergy/AdvReac Type Severity Reaction Status Date / Time
No Known Allergies Allergy Verified 05/06/25 19:42
Home Medications
allopurinol 300 mg tablet 300 mg PO DAILY Gout 02/08/08
atorvastatin 20 mg tablet (Lipitor) 20 mg PO HS HLD 02/08/08
pantoprazole 40 mg tablet,delayed release 40 mg PO DAILY Gastrointestinal issue 11/29/20
alfuzosin 10 mg tablet,extended release 24 hr 10 mg PO DAILY Urinary Issue 12/30/22
levothyroxine 50 mcg tablet 50 mcg PO DAILY Thyroid 12/30/22
calcitriol 0.25 mcg capsule 0.25 mcg PO DAILY Kidney Disease 10/08/23
potassium chloride 10 mEq tablet,extended release 10 meq PO DAILY Electrolyte Repletion 10/31/24
tramadol 50 mg tablet 100 mg PO Q8HPRN PRN severe pain 03/28/25
empagliflozin 10 mg tablet (Jardiance) 10 mg PO DAILY heart failure 30 days #30 tabs 04/16/25
acetaminophen 325 mg tablet 650 mg PO Q4H PRN mild pain/fever 05/06/25
acetaminophen 500 mg tablet 1,000 mg PO TID Pain 05/06/25
benzonatate 100 mg capsule 200 mg PO TIDPRN PRN cough 05/06/25
insulin aspart U-100 100 unit/mL subcutaneous solution (Novolog U-100 Insulin aspart) 1 sliding scale dose SC QID Diabetes 05/06/25
lidocaine 4 %-menthol 1 % topical patch (Icy Hot Patch (lidocaine-menthol)) 1 patch topical DAILY Pain 05/06/25
lorazepam 0.5 mg tablet 0.5 mg PO HSPRN PRN insomnia 05/06/25
melatonin 5 mg tablet 5 mg PO HS Sleep 05/06/25
metolazone 2.5 mg tablet 2.5 mg PO DAILY Fluid Retention/Swelling 05/06/25
prednisone 20 mg tablet 40 mg PO QPM Pain 05/06/25
rivaroxaban 15 mg tablet 15 mg PO DAILY Blood Clot Prevention/Tx 05/06/25
tirzepatide 10 mg/0.5 mL subcutaneous pen injector 10 mg SC QWEEK Diabetes 05/06/25
torsemide 20 mg tablet 40 mg PO DAILY Fluid Retention/Swelling 05/06/25
Review of Systems
-
Unable to obtain full review of systems at this time due to: Acuity
Physical Exam
Vital Signs
Vital Signs
Pulse Resp BP Pulse Ox
68 12 109/72 95
05/17/25 12:08 05/17/25 12:08 05/17/25 12:08 05/17/25 12:08
Physical Exam
General: Respiratory Distress, Appears in Distress and Pain
Respiratory: Rales, Rhonchi and Crackles
Cardiac: Regular Rhythm and Peripheral Edema
GI: Non Distended and Normal Bowel Sounds
Musculoskeletal: Edema, Left Lower Extremity and Edema, Right Lower Extremity
Neuro: Awake
Psych: Calm and Confused
Impression/Plan
-
IMPRESSION:
Acute hypoxic respiratory failure
Sepsis with acute organ dysfunction
Acute on chronic diastolic CHF.
Acute on chronic renal failure
Dysphagia
PLAN:
Admit to inpatient hospice
[2025-05-17 15:34] VITALS: BP 115/70
[2025-05-17] MEDS: NSS (PRESERVATIVE FREE) 0.5 ML IV (16:45)
[2025-05-17] MEDS: ROBINUL 0.2 MG IV (17:43)
[2025-05-17 20:01] VITALS: BP 103/65
--- NOTE | 2025-05-17 21:50 | HOSPNOTE ---
Patient admitted inpatient hospice. Patient will be seen daily.
[2025-05-17] MEDS: DILAUDID 1 MG IV (23:16)
[2025-05-18] MEDS: DILAUDID 1 MG IV ×4 (01:21→12:11)
[2025-05-18] MEDS: ROBINUL 0.2 MG IV ×3 (01:21→07:55)
[2025-05-18 07:00] VITALS: BP 83/59
--- NOTE | 2025-05-18 07:22 | W.PN.HOSP.TC ---
Addendum entered and electronically signed by Samra Arguello MD 05/18/25 11:39:
Attending�addendum:
I saw and evaluated the patient independently. I reviewed and discussed the resident�s note and agree with findings and plan as documented in the resident�s note.� patient admitted under inpatient hospice
Physical�exam:
GENERAL : Lethargic, not responsive
HEENT: Nonicteric sclerae, PERRLA, EOMI. Oropharynx clear. Moist mucous membranes. Conjunctivae appear well perfused.
CHEST: Chest wall is nontender.
HEART: Regular rate and rhythm without murmurs.
LUNGS: Diffuse bilateral Rales
ABDOMEN: Soft, positive bowel sounds, nontender, no organomegaly.
RECTAL: Deferred.
MUSCLES/EXTREMITIES: Bilateral edema.
NEUROLOGIC: Patient is not responsive.
�
Assessment/plan:
Sepsis with acute organ dysfunction
Acute hypoxic respiratory failure.
Acute on chronic diastolic CHF.
Acute on chronic renal failure
Dysphagia.
Admitted under hospice, continue comfort measures only
CODE STATUS: DNR/DNI
DVT prophylaxis: Xarelto
Diet: Cardiac diet
Disposition: Continue comfort measures only
Total time spent on today's encounter was 51 minutes which included time spent in counseling the patient/family regarding diagnosis and treatment plan as listed above, goals of care, and symptom management. Case was discussed with nursing staff,
specialists, and care coordinators/case management. All labs and imaging personally reviewed by me. Remainder the time spent in detailed review of previous records, lab data, imaging, and other medical provider documentation.
Original Note:
Today's Communication/Plan
-
Continue comfort care and monitor
Assessment / Plan
Assessment / Plan
84 y/o male with pmh of permanent afib on Xarelto, HFpEF, CKD stage IV, Chronic macrocytic anemia, Left LE wound (basal skin cancer removal?), pressure ulcers, gout, type 2DM, hypothyroidism, hyperlipidemia, BPH presented to ED on 05/06 from [place]
[facility] for cough, SOB and bradycardia. He has had decreased responsiveness and lethargy for the past few days.
Patient has a complicated prolonged history required pacemaker insertion, prolonged IV antibiotics, was feeling better but then developed acute hypoxic respiratory failure secondary to CHF exacerbation and was started on Lasix drip, worsening kidney
function, patient and family requested comfort measures only, hospice consulted.
05/17 Patient was admitted under inpatient hospice.
- Will continue comfort care and monitor.
Anticipated Discharge: Within 24 hours
Subjective/Interval History
-
Date of Service: May 18, 2025
He is lying in the bed comfortable. Yesterday him and his family decided to proceed with comfort care/hospice.
Objective Data
-
Vital Signs:
Vital Signs
Temp Pulse Resp BP Pulse Ox
94.0 F L 62 11 103/65 96
05/17/25 20:01 05/17/25 20:01 05/17/25 20:01 05/17/25 20:01 05/17/25 20:01
Review of Systems
-
Unable to obtain full review of systems at this time due to: Acuity
Physical Exam
-
General: No Apparent Distress, Comfortable and Obese
HEENT: Normocephalic and Atraumatic
Respiratory: Clear to Auscultation
Cardiac: Regular Rhythm and S1/S2
Breast: Deferred by me
GI: Soft, Nontender, Nondistended and Normal Bowel Sounds
Rectal: Deferred by Provider
Genito-urinary: Deferred by me
Musculoskeletal: No Clubbing, No Cyanosis, Edema, Right Lower Extrem and Edema, Left Lower Extrem
Skin: Warm and Dry
Neuro: Sedated
Psych: Calm
--- NOTE | 2025-05-18 10:57 | HOSPNOTE ---
SN spoke with facility RN, stated patient appears to be imminent. facility RN stated patient had prn dilaudid this am and prn robinul this am. Facility RN stated patient had incontient care this am. SN recieved patient in bed, patient wearing o2 and
mouth breathing. Patient non responsive to SN verbalization and gentle touch. Patient has 9 seconds of apnea, patient pox 88% on o2. Patient lungs CTA, diminished breath sounds noted. Patient abdomen soft non tender. Patient has mottling on
bilateral feet. 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 Wound care provided to left outer knee and bilateral lower extremities. Patient tolerated well. Emotional support provided. SN coordianted with facilty RN, no
other concerns noted. Reinforced to call office with any questions or concerns. Expresses understanding. SN left a message for . Patient remains inpatient appropriate for management of dyspnea and agitation that can not be managed in an outside
setting. Discharge planning continues
--- NOTE | 2025-05-18 13:50 | W.PN.DEATH ---
Pronouncement of
-
Called to see patient to pronounce.
No spontaneous heart tones or respirations noted.
Patient not responsive to verbal stimuli.
Patient is pronounced .
Family updated at bedside
Time of : 13:34
Date of : 05/18/25
Cause of : Sepsis with acute organ dysfunction
Family Notified: Yes
--- NOTE | 2025-05-18 16:40 | PTCARENOTE ---
Pt was on in patient hospice and today at 1334. Family was at bedside when patient . pronounced by Dr. Arguello and Residents. [facility] was called and patient was not a candidate. pt was sent down to room M.
--- NOTE | 2025-05-18 16:57 | W.DCSUMMARY ---
Addendum entered and electronically signed by Samra Arguello MD 05/19/25 07:52:
Attending�addendum:
I saw and evaluated the patient independently. I reviewed and discussed the resident�s note and agree with findings and plan as documented in the resident�s note.� patient admitted under inpatient hospice
Time of : 13:34
Date of : 05/18/25
Total time spent on today's encounter was 40 minutes which included time spent in counseling the patient/family regarding diagnosis and treatment plan as listed above, goals of care, and symptom management. Case was discussed with nursing staff,
specialists, and care coordinators/case management. All labs and imaging personally reviewed by me. Remainder the time spent in detailed review of previous records, lab data, imaging, and other medical provider documentation.
Original Note:
Documented by User: Jose Luis Treviño MD, Resident 05/18/25 16:59
Discharge Summary
Discharge Data
Date of Admission: 05/17/25
Date of Discharge: 05/18/25
-
Pending Results: No
Hospital Course
Discharging Physician : Dr. Jose Luis Treviño, Dr. Samra Arguello
Disposition : Hospice
Primary care physician : Kirit Mccartney MD
Principal Discharge diagnosis :
Acute hypoxic respiratory failure
Sepsis with acute organ dysfunction
Acute on chronic diastolic CHF.
Acute on chronic renal failure
Dysphagia
Chronic Discharge diagnosis :
Chronic Macrocytic Anemia
Chronic Extremity wounds
Gout
Chronic Pain
Hypothyroidism
Hyperlipidemia
BPH
Anxiety
Obstructive Sleep Apnea
Hospital Course :
84 y/o male with pmh of permanent afib on Xarelto, HFpEF, CKD stage IV, Chronic macrocytic anemia, Left LE wound (basal skin cancer removal?), pressure ulcers, gout, type 2DM, hypothyroidism, hyperlipidemia, BPH presented to ED on 05/06 from [place]
[facility] for cough, SOB and bradycardia. He has had decreased responsiveness and lethargy for the past few days.
He was recently admitted to from 04/12 to 04/18 and was found to have pleural effusions and cardiomegaly treated for CHF as well as for contaminant possible Pneumonia and chronic LE wounds. He was treated with ab's. He also had asymptomatic
bradycardia as low as 40's.
Patient has a complicated prolonged history required pacemaker insertion, prolonged IV antibiotics, was feeling better but then developed acute hypoxic respiratory failure secondary to CHF exacerbation and was started on Lasix drip, worsening kidney
function, patient and family requested comfort measures only, hospice consulted.
Patient will be admitted under inpatient hospice.
Today 05/18/2025 Mr. Gibbons at 1:34 pm comfortably surrounded by family.
Discharge Plan
-
Patient Disposition:
Date/Time
Date/Time: 05/18/25 13:34
Discharge Date and Time
Discharge Date/Time: 05/18/25 13:34
Print Language: [employer]

Documented by User: Samra Arguello MD 05/19/25 07:52
Discharge Summary
Discharge Data
Date of Admission: 05/17/25
Date of Discharge: 05/19/25
Discharge Plan
-
Patient Disposition:
Date/Time
Date/Time: 05/18/25 13:34
Discharge Date and Time
Discharge Date/Time: 05/18/25 13:34
Print Language: [employer] [place] [employer]
== END 2025-05-18 13:34 | disposition expired | DRG 871 ==
LOC: 2 NORTH 11:56
PROVIDERS: ADMITTING PHYSICIAN General Practice
DX: A41.9 Sepsis, unspecified organism (principal); I50.33 Acute on chronic diastolic (congestive) heart failure; J96.01 Acute respiratory failure with hypoxia; N17.9 Acute kidney failure, unspecified; N18.4 Chronic kidney disease, stage 4 (severe); I48.21 Permanent atrial fibrillation; R65.20 Severe sepsis without septic shock; Z66 Do not resuscitate; Z51.5 Encounter for palliative care; E03.9 Hypothyroidism, unspecified; Z79.01 Long term (current) use of anticoagulants
CPT/HCPCS: 82962